=== PATIENT | male | born 1985 | race Caucasian/White ===

== ENCOUNTER 2017-06-04 10:35 | Emergency (ER) | payer BC, OTHER ==
[~2017-06-04] VITALS: Ht 177.8 cm; Wt 115.2 kg
[2017-06-04 10:50] VITALS: TEMP 36.8; Ht 177.8 cm; Wt 115.2 kg
[2017-06-04 11:34] VITALS: BP 159/106; PULSE 108; O2SAT 97
[2017-06-04] MEDS ORDERED: PRLSR20 PO (11:34)
--- NOTE | 2017-06-04 13:45 | EMERGENCY ROOM VISIT NOTE ---
History First contact with patient: 11:10 Chief Complaint: NOSE BLEED (MINOR) Stated Complaint: NOSE BLEED History of Present Illness The patient is a 31 year old male who presents to the Emergency Room with complaints of a nosebleed from the right nostril. The patient reports that he has noticed blood in mucus after blowing his nose since yesterday. He denies any recent upper respiratory infection, sinus congestion, sore throat or postnasal drip. The patient has hot water heat in his house. He denies prior history of nosebleeds. Denies any recent trauma to the nose. He currently denies any active bleeding. Review of Systems 10 system review was performed and was negative except for pertinent positives and negatives as indicated in history of present illness Past Medical/Surgical History Medical Problems: (1) Asthma (2) Diaphragmatic Hernia (3) GERD (gastroesophageal reflux disease) (4) Hypertension (5) Pneumonia, Organism Nos Surgical Problems: (1) No history of previous surgery Family History FH: heart disease FH: hypertension Social History Smoking Status: Current Every Day Smoker Alcohol Use: occasionally Marital Status: single Housing Status: lives with family Occupation Status: employed Current/Historical Medications Scheduled Omeprazole (Prilosec), 20 MG PO DAILY Physical Exam Vital Signs Date Time Temp Pulse Resp B/P (MAP) Pulse Ox O2 Delivery O2 Flow Rate FiO2 06/04/17 11:34 108 20 159/106 97 06/04/17 10:50 36.8 112 17 175/113 98 Room Air Physical Exam CONSTITUTIONAL: Healthy and well nourished. Alert and oriented X 3 with positive affect. HEENT: Normocephalic, atraumatic. Pupils equal, round and reactive. Examination of the ears does not show any TM bulging or air-fluid levels. Left nares are clear except for a very prominent Kiesselbach plexus. Examination of the right nostril shows evidence for bleeding from the Kiesselbach plexus with no additional proximal bleeding or unusual masses. No mucopurulent drainage. No tenderness to palpation or percussion of the frontal or maxillary sinuses. OROPHARYNX: No postnasal bleed or erythema noted. NECK: Full active range of motion without discomfort. RESPIRATORY: Clear to auscultation bilaterally with no wheezing, crackles, rhonchi or stridor. CARDIOVASCULAR: Regular rate and rhythm with no murmurs, rubs or gallops. INTEGUMENTARY: No rash or other significant dermatologic conditions noted. NEUROLOGIC: No focal neurologic deficits noted. Medical Decision & Procedures ED Course Patient history and physical exam were performed. Nurse's notes were reviewed. Vital signs were reviewed, showing a blood pressure 175/113. Examination shows an anterior epistaxis that is currently not bleeding. I explained to the patient that this is likely secondary to the dry air in his home. He was encouraged to use [place] nasal sprays to keep mucous membranes moist. He may also want to investigate in a humidifier. The patient was encouraged to administer and Afrin spray in the right nostril every 8 hours for the next 48 hours. If the patient has any persistent bleeding, he was instructed to administer 2 Afrin sprays followed by continuous direct pressure for 30 minutes. A nasal clamp was provided. He may return to the emergency department for any uncontrollable bleeding. The patient was happy with plan of care, and voiced understanding of all discharge instructions. Prior to discharge, the patient's blood pressure was rechecked and was found to be 159/106. Patient was instructed to follow-up with his PCP for a blood pressure recheck. He reports that he currently does not take medicines for his blood pressure, but his PCP has discussed this with him in the past. Medical Decision Medication Reconcilliation Current Medication List: was personally reviewed by me Blood Pressure Screening Patient's blood pressure: Elevated blood pressure Blood pressure disposition: Referred to PCP Impression Primary Impression: Epistaxis Additional Impression: Elevated blood pressure reading Departure Information Dispostion Home / Self-Care Condition GOOD Referrals Robbie Carson M.D. No Doctor, Assigned (PCP) Forms HOME CARE DOCUMENTATION FORM, IMPORTANT VISIT INFORMATION Patient Instructions My [facility], ED Nosebleed Additional Instructions Administer a spray of Afrin in the right nostril every 8 hours for the next 48 hours. Also use [place] nasal sprays to keep mucous membranes moist. If bleeding reoccurs, administer 2 Afrin sprays and apply CONTINUOUS direct pressure for 30 minutes. Return to the Emergency Department for uncontrollable bleeding. Follow-up with your family doctor as needed with any persistent nosebleeds. Your blood pressure was also elevated in the emergency department (175/113). Follow-up with your family doctor for blood pressure recheck. Problem Qualifiers
== END 2017-06-04 11:37 | disposition home or self-care (01) ==
LOC: C.EDB 10:36 → C.EDD 11:37
DX: R04.0 Epistaxis (principal); R03.0 Elevated blood-pressure reading, without diagnosis of hypertension; I10 Essential (primary) hypertension; K21.9 Gastro-esophageal reflux disease without esophagitis; J45.909 Unspecified asthma, uncomplicated; F17.200 Nicotine dependence, unspecified, uncomplicated; Z87.01 Personal history of pneumonia (recurrent); Z79.899 Other long term (current) drug therapy; Z82.49 Family history of ischemic heart disease and other diseases of the circulatory system

== ENCOUNTER 2018-01-18 12:10 | Emergency (ER) | payer BC ==
[~2018-01-18] VITALS: Ht 177.8 cm; Wt 101.0 kg
[~2018-01-18 12:10] MED LIST: PRLSR20 PO
[2018-01-18 12:31] VITALS: TEMP 36.7; Ht 177.8 cm; Wt 101.0 kg
[2018-01-18] MEDS ORDERED: HYDROCORTISONE HC 2.5% CRM 30GM TUBE EXT STA (13:42)
--- NOTE | 2018-01-18 13:53 | EMERGENCY ROOM VISIT NOTE ---
ED Visit Note First contact with patient: 13:11 CHIEF COMPLAINT: Rectal bleeding HISTORY OF PRESENT ILLNESS: This 32-year-old patient presents to the emergency department, ambulatory, complaining of rectal bleeding for the past 2 days. Patient states he was constipated earlier this week, and Monday morning had to strain to move his bowels. 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 The patient states he was feeling better Monday, however this morning upon awakening noticed blood in his underwear. He denies any bloody stools. He states he cleaned himself up this morning and laid back down, then when he got up again noticed he was continuing to bleed. The patient has had normal bowel movements the past 2 days. He denies any hematochezia or abdominal pain. He denies any lightheadedness or dizziness. Denies any palpitations or dyspnea. Patient denies any headache. He states he had some mild pain last night with a bowel movement, but denies any ongoing straining. The patient has taken no medications for his pain or bleeding. REVIEW OF SYSTEMS: A 10 system review of systems was performed with positives and pertinent negatives listed in the history of present illness. All other systems were reviewed and are negative. ALLERGIES: Ibuprofen MEDICATIONS: Prilosec PMH: None SOCIAL HISTORY: The patient lives locally with family. He denies drug, alcohol use. The patient admits to smoking cigarettes. PHYSICAL EXAM: VITALS: Vitals are noted on the nurse's note and reviewed by myself. Vital signs stable. GENERAL: This is a 32-year-old white male, in no acute distress, nondiaphoretic , well-developed well-nourished. SKIN: The skin was without rashes, erythema, edema, or bruising. There is no tenting of the skin. Capillary reflex less than 2 seconds. HEAD: Normocephalic atraumatic. EARS: External auditory canals clear, tympanic membranes pearly che without erythema or effusion bilaterally. EYES: Pupils equal round and reactive to light and accommodation. Conjunctivae without injection, sclerae without icterus. Extraocular movements intact. NOSE: Patent, turbinates without inflammation or discharge. No sinus tenderness. MOUTH: Mucous membranes moist. Tonsils are not enlarged. Pharynx without erythema or exudate. Uvula midline. Airway patent. Tongue does not deviate. NECK: Supple without nuchal rigidity. No lymphadenopathy. No thyromegaly. Cervical spine is nontender. No JVD. HEART: Regular rate and rhythm without murmurs gallops or rubs. LUNGS: Clear to auscultation bilaterally without wheezes, rales or rhonchi. No dullness to percussion. No retractions or accessory muscle use. ABDOMEN: Positive bowel sounds x 4. Normal tympanic percussion. Soft, nontender, without masses or organomegaly. Ramirez sign negative. No guarding or rebound tenderness. RECTAL - No rectal fissures. No skin tags appreciated. No active bleeding. There is a thrombosed external hemorrhoid noted at the 9 o'clock position. A sterile, water-soluble lubricant was applied to the examiner's finger prior to internal exam. Mild rectal vault tenderness. No obvious rectal masses. no fecal impaction. Stool Guaiac Test: Hemoccult positive. MUSCULOSKELETAL: No muscle atrophy, erythema, or edema noted. Full range of motion without joint tenderness in all extremities. No tenderness to palpation. Normal gait. Strength 5/5 throughout. NEURO: Patient was alert and oriented to person place and time. Normal sensation to light and sharp touch. Deep tendon reflexes 2+ throughout. No focal neurological deficits. EMERGENCY DEPARTMENT COURSE: The patient was seen and evaluated as above. I discussed with him options for treatment of the hemorrhoid including excision versus treatment with medications. The patient states he prefers to avoid any sort of procedure at this time, as his symptoms are improving. He states he is concerned due to the social factor of rectal bleeding and noticing blood on his pants. I offered him a work note, and he was appreciative of this. The patient was encouraged to use the Proctosol as directed on the hemorrhoid and follow-up on Monday with his PCP. The patient was provided with a work note, and encouraged to return to the emergency department or follow-up with a general surgeon for any worsening symptoms. All questions answered to patient' s satisfaction prior to discharge. The patient was in agreement with the assessment and plan. Discharge instructions reviewed, patient was discharged home in good condition. I attest that I have personally reviewed the patient's current medication list. Patient was found to have normal blood pressure on screening and does not require follow-up. Differential diagnosis includes thrombosed hemorrhoid, external hemorrhoid, internal hemorrhoid, anal fissures, GI bleed, malignancy, and others DIAGNOSIS: Hemorrhoid The chart was completed utilizing [employer] Speech voice recognition software. Grammatical errors, random word insertions, pronoun errors, and incomplete sentences are an occasional consequence of this system due to software limitations, ambient noise, and hardware issues. Any formal questions or concerns about the content, text, or information contained within the body of this dictation should be directly addressed to the provider for clarification. Current/Historical Medications Scheduled Omeprazole (Prilosec), 20 MG PO DAILY Allergies Coded Allergies: Ibuprofen (Unverified Allergy, Unknown, ., 06/04/17) Vital Signs Date Time Temp Pulse Resp B/P (MAP) Pulse Ox O2 Delivery O2 Flow Rate FiO2 01/18/18 14:04 87 20 143/97 98 01/18/18 12:31 36.7 117 20 149/101 97 Room Air Departure Information Impression Primary Impression: Hemorrhoid Dispostion Home / Self-Care Condition GOOD Referrals No Doctor, Assigned (PCP) Jaimie Willard MD Patient Instructions ED Hemorrhoids, [facility] Additional Instructions You were seen in the emergency department today for rectal hemorrhoids. Use Proctosol as prescribed 2-4 times per day, preferably after bowel movements. You should drink plenty of fluids and stay well hydrated as this can help soften your stool. Increasing your fiber intake can help with frequency and consistency of your stools. Fruits, vegetables, and whole grains are all good sources of dietary fibers. In addition, you might consider adding supplemental fiber to your diet as well (i.e. Benefiber, Fiber Choice, Metamucil). You may consider taking a stool softener until the hemorrhoid improves. Return to the Emergency Department if your current symptoms worsen despite treatment course outlined above, or if you develop any of the following symptoms : worsening abdominal pain, large amount of blood in the stool, black or tarry stools, fevers, chills, or uncontrollable vomiting. Problem Qualifiers Primary Impression: Hemorrhoid Hemorrhoid type: unspecified Qualified Codes: K64.9 - Unspecified hemorrhoids
[2018-01-18 14:04] VITALS: BP 143/97; PULSE 87; O2SAT 98
== END 2018-01-18 14:05 | disposition home or self-care (01) ==
LOC: C.EDB 12:11 → C.EDD 14:05
DX: K64.9 Unspecified hemorrhoids (principal); Z79.899 Other long term (current) drug therapy; Z88.6 Allergy status to analgesic agent; F17.200 Nicotine dependence, unspecified, uncomplicated

== ENCOUNTER 2020-04-12 10:26 | Inpatient (IN) ==
[2020-04-12] MEDS ORDERED: LORazepam 1 MG/2 ML VIAL IV STA ×2 (10:58→12:22)
[2020-04-12] MEDS ORDERED: FAMOTIDINE 20MG IV PUSH 20 MG/5 ML SYR IV STA (10:58)
[2020-04-12] MEDS ORDERED: SODIUM CHLORIDE 0.9% 1000ML 1,000 ML IV SCH (11:00)
[2020-04-12 11:40] LABS: Alanine Aminotransferase 101 U/L (12-78); Albumin Level 3.5 gm/dl (3.4-5.0); Aspartate Aminotransferase 107 U/L (15-37); BUN Creatinine Ratio 6.3 (10-20); Blood Urea Nitrogen 4 mg/dl (7-18); Calcium 8.7 mg/dl (8.5-10.1); Carbon Dioxide 23 mmol/L (21-32); Chloride 102 mmol/L (98-107); Creatinine Clr Calc Pharmacy 187.1 ml/min; Est GFR (Non-African American) 128.5; Glucose 99 mg/dl (70-99); Lipase 1342 U/L (73-393); Magnesium 1.3 mg/dl (1.8-2.4); Potassium 3.2 mmol/L (3.5-5.1); Sodium 139 mmol/L (136-145)
--- NOTE | 2020-04-12 11:44 | CT Scan Report ---
CERVICAL SPINE CT CT DOSE: 997.55 mGy.cm HISTORY: Tingling and numbness in hands and feet. fall, prior surgery TECHNIQUE: Multiaxial CT images of the cervical spine were performed and reformatted in the sagittal and coronal plane without the use of contrast. A dose lowering technique was utilized adhering to th e principles of ALARA. COMPARISON: None. FINDINGS: No acute fracture or subluxation within the cervical spine. Large anterior osteophytes at C 4-C5 are noted. There are flowing anterior osteophytes seen throughout the majority of the cervical s pine. Posterior fusion from the occiput through C3 with posterior screws and rods. The hardware appea rs intact. Widening at the C1-C2 interval is likely chronic as the C1-C2 articulations appear fused. There is also fusion of the bilateral C2 C3-C4 and C5-C7 facets. Prevertebral soft tissues are intact . Posterior decompression at the C1-C2 level. No significant central canal narrowing by CT technique. No pneumothorax. IMPRESSION: 1. No acute fractures within the cervical spine. 2. Postoperative changes within the upper cervical spine as described above. The hardware appears int act. ACT 112: Negative or not required by law. Electronically signed by: Pankaj Reed M.D. 04/12/2020 11:43 AM
--- NOTE | 2020-04-12 11:46 | CT Scan Report ---
HEAD CT NONCONTRAST CT DOSE: HISTORY: Weakness. Fall. TECHNIQUE: Multiaxial CT images of the head were performed without the use of intravenous contrast. A utomated exposure control was utilized for this study. A dose lowering technique was utilized adheri ng to the principles of ALARA. Comparison: None. Findings: A few partially opacified ethmoid air cells. The mastoid air cells are clear. Posterior fus ion at the occiput and extending into the upper cervical spine. This is only partially imaged on this study. The calvarium and skull base are intact. The ventricles and sulci are within normal limits. T here is no mass, hematoma, midline shift, or acute infarct. Impression: No acute intracranial abnormality. ACT 112: Negative or not required by law. Electronically signed by: Pankaj Reed M.D. 04/12/2020 11:45 AM
--- NOTE | 2020-04-12 11:47 | XRay Report ---
XR chest 1V portable HISTORY: Atypical chest pain. COMPARISON: Chest 02/10/2019. FINDINGS: There are low lung volumes with mild elevation of the right hemidiaphragm, unchanged. The c ardiac silhouette remains top normal in size. No pleural effusions. No pneumothorax. The lungs are cl ear. IMPRESSION: No change in ACT 112: Negative or not required by law. Electronically signed by: Pankaj Reed M.D. 04/12/2020 11:46 AM
[2020-04-12 11:51] LABS: Albumin Globulin Ratio 0.9 (0.9-2); Alkaline Phosphatase 206 U/L (45-117); Bilirubin,Total 1.7 mg/dl (0.2-1); Globulin 4.1 gm/dl (2.5-4.0); Total Protein 7.6 gm/dl (6.4-8.2); Troponin I < 0.015 ng/ml (0-0.045)
[2020-04-12 11:59] LABS: Hematocrit (blood only) 42.5 % (42-52); Hemoglobin 14.6 g/dL (14.0-18.0); Mean Corpuscular Hemoglobin 35.5 pg (25-34); Mean Corpuscular Hgb Conc 34.4 g/dL (32-36); Mean Corpuscular Volume 103.4 fL (80-100); Platelet Count 79 K/uL (130-400); RDW Coefficient of Variation 14.2 % (11.5-14.5); RDW Standard Deviation 53.6 fL (36.4-46.3); Red Blood Count 4.11 M/uL (4.7-6.1)
[2020-04-12] MEDS ORDERED: MoRPHine SULFATE 4 MG/ML 1 ML CARP\\VIAL IV STA (11:59)
[2020-04-12 12:16] LABS: INR 1.1 (0.9-1.1); Prothrombin Time 11.9 Seconds (9.0-12.0)
[2020-04-12] MEDS ORDERED: POTASSIUM CHLORIDE / WTR 10 MEQ/100 ML PLCT IV ONE (12:22)
--- NOTE | 2020-04-12 12:23 | Emergency Department Note ---
Impression & Plan Acute alcoholic pancreatitis, Alcohol withdrawal, Hypomagnesemia, Hypokalemia, Multiple rib fractures, Fall ED Provider Note Provider: Feng Yao MD DATE OF SERVICE:04/12/2020 CHIEF COMPLAINT: Nausea, abdominal pain, tremulous, numbness HISTORY OF PRESENT ILLNESS: Patient is a 34-year-old gentleman history of hypertension, GERD, asthma presenting today stating that over the past 2 to 3 days has had some tingling in his bilateral hands and feet as well as tremors. Patient denies any shortness of breath does report some lower chest pain in the epigastrium of the abdomen. States he said some generalized nausea abdominal upset her last several days. Some abdominal discomfort may be for 5 days ago improved with laxatives on Monday. Denies any diarrhea. Denies urinary symptoms. Denies weakness in the lower extremity but states he has been stumbling a bit more. States he did fall onto his buttocks 1 time but did not strike his head. States he is occasionally seeing a few spots in his eyes in both eyes but no difficulty speaking and no focal weakness is reported. Patient states he has been drinking more since he lost his job last drink around midnight last night. 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 REVIEW OF SYSTEMS: A total of 10 review of systems was obtained and negative except as stated above in the HPI. PAST MEDICAL HISTORY: As noted above MEDICATIONS: Reviewed her medications with the patient SOCIAL HISTORY: Currently unemployed lost his job at [employer], regular alcohol use PHYSICAL EXAM: GENERAL: alert and oriented on the stretcher appears somewhat tremulous and mildly diaphoretic Head: normocephalic and atraumatic EYES: No injection, discharge or icterus. PERRL NECK: Trachea midline. Supple. ENT: Mucous membranes pink and moist. Pharynx without erythema or exudate. LUNGS: Airway patent. No retractions. Breath sounds clear HEART: Regular rate and rhythm. No chest wall tenderness ABDOMEN: Soft with some very mild diffuse tenderness. No masses appreciated. SKIN: Acyanotic, warm, mildly diaphoretic EXTREMITIES: Without swelling, tenderness or deformity NEUROLOGICAL: No aphasia. No facial droop or slurred speech. Normal strength and tone in the extremities. Sensation to gross touch normal but states he is a bit of paresthesia in the bilateral soles of his feet. EK beats minute sinus tachycardia. No PVC. No acute ST segment elevation noted. QTc 452. Some T wave inversions in lead III and V1 and V2. CONTINUOUS CARDIAC MONITORING: was ordered and showed a heart rate of 115 bpm in sinus tachycardia GCS 15. Patient's laboratory studies and imaging reviewed. Differential includes Infection, dehydration, metabolic abnormality, hypo/hyperglycemia, electrolyte disturbance, anemia, hypoxia, cardiac sources, intracerebral event, toxicologic, neurologic, as well as other pathologies. IMPRESSION/MEDICAL DECISION MAKING: Patient presents complaining of some upper abdominal comfort tremors and some slight spots in his eyes. Minor fall reported but did not strike his head. Given his history of alcohol usage though did complete a CT of the head and cervical spine. Is a history of cervical spine fusion previously. No significant tenderness on exam. States little bit of numbness in the bilateral soles of the feet but otherwise appears neuro intact. Doubt large territory CVA. CT the head and cervical spine without acute abnormality. Laboratory studies show hypokalemia, significant hypomagnesemia, and mild transaminase elevation of bili elevation. Lipase is elevated concern for pancreatitis with his history of alcohol use. Seems more tremulous and tachycardic and hypertensive and plastic was at midnight believe he may be experiencing some alcohol withdrawal. Given some Ativan initially as well some Zofran with mild symptom improvement. Later given additional Ativan, potassium, magnesium, morphine for pain control and CT of the chest and abdomen pelvis was obtained to exclude other acute intrathoracic or intra-abdominal pathology. EKG shows sinus tachycardia troponin is undetectable. PE was excluded with a CT scan. CT scan did note of the sixth left rib fracture as well as groundglass opacities in the base of the lungs. Covid testing will be completed to exclude this and I think is mainly alcoholic pancreatitis. No other acute findings were noted on the CT the abdomen pelvis without notable collection or significant infiltrative enhancement of the pancreas. Clinical symptoms however do fit. The patient requires admission given the tachycardia hypertension tremor for possible alcohol withdrawal as well as his electrolyte abnormalities and concern for pancreatitis. He was in agreement. Hospitalist was contacted. Patient later was some hospitalization more tremor and given additional IV Valium here with some improvement although he continues to have hallucinations. Hospitalist is aware. Covid test was negative. DIAGNOSIS: Alcoholic pancreatitis, alcohol withdrawal with delirium tremens, h ypomagnesemia, hypokalemia DISPOSITION: Hospitalist will evaluate Patient was agreeable with this plan. Critical Care I have personally spent 40 minutes of critical care time in the direct management of this patient. This includes bedside care, interpretation of diagnostic studies, and testing, discussion with consultants, patient, and family members, and other required patient management activities. These 40 minutes is in excess of all separately billable procedures. Past Med/Surg History Medical History (Updated 04/12/20 @ 12:54 by Feng Yao M.D.) Asthma Elevated blood pressure reading Epistaxis GERD (gastroesophageal reflux disease) Hypertension Surgical History (Updated 02/10/19 @ 00:55 by Jaxson Lyon) Hx of fusion of cervical spine Family History (Updated 02/10/19 @ 00:56 by Jaxson Lyon) Other No significant family history Social History (Updated 02/10/19 @ 00:56 by Jaxson Lyon) Smoking Status: Current every day smoker Cigarettes Per Day: 1/4 cartridge per day; Hx Alcohol Use: Yes Hx Substance Use: No Preferred Language: German Communication Ability: Effective 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 Unverified 04/12/20 11:25 Home Meds Home Medications Medication Instructions Recorded Confirmed acetaminophen [Tylenol] 325 mg PO Q6H PRN 04/03/18 04/12/20 omeprazole 10 mg PO QAM 04/03/18 04/12/20 casanthranol-docusate sodium 1 cap PO DIRECTED PRN 04/12/20 04/12/20 [Laxative] Previous Rx's Medication Instructions Recorded cyclobenzaprine 10 mg PO TID PRN #15 tab 04/03/18 naproxen 500 mg PO BID PRN #20 tab 04/03/18 Results & Data (ED) Vital Signs Vital Signs - 24 hr 04/12/20 10:30 04/12/20 10:31 04/12/20 11:08 Temperature 36.9 C Temperature Source Oral Pulse Rate 111 H 111 H Pulse Rate [Right Finger] Pulse Rate from SpO2 Sensor Respiratory Rate 20 20 Respiratory Effort / Characteristics Respiratory Depth Respiratory Pattern Blood Pressure 176/110 H 176/110 H Blood Pressure [Left Arm] Blood Pressure Mean 118 132 Blood Pressure Mean [Left Arm] Blood Pressure Position [Left Arm] Pulse Oximetry 98 96 Oxygen Delivery Method Room Air Room Air Sepsis Recent Fever Within 48 Hours No Sepsis New/Unexplained Change in Mental Status No Sepsis Action Taken by Nursing No Action Required 04/12/20 11:11 04/12/20 11:23 04/12/20 11:27 Temperature Temperature Source Pulse Rate 115 H 110 H 117 H Pulse Rate [Right Finger] Pulse Rate from SpO2 Sensor 113 H 109 H 118 H Respiratory Rate 18 22 19 Respiratory Effort / Characteristics Respiratory Depth Respiratory Pattern Blood Pressure 150/104 H Blood Pressure [Left Arm] Blood Pressure Mean 117 Blood Pressure Mean [Left Arm] Blood Pressure Position [Left Arm] Pulse Oximetry 98 98 97 Oxygen Delivery Method Room Air Room Air Room Air Sepsis Recent Fever Within 48 Hours Sepsis New/Unexplained Change in Mental Status Sepsis Action Taken by Nursing 04/12/20 11:28 04/12/20 11:30 04/12/20 11:40 Temperature Temperature Source Pulse Rate 108 H 123 H Pulse Rate [Right Finger] 109 H Pulse Rate from SpO2 Sensor 110 H 121 H Respiratory Rate 18 17 19 Respiratory Effort / Characteristics Non-Labored Spontaneous Respiratory Depth Normal Respiratory Pattern Regular Blood Pressure Blood Pressure [Left Arm] 150/104 H Blood Pressure Mean Blood Pressure Mean [Left Arm] 119 Blood Pressure Position [Left Arm] Lying Pulse Oximetry 98 97 98 Oxygen Delivery Method Room Air Room Air Room Air Sepsis Recent Fever Within 48 Hours Sepsis New/Unexplained Change in Mental Status Sepsis Action Taken by Nursing 04/12/20 11:50 04/12/20 12:00 04/12/20 12:08 Temperature Temperature Source Pulse Rate 112 H 126 H 118 H Pulse Rate [Right Finger] Pulse Rate from SpO2 Sensor 116 H 124 H 117 H Respiratory Rate 26 H 25 H 23 Respiratory Effort / Characteristics Respiratory Depth Respiratory Pattern Blood Pressure 155/125 H Blood Pressure [Left Arm] Blood Pressure Mean 135 Blood Pressure Mean [Left Arm] Blood Pressure Position [Left Arm] Pulse Oximetry 98 98 98 Oxygen Delivery Method Room Air Room Air Room Air Sepsis Recent Fever Within 48 Hours Sepsis New/Unexplained Change in Mental Status Sepsis Action Taken by Nursing 04/12/20 12:09 04/12/20 12:10 04/12/20 12:35 Temperature Temperature Source Pulse Rate 127 H 129 H 100 H Pulse Rate [Right Finger] 126 H Pulse Rate from SpO2 Sensor 128 H 131 H 103 H Respiratory Rate 22 19 22 Respiratory Effort / Characteristics Respiratory Depth Respiratory Pattern Blood Pressure 141/107 H Blood Pressure [Left Arm] 141/107 H Blood Pressure Mean 113 Blood Pressure Mean [Left Arm] 118 Blood Pressure Position [Left Arm] Pulse Oximetry 97 97 98 Oxygen Delivery Method Room Air Room Air Room Air Sepsis Recent Fever Within 48 Hours Sepsis New/Unexplained Change in Mental Status Sepsis Action Taken by Nursing 04/12/20 12:40 04/12/20 12:42 04/12/20 12:50 Temperature Temperature Source Pulse Rate 123 H 119 H Pulse Rate [Right Finger] 128 H Pulse Rate from SpO2 Sensor 123 H 118 H Respiratory Rate 16 20 18 Respiratory Effort / Characteristics Non-Labored Spontaneous Respiratory Depth Normal Respiratory Pattern Regular Blood Pressure Blood Pressure [Left Arm] 141/107 H Blood Pressure Mean Blood Pressure Mean [Left Arm] 118 Blood Pressure Position [Left Arm] Lying Pulse Oximetry 98 97 96 Oxygen Delivery Method Room Air Room Air Room Air Sepsis Recent Fever Within 48 Hours Sepsis New/Unexplained Change in Mental Status Sepsis Action Taken by Nursing 04/12/20 13:00 04/12/20 13:10 04/12/20 13:20 Temperature Temperature Source Pulse Rate 117 H 110 H 130 H Pulse Rate [Right Finger] Pulse Rate from SpO2 Sensor 118 H 113 H 135 H Respiratory Rate 20 24 21 Respiratory Effort / Characteristics Respiratory Depth Respiratory Pattern Blood Pressure Blood Pressure [Left Arm] Blood Pressure Mean Blood Pressure Mean [Left Arm] Blood Pressure Position [Left Arm] Pulse Oximetry 97 98 97 Oxygen Delivery Method Room Air Room Air Room Air Sepsis Recent Fever Within 48 Hours Sepsis New/Unexplained Change in Mental Status Sepsis Action Taken by Nursing 04/12/20 13:30 Temperature Temperature Source Pulse Rate 119 H Pulse Rate [Right Finger] Pulse Rate from SpO2 Sensor Respiratory Rate 19 Respiratory Effort / Characteristics Respiratory Depth Respiratory Pattern Blood Pressure Blood Pressure [Left Arm] Blood Pressure Mean Blood Pressure Mean [Left Arm] Blood Pressure Position [Left Arm] Pulse Oximetry Oxygen Delivery Method Sepsis Recent Fever Within 48 Hours Sepsis New/Unexplained Change in Mental Status Sepsis Action Taken by Nursing Laboratory Data Result diagrams: 04/12/20 11:10 04/12/20 11:10 Lab Results 04/12/20 04/12/20 04/12/20 Range/Units 11:10 11:10 11:10 WBC 6.20 (4.8-10.8) K/uL RBC 4.11 L (4.7-6.1) M/uL Hgb 14.6 (14.0-18.0) g/dL Hct 42.5 (42-52) % MCV 103.4 H (80-100) fL MCH 35.5 H (25-34) pg MCHC 34.4 (32-36) g/dL RDW Std Deviation 53.6 H (36.4-46.3) fL RDW Coeff of Dianne 14.2 (11.5-14.5) % Plt Count 79 L (130-400) K/uL MPV 10.0 (7.4-10.4) fL Immature Gran % (Auto) 0.3 % Neut % (Auto) 66.2 % Lymph % (Auto) 16.9 % Mercer % (Auto) 16.1 % Eos % (Auto) 0.3 % Baso % (Auto) 0.2 % Neut # (Auto) 4.10 (1.4-6.5) K/uL Lymph # (Auto) 1.05 L (1.2-3.4) K/uL Mercer # (Auto) 1.00 H (0.11-0.59) K/uL Eos # (Auto) 0.02 (0-0.5) K/uL Baso # (Auto) 0.01 (0-0.2) K/uL Immature Gran # (Auto) 0.02 (0.00-0.02) K/uL Platelet Estimate Decreased L (Normal) PT Cancelled INR Cancelled Sodium 139 (136-145) mmol/L Potassium 3.2 L (3.5-5.1) mmol/L Chloride 102 (98-107) mmol/L Carbon Dioxide 23 (21-32) mmol/L Anion Gap 14.0 H (3-11) BUN 4 L (7-18) mg/dl Creatinine 0.62 (0.6-1.4) mg/dl Est Cr Clr Drug Dosing 187.1 ml/min Est GFR ( Amer) 149.0 Est GFR (Non-Af Amer) 128.5 BUN/Creatinine Ratio 6.3 L (10-20) Glucose 99 (70-99) mg/dl Calcium 8.7 (8.5-10.1) mg/dl Magnesium 1.3 L (1.8-2.4) mg/dl Total Bilirubin 1.7 H (0.2-1) mg/dl AST 107 H (15-37) U/L ALT 101 H (12-78) U/L Alkaline Phosphatase 206 H (45-117) U/L Troponin I < 0.015 (0-0.045) ng/ml Total Protein 7.6 (6.4-8.2) gm/dl Albumin 3.5 (3.4-5.0) gm/dl Globulin 4.1 H (2.5-4.0) gm/dl Albumin/Globulin Ratio 0.9 (0.9-2) Lipase 1342 H (73-393) U/L TSH 3.750 (0.300-4.500) uIu/ml COVID-19 Eval Order COVID-19 PCR (Negative) 04/12/20 04/12/20 04/12/20 Range/Units 11:49 13:28 13:28 WBC (4.8-10.8) K/uL RBC (4.7-6.1) M/uL Hgb (14.0-18.0) g/dL Hct (42-52) % MCV (80-100) fL MCH (25-34) pg MCHC (32-36) g/dL RDW Std Deviation (36.4-46.3) fL RDW Coeff of Dianne (11.5-14.5) % Plt Count (130-400) K/uL MPV (7.4-10.4) fL Immature Gran % (Auto) % Neut % (Auto) % Lymph % (Auto) % Mercer % (Auto) % Eos % (Auto) % Baso % (Auto) % Neut # (Auto) (1.4-6.5) K/uL Lymph # (Auto) (1.2-3.4) K/uL Mercer # (Auto) (0.11-0.59) K/uL Eos # (Auto) (0-0.5) K/uL Baso # (Auto) (0-0.2) K/uL Immature Gran # (Auto) (0.00-0.02) K/uL Platelet Estimate (Normal) PT 11.9 INR 1.1 Sodium (136-145) mmol/L Potassium (3.5-5.1) mmol/L Chloride (98-107) mmol/L Carbon Dioxide (21-32) mmol/L Anion Gap (3-11) BUN (7-18) mg/dl Creatinine (0.6-1.4) mg/dl Est Cr Clr Drug Dosing ml/min Est GFR ( Amer) Est GFR (Non-Af Amer) BUN/Creatinine Ratio (10-20) Glucose (70-99) mg/dl Calcium (8.5-10.1) mg/dl Magnesium (1.8-2.4) mg/dl Total Bilirubin (0.2-1) mg/dl AST (15-37) U/L ALT (12-78) U/L Alkaline Phosphatase (45-117) U/L Troponin I (0-0.045) ng/ml Total Protein (6.4-8.2) gm/dl Albumin (3.4-5.0) gm/dl Globulin (2.5-4.0) gm/dl Albumin/Globulin Ratio (0.9-2) Lipase (73-393) U/L TSH (0.300-4.500) uIu/ml COVID-19 Eval Order Covid19 Done at [facility] COVID-19 PCR NEGATIVE (Negative) Administered Medications Discontinued Medications Diazepam (Diazepam 5 Mg/Ml Inj 10ml Vial) 10 mg IV NOW STA Stop: 04/12/20 14:31 Last Admin: 04/12/20 14:37 Dose: 10 mg Documented by: [id number] Sodium Chloride (Nss 1000ml) 1,000 mls @ 999 mls/hr IV .Q1H1M SAM Stop: 04/12/20 12:00 Last Infusion: 04/12/20 12:40 Dose: 0 mls/hr Documented by: [id number] Admin: 04/12/20 11:27 Dose: 999 mls/hr Documented by: [id number] Famotidine (Pepcid 20mg Iv Push) 20 mg in 5 mls @ 2.5 mls/min IV NOW STA Stop: 04/12/20 10:59 Last Admin: 04/12/20 11:26 Dose: 2.5 mls/min Documented by: [id number] Lorazepam (Ativan) 1 mg in 2 mls @ 2 mls/min IV NOW STA Stop: 04/12/20 10:59 Last Admin: 04/12/20 11:26 Dose: 2 mls/min Documented by: [id number] Magnesium Sulfate/Dextrose (Magnesium Sulfate / D5w) 1 gm in 100 mls @ 200 mls/hr IV Q30M SAM Stop: 04/12/20 13:16 Last Infusion: 04/12/20 13:57 Dose: 0 mls/hr Documented by: [id number] Admin: 04/12/20 13:27 Dose: 200 mls/hr Documented by: [id number] Infusion: 04/12/20 13:21 Dose: 0 mls/hr Documented by: [id number] Admin: 04/12/20 12:41 Dose: 200 mls/hr Documented by: [id number] Potassium Chloride (K Mac / Wtr) 10 meq in 100 mls @ 100 mls/hr IV ONE ONE Stop: 04/12/20 13:21 Last Infusion: 04/12/20 13:56 Dose: 0 mls/hr Documented by: [id number] Admin: 04/12/20 12:41 Dose: 100 mls/hr Documented by: [id number] Lorazepam (Ativan) 1 mg in 2 mls @ 2 mls/min IV NOW STA Stop: 04/12/20 12:23 Last Admin: 04/12/20 13:27 Dose: 2 mls/min Documented by: [id number] Multivitamins 10 ml/ Thiamine HCl 100 mg/ Folic Acid 1 mg/Sodium Chloride 1,011.2 mls @ 1,011.2 mls/hr IV .Q1H ONE Stop: 04/12/20 14:02 Last Infusion: 04/12/20 14:41 Dose: 0 mls/hr Documented by: [id number] Admin: 04/12/20 13:27 Dose: 1,011.2 mls/hr Documented by: [id number] Ioversol (Optiray 320 125ml) 120 ml IV ONCE ONE Stop: 04/12/20 12:30 Last Admin: 04/12/20 12:29 Dose: 120 ml Documented by: [id number] Morphine Sulfate (Morphine Sulfate 4 Mg/Ml 1 Ml Carp\Vial) 4 mg IV NOW STA Stop: 04/12/20 12:00 Last Admin: 04/12/20 12:11 Dose: 4 mg Documented by: [id number] Discharge Plan Visit Data Chief Complaint: Anxiety Stated Complaint: abd pain ED Provider: Feng Yao Discharge Problem: Acute alcoholic pancreatitis, Alcohol withdrawal, Hypomagnesemia, Hypokalemia, Multiple rib fractures, Fall Patient Disposition: Admitted As Inpatient Discharge Instructions Interventions: ED Discharge Assessment Last Done: 04/12/20 16:10 Discharge Problem: Acute alcoholic pancreatitis Qualifiers: Acute pancreatitis complication: no infection or necrosis Qualified Code(s): K85.20 - Alcohol induced acute pancreatitis without necrosis or infection Alcohol withdrawal Qualifiers: Complication of substance-induced condition: uncomplicated Qualified Code(s): F10.230 - Alcohol dependence with withdrawal, uncomplicated Multiple rib fractures Qualifiers: Encounter type: initial encounter Fracture type: closed Laterality: left Qualified Code(s): S22.42XA - Multiple fractures of ribs, left side, initial encounter for closed fracture Fall Qualifiers: Encounter type: initial encounter Qualified Code(s): W19.XXXA - Unspecified fall, initial encounter
[2020-04-12] MEDS ORDERED: OPTIRAY 320 125ml IV ONE (12:29)
[2020-04-12 12:39] LABS: Basophils # (auto) 0.01 K/uL (0-0.2); Basophils % (auto) 0.2 %; Eosinophils # (auto) 0.02 K/uL (0-0.5); Eosinophils % (auto) 0.3 %; Immature Granulocytes # (auto) 0.02 K/uL (0.00-0.02); Immature Granulocytes % (auto) 0.3 %; Lymphocytes # (auto) 1.05 K/uL (1.2-3.4); Lymphocytes % (auto) 16.9 %; Monocytes % (auto) 16.1 %; Neutrophils % (auto) 66.2 %; Platelet Estimate Decreased (Normal)
[2020-04-12] MEDS: MAGNESIUM SULFATE / D5W 1 GM/100 ML BAG IV SCH ×2 (12:41→13:27)
--- NOTE | 2020-04-12 12:41 | CT Scan Report ---
CHEST CTA for PULMONARY ARTERIES CT DOSE: 1165.82 mGy.cm HISTORY: Atypical chest pain. Shortness of breath. TECHNIQUE: Multiaxial CT images of the chest were performed following the intravenous administration of contrast to evaluate the pulmonary arteries. Maximal intensity projection images were also obtaine d. A dose lowering technique was utilized adhering to the principles of ALARA. COMPARISON STUDY: Chest CTA 02/10/2019. FINDINGS: Normal caliber thoracic aorta with no evidence for dissection. The heart is normal in size. No pleural or pericardial effusions. No filling defects within the pulmonary arteries to suggest pul monary embolus. No mediastinal or hilar lymphadenopathy. Normal caliber esophagus. Acute to subacute left anterior fifth and sixth rib fractures. These are nondisplaced. No pneumothorax. The central air ways are patent. There are faint groundglass density seen within the bases of the bilateral lower lob es. This suggests a low-grade pneumonitis and could be due to a viral process. IMPRESSION: 1. No evidence for pulmonary embolus. 2. Acute to subacute left anterior fifth and sixth rib fractures. No pneumothorax. 3. Faint groundglass density seen within the base of the bilateral lower lobes. This suggests a low-g rade pneumonitis and could be due to a viral process. 4. Please refer to the same day abdomen and pelvis CT for further evaluation of the abdominal structu res. ACT 112: Negative or not required by law. Electronically signed by: Pankaj Reed M.D. 04/12/2020 12:39 PM
--- NOTE | 2020-04-12 12:46 | CT Scan Report ---
ABDOMEN AND PELVIS CT WITH IV CONTRAST CT DOSE: HISTORY: elevated lipase, upper abd pain, nausea TECHNIQUE: Multiaxial CT images of the abdomen and pelvis were performed following the use of intrave nous contrast. A dose lowering technique was utilized adhering to the principles of ALARA. COMPARISON STUDY: None. FINDINGS: Faint groundglass densities are noted at the lung bases. No pneumoperitoneum. No pneumatosi s. The bilateral sacroiliac joints are fused. Severe hepatic steatosis. Normal gallbladder. The main portal vein is patent. The spleen, adrenal glands, and kidneys are within normal limits. The pancreas enhances normally. No peripancreatic inflammatory change. No retroperitoneal lymphadenopathy. Normal caliber abdominal aorta. The bladder is unremarkable. No pelvic free fluid. No bowel wall thickening or obstruction. Normal appendix. Submucosal fat deposition seen within the ileum and proximal colon. This suggests chronic change. A few fluid-filled loops of small bowel within the midabdomen. No chao sition point to suggest an obstruction. IMPRESSION: 1. No bowel wall thickening or obstruction. 2. Normal appendix. 3. Severe hepatic steatosis. 4. The bilateral sacroiliac joints are fused. 5. Please refer to the same day chest CT for further evaluation of the lung bases. ACT 112: Negative or not required by law. Electronically signed by: Pankaj Reed M.D. 04/12/2020 12:45 PM
[2020-04-12] MEDS ORDERED: MULTI-VITAMIN INFUSION 10 ML, THIAMINE HCL 100 MG, FOLIC ACID 1 MG in SODIUM CHLORIDE 0... IV ONE (13:03)
[2020-04-12 14:08] LABS: Appearance Urine Clear (Clear); Bilirubin Urine Negative (Negative); Blood Urine Trace (Negative); Color Urine Yellow; Glucose Urine UA Negative (Negative); Ketones Urine Trace (Negative); Leukocyte Esterase Urine Negative (Negative); Nitrite Urine Negative (Negative); Protein Urine Negative (Negative); Urobilinogen Urine Negative (Negative)
[2020-04-12 14:23] LABS: Bacteria Urine Negative (Negative)
[2020-04-12] MEDS ORDERED: ACETAMINOPHEN 325 MG TAB PO PRN (16:28)
[2020-04-12] MEDS ORDERED: LORazepam 3 MG/6 ML VIAL IV PRN (16:28)
[2020-04-12] MEDS ORDERED: LORazepam 0.5 MG/1 ML VIAL IV PRN (16:28)
[2020-04-12] MEDS ORDERED: ATIVAN IV ALCOHOL WITHDRAWL IV PRN (16:28)
[2020-04-12] MEDS ORDERED: chlordiazePOXIDE ALCOHOL WITHDRAWL 25MG PO STA (16:28)
[2020-04-12] MEDS ORDERED: traMADol HCL 50 MG TABLET PO PRN (16:28)
[2020-04-12] MEDS ORDERED: LORazepam 2 MG/4 ML VIAL ONE (16:32)
[2020-04-12] MEDS ORDERED: POTASSIUM CHLORIDE CRTAB 20 MEQ TABCR PO SCH (16:45)
[2020-04-12] MEDS: LACTATED RINGER'S 1,000 ML IV SCH ×3 (16:47→23:42)
[2020-04-12] MEDS ORDERED: chlordiazePOXIDE HCl 25 MG CAP PO SCH (17:00)
[2020-04-12] MEDS ORDERED: STAT IV Infusion **Titration per Protocol STA (17:20)
[2020-04-12] MEDS ORDERED: LORazepam 2 MG/4 ML VIAL IV STA (17:25)
[2020-04-12] MEDS: DEXMEDETOMIDINE HCL 200 MCG in SODIUM CHLORIDE 0.9% 48 ML IV SCH ×3 (17:29→22:49)
--- NOTE | 2020-04-12 18:22 | History & Physical Report ---
Date of Service April 12, 2020 Assessment & Plan (1) Acute alcoholic pancreatitis: 34-year-old male with history of alcoholism, hypertension, GERD, ankylosing spondylitis Presenting with bilateral lower extremity tingling sensation and tremors, abdominal pain since this morning. Acute pancreatitis likely secondary to alcoholism Lipase 1342 CT abdomen pelvis: No peripancreatic inflammatory change. 1. No bowel wall thickening or obstruction. 2. Normal appendix. 3. Severe hepatic steatosis. 4. The bilateral sacroiliac joints are fused. 5. Please refer to the same day chest CT for further evaluation of the lung bases. N.p.o., LR at 250 cc/hr, replace and monitor electrolytes, GI consulted Delirium tremens, alcoholism Patient reports last drink was last night Drinks shots of vodka a day Alcohol level 30 Urine drug screen pending Patient's withdrawal symptoms escalating rapidly, transferred to ICU for Precedex initiation Alcohol withdrawal protocol ordered Will need to discuss regarding inpatient alcohol rehab once patient is clinically improved Left anterior rib fractures, fifth and sixth ribs S post mechanical fall Patient fell after losing his balance while trying to climb up steps CT head: No acute process CT abdomen pelvis: No injuries noted Incentive spirometry As needed analgesics held for now as patient is on a Precedex drip Hypokalemia and hypomagnesemia IV potassium and magnesium ordered Elevated LFTs Likely from alcoholism CT abdomen and pelvis:Severe hepatic steatosis. Normal gallbladder. The main portal vein is patent. Trend LFTs We will need close follow-up regarding severe hepatic steatosis Thrombocytopenia No signs of bleeding Likely from alcoholism History of hypertension Amlodipine listed on medication list but patient has not filled this since August 2019 Monitor GERD Usually on omeprazole Protonix IV daily DVT prophylaxis SCDs for now CODE STATUS Full code Disposition Lives at home with parents Discussion regarding inpatient alcohol rehab should be made Admission and Anticipated Discharge Date Admission Date: April 12, 2020 History of Present Illness Patient is a 34-year-old male with a history of alcoholism, hypertension, GERD, ankylosing spondylitis, degenerative disc disease Anxiety presenting with bilateral lower extremity tingling sensation abdominal pain which started this morning. Patient reports that he drinks 6 shots of vodka every day, last drink was last night. This morning patient started to have tingling sensation of bilateral lower extremities with some of tremors as well as epigastric abdominal pain. He also reports having an episode of fall yesterday and was feeling that his balance was off.. Patient was climbing up the steps when he lost his balance and landed on his chest. He has been having left-sided chest discomfort since that time. Denies shortness of breath, fevers or chills, cough, headache, dizziness. The ER, blood pressures 170/110, heart rate 111, saturating well on room air. Lipase found to be elevated at 1342. CT abdomen pelvis did not show any peripancreatic infiltration. Chest x-ray showing left inferior rib fractures of the fifth and sixth ribs. At the ER, patient was noted to be having tremors, shaking required doses of Ativan at 1 point, Valium 10 mg IV. Patient was seen and examined at room 241. Per RN, patient was having visual hallucinations earlier and was also being restless. On exam, the patient is awake, alert oriented x3, answers questions appropriately. The end of the exam, the patient was noted to be confused, trying to climb out of bed, and becoming combative with the staff. Shannan che was called. He was given 2 mg of IV Ativan, some improvement but again became combative and restless. Shannan che was again called, and he was given additional 2 mg of IV Ativan. I discussed the case with senior housekeeper on-call Dr. Canales for possible early delirium tremens, patient off Precedex drip. He was accepted to the ICU and was transferred promptly. Primary Care Provider: Geoffrey Burton DO Allergies Allergy/AdvReac Type Severity Reaction Status Date / Time ibuprofen Allergy Unknown . Unverified 04/12/20 11:25 Home Medications Home Medications Medication Instructions Recorded Confirmed Type acetaminophen [Tylenol] 325 mg PO Q6H PRN 04/03/18 04/12/20 History cyclobenzaprine 10 mg PO TID PRN #15 tab 04/03/18 04/12/20 Rx naproxen 500 mg PO BID PRN #20 tab 04/03/18 04/12/20 Rx omeprazole 10 mg PO QAM 04/03/18 04/12/20 History casanthranol-docusate sodium 1 cap PO DIRECTED PRN 04/12/20 04/12/20 History [Laxative] Past Med/Surg History Medical History (Updated 04/12/20 @ 12:54 by Feng Yao M.D.) Asthma Elevated blood pressure reading Epistaxis GERD (gastroesophageal reflux disease) Hypertension Surgical History (Updated 02/10/19 @ 00:55 by Jaxson Lyon) Hx of fusion of cervical spine Family History (Updated 02/10/19 @ 00:56 by Jaxson Lyon) Other No significant family history Social History (Updated 02/10/19 @ 00:56 by Jaxson Lyon) Smoking Status: Current every day smoker Cigarettes Per Day: 1/4 cartridge per day; Hx Alcohol Use: Yes Hx Substance Use: No Preferred Language: Korean Communication Ability: Effective Fountain Worker Required: No Beliefs That Will Affect Care: None Current Living Situation: Parent and Family Other Information That Helps Us Care for You: No Feels Safe at Home: Yes Safety Concerns: Feels Safe At This Time Assistive Devices: Glasses Review of Systems Review of Systems: All systems reviewed & are unremarkable except as noted in Subjective Physical Exam Physical Exam: General- oriented x 3--> then became agitated, confused, combative; not in distress, speaks in sentences with no effort or accessory muscle use Head- atraumatic Eyes- PERRL, EOMI, anicteric ENT- oropharynx clear Neck- supple, no JVD, no adenopathy, no thyromegaly; carotids +2/2, no bruits appreciated Lungs- clear to auscultation bilaterally, no rales/wheezes Heart- normal rate, regular rhythm; no murmur, no gallop, no rub appreciated Abdomen- normal bowel sounds, nondistended, soft, nontender, no masses or hepatosplenomegaly Extremities- no pretibial edema, no calf tenderness; peripheral pulses intact Positive tremors Neuro- alert, oriented x 3--> then became agitated, confused, combative; CN 2-12 grossly intact; motor 5/5 bilaterally;sensation 100% on all extremities; no other gross focal neurologic deficits Skin- warm & dry Results & Data Results & Data ([facility]) Vital Signs (Past 12 Hours) Vital Signs Temp Pulse Pulse Resp BP BP Pulse Ox 04/12/20 16:12 36.6 C 112 H 109/77 97 04/12/20 15:40 105 H 15 04/12/20 15:30 105 H 25 H 04/12/20 15:20 123 H 15 04/12/20 15:16 139 H 04/12/20 15:00 112 H 25 H 96 04/12/20 14:50 103 H 16 96 04/12/20 14:40 112 H 18 94 04/12/20 14:30 142 H 22 96 04/12/20 14:28 124 H 130 H 20 152/108 H 152/108 H 95 04/12/20 14:20 120 H 21 04/12/20 14:10 110 H 22 04/12/20 14:00 111 H 19 04/12/20 13:50 116 H 18 04/12/20 13:40 124 H 20 04/12/20 13:30 119 H 19 04/12/20 13:20 130 H 21 97 04/12/20 13:10 110 H 24 98 04/12/20 13:00 117 H 20 97 04/12/20 12:50 119 H 18 96 04/12/20 12:42 128 H 20 141/107 H 97 04/12/20 12:40 123 H 16 98 04/12/20 12:35 100 H 22 98 04/12/20 12:10 129 H 126 H 19 141/107 H 97 04/12/20 12:09 127 H 22 141/107 H 97 04/12/20 12:08 118 H 23 155/125 H 98 04/12/20 12:00 126 H 25 H 98 04/12/20 11:50 112 H 26 H 98 04/12/20 11:40 123 H 19 98 04/12/20 11:30 108 H 17 97 04/12/20 11:28 109 H 18 150/104 H 98 04/12/20 11:27 117 H 19 150/104 H 97 04/12/20 11:23 110 H 22 98 04/12/20 11:11 115 H 18 98 04/12/20 11:08 96 04/12/20 10:31 36.9 C 111 H 20 176/110 H 98 04/12/20 10:30 111 H 20 176/110 H Laboratory Results Laboratory Results - last 24 hr 04/12/20 04/12/20 04/12/20 11:10 11:10 11:10 WBC 6.20 RBC 4.11 L Hgb 14.6 Hct 42.5 MCV 103.4 H MCH 35.5 H MCHC 34.4 RDW Std Deviation 53.6 H RDW Coeff of Dianne 14.2 Plt Count 79 L MPV 10.0 Immature Gran % (Auto) 0.3 Neut % (Auto) 66.2 Lymph % (Auto) 16.9 [place] % (Auto) 16.1 Eos % (Auto) 0.3 Baso % (Auto) 0.2 Neut # (Auto) 4.10 Lymph # (Auto) 1.05 L [place] # (Auto) 1.00 H Eos # (Auto) 0.02 Baso # (Auto) 0.01 Immature Gran # (Auto) 0.02 Platelet Estimate Decreased L PT Cancelled INR Cancelled Sodium 139 Potassium 3.2 L Chloride 102 Carbon Dioxide 23 Anion Gap 14.0 H BUN 4 L Creatinine 0.62 Est Cr Clr Drug Dosing 187.1 Est GFR ( Amer) 149.0 Est GFR (Non-Af Amer) 128.5 BUN/Creatinine Ratio 6.3 L Glucose 99 Calcium 8.7 Magnesium 1.3 L Total Bilirubin 1.7 H AST 107 H ALT 101 H Alkaline Phosphatase 206 H Troponin I < 0.015 Total Protein 7.6 Albumin 3.5 Globulin 4.1 H Albumin/Globulin Ratio 0.9 Lipase 1342 H Procalcitonin TSH 3.750 Urine Color Urine Appearance Urine pH Ur Specific [place] Urine Protein Urine Glucose (UA) Urine Ketones Urine Blood Urine Nitrite Urine Bilirubin Urine Urobilinogen Ur Leukocyte Esterase Urine RBC Urine WBC Ur Epithelial Cells Urine Bacteria Ethyl Alcohol mg/dL COVID-19 Eval Order COVID-19 PCR 04/12/20 04/12/20 04/12/20 11:10 11:49 13:28 WBC RBC Hgb Hct MCV MCH MCHC RDW Std Deviation RDW Coeff of Dianne Plt Count MPV Immature Gran % (Auto) Neut % (Auto) Lymph % (Auto) [place] % (Auto) Eos % (Auto) Baso % (Auto) Neut # (Auto) Lymph # (Auto) [place] # (Auto) Eos # (Auto) Baso # (Auto) Immature Gran # (Auto) Platelet Estimate PT 11.9 INR 1.1 Sodium Potassium Chloride Carbon Dioxide Anion Gap BUN Creatinine Est Cr Clr Drug Dosing Est GFR ( Amer) Est GFR (Non-Af Amer) BUN/Creatinine Ratio Glucose Calcium Magnesium Total Bilirubin AST ALT Alkaline Phosphatase Troponin I Total Protein Albumin Globulin Albumin/Globulin Ratio Lipase Procalcitonin 0.10 TSH Urine Color Urine Appearance Urine pH Ur Specific [place] Urine Protein Urine Glucose (UA) Urine Ketones Urine Blood Urine Nitrite Urine Bilirubin Urine Urobilinogen Ur Leukocyte Esterase Urine RBC Urine WBC Ur Epithelial Cells Urine Bacteria Ethyl Alcohol mg/dL COVID-19 Eval Order Covid19 Done at [facility] COVID-19 PCR 04/12/20 04/12/20 04/12/20 13:28 13:33 13:49 WBC RBC Hgb Hct MCV MCH MCHC RDW Std Deviation RDW Coeff of Dianne Plt Count MPV Immature Gran % (Auto) Neut % (Auto) Lymph % (Auto) [place] % (Auto) Eos % (Auto) Baso % (Auto) Neut # (Auto) Lymph # (Auto) [place] # (Auto) Eos # (Auto) Baso # (Auto) Immature Gran # (Auto) Platelet Estimate PT INR Sodium Potassium Chloride Carbon Dioxide Anion Gap BUN Creatinine Est Cr Clr Drug Dosing Est GFR ( Amer) Est GFR (Non-Af Amer) BUN/Creatinine Ratio Glucose Calcium Magnesium Total Bilirubin AST ALT Alkaline Phosphatase Troponin I Total Protein Albumin Globulin Albumin/Globulin Ratio Lipase Procalcitonin TSH Urine Color Yellow Urine Appearance Clear Urine pH 7.0 Ur Specific [place] 1.010 Urine Protein Negative Urine Glucose (UA) Negative Urine Ketones Trace H Urine Blood Trace H Urine Nitrite Negative Urine Bilirubin Negative Urine Urobilinogen Negative Ur Leukocyte Esterase Negative Urine RBC 10-30 H Urine WBC 5-10 H Ur Epithelial Cells 5-10 H Urine Bacteria Negative Ethyl Alcohol mg/dL 30.0 H COVID-19 Eval Order COVID-19 PCR NEGATIVE Code Status & VTE Plan Code Status Full COde VTE Prophylaxis Plan VTE Prophylaxis will be ordered: Yes (1) Acute alcoholic pancreatitis Acute pancreatitis complication: no infection or necrosis Qualified Code(s): K85.20 - Alcohol induced acute pancreatitis without necrosis or infection
[2020-04-12] MEDS ORDERED: Nursing to Pharmacy Communication SCH (18:45)
[2020-04-12] MEDS: THIAMINE HCL 100 MG in SYRINGE 9 ML IV SCH (19:26)
[2020-04-12] MEDS: FOLIC ACID 1 MG in SYRINGE 9.8 ML IV SCH (19:26)
[2020-04-12] MEDS: MAGNESIUM OXIDE 400 MG TAB PO SCH ×2 (19:27→20:19)
--- NOTE | 2020-04-12 19:30 | Critical Care Consultation ---
Date of Consultation April 12, 2020 Assessment & Plan (1) Delirium tremens: Reason Critically Ill: 34-year-old male admitted with alcoholic pancreatitis and alcohol withdrawals, now has progressed to delirium tremens requiring management with Precedex drip Neuro - Alcohol withdrawal/EtOH abuse/delirium tremenspatient with reported 6 shots of vodka daily alcohol use, now without alcohol for nearly 24 hours -EtOH level and the ED was 35 -CT head unremarkable -Patient has progressed from early signs of alcohol withdrawal with tremors and mild confusion to DTs and acute psychosis -Agitation and symptoms now improved with addition of Precedex drip, will continue KATHLEEN S scale with as needed Ativan in addition with scheduled IV Ativan as monotherapy with Precedex would not be recommended -Continue thiamine, folic acid regimen -We will continue to manage in ICU for the time being until patient is no longer requiring Precedex drip Cardiac - History of hypertension, no home meds on pharmacy rec -Currently normotensive, monitor Normal sinus rhythm on monitor, EKG unremarkable, troponin negative We will continue to monitor on telemetry Respiratory - No history of pulmonary disease, did present with complaints of chest pain following a fall a few days ago and was found to have left anterior rib fractures the fifth and sixth ribs -Currently there is no signs of respiratory distress and he is maintaining sats on room air -We will encourage incentive spirometry and ambulation once patient's DTs/neurological status has improved -Continue to monitor on pulse ox GI - Alcohol pancreatitispatient presented with elevated lipase of 1342 and complaints of abdominal pain -CT abdomen pelvis without peripancreatic inflammatory change, severe hepatic steatosis but otherwise unremarkable -LFTs are mildly elevated, will continue to trend hepatic function test and lipase GERDPPI RENAL/LYTES - Creatinine within normal limits Patient does present with hypokalemia and hypomagnesemia likely due to alcohol abuse/malnutrition -We will continue to monitor BMPs and replete as indicated - Foleystrict I's and O's ENDO - No history of diabetes or thyroid disease Currently euglycemic, ICU electrolyte protocol HEME - Thrombocytopeniaunsure of etiology at this time, but most likely secondary to bone marrow suppression from alcohol abuse -No signs of sepsis or infectious process, H&H is within normal limits, no leukocytosis or leukopenia -No signs of bleeding to indicate transfusion -We will continue to trend with routine CBCs for now ID - Currently no indication for infectious process at this time, monitor LINES/IV ACCESS - Peripheral IVs DVT PROPHYLAXIS - SCDs, Lovenox I have personally spent 35 minutes of critical care time in the direct management of this patient. This is a life/limb threatening event. This includes time spent evaluating patient, direct bedside care, chart review, placing orders, interpretation of diagnostic studies, discussion with consultants, patient, and family members, as well as other required patient management activities. This time is exclusive of all separately billable procedures, and teaching time and separate from and in addition to any other critical care service time. Thank you for allowing us to participate in the care of this patient. Please refer to my attending physician's documentation for any further recommendations. (2) Alcohol withdrawal: (3) Acute alcoholic pancreatitis: (4) Multiple rib fractures: (5) Thrombocytopenia: (6) GERD (gastroesophageal reflux disease): (7) Hypertension: History of Present Illness Attending Physician: Jordan Seals MD History of Present Illness alcohol abuse,Mr. Bhat is a 34-year-old male with history of HTN GERD, ankylosing spondylitis, and degenerative disc disease. Patient had presented to the emergency department earlier today with complaints of lower extremity tingling and abdominal pain that started early this morning. Patient was anxious and normally drinks they reported 6 shots of vodka every day with last drink previous night. He had elevated lipase however CT abdomen pelvis did not show any peripancreatic infiltration. Chest x-ray did reveal left anterior rib fractures of the fifth and sixth ribs. Patient showing symptoms of alcohol withdrawal and having tremors in the emergency department. This progressed to hallucinations and he became increasingly restless. He was given Ativan and admitted to PCU. At 1 point patient became combative and confused, and code che was in called. It appears patient has progressed to delirium tremens and was given additional Ativan and started on Precedex drip, and transferred to ICU for further management. Allergies Allergy/AdvReac Type Severity Reaction Status Date / Time ibuprofen Allergy Unknown . Unverified 04/12/20 11:25 Home Medications Home Medications Medication Instructions Recorded Confirmed Type acetaminophen [Tylenol] 325 mg PO Q6H PRN 04/03/18 04/12/20 History cyclobenzaprine 10 mg PO TID PRN #15 tab 04/03/18 04/12/20 Rx naproxen 500 mg PO BID PRN #20 tab 04/03/18 04/12/20 Rx omeprazole 10 mg PO QAM 04/03/18 04/12/20 History casanthranol-docusate sodium 1 cap PO DIRECTED PRN 04/12/20 04/12/20 History [Laxative] Patient History Medical History Asthma Elevated blood pressure reading Epistaxis GERD (gastroesophageal reflux disease) Hypertension Surgical History Hx of fusion of cervical spine Family History Other No significant family history Social History Smoking Status: Current every day smoker Cigarettes Per Day: 1/4 cartridge per day; Hx Alcohol Use: Yes Hx Substance Use: No Preferred Language: Croatian Communication Ability: Effective Home Assessment Nurse Required: No Beliefs That Will Affect Care: None Current Living Situation: Parent and Family Other Information That Helps Us Care for You: No Feels Safe at Home: Yes Safety Concerns: Feels Safe At This Time Assistive Devices: Glasses Review of Systems Review of Systems: Unobtainable due to cognitive status Physical Exam Constitutional: Patient is mildly sedated with Precedex drip but arousable with minor stimulation. He is still significantly confused but is resting com fortably. He does display mild tremors when awakened. Eyes: PERRL, conjunctivae normal, anicteric sclerae ENMT: external ear and nose normal, oropharynx normal Neck: trachea midline, no thyromegaly Respiratory: normal respiratory effort, lungs clear to auscultation Cardiovascular: RRR, no murmur, no edema Heart Sounds: normal S1 and normal S2; no murmur Vessels: no JVD Extremities: normal capillary refill; no edema Gastrointestinal (Abdomen): normal bowel sounds, soft, nontender, no hepatosplenomegaly Musculoskeletal: no cyanosis or clubbing, extremities motor strength 5/5 Skin: no rashes, warm and dry Neurologic: Neurological exam limited due to delirium tremens requiring sedation. He is able to follow simple commands, PERRLA, symmetrical movement and strength. Psychiatric: Patient does remain confused, but is currently calm and resting. Genitourinary: Indwelling Velásquez catheter present Results & Data Results & Data ([facility]) Vital Signs (Past 12 Hours) Vital Signs Temp Pulse Pulse Resp BP BP Pulse Ox 04/12/20 19:10 137 H 20 93 04/12/20 19:07 135 H 29 H 121/92 93 04/12/20 19:00 138 H 21 95 04/12/20 18:53 136 H 28 H 113/87 93 04/12/20 18:50 129 H 30 H 93 04/12/20 18:40 153 H 23 04/12/20 18:38 138 H 28 H 168/125 H 04/12/20 18:30 139 H 32 H 97 04/12/20 18:20 142 H 31 H 96 04/12/20 18:10 150 H 26 H 04/12/20 18:08 145 H 31 H 142/125 H 04/12/20 18:00 149 H 27 H 04/12/20 17:53 145 H 25 H 125/98 96 04/12/20 17:50 139 H 27 H 96 04/12/20 17:40 126 H 23 96 04/12/20 17:30 137 H 28 H 04/12/20 17:23 127 H 21 142/94 H 04/12/20 17:20 123 H 25 H 04/12/20 17:18 116 H 25 H 164/109 H 04/12/20 17:17 112 H 27 H 04/12/20 16:12 36.6 C 112 H 109/77 97 04/12/20 15:40 105 H 15 04/12/20 15:30 105 H 25 H 04/12/20 15:20 123 H 15 04/12/20 15:16 139 H 04/12/20 15:00 112 H 25 H 96 04/12/20 14:50 103 H 16 96 04/12/20 14:40 112 H 18 94 04/12/20 14:30 142 H 22 96 04/12/20 14:28 124 H 130 H 20 152/108 H 152/108 H 95 04/12/20 14:20 120 H 21 04/12/20 14:10 110 H 22 04/12/20 14:00 111 H 19 10/25/20 13:50 116 H 18 04/12/20 13:40 124 H 20 04/12/20 13:30 119 H 19 04/12/20 13:20 130 H 21 97 04/12/20 13:10 110 H 24 98 04/12/20 13:00 117 H 20 97 04/12/20 12:50 119 H 18 96 04/12/20 12:42 128 H 20 141/107 H 97 04/12/20 12:40 123 H 16 98 04/12/20 12:35 100 H 22 98 04/12/20 12:10 129 H 126 H 19 141/107 H 97 04/12/20 12:09 127 H 22 141/107 H 97 04/12/20 12:08 118 H 23 155/125 H 98 04/12/20 12:00 126 H 25 H 98 04/12/20 11:50 112 H 26 H 98 04/12/20 11:40 123 H 19 98 04/12/20 11:30 108 H 17 97 04/12/20 11:28 109 H 18 150/104 H 98 04/12/20 11:27 117 H 19 150/104 H 97 04/12/20 11:23 110 H 22 98 04/12/20 11:11 115 H 18 98 04/12/20 11:08 96 04/12/20 10:31 36.9 C 111 H 20 176/110 H 98 04/12/20 10:30 111 H 20 176/110 H Coding Level of Care Code Critical Care ea addt'l 30 min Diagnoses Delirium tremens F10.231 Alcohol withdrawal F10.230 Complication of substance-induced condition: uncomplicated Acute alcoholic pancreatitis K85.20 Acute pancreatitis complication: no infection or necrosis Multiple rib fractures S22.42XA Encounter type: initial encounter Fracture type: closed Laterality: left Thrombocytopenia D69.6 GERD (gastroesophageal reflux disease) K21.9 Hypertension I10 (1) Multiple rib fractures Encounter type: initial encounter Fracture type: closed Laterality: left Qualified Code(s): S22.42XA - Multiple fractures of ribs, left side, initial encounter for closed fracture (2) Alcohol withdrawal Complication of substance-induced condition: uncomplicated Qualified Code(s): F10.230 - Alcohol dependence with withdrawal, uncomplicated (3) Acute alcoholic pancreatitis Acute pancreatitis complication: no infection or necrosis Qualified Code(s): K85.20 - Alcohol induced acute pancreatitis without necrosis or infection
[2020-04-12] MEDS: MAGNESIUM SULFATE 50% 1 GM in 0.9 % SODIUM CHLORIDE 100 ML IV SCH ×2 (19:41→21:28)
[2020-04-12] MEDS: POTASSIUM CHLORIDE / WTR 10 MEQ/100 ML PLCT IV SCH ×4 (19:49→22:50)
[2020-04-12] MEDS ORDERED: ACETAMINOPHEN 650 MG SUPP PR PRN (20:50)
[2020-04-12] MEDS ORDERED: PANTOprazole 40 MG in SYRINGE 0 ML IV SCH (21:00)
[2020-04-12] MEDS: LORazepam 2 MG/4 ML VIAL IV SCH (21:47)
[2020-04-12] MEDS: DEXMEDETOMIDINE HCL 400 MCG in SODIUM CHLORIDE 0.9% 96 ML IV SCH (22:27)
[2020-04-12 22:33] LABS: Amphetamines+Metham, Urine Neg (Neg); Barbiturates, Urine Neg (Neg); Benzodiazepine, Urine Neg (Neg); Cocaine, Urine Neg (Neg); MDMA (Ecstacy), Urine Neg (Neg); Methadone, Urine Neg (Neg); Opiate, Urine Pos (Neg); Phencyclidine, Urine Neg (Neg)
[2020-04-13] MEDS: LORazepam 2 MG/4 ML VIAL IV SCH ×5 (02:55→20:47)
[2020-04-13] MEDS: LACTATED RINGER'S 1,000 ML IV SCH ×3 (03:56→15:38)
[2020-04-13 04:45] LABS: Hematocrit (blood only) 41.9 % (42-52); Hemoglobin 13.8 g/dL (14.0-18.0); Mean Corpuscular Hemoglobin 35.4 pg (25-34); Mean Corpuscular Hgb Conc 32.9 g/dL (32-36); Mean Corpuscular Volume 107.4 fL (80-100); RDW Coefficient of Variation 14.3 % (11.5-14.5); RDW Standard Deviation 55.8 fL (36.4-46.3); White Blood Count 4.32 K/uL (4.8-10.8)
[2020-04-13 05:08] LABS: Mean Platelet Volume 10.4 fL (7.4-10.4); Platelet Count 75 K/uL (130-400)
[2020-04-13 05:22] LABS: Basophils # (auto) 0.01 K/uL (0-0.2); Basophils % (auto) 0.2 %; Eosinophils # (auto) 0.03 K/uL (0-0.5); Eosinophils % (auto) 0.7 %; Giant Platelets 1+; Immature Granulocytes # (auto) 0.01 K/uL (0.00-0.02); Immature Granulocytes % (auto) 0.2 %; Lymphocytes # (auto) 0.89 K/uL (1.2-3.4); Lymphocytes % (auto) 20.6 %; Monocytes # (auto) 0.62 K/uL (0.11-0.59); Monocytes % (auto) 14.4 %; Neutrophils # (auto) 2.76 K/uL (1.4-6.5); Neutrophils % (auto) 63.9 %
[2020-04-13] MEDS: DEXMEDETOMIDINE HCL 400 MCG in 0.9 % SODIUM CHLORIDE 96 ML IV SCH ×6 (05:25→22:42)
[2020-04-13 05:29] LABS: Alanine Aminotransferase 79 U/L (12-78); Albumin Level 3.1 gm/dl (3.4-5.0); Alkaline Phosphatase 182 U/L (45-117); Aspartate Aminotransferase 74 U/L (15-37); BUN Creatinine Ratio 9.1 (10-20); Bilirubin,Total 1.8 mg/dl (0.2-1); Blood Urea Nitrogen 5 mg/dl (7-18); Calcium 8.3 mg/dl (8.5-10.1); Carbon Dioxide 27 mmol/L (21-32); Chloride 104 mmol/L (98-107); Creatinine Clr Calc Pharmacy 201.1 ml/min; Est GFR (African American) > 150.0; Est GFR (Non-African American) 132.1; Glucose 81 mg/dl (70-99); Lipase 1487 U/L (73-393); Magnesium 2.4 mg/dl (1.8-2.4); Phosphorus 2.6 mg/dl (2.5-4.9); Potassium 3.7 mmol/L (3.5-5.1); Sodium 138 mmol/L (136-145); Total Protein 6.8 gm/dl (6.4-8.2)
[2020-04-13] MEDS: DEXMEDETOMIDINE HCL 400 MCG in SODIUM CHLORIDE 0.9% 96 ML IV SCH (05:30)
[2020-04-13] MEDS: LORazepam 1 MG/2 ML VIAL IV PRN (05:33)
[2020-04-13] MEDS: POTASSIUM CHLORIDE / WTR 10 MEQ/100 ML PLCT IV SCH ×2 (06:15→07:43)
--- NOTE | 2020-04-13 06:18 | Critical Care Progress Note ---
Date of Service April 13, 2020 Assessment & Plan (1) Delirium tremens: Reason Critically Ill: 34-year-old male admitted for alcohol withdrawal which has progressed to delirium tremens, requiring management with vasopressors. Over the last 24 hours, patient has received schedule Ativan with minimal prn doses. No seizure activity since admission. Neuro - * Alcohol withdrawal/EtOH abuse/delirium tremens - Patient has progressed from early signs of alcohol withdrawal with tremors and mild confusion to DTs and acute psychosis - Agitation now improved with addition of Precedex drip - patient with reported 6 shots of vodka daily alcohol use, now without alcohol for nearly 40 hours - etoh level 35 on admission - continue AWSS scale with scheduled IV Ativan - continue high dose thiamine for 48 hours, reduce to 100mg, daily thereafter - continue folic acid supplementation - CT head unremarkable Cardiac - * Tachycardia - HR up to 118 today - likely secondary to ETOH withdrawal - sinus tach on EKG - continue telemetry * History of hypertension - not on pharmacotherapy per pharmacy - continue to monitor BP * Chest pain - reported on admission - troponin negative - EKG showing normal sinus rhythm without signs of ischemia - CXR found left anterior 5th and 6th rib fractures (possibly secondary to fall related to alcohol intoxication) - chest CTA from 03/20 showed no evidence of pneumothorax - incentive spirometry when neurological status improves - pain control prn; would avoid Tylenol given elevated in LFTs. Consider lidocaine patches Respiratory - - No history of pulmonary disease, no current respiratory distress - O2 sat 95% on 3L via NC - Chest CTA 04/12/20 showing faint groundglass density seen within the base of the bilateral lower lobes. Possibly related to aspiration. Minimal oxygen requirements. - patient is at risk for aspiration PNA given etoh intoxication - antibiotics not indicated at this time - incentive spirometry when able GI - * Elevated Lipase Level - lipase of 1342 on admission, up to 1487 today - concern for alcoholic pancreatitis - CT abdomen pelvis without peripancreatic inflammatory change - Abdomen US 04/12/20 showing no evidence of pancreatic inflammation - abdominal exam benign today, patient without pain to palpation - continue lactated ringers at 125mls/hr - will trial clear liquid diet; advance as tolerated * Fatty Liver - severe hepatic steatosis visualized on A/P CT scan - coags wnl - likely secondary to alcohol use disorder - GI following, appreciate recs * Transaminitis - AST 74, down from 107 - ALT 79, down from 101 - likely secondary to etoh use - continue to trend * Conjugated hyperbilirubinemia - Total bili elevated to 1.8, direct elevated to 1.0 - alk phos 182, down from 206 - LFTs elevated - No evidence of ductal dilation on CT of abdomen and pelvis - US of abdomen showing on ductal dilation or gallstones; obstructive etiology not suspected - likely hepatocellular etiology (toxin induced -etoh) - monitor liver function panel * GERD - continue home PPI RENAL/LYTES - * Hypokalemia - resolved - K 3.7 today * Hypomagnesemia - resolved - mag 2.4 today - Creatinine within normal limits - - Foleystrict I's and O's ENDO - - No history of diabetes or thyroid disease - ICU electrolyte protocol HEME - * Thrombocytopenia - 75K down, down from 79K on 04/12 - No signs of bleeding to indicate transfusion - etiology thought to be secondary to bone marrow suppression from alcohol abuse - not on heparin, patient not septic * Macrocytic anemia - Hgb 13.8, MCV 107.4 - likely secondary to ETOH use - continue thiamine and folate supplementation ID - * Pancytopenia - Platelets at 75K - WBC at 4.32 - RBC at 3.90 - possibly secondary to bone marrow suppression in the setting of heavy ETOH use - no infectious source suspected at this time - HIV testing ordered, patient with risk factors - MRSA nasal negative - COVID 19 neg LINES/IV ACCESS - Peripheral IVs DVT PROPHYLAXIS -SCDs, Lovenox CODE: Full Thank you for allowing us to participate in the care of this patient. Please refer to my attending physician's documentation for any further recommendations. (2) Alcohol withdrawal: (3) Acute alcoholic pancreatitis: (4) Multiple rib fractures: (5) Thrombocytopenia: (6) GERD (gastroesophageal reflux disease): (7) Hypertension: Admission and Anticipated Discharge Date Admission Date: April 12, 2020 Supervising Physician Co-Signing Physician Notes Dr. Martin was the resident-physician during care of patient. I separately evaluated patient for boo portions of the history and the exam. I was present during the critical portion of medical decision making, and I discussed the case with the resident. I generally agree with the findings and plan except for any additions/exceptions noted. Patient with active delirium tremens. He is a heavy alcohol drinker and drinks 6-8 3 ounce glasses of vodka a day per his admission. He denies any history of seizures or withdrawal in the past. Urine drug screen was negative. HIV screen is pending given the fact that he has multiple same-sex partners. He has evidence of pancytopenia possibly related to bone marrow suppression from alcohol drinking. He has very minimal groundglass in the lower lobes possibly related to atelectasis and/or aspiration pneumonitis. Continue Precedex drips and Ativan. Continue IV fluids. High-dose thiamine per protocol. Remain in ICU today. I have personally spent 38 minutes of critical care time in the direct management of this patient. This is a life/limb threatening event. This includes time spent evaluating patient, direct bedside care, chart review, placing orders, interpretation of diagnostic studies, discussion with consultants, patient, and/or family members regarding treatment decisions, as well as other required patient management activities. This time is exclusive of all separately billable procedures, and teaching time and separate from and in addition to any other critical care service time. Subjective Patient denies being in any pain, he states is tongue is dry. He asks for his cell phone. reports history of multiple same sex partners Review of Systems Review of Systems: All systems reviewed & are unremarkable except as noted in HPI & below Physical Exam Constitutional: WD/WN, vitals as above Eyes: + anicteric sclerae and EOM intact bilaterally wearing glasses ENMT: external ear and nose normal, oropharynx normal Neck: normal visual inspection and trachea midline Respiratory: normal respiratory effort; no respiratory distress and no cough Auscultation: no vesicular breath sounds (coarse) Cardiovascular: Rate/Rhythm: regular rhythm and + tachycardic Heart Sounds: normal S1 and normal S2; no murmur Extremities: no pedal edema Gastrointestinal (Abdomen): Inspection/Auscultation: + abdomen distended and normal bowel sounds Percussion/Palpation: abdomen soft; abdomen nontender and no guarding Skin: no rashes, warm and dry Psychiatric: Orientation: oriented to person and oriented to place Genitourinary: Indwelling pop catheter in place, draining place yellow urine without visible blood clots Results & Data Results & Data ([facility]) Vital Signs (Past 12 Hours) Vital Signs Temp Pulse Resp BP Pulse Ox 04/13/20 05:32 92 H 149/104 H 96 04/13/20 05:03 112 H 132/118 H 96 04/13/20 04:32 92 H 137/105 H 94 04/13/20 04:02 87 137/102 H 96 04/13/20 04:00 37.3 C 04/13/20 03:32 86 138/96 95 04/13/20 03:02 87 138/99 97 04/13/20 02:32 89 129/86 95 04/13/20 02:02 90 128/88 95 04/13/20 01:32 87 133/89 99 04/13/20 01:02 87 112/90 99 04/13/20 00:32 88 123/84 99 04/13/20 00:02 89 119/80 96 04/13/20 00:00 96 H 04/12/20 23:44 36.8 C 04/12/20 23:32 93 H 87/74 L 92 04/12/20 23:02 94 H 97/77 L 94 04/12/20 22:33 97 H 117/77 97 04/12/20 22:02 91 H 129/90 97 04/12/20 21:32 98 H 110/82 97 04/12/20 21:02 105 H 21 123/80 92 04/12/20 20:53 108 H 21 100/81 94 04/12/20 20:38 106 H 21 98/84 L 92 04/12/20 20:23 113 H 23 111/87 92 04/12/20 20:08 94 H 142/84 H 91 04/12/20 20:01 132 H 25 H 161/108 H 95 04/12/20 20:00 36.9 C 132 H 28 H 95 04/12/20 19:23 134 H 24 124/78 92 04/12/20 19:10 137 H 20 93 04/12/20 19:07 135 H 29 H 121/92 93 04/12/20 19:00 138 H 21 95 04/12/20 18:53 136 H 28 H 113/87 93 04/12/20 18:50 129 H 30 H 93 04/12/20 18:40 153 H 23 04/12/20 18:38 138 H 28 H 168/125 H 04/12/20 18:30 139 H 32 H 97 04/12/20 18:20 142 H 31 H 96 Resident Activity Tracking Resident Involvement: Resident Care Provided Care Provided: Adult Hospital Medicine (1) Multiple rib fractures Encounter type: initial encounter Fracture type: closed Laterality: left Qualified Code(s): S22.42XA - Multiple fractures of ribs, left side, initial encounter for closed fracture (2) Alcohol withdrawal Complication of substance-induced condition: uncomplicated Qualified Code(s): F10.230 - Alcohol dependence with withdrawal, uncomplicated (3) Acute alcoholic pancreatitis Acute pancreatitis complication: no infection or necrosis Qualified Code(s): K85.20 - Alcohol induced acute pancreatitis without necrosis or infection
--- NOTE | 2020-04-13 06:20 | Electrocardiogram Report ---
Test Reason : Blood Pressure : / mmHG Vent. Rate : 108 BPM Atrial Rate : 108 BPM P-R Int : 164 ms QRS Dur : 088 ms QT Int : 338 ms P-R-T Axes : 015 076 023 degrees QTc Int : 452 ms Poor data quality, interpretation may be adversely affected Sinus tachycardia Nonspecific ST and T wave abnormality Abnormal ECG When compared with ECG of 09-FEB-2019 23:50, No significant change was found Confirmed by Garland Ferraro ([id number]) on 04/13/2020 6:19:44 AM Referred By: REFERRED SELF Confirmed By:Garland Ferraro
[2020-04-13] MEDS: LORazepam 2 MG/4 ML VIAL IV PRN ×5 (07:42→22:42)
[2020-04-13] MEDS: ENOXAPARIN INJ 40 MG/0.4 ML SYR SQ SCH (08:34)
[2020-04-13] MEDS: FOLIC ACID 1 MG in SYRINGE 9.8 ML IV SCH (08:36)
[2020-04-13] MEDS: THIAMINE HCL 100 MG in SYRINGE 9 ML IV SCH (08:36)
--- NOTE | 2020-04-13 09:47 | Gastrointestinal Consultation ---
Date of Consultation April 13, 2020 Assessment & Plan (1) Alcohol withdrawal: (2) Elevated LFTs: (3) Pancreatitis: Pt is a 34 y/o male who presented after a fall, found to have ETOH intoxication and in active withdrawals. GI consulted for suspected ETOH pancreatitis, noted LFTs are up as well. CT abd/pelvis w signs of hepatic steatosis, patent portal vein and normal gallbladder. Maddrey Discriminant Function score <32. - Obtain RUQ u/s to r/o gallstones/biliary ductal dilation - NPO; IVF resuscitation w LR - Trend LFTs - ETOH cessation advised - GI to sign off; pls recall prn Supervising Physician Co-Signing Physician Notes I performed a history and physical examination of the patient today, including specifically on physical exam - soft abdomen. I have discussed the patient's management with the advanced practitioner. Please refer to the nurse practitioner's note for the documented findings and plan of care. Alcohol induced hepatitis/ pancreatitis. Continue supportive care. Low DF hence not a candidate for steroids. Sono with no gallstones. Recall GI if needed. History of Present Illness Reason for Consultation: ETOH pancreatitis Requesting Physician: Dr. Jordan Seals Attending Physician: Dr. Yolanda Carlos History of Present Illness Pt is a 34 y/o male w PMHx of asthma, HTN, GERD, who presented w c/o leg tingling, falls and abd pain symptoms. Upon evaluation he was found to be highly intoxicated and having ETOH withdrawal symptoms. Currently in ICU unit receiving Percedex. His labs showed elevated LFTs and lipase. CT abd/pelvis w signs of hepatic steatosis, patent portal vein, normal gallbladder. Pt's mental status is sluggish but oriented to place, self. He currently denies CP, SOB, abd pain, n/v. Denies any signs of GI bleeding. Allergies Allergy/AdvReac Type Severity Reaction Status Date / Time ibuprofen Allergy Unknown . Unverified 04/12/20 11:25 Home Medications Home Medications Medication Instructions Recorded Confirmed Type acetaminophen [Tylenol] 325 mg PO Q6H PRN 04/03/18 04/12/20 History cyclobenzaprine 10 mg PO TID PRN #15 tab 04/03/18 04/12/20 Rx naproxen 500 mg PO BID PRN #20 tab 10/16/18 10/25/20 Rx omeprazole 10 mg PO QAM 04/03/18 04/12/20 History casanthranol-docusate sodium 1 cap PO DIRECTED PRN 04/12/20 04/12/20 History [Laxative] Patient History Medical History Asthma Elevated blood pressure reading Epistaxis GERD (gastroesophageal reflux disease) Hypertension Surgical History Hx of fusion of cervical spine Family History Other No significant family history Social History Smoking Status: Current every day smoker Cigarettes Per Day: 1/4 cartridge per day; Hx Alcohol Use: Yes Hx Substance Use: No Preferred Language: [place] Citizen Communication Ability: Effective Super[employer] Required: No Beliefs That Will Affect Care: None Current Living Situation: Parent and Family Other Information That Helps Us Care for You: No Feels Safe at Home: Yes Safety Concerns: Feels Safe At This Time Assistive Devices: Glasses Review of Systems Review of Systems: All systems reviewed & are unremarkable except as noted in HPI & below Physical Exam Constitutional: + disheveled, cooperative and comfortable Eyes: PERRL, conjunctivae normal, anicteric sclerae ENMT: external ear and nose normal, oropharynx normal Respiratory: no respiratory distress and does not use accessory muscles Auscultation: + diminished lung sounds Cardiovascular: RRR, no murmur, no edema Gastrointestinal (Abdomen): normal bowel sounds, soft, nontender, no hepatosplenomegaly Skin: no rashes, warm and dry no jaundice Neurologic: Motor/Sensory: + tremor Psychiatric: Orientation: oriented to person, oriented to place and cooperative Lymphatic: no lymphedema Results & Data ([facility]) Vital Signs (Past 12 Hours) Vital Signs Temp Pulse Pulse Resp BP BP Pulse Ox 04/13/20 08:00 36.7 C 92 H 106 H 18 142/101 H 96 04/13/20 06:02 139/104 H 95 04/13/20 05:32 92 H 149/104 H 96 04/13/20 05:03 112 H 132/118 H 96 04/13/20 04:32 92 H 137/105 H 94 04/13/20 04:02 87 137/102 H 96 04/13/20 04:00 37.3 C 04/13/20 03:32 86 138/96 95 04/13/20 03:02 87 138/99 97 04/13/20 02:32 89 129/86 95 04/13/20 02:02 90 128/88 95 04/13/20 01:32 87 133/89 99 04/13/20 01:02 87 112/90 99 04/13/20 00:32 88 123/84 99 04/13/20 00:02 89 119/80 96 04/13/20 00:00 96 H 04/12/20 23:44 36.8 C 04/12/20 23:32 93 H 87/74 L 92 04/12/20 23:02 94 H 97/77 L 94 04/12/20 22:33 97 H 117/77 97 04/12/20 22:02 91 H 129/90 97 (1) Alcohol withdrawal Complication of substance-induced condition: uncomplicated Qualified Code(s): F10.230 - Alcohol dependence with withdrawal, uncomplicated
--- NOTE | 2020-04-13 10:01 | Ultrasound Report ---
US abdomen limited CLINICAL HISTORY: Abdominal pain elevated lipase, COMPARISON STUDY: CT scan dated 04/12/2020 FINDINGS: Pancreas appears sonographically normal. There is increased hepatic echogenicity, consistent with the patient's known hepatic steatosis. No gallstones are visualized. There is no ductal dilatation. The common bile duct measures 4 mm. There is no right-sided hydronephrosis. IMPRESSION: 1. No gallstones identified. No evidence of ductal dilatation 2. Increased hepatic echogenicity consistent with the patient's known hepatic steatosis ACT 112: Negative or not required by law. Electronically signed by: Jewel Mccoy M.D. 04/13/2020 9:59 AM
[2020-04-13] MEDS: PANTOprazole 40 MG in SYRINGE 0 ML IV SCH (10:51)
[2020-04-13 10:53] LABS: Hepatitis B Surface Antigen Neg (Neg)
[2020-04-13 11:22] LABS: Hepatitis C IgG 13Yrs+Old_Rflx Neg (Neg)
--- NOTE | 2020-04-13 11:46 | Billing Data ---
Date of Service April 13, 2020 Coding Level of Care Code Critical Care 1st 30-74 mins Time Spent (min) 38
[2020-04-13] MEDS: THIAMINE HCL 500 MG in 0.9 % SODIUM CHLORIDE 100 ML IV SCH ×2 (14:10→20:50)
--- NOTE | 2020-04-13 17:36 | Hospitalist Progress Note ---
Date of Service April 13, 2020 Assessment & Plan (1) Alcohol withdrawal: severe, cont Precedex and supportive care at this time. (2) Pancreatitis: acute alcoholic pancreatitis, cont IVF resuscitation and bowel rest at this time. ADAT Pain control as needed. Uncontrolled pain may contribute to delirium. (3) Elevated LFTs: Likely secondary to heavy alcohol use in setting of fatty liver disease seen on imaging. (4) Hypokalemia: replaced and repeat in am. (5) Multiple rib fractures: s/p fall. Again, supportive care with pain control measures as toleraed. (6) DVT prophylaxis: scds full dispo- cont ICU monitoring for now [facility] Admission and Anticipated Discharge Date Admission Date: April 12, 2020 Subjective sedated on precedex he awakens to voice but cannot tell me where he is or why he is here he is diaphoretic and delirious but appears calm at the moment it was reported by nursing that he climbed out of bed today at one point he was on vasopressor therapy within the last 24 hours and vitals appear more stable now. Review of Systems Review of Systems: Unobtainable due to cognitive status Physical Exam Physical Exam: CONSTITUTIONAL: WNWD, vitals as above, generally ill- appearing, confused EYES: PERRL, normal conjunctivae, no scleral icterus ENT: external ear and nose normal, MMM RESPIRATORY: clear to auscultation bilaterally, no crackles, rales or wheezes, normal respiratory effort CARDIOVASCULAR: regular rate and rhythm, S1 and 2 heard without murmurs, gallops or rubs, no JVD, no peripheral edema GASTROINTESTINAL: soft, nontender, nondistended, no guarding MUSCULOSKELETAL: strength -could not be assessed 2/2 sedation and delirium, head is normocephalic and atraumatic SKIN: warm and diaphoretic NEUROLOGIC: altered, delirious, cannot accurately be assessed 2/2 sedation PSYCHIATRIC: awakens to voice but is delirious and disoriented. Results & Data Results & Data ([facility]) Vital Signs (Past 12 Hours) Vital Signs Temp Pulse Pulse Resp BP BP Pulse Ox 04/13/20 16:00 36.5 C 92 H 73 16 129/94 94 04/13/20 14:00 92 H 23 128/96 97 04/13/20 12:00 96 H 20 133/97 97 04/13/20 10:00 101 H 18 126/96 96 04/13/20 08:00 36.7 C 92 H 106 H 18 142/101 H 96 04/13/20 06:02 139/104 H 95 Laboratory Results Short CBC 04/13/20 Range/Units 04:22 WBC 4.32 L (4.8-10.8) K/uL Hgb 13.8 L (14.0-18.0) g/dL Hct 41.9 L (42-52) % Plt Count 75 L (130-400) K/uL BMP 04/13/20 04:22 Sodium 138 Potassium 3.7 D Chloride 104 Carbon Dioxide 27 BUN 5 L Creatinine 0.58 L Glucose 81 Calcium 8.3 L Liver Function 04/13/20 Range/Units 04:22 Total Bilirubin 1.8 H (0.2-1) mg/dl Direct Bilirubin 1.0 H (0-0.2) mg/dl AST 74 H (15-37) U/L ALT 79 H (12-78) U/L Alkaline Phosphatase 182 H (45-117) U/L Albumin 3.1 L (3.4-5.0) gm/dl Medications Administered Current Inpatient Medications Enoxaparin Sodium (Enoxaparin Inj 40 Mg/0.4 Ml Syr) 40 mg SQ QAM SAM Stop: 05/13/20 08:59 Last Admin: 04/13/20 08:34 Dose: 40 mg Documented by: Lactated Ringer's (Lr) 1,000 mls @ 125 mls/hr IV .Q8H SAM Stop: 05/12/20 16:27 Last Admin: 04/13/20 15:38 Dose: 125 mls/hr Documented by: Folic Acid 1 mg/ Syringe 10 mls @ 5 mls/min IV QAM SAM Stop: 05/12/20 16:44 Last Admin: 04/13/20 08:36 Dose: 5 mls/min Documented by: Lorazepam (Ativan) 1 mg in 2 mls @ 2 mls/min IV UD PRN; Protocol PRN Reason: EtOH Withdrawl AWSS Score 6,7 Stop: 05/12/20 16:27 Last Admin: 04/13/20 05:33 Dose: 2 mls/min Documented by: Lorazepam (Ativan) 2 mg in 4 mls @ 4 mls/min IV UD PRN; Protocol PRN Reason: EtOH Withdrawl AWSS Score 8,9 Stop: 05/12/20 16:27 Last Admin: 04/13/20 07:42 Dose: 4 mls/min Documented by: Thiamine HCl 100 mg/ Syringe 10 mls @ 2 mls/min IV QAM COUNT INCLUDES THE [facility] Stop: 05/12/20 16:44 Last Admin: 04/13/20 08:36 Dose: 2 mls/min Documented by: Pantoprazole Sodium 40 mg/ (Syringe) 10 mls @ 5 mls/min IV DAILY@1100 COUNT INCLUDES THE [facility] Stop: 05/13/20 10:59 Last Admin: 04/13/20 10:51 Dose: 5 mls/min Documented by: Lorazepam (Ativan) 2 mg in 4 mls @ 4 mls/min IV Q6H COUNT INCLUDES THE [facility] Stop: 05/12/20 20:59 Last Admin: 04/13/20 13:06 Dose: 4 mls/min Documented by: Dexmedetomidine HCl 400 mcg/ (Sodium Chloride) 100 mls @ 32.48 mls/hr IV .Q3H5M COUNT INCLUDES THE [facility]; Protocol Stop: 04/17/20 04:59 Last Admin: 04/13/20 16:16 Dose: 1.4 mcg/kg/hr, 32.5 mls/hr Documented by: Thiamine HCl 500 mg/ Sodium (Chloride) 105 mls @ 210 mls/hr IV TID COUNT INCLUDES THE [facility] Stop: 04/14/20 21:29 Last Infusion: 04/13/20 14:40 Dose: Infused Documented by: (1) Multiple rib fractures Encounter type: initial encounter Fracture type: closed Laterality: left Qualified Code(s): S22.42XA - Multiple fractures of ribs, left side, initial encounter for closed fracture (2) Alcohol withdrawal Complication of substance-induced condition: uncomplicated Qualified Code(s): F10.230 - Alcohol dependence with withdrawal, uncomplicated
[2020-04-13] MEDS ORDERED: ZIPRASIDONE 20 MG/ML SDV IM ONE (22:43)
[2020-04-14] MEDS: DEXMEDETOMIDINE HCL 400 MCG in 0.9 % SODIUM CHLORIDE 96 ML IV SCH ×8 (01:48→22:42)
[2020-04-14] MEDS: LACTATED RINGER'S 1,000 ML IV SCH ×3 (01:49→19:32)
[2020-04-14] MEDS: LORazepam 2 MG/4 ML VIAL IV SCH ×8 (02:56→22:13)
[2020-04-14] MEDS: LORazepam 2 MG/4 ML VIAL IV PRN ×4 (04:05→21:26)
[2020-04-14 04:57] LABS: Hematocrit (blood only) 39.8 % (42-52); Hemoglobin 13.8 g/dL (14.0-18.0); Mean Corpuscular Hemoglobin 36.8 pg (25-34); Mean Corpuscular Hgb Conc 34.7 g/dL (32-36); Mean Corpuscular Volume 106.1 fL (80-100); RDW Coefficient of Variation 13.9 % (11.5-14.5); RDW Standard Deviation 53.7 fL (36.4-46.3); Red Blood Count 3.75 M/uL (4.7-6.1); White Blood Count 7.21 K/uL (4.8-10.8)
[2020-04-14 05:09] LABS: Mean Platelet Volume 11.5 fL (7.4-10.4); Platelet Count 79 K/uL (130-400)
[2020-04-14 05:23] LABS: Alanine Aminotransferase 62 U/L (12-78); Albumin Level 2.8 gm/dl (3.4-5.0); Aspartate Aminotransferase 58 U/L (15-37); Basophils # (auto) 0.01 K/uL (0-0.2); Basophils % (auto) 0.1 %; Blood Urea Nitrogen 6 mg/dl (7-18); Calcium 8.3 mg/dl (8.5-10.1); Carbon Dioxide 18 mmol/L (21-32); Chloride 109 mmol/L (98-107); Creatinine Clr Calc Pharmacy 194.4 ml/min; Eosinophils # (auto) 0.06 K/uL (0-0.5); Eosinophils % (auto) 0.8 %; Est GFR (African American) > 150.0; Est GFR (Non-African American) 130.3; Giant Platelets 1+; Glucose 83 mg/dl (70-99); Immature Granulocytes # (auto) 0.03 K/uL (0.00-0.02); Immature Granulocytes % (auto) 0.4 %; Lymphocytes # (auto) 1.44 K/uL (1.2-3.4); Magnesium 2.1 mg/dl (1.8-2.4); Monocytes % (auto) 13.9 %; Neutrophils # (auto) 4.67 K/uL (1.4-6.5); Neutrophils % (auto) 64.8 %; Potassium 3.8 mmol/L (3.5-5.1); Sodium 140 mmol/L (136-145)
[2020-04-14 05:26] LABS: Alkaline Phosphatase 180 U/L (45-117); Bilirubin,Total 1.8 mg/dl (0.2-1); Lipase 3961 U/L (73-393); Total Protein 6.7 gm/dl (6.4-8.2)
--- NOTE | 2020-04-14 07:09 | Critical Care Progress Note ---
Date of Service April 14, 2020 Assessment & Plan (1) Delirium tremens: Reason Critically Ill: 34-year-old male admitted for alcohol withdrawal which has progressed to delirium tremens, requiring management with vasopressors. Precedx currently at 1.5mls/hr. Over the last 24 hours, patient h as received scheduled Ativan with multiple prn doses and Ziprasidone x 1. Given his continued need for frequent prn Ativan, we will move his scheduled dosing to q4 hours. Continue to closely monitor his respiratory status with increased Ativan frequency. Patient potentially a phenobarbital candidate - will consider if patient's benzo requirement continues to increase. No seizure activity since admission. Neuro - * Alcohol withdrawal/EtOH abuse/delirium tremens - Patient has progressed from early signs of alcohol withdrawal with tremors and mild confusion to DTs and acute psychosis - Agitation now improved with addition of Precedex drip - patient with reported 6 shots of vodka daily alcohol use, now without alcohol for > 48 hours - etoh level 35 on admission - continue AWSS scale with scheduled IV Ativan 2mg, q4hrs + prn doses - continue high dose thiamine for 48 hours, reduce to 100mg, daily thereafter - continue folic acid supplementation - CT head unremarkable - recommend inpatient rehab for alcohol use disorder following discharge Cardiac - * Tachycardia - improving; HR ranged from 80-low 100s overnight - likely secondary to ETOH withdrawal - sinus tach on EKG; QTc elevated to 503 ms today; would hold off on further ziprasidone use until AT interval normalizes - continue telemetry * History of hypertension - not on pharmacotherapy per pharmacy - continue to monitor BP * Chest pain - reported on admission - troponin negative - EKG showing normal sinus tach without signs of ischemia - CXR found left anterior 5th and 6th rib fractures (possibly secondary to fall related to alcohol intoxication) - chest CTA from 03/20 showed no evidence of pneumothorax - incentive spirometry when neurological status improves - pain control prn; would avoid Tylenol given elevated in LFTs. Consider lidocaine patches * Prolonged QTc interval - 503ms on EKG 04/14, formal read pending - recommend no further administration of QT prolonging agents, such as Ziprasidone - repeat EKG daily to trend monitor QTc Respiratory - - No history of pulmonary disease, no current respiratory distress - O2 sat 95% on 3L via NC - Chest CTA 04/12/20 showing faint groundglass density seen within the base of the bilateral lower lobes. This suggests a low-grade pneumonitis and could be due to a viral process. - patient is at risk for aspiration PNA given etoh intoxication, however would have expected upper lung field involvement - antibiotics not indicated at this time - incentive spirometry when able GI - * Elevated Lipase Level - lipase of 1342 on admission, up to 3961 today - concern for alcoholic pancreatitis - CT abdomen pelvis without peripancreatic inflammatory change - Abdomen US 04/12/20 showing no evidence of pancreatic inflammation - abdominal exam benign today, patient without pain to palpation - continue lactated ringers, rate reduced to 80mls/hr - tolerating clear liquid diet; advance as tolerated * Fatty Liver - severe hepatic steatosis visualized on A/P CT scan - coags wnl - likely secondary to alcohol use disorder - GI following, appreciate recs * Transaminitis - AST 58, down from 74 - ALT 62, down from 79 - likely secondary to etoh use - Hepatitis panel pending - continue to trend * Conjugated hyperbilirubinemia - Total bili elevated to 1.8, direct elevated to 1.0 - alk phos 182, down from 206 - LFTs elevated - No evidence of ductal dilation on CT of abdomen and pelvis - US of abdomen showing on ductal dilation or gallstones; obstructive etiology not suspected - likely hepatocellular etiology (toxin induced -etoh) - monitor liver function panel * GERD - continue home PPI - ammonia level ordered RENAL/LYTES - * Hypokalemia - resolved - K 3.8 today * Hypomagnesemia - resolved - mag 2.1 today * Hypophosphatemia - Phos at 2.4 today; replacement ordered - Calcium corrects to normal with low albumin - Creatinine within normal limits - - Foleystrict I's and O's ENDO - - No history of diabetes or thyroid disease - ICU electrolyte protocol HEME - * Thrombocytopenia - 79K, up from 75K - No signs of bleeding to indicate transfusion - etiology thought to be secondary to bone marrow suppression from alcohol abuse - not on heparin, patient not septic - Coags WNL, no concern for DIC at this time * Macrocytic anemia - Hgb 13.8, MCV 107.4 - likely secondary to ETOH use - continue thiamine and folate supplementation ID - * Pancytopenia - Platelets at 75K - WBC normalized to 7.21, up from 4 on 04/13 - RBC at 3.75 - possibly secondary to bone marrow suppression in the setting of heavy ETOH use - no infectious source suspected at this time - HIV neg - MRSA nasal negative - COVID 19 neg LINES/IV ACCESS - Peripheral IVs DVT PROPHYLAXIS -SCDs, Lovenox CODE: Full Thank you for allowing us to participate in the care of this patient. Please refer to my attending physician's documentation for any further recommendations. (2) Alcohol withdrawal: (3) Acute alcoholic pancreatitis: (4) Multiple rib fractures: (5) Thrombocytopenia: (6) GERD (gastroesophageal reflux disease): (7) Hypertension: Admission and Anticipated Discharge Date Admission Date: April 12, 2020 Supervising Physician Co-Signing Physician Notes Dr. Martin Was the resident-physician during care of patient. I separately evaluated patient for boo portions of the history and the exam. I was present during the critical portion of medical decision making, and I discussed the case with the resident. I generally agree with the findings and plan except for any additions/exceptions noted. Patient with continued agitation and alcohol withdrawal. We are continuing Precedex drip and increasing scheduled Ativan to 2 mg every 4 hours from every 6 hours. Continue with as needed Ativan as well. If he continues to clinically deteriorate, we may have to consider the addition of phenobarbital. Continue high-dose thiamine at this time along with folic acid. Respiratory status is somewhat tenuous but he is oxygenating well on 2 L nasal cannula. We will continue to monitor this closely. Fall precautions are in place. He is currently in wrist restraints due to severe agitation and combative behavior. I have decreased his lactated Ringer's to 80 mL/h. Lipase is increased. Unclear clinical consequence as the patient does not have any significant abdominal pain. Appreciate gastroenterology follow-up. LFTs are trending downward. Continue Protonix 40 mg daily. Continue to maintain p.o. status given altered mental status. Hold on any further antipsychotic therapy given his prolonged QTC. Continue Lovenox 40 mg subcu. I have personally spent 38 minutes of critical care time in the direct management of this patient. This is a life/limb threatening event. This includes time spent evaluating patient, direct bedside care, chart review, placing orders, interpretation of diagnostic studies, discussion with consultants, patient, and/or family members regarding treatment decisions, as well as other required patient management activities. This time is exclusive of all separately billable procedures, and teaching time and separate from and in addition to any other critical care service time. Subjective Patient with continued confusion and oftentimes agitation. Currently on 1.5 of Precedex. Patient's family members have been in and out over the course of his ICU stay. Review of Systems Review of Systems: Unobtainable due to cognitive status Physical Exam Constitutional: WD/WN, vitals as above Eyes: + anicteric sclerae and EOM intact bilaterally ENMT: external ear and nose normal, oropharynx normal Neck: normal visual inspection and trachea midline Respiratory: normal respiratory effort; no respiratory distress and no cough Auscultation: no vesicular breath sounds (coarse) Cardiovascular: Rate/Rhythm: regular rhythm and + tachycardic Heart Sounds: normal S1 and normal S2; no murmur Extremities: no pedal edema Gastrointestinal (Abdomen): Inspection/Auscultation: + abdomen distended and normal bowel sounds Percussion/Palpation: abdomen soft; abdomen nontender and no guarding Skin: no rashes, warm and dry Psychiatric: Orientation: oriented to person Genitourinary: Velásquez cath in place draining yellow urine without visible blood clots Results & Data Results & [facility] ([facility]) Vital Signs (Past 12 Hours) Vital Signs Temp Pulse BP Pulse Ox 04/14/20 04:33 91 H 133/92 99 04/14/20 04:03 104 H 148/108 H 100 04/14/20 04:00 36.8 C 04/14/20 03:33 100 H 134/94 100 04/14/20 02:03 88 130/86 100 04/14/20 01:03 87 131/92 100 04/14/20 00:34 96 H 107/91 100 04/14/20 00:03 89 120/94 99 04/14/20 00:00 37.0 C 04/13/20 23:33 90 126/89 99 04/13/20 23:03 93 H 127/95 100 04/13/20 22:52 96 H 149/94 H 100 04/13/20 22:45 97 H 149/94 H 83 L 04/13/20 22:33 87 144/96 H 95 04/13/20 22:03 89 129/96 98 04/13/20 21:33 90 138/94 99 04/13/20 21:03 93 H 131/95 98 04/13/20 20:33 87 131/96 04/13/20 20:03 89 126/87 99 04/13/20 20:00 37.0 C 04/13/20 19:33 88 93/64 L 97 Resident Activity Tracking Resident Involvement: Resident Care Provided Care Provided: Adult Hospital Medicine (1) Multiple rib fractures Encounter type: initial encounter Fracture type: closed Laterality: left Q ualified Code(s): S22.42XA - Multiple fractures of ribs, left side, initial encounter for closed fracture (2) Alcohol withdrawal Complication of substance-induced condition: uncomplicated Qualified Code(s): F10.230 - Alcohol dependence with withdrawal, uncomplicated (3) Acute alcoholic pancreatitis Acute pancreatitis complication: no infection or necrosis Qualified Code(s): K85.20 - Alcohol induced acute pancreatitis without necrosis or infection
[2020-04-14] MEDS ORDERED: ZIPRASIDONE 20 MG/ML SDV IM ONE (07:34)
[2020-04-14 08:21] LABS: Hepatitis A Antibody IgM NON-REACTIVE (NON-REACTIVE); Hepatitis B Core Antibody IgM NON-REACTIVE (NON-REACTIVE)
[2020-04-14] MEDS ORDERED: SODIUM PHOSPHATE 3 MMOL/1 ML INFUSION IV STA (08:45)
[2020-04-14] MEDS ORDERED: SODIUM PHOSPHATE 15 MMOL in SODIUM CHLORIDE 0.9% 250 ML IV ONE (09:00)
[2020-04-14] MEDS: FOLIC ACID 1 MG in SYRINGE 9.8 ML IV SCH (09:57)
[2020-04-14] MEDS: ENOXAPARIN INJ 40 MG/0.4 ML SYR SQ SCH (09:58)
[2020-04-14] MEDS: THIAMINE HCL 500 MG in 0.9 % SODIUM CHLORIDE 100 ML IV SCH ×3 (10:32→20:21)
--- NOTE | 2020-04-14 11:16 | Billing Data ---
Date of Service April 14, 2020 Coding Level of Care Code Critical Care 1st 30-74 mins Time Spent (min) 38
--- NOTE | 2020-04-14 11:28 | Hospitalist Progress Note ---
Date of Service April 14, 2020 Assessment & Plan (1) Pancreatitis: -as per admission notes on 04/12/2020 " 34-year-old male with history of alcoholism, hypertension, GERD, ankylosing spondylitis Presenting with bilateral lower extremity tingling sensation and tremors, abdominal pain since this morning" -initial concerns were for acute alcoholic pancreatitis -however the CT abdomen pelvis without peripancreatic inflammatory change, and Abdomen US 04/12/20 showing no evidence of pancreatic inflammation (2) Elevated LFTs: Transaminitis, Elevated Lipase Level, Conjugated hyperbilirubinemia Fatty Liver -severe hepatic steatosis visualized on A/P CT scan -No evidence of ductal dilation on CT of abdomen and pelvis -US of abdomen showing on ductal dilation or gallstones; obstructive etiology not suspected -patient's abnormal liver function enzymes, bilirubin, and lipase are attributed to alcohol use and liver dysfunction Thrombocytopenia - etiology thought to be secondary to bone marrow suppression from alcohol abuse Macrocytic anemia - likely secondary to ETOH use - continue thiamine and folate supplementation (3) Alcohol withdrawal: Alcohol withdrawal/Alcohol abuse/delirium tremens -patient with reported 6 shots of vodka daily alcohol use when outpatient -etoh level 35 on admission -admitted for alcohol withdrawal which has progressed to delirium tremens, requiring management with vasopressors and ICU admission -as per 04/14/2020 critical care note that "Precedx currently at 1.5mls/hr. Over the last 24 hours, patient has received scheduled Ativan with multiple prn doses and Ziprasidone x 1. Given his continued need for frequent prn Ativan, we will move his scheduled dosing to q4 hours. Continue to closely monitor his respiratory status with increased Ativan frequency. Patient potentially a phenobarbital candidate - will consider if patient's benzo requirement continues to increase. No seizure activity since admission." - continue AWSS scale with scheduled IV Ativan 2mg, q4hrs + prn doses - continue high dose thiamine for 48 hours, reduce to 100mg, daily thereafter - continue folic acid supplementation Prolonged QTc interval -503ms on EKG 04/14/2020, ICU recommend no further administration of QT prolonging agents, such as Ziprasidone GERD -continue home PPI (4) Hypokalemia: -serum potassium 3.2 on 04/12/2020 -normalized after potassium supplementation on this admission (5) Multiple rib fractures: Left anterior rib fractures, fifth and sixth ribs -rib fractures were from mechanical fall when climbing up steps prior to hospital admission -CT head: No acute process -CT abdomen pelvis: No injuries noted -pain control while minimizing use of acetaminophen -will need incentive spirometer encouragement when more cognitive baseline -will need PT/OT assessments when more cognitive baseline (6) DVT prophylaxis: -SCDs Full code Admission and Anticipated Discharge Date Admission Date: April 12, 2020 Subjective Patient seen and examined in the ICU. Patient's nurse reports he was active 10 minutes ago but intermittently gets lethargic. patient on precedex drip and ativan prn to treat delirium tremens and alcohol withdrawal so the changes in the mental status are not unusual at this time. Patient able to hear hospitalist doctor and was able to repeat 1 or 2 words that hospitalist was saying. Patient made some effort to open his eyes on request and to track the penlight. Patient is not in acute distress but full review of systems could not be assessed due to cognitive status. Review of Systems Review of Systems: Unobtainable due to cognitive status Physical Exam Constitutional: + lethargic Eyes: EOM intact bilaterally ENMT: external ear and nose normal, oropharynx normal Neck: normal visual inspection Respiratory: normal respiratory effort, lungs clear to auscultation Cardiovascular: Rate/Rhythm: regular rate Gastrointestinal (Abdomen): normal bowel sounds, soft, nontender, no hepatosplenomegaly Musculoskeletal: Head/Neck/Chest: normocephalic and head atraumatic Neurologic: awake Psychiatric: Orientation: cooperative Patient seen and examined in the ICU. Patient's nurse reports he was active 10 minutes ago but intermittently gets lethargic. patient on precedex drip and ativan prn to treat delirium tremens and alcohol withdrawal so the changes in the mental status are not unusual at this time. Patient able to hear hospitalist doctor and was able to repeat 1 or 2 words that hospitalist was saying. Patient made some effort to open his eyes on request and to track the penlight. Patient is not in acute distress but full review of systems could not be assessed due to cognitive status Results & Data Results & Data ([facility]) Vital Signs (Past 12 Hours) Vital Signs Temp Pulse BP Pulse Ox 04/14/20 04:33 91 H 133/92 99 04/14/20 04:03 104 H 148/108 H 100 04/14/20 04:00 36.8 C 04/14/20 03:33 100 H 134/94 100 04/14/20 02:03 88 130/86 100 04/14/20 01:03 87 131/92 100 04/14/20 00:34 96 H 107/91 100 04/14/20 00:03 89 120/94 99 04/14/20 00:00 37.0 C 04/13/20 23:33 90 126/89 99 (1) Alcohol withdrawal Complication of substance-induced condition: uncomplicated Qualified Code(s): F10.230 - Alcohol dependence with withdrawal, uncomplicated (2) Multiple rib fractures Encounter type: initial encounter Fracture type: closed Laterality: left Qualified Code(s): S22.42XA - Multiple fractures of ribs, left side, initial encounter for closed fracture
[2020-04-14] MEDS: LORazepam 1 MG/2 ML VIAL IV PRN (11:59)
[2020-04-14] MEDS ORDERED: LORazepam 1 MG/2 ML VIAL IV STA (12:00)
[2020-04-14] MEDS ORDERED: LORazepam 2 MG/4 ML VIAL IV STA (12:00)
[2020-04-14] MEDS ORDERED: LORazepam 2 MG/4 ML VIAL IV SCH (13:00)
[2020-04-14] MEDS: PANTOprazole 40 MG in SYRINGE 0 ML IV SCH (14:26)
[2020-04-15] MEDS: DEXMEDETOMIDINE HCL 400 MCG in 0.9 % SODIUM CHLORIDE 96 ML IV SCH ×10 (01:28→23:24)
[2020-04-15] MEDS: LORazepam 2 MG/4 ML VIAL IV SCH ×6 (03:00→22:28)
[2020-04-15 05:39] LABS: Hematocrit (blood only) 42.8 % (42-52); Hemoglobin 14.2 g/dL (14.0-18.0); Mean Corpuscular Hemoglobin 36.1 pg (25-34); Mean Corpuscular Hgb Conc 33.2 g/dL (32-36); Mean Corpuscular Volume 108.9 fL (80-100); Platelet Count 124 K/uL (130-400); RDW Coefficient of Variation 13.9 % (11.5-14.5); RDW Standard Deviation 55.3 fL (36.4-46.3); Red Blood Count 3.93 M/uL (4.7-6.1); White Blood Count 7.78 K/uL (4.8-10.8)
[2020-04-15 05:43] LABS: Basophils # (auto) 0.02 K/uL (0-0.2); Basophils % (auto) 0.3 %; Eosinophils # (auto) 0.09 K/uL (0-0.5); Eosinophils % (auto) 1.2 %; Immature Granulocytes # (auto) 0.08 K/uL (0.00-0.02); Lymphocytes # (auto) 1.72 K/uL (1.2-3.4); Lymphocytes % (auto) 22.1 %; Monocytes # (auto) 1.32 K/uL (0.11-0.59); Neutrophils # (auto) 4.55 K/uL (1.4-6.5); Neutrophils % (auto) 58.4 %; RBC Morphology Unremarkable
[2020-04-15 05:47] LABS: Albumin Level 2.6 gm/dl (3.4-5.0); BUN Creatinine Ratio 9.1 (10-20); Bilirubin,Total 1.4 mg/dl (0.2-1); Calcium 8.3 mg/dl (8.5-10.1); Est GFR (African American) 140.1; Est GFR (Non-African American) 120.9; Total Protein 6.8 gm/dl (6.4-8.2)
--- NOTE | 2020-04-15 05:56 | Electrocardiogram Report ---
Test Reason : Blood Pressure : / mmHG Vent. Rate : 094 BPM Atrial Rate : 094 BPM P-R Int : 152 ms QRS Dur : 088 ms QT Int : 404 ms P-R-T Axes : 007 072 137 degrees QTc Int : 505 ms Poor data quality, interpretation may be adversely affected Normal sinus rhythm T wave abnormality, consider lateral ischemia Prolonged QT Abnormal ECG When compared with ECG of 12-APR-2020 11:05, T wave inversion now evident in Lateral leads QT has lengthened Confirmed by Garland Ferraro ([id number]) on 04/15/2020 5:56:20 AM Referred By: REFERRED SELF Confirmed By:Garland Ferraro
--- NOTE | 2020-04-15 06:06 | Critical Care Progress Note ---
Date of Service April 15, 2020 Assessment & Plan (1) Delirium tremens: Reason Critically Ill: 34-year-old male admitted for alcohol withdrawal which has progressed to delirium tremens, requiring management with vasopressors. Precedx currently at 1.5mls/hr. Over the last 24 hours, patient h as received scheduled Ativan with multiple prn doses. Overnight patient was given a total of 16mg of Ativan; continue to closely monitor his respiratory status with increased Ativan frequency. Patient potentially a phenobarbital candidate - will consider if patient's benzo requirement continues to increase. No seizure activity since admission. He has been without nutrition since admission (4 days), consider NG tube placement (although this will likely increase his agitation). Patient with new gapped metabolic acidosis today. Neuro - * Alcohol withdrawal/EtOH abuse/delirium tremens - Patient has progressed from early signs of alcohol withdrawal with tremors and mild confusion to DTs and acute psychosis - Agitation now improved with addition of Precedex drip (currently running at 1.5) - patient with reported 6 shots of vodka daily alcohol use, now without alcohol for > 72 hours - etoh level 35 on admission - continue AWSS scale with scheduled IV Ativan 2mg, q3hrs + prn doses - continue high dose thiamine for 48 hours, reduce to 100mg, daily thereafter - continue folic acid supplementation - CT head unremarkable - recommend inpatient rehab for alcohol use disorder following discharge Cardiac - * Tachycardia - improving; HR ranged from 80-low 100s overnight - likely secondary to ETOH withdrawal - sinus tach on EKG; QTc elevated to 503 ms; would hold off on further z iprasidone use until AT interval normalizes - continue telemetry * History of hypertension - not on pharmacotherapy per pharmacy - continue to monitor BP * Chest pain - reported on admission - troponin negative - EKG showing normal sinus tach without signs of ischemia - CXR found left anterior 5th and 6th rib fractures (possibly secondary to fall related to alcohol intoxication) - chest CTA from 03/20 showed no evidence of pneumothorax - incentive spirometry when neurological status improves - pain control prn; would avoid Tylenol given elevated in LFTs. Consider lidocaine patches * Prolonged QTc interval - 503ms on EKG 04/14, formal read pending - recommend no further administration of QT prolonging agents, such as Ziprasidone - repeat EKG daily to trend monitor QTc Respiratory - - No history of pulmonary disease, no current respiratory distress - O2 sat 95% on 3L via NC - Chest CTA 04/12/20 showing faint groundglass density seen within the base of the bilateral lower lobes. This suggests a low-grade pneumonitis and could be due to a viral process. - patient is at risk for aspiration PNA given etoh intoxication, however would have expected upper lung field involvement - antibiotics not indicated at this time - incentive spirometry when able GI - * Elevated Lipase Level - lipase of 1342 on admission, up to 3961 - concern for alcoholic pancreatitis - CT abdomen pelvis without peripancreatic inflammatory change - Abdomen US 04/12/20 showing no evidence of pancreatic inflammation - abdominal exam benign today, patient without pain to palpation - continue lactated ringers, rate reduced to 80mls/hr - tolerating clear liquid diet; advance as tolerated * Fatty Liver - severe hepatic steatosis visualized on A/P CT scan - coags wnl - likely secondary to alcohol use disorder - GI following, appreciate recs * Transaminitis - AST as high as 107, now normal - ALT as high as 101, now normalized - likely secondary to etoh use - Hepatitis panel negative * Conjugated hyperbilirubinemia - Total bili elevated to 1.8, direct elevated to 1.0 - alk phos 182, down from 206 - LFTs elevated on admission, now normal - No evidence of ductal dilation on CT of abdomen and pelvis - US of abdomen showing on ductal dilation or gallstones; obstructive etiology not suspected - likely hepatocellular etiology (toxin induced -etoh) * GERD - continue home PPI - ammonia level not elevated RENAL/LYTES - * Mild gapped metabolic acidosis - anion gap mildly increased to 17.5 (when corrected for low albumin) - bicarb trending down, despite bicarb drip running at 70mls/hr. - comparing drop in bicarb to rise in anion gap, suspect concomitant metabolic acidosis - Repeat BMP now - etiology unknown - alcoholic ketosis, starvation, lactate, solvent from Ativan are all possible causes - discussion with pharmacy revealed extremely high doses of Ativan need for solvent to cause acid/base disturbances (threshold unknown, but typically in patient's on Ativan drips) - UA 4+ for ketones * Hypochloremia - level at 111. - No diarrhea reported by nursing - suspect possible distal RTA * Hypokalemia - resolved - K 4.7 today * Hypomagnesemia - resolved - mag 2.2 today * Hypophosphatemia - Phos at 2.0 today; replacement ordered - Calcium corrects to normal with low albumin - Creatinine within normal limits - - Foleystrict I's and O's ENDO - - No history of diabetes or thyroid disease - ICU electrolyte protocol HEME - * Thrombocytopenia - 124 K, up from 79K - etiology thought to be secondary to bone marrow suppression from alcohol abuse - not on heparin, patient not septic - Coags WNL, no concern for DIC at this time * Macrocytic anemia - Hgb 13.8, MCV 107.4 - likely secondary to ETOH use - continue thiamine and folate supplementation ID - * Pancytopenia - Platelets improved to 124 - WBC normalized to 7.21, up from 4 on 04/13 - RBC at 3.75 - possibly secondary to bone marrow suppression in the setting of heavy ETOH use - no infectious source suspected at this time - HIV neg - MRSA nasal negative - COVID 19 neg LINES/IV ACCESS - Peripheral IVs DVT PROPHYLAXIS -SCDs, Lovenox CODE: Full Thank you for allowing us to participate in the care of this patient. Please refer to my attending physician's documentation for any further recommendations. (2) Alcohol withdrawal: (3) Acute alcoholic pancreatitis: (4) Multiple rib fractures: (5) Thrombocytopenia: (6) GERD (gastroesophageal reflux disease): (7) Hypertension: Admission and Anticipated Discharge Date Admission Date: April 12, 2020 Supervising Physician Co-Signing Physician Notes Dr. Martin Was the resident-physician during care of patient. I separately evaluated patient for boo portions of the history and the exam. I was present during the critical portion of medical decision making, and I discussed the case with the resident. I generally agree with the findings and plan except for any additions/exceptions noted. Patient continues with profound alcohol withdrawal. Ammonia levels within normal limits. He also has evidence of ongoing acidemia likely related to alcoholic/starvation ketoacidosis. Continue bicarb drip. Lacing an NG tube and starting on tube feeds. Continue Precedex and Ativan. 2 mg of Ativan every 4 hours are ordered. There is also an alcohol withdrawal protocol ordered. Karina nue thiamine and folic acid. Continue pantoprazole daily. His lipase is very elevated yesterday. Continue to follow for clinical symptoms of alcoholic pancreatitis. Appreciate GI input. Likely has hepatic steatosis. MDF score less than 32. Abdomen is soft. Replacing electrolytes per protocol. No evidence of infection at this time. Holding antibiotics. Rib fractures were noted from CT chest on 04/12. This appears stable. No evidence of hypoxemia or pneumothorax on the CT chest. We will repeat a chest x-ray after NG tube placement. Subjective Mother reports a family history of alcohol use disorder (her father and grandfather). Patient's family had no idea he was a heavy drinker - they would occasionally see him drink a beer while watching a football game. last BM was 04/13, although he has not had meaningful caloric intake since admission Review of Systems Psychiatric: + hallucinations Physical Exam Constitutional: WD/WN, vitals as above Eyes: + anicteric sclerae and EOM intact bilaterally ENMT: external ear and nose normal, oropharynx normal Neck: normal visual inspection and trachea midline Respiratory: normal respiratory effort; no respiratory distress and no cough Auscultation: no vesicular breath sounds (coarse) Cardiovascular: Rate/Rhythm: regular rhythm and + tachycardic Heart Sounds: normal S1 and normal S2; no murmur Extremities: no pedal edema Gastrointestinal (Abdomen): Inspection/Auscultation: + abdomen distended and normal bowel sounds Percussion/Palpation: abdomen soft; abdomen nontender and no guarding Skin: no rashes, warm and dry Psychiatric: Orientation: oriented to person Genitourinary: Velásquez catheter in place, draining yellow urine without visible blood clots Results & Data Results & Data ([facility]) Vital Signs (Past 12 Hours) Vital Signs Temp Pulse Resp BP Pulse Ox 04/15/20 03:55 37.0 C 81 133/95 100 04/15/20 02:57 81 119/90 100 04/15/20 01:58 81 126/97 100 04/15/20 00:57 81 109/79 100 04/15/20 00:44 80 115/83 100 04/15/20 00:00 36.6 C 04/14/20 22:58 90 147/111 H 100 04/14/20 21:57 81 108/81 100 04/14/20 20:57 85 152/105 H 100 04/14/20 20:44 84 33 H 129/99 100 04/14/20 20:19 36.8 C 04/14/20 19:38 88 129/93 100 04/14/20 19:04 81 19 125/82 100 Resident Activity Tracking Resident Involvement: Resident Care Provided Care Provided: Adult Hospital Medicine (1) Multiple rib fractures Encounter type: initial encounter Fracture type: closed Laterality: left Qualified Code(s): S22.42XA - Multiple fractures of ribs, left side, initial encounter for closed fracture (2) Alcohol withdrawal Complication of substance-induced condition: uncomplicated Qualified Code(s): F10.230 - Alcohol dependence with withdrawal, uncomplicated (3) Acute alcoholic pancreatitis Acute pancreatitis complication: no infection or necrosis Qualified Code(s): K85.20 - Alcohol induced acute pancreatitis without necrosis or infection
[2020-04-15 06:41] LABS: Bilirubin Direct 0.9 mg/dl (0-0.2); Magnesium 2.2 mg/dl (1.8-2.4); Potassium 4.4 mmol/L (3.5-5.1)
[2020-04-15] MEDS ORDERED: STAT IV STA (06:42)
[2020-04-15] MEDS: SODIUM BICARBONATE 8.4% 150 MEQ in DEXTROSE 5% 1,000 ML IV SCH ×2 (07:05→17:56)
[2020-04-15] MEDS ORDERED: SODIUM PHOSPHATE 3 MMOL/1 ML INFUSION IV STA (07:15)
[2020-04-15] MEDS: THIAMINE HCL 100 MG in SYRINGE 9 ML IV SCH ×2 (07:29→10:20)
[2020-04-15] MEDS ORDERED: SODIUM PHOSPHATE 24 MMOL in SODIUM CHLORIDE 0.9% 500 ML IV ONE (07:30)
[2020-04-15] MEDS ORDERED: POTASSIUM PHOSPHATE 24 MMOL in SODIUM CHLORIDE 0.9% 500 ML IV ONE (07:30)
[2020-04-15] MEDS: LORazepam 2 MG/4 ML VIAL IV PRN ×11 (07:59→21:08)
[2020-04-15] MEDS: ENOXAPARIN INJ 40 MG/0.4 ML SYR SQ SCH (08:15)
[2020-04-15] MEDS: FOLIC ACID 1 MG in SYRINGE 9.8 ML IV SCH (08:18)
--- NOTE | 2020-04-15 08:59 | Hospitalist Progress Note ---
Date of Service April 15, 2020 Assessment & Plan (1) Pancreatitis: -as per admission notes on 04/12/2020 " 34-year-old male with history of alcoholism, hypertension, GERD, ankylosing spondylitis Presenting with bilateral lower extremity tingling sensation and tremors, abdominal pain since this morning" -initial concerns were for acute alcoholic pancreatitis -however the CT abdomen pelvis without peripancreatic inflammatory change, and Abdomen US 04/12/20 showing no evidence of pancreatic inflammation (2) Elevated LFTs: Transaminitis, Elevated Lipase Level, Conjugated hyperbilirubinemia Fatty Liver -severe hepatic steatosis visualized on A/P CT scan -No evidence of ductal dilation on CT of abdomen and pelvis -US of abdomen showing on ductal dilation or gallstones; obstructive etiology not suspected -patient's abnormal liver function enzymes, bilirubin, and lipase are attributed to alcohol use and liver dysfunction Thrombocytopenia - etiology thought to be secondary to bone marrow suppression from alcohol abuse Macrocytic anemia - likely secondary to ETOH use - continue thiamine and folate supplementation (3) Alcohol withdrawal: Alcohol withdrawal/Alcohol abuse/delirium tremens -patient with reported 6 shots of vodka daily alcohol use when outpatient -etoh level 35 on admission -admitted for alcohol withdrawal which has progressed to delirium tremens, requiring management with vasopressors and ICU admission -as per 04/14/2020 critical care note that "Precedx currently at 1.5mls/hr. Over the last 24 hours, patient has received scheduled Ativan with multiple prn doses and Ziprasidone x 1. Given his continued need for frequent prn Ativan, we will move his scheduled dosing to q4 hours. Continue to closely monitor his respiratory status with increased Ativan frequency. Patient potentially a phenobarbital candidate - will consider if patient's benzo requirement continues to increase. No seizure activity since admission." -thiamine and folic acid supplementation -further management of alcohol withdrawal medications as per ICU physician Prolonged QTc interval -503ms on EKG 04/14/2020, ICU recommend no further administration of QT prolonging agents, such as Ziprasidone GERD -continue home PPI (4) Hypokalemia: -serum potassium 3.2 on 04/12/2020 -normalized after potassium supplementation on this admission Hypophosphatemia -serum phosphorous of 2 on 04/15/2020, patient receiving phosphorous supplements (5) Multiple rib fractures: Left anterior rib fractures, fifth and sixth ribs -rib fractures were from mechanical fall when climbing up steps prior to hospital admission -CT head: No acute process -CT abdomen pelvis: No injuries noted -pain control while minimizing use of acetaminophen -will need incentive spirometer encouragement when more cognitive baseline -will need PT/OT assessments when more cognitive baseline (6) DVT prophylaxis: -SCDs Full code Admission and Anticipated Discharge Date Admission Date: April 12, 2020 Subjective Patient remains on Precedex (Dexmedetomidine), also sodium bicarbonate, IV phosphorous. Patient awake but not at mental baseline. Patient appears oriented to person. He mumbles the speech. Patient allowed for physical exam but really could not answer full review of systems questions Review of Systems Review of Systems: Unobtainable due to cognitive status Physical Exam Constitutional: + lethargic Eyes: EOM intact bilaterally ENMT: external ear and nose normal, oropharynx normal Neck: normal visual inspection Respiratory: normal respiratory effort, lungs clear to auscultation Cardiovascular: Rate/Rhythm: regular rate Gastrointestinal (Abdomen): normal bowel sounds, soft, nontender, no hepatosplenomegaly Musculoskeletal: Head/Neck/Chest: normocephalic and head atraumatic Neurologic: awake Psychiatric: Orientation: oriented to person Results & Data Results & Data ([facility]) Vital Signs (Past 12 Hours) Vital Signs Temp Pulse BP Pulse Ox 04/15/20 07:00 81 94/75 L 96 04/15/20 05:58 82 125/94 97 04/15/20 05:01 83 132/98 100 04/15/20 03:57 81 133/95 100 04/15/20 03:55 37.0 C 81 133/95 100 04/15/20 02:57 81 119/90 100 04/15/20 01:58 81 126/97 100 04/15/20 00:57 81 109/79 100 04/15/20 00:44 80 115/83 100 04/15/20 00:00 36.6 C 04/14/20 22:58 90 147/111 H 100 04/14/20 21:57 81 108/81 100 04/14/20 20:57 85 152/105 H 100 (1) Alcohol withdrawal Complication of substance-induced condition: uncomplicated Qualified Code(s): F10.230 - Alcohol dependence with withdrawal, uncomplicated (2) Multiple rib fractures Encounter type: initial encounter Fracture type: closed Laterality: left Qualified Code(s): S22.42XA - Multiple fractures of ribs, left side, initial encounter for closed fracture
[2020-04-15] MEDS ORDERED: POT PHOSPHATE MONOBASIC W/ SOD TAB PO SCH (09:00)
[2020-04-15 10:09] LABS: Appearance Urine Clear (Clear); Bacteria Urine Automated Negative (Negative); Bilirubin Urine Negative (Negative); Blood Urine 2+ (Negative); Color Urine Yellow; Glucose Urine UA Negative (Negative); Ketones Urine 4+ (Negative); Leukocyte Esterase Urine Negative (Negative); Nitrite Urine Negative (Negative); Protein Urine 1+ (Negative); Specific Gravity Urine 1.019 (1.000-1.030); Urobilinogen Urine Negative (Negative)
[2020-04-15 11:19] LABS: BUN Creatinine Ratio 9.5 (10-20); Calcium 8.5 mg/dl (8.5-10.1); Creatinine Clr Calc Pharmacy 176.4 ml/min; Est GFR (African American) 145.2; Est GFR (Non-African American) 125.3; Potassium 4.7 mmol/L (3.5-5.1)
[2020-04-15] MEDS: PANTOprazole 40 MG in SYRINGE 0 ML IV SCH (11:20)
[2020-04-15] MEDS ORDERED: PEPTAMEN 1.5 CAL 1,000 ML BAG PO SCH (12:00)
--- NOTE | 2020-04-15 12:53 | Billing Data ---
Date of Service April 15, 2020 Coding Level of Care Code 56341 Subseq Obs Care Lvl 3
[2020-04-15 13:20] LABS: Codeine Urine NEGATIVE ng/mL (<50); Hydrocodone Urine NEGATIVE ng/mL (<50); Hydromor Urine NEGATIVE ng/mL (<50); Morphine Urine 1320 ng/mL (<50); Norhydrocodone Conf Ur NEGATIVE ng/mL (<50); Noroxycodone Urine 118 ng/mL (<50); Oxycodone Urine NEGATIVE ng/mL (<50); Oxymorph Urine NEGATIVE ng/mL (<50)
--- NOTE | 2020-04-15 14:10 | XRay Report ---
XR chest 1V portable CLINICAL HISTORY: NGT placement, follow up rib fx COMPARISON STUDY: Chest CT and chest radiograph April 12, 2020. FINDINGS: The tip of the nasogastric tube is within the body of the stomach. Cardiomediastinal silhou ette is stable. Left-sided rib fractures shown on CT of April 12, 2020 are not evident due to techn ique. Mild bibasilar opacities are noted, greater on the right. There is no pneumothorax or pleural e ffusion. There is no evidence for pulmonary edema. IMPRESSION: 1. Tip of nasogastric tube within the body of the stomach. 2. Increase in bibasilar opacities which may reflect an infectious process or less likely atelectasis . ACT 112: Negative or not required by law. Electronically signed by: Ray Haque M.D. 04/15/2020 2:09 PM
[2020-04-15] MEDS: PEPTAMEN 1.5 CAL 1,000 ML BAG NG SCH (15:07)
[2020-04-15] MEDS ORDERED: chlordiazePOXIDE HCl 5 MG CAP PO SCH (17:00)
[2020-04-15] MEDS: LACTATED RINGER'S 1,000 ML IV SCH ×3 (19:07→19:09)
[2020-04-16] MEDS: LORazepam 2 MG/4 ML VIAL IV PRN ×5 (00:04→09:24)
[2020-04-16] MEDS: DEXMEDETOMIDINE HCL 400 MCG in 0.9 % SODIUM CHLORIDE 96 ML IV SCH ×4 (01:09→18:45)
[2020-04-16] MEDS: LORazepam 1 MG/2 ML VIAL IV PRN ×2 (02:04→04:04)
[2020-04-16] MEDS: LORazepam 2 MG/4 ML VIAL IV SCH ×2 (03:04→07:12)
[2020-04-16] MEDS: SODIUM BICARBONATE 8.4% 150 MEQ in DEXTROSE 5% 1,000 ML IV SCH (03:17)
[2020-04-16 05:05] LABS: Basophils # (auto) 0.01 K/uL (0-0.2); Basophils % (auto) 0.2 %; Eosinophils # (auto) 0.07 K/uL (0-0.5); Eosinophils % (auto) 1.3 %; Hematocrit (blood only) 40.1 % (42-52); Hemoglobin 13.6 g/dL (14.0-18.0); Immature Granulocytes # (auto) 0.03 K/uL (0.00-0.02); Immature Granulocytes % (auto) 0.6 %; Lymphocytes # (auto) 0.87 K/uL (1.2-3.4); Lymphocytes % (auto) 16.2 %; Mean Corpuscular Hgb Conc 33.9 g/dL (32-36); Mean Corpuscular Volume 106.1 fL (80-100); Mean Platelet Volume 10.1 fL (7.4-10.4); Monocytes # (auto) 1.27 K/uL (0.11-0.59); Monocytes % (auto) 23.6 %; Neutrophils # (auto) 3.13 K/uL (1.4-6.5); Neutrophils % (auto) 58.1 %; Platelet Count 159 K/uL (130-400); RDW Coefficient of Variation 14.1 % (11.5-14.5); RDW Standard Deviation 54.6 fL (36.4-46.3); Red Blood Count 3.78 M/uL (4.7-6.1); White Blood Count 5.38 K/uL (4.8-10.8)
[2020-04-16 05:21] LABS: Albumin Globulin Ratio 0.7 (0.9-2); Albumin Level 2.6 gm/dl (3.4-5.0); BUN Creatinine Ratio 5.2 (10-20); Bilirubin,Total 1.4 mg/dl (0.2-1); Calcium 8.1 mg/dl (8.5-10.1); Creatinine Clr Calc Pharmacy 166.3 ml/min; Est GFR (African American) 141.7; Est GFR (Non-African American) 122.3; Phosphorus 1.9 mg/dl (2.5-4.9); Potassium 3.2 mmol/L (3.5-5.1); Total Protein 6.6 gm/dl (6.4-8.2)
--- NOTE | 2020-04-16 06:08 | Critical Care Progress Note ---
Date of Service April 16, 2020 Assessment & Plan (1) Delirium tremens: Reason Critically Ill: 34-year-old male admitted for alcohol withdrawal which has progressed to delirium tremens, requiring management with vasopressors. Over the last 24 hours, patient has received scheduled Ativan with multiple prn doses. Overnight patient was given a total of 18mg of Ativan. Due to this increased benzo requirement, we will transition patient from Ativan to Phenobarbital for continued management of withdrawal. His precedx drip will be discontinued and he will be started on clonidine. NG tube was placed yesterday, titrating feeds to goal today. Patient's gapped metabolic acidosis now resolved; bicarb drip will be discontinued at this time. Neuro - * Alcohol withdrawal/EtOH abuse/delirium tremens - ongoing - Patient has progressed from early signs of alcohol withdrawal with tremors and mild confusion to DTs and acute psychosis - patient with reported 6 shots of vodka daily alcohol use - family history of alcohol use disorder - etoh level 35 on admission - initially he required max dosing of Precedex. Plan to discontinue Precedex today, starting clonidine - initially was started on scheduled ativan + prn doses; patient was requiring excessive benzo requirements; plan to transition to phenobarbital today - continue thiamine (200mg, BID for 1 week) and folate supplementation to prevent Wernicke's/Korsokoffs - CT head unremarkable. consider MRI to assess for mamillary body necrosis - recommend inpatient rehab for alcohol use disorder following discharge Cardiac - * Tachycardia - resolved - improving; HR ranged from 80-low 100s overnight - likely secondary to ETOH withdrawal - sinus tach on EKG; QTc elevated to 503 ms; would hold off on further ziprasidone use until AT interval normalizes - continue telemetry * History of hypertension - not on pharmacotherapy per pharmacy - continue to monitor BP * Chest pain - reported on admission - troponin negative - EKG showing normal sinus tach without signs of ischemia - CXR found left anterior 5th and 6th rib fractures (possibly secondary to fall related to alcohol intoxication) - chest CTA from 03/20 showed no evidence of pneumothorax - incentive spirometry when neurological status improves - pain control prn; would avoid Tylenol given elevated in LFTs. Consider lidocaine patches * Prolonged QTc interval - 503ms on EKG 04/14 - recommend no further administration of QT prolonging agents, such as Ziprasidone Respiratory - - No history of pulmonary disease, no current respiratory distress - O2 sat 96% on 2L via NC - Chest CTA 04/12/20 showing faint groundglass density seen within the base of the bilateral lower lobes. This suggests a low-grade pneumonitis and could be due to a viral process. - patient is at risk for aspiration PNA given etoh intoxication, however would have expected upper lung field involvement - antibiotics not indicated at this time - incentive spirometry when able GI - * Elevated Lipase Level - lipase of 1342 on admission --> 3961--> 982. Repeat level ordered for 04/18, as patient is at high risk for pseudocyst formation. - concern for alcoholic pancreatitis - CT abdomen pelvis without peripancreatic inflammatory change - Abdomen US 04/12/20 showing no evidence of pancreatic inflammation - abdominal exam benign today, patient without pain to palpation - continue lactated ringers, rate reduced to 80mls/hr - continue NG tube feeds, titrating to goal * Fatty Liver - severe hepatic steatosis visualized on A/P CT scan - coags wnl - likely secondary to alcohol use disorder - GI following, appreciate recs * Transaminitis - resolved - AST as high as 107, now normal - ALT as high as 101, now normalized - likely secondary to etoh use - Hepatitis panel negative * Conjugated hyperbilirubinemia - Total bili elevated to 1.8, direct elevated to 1.0 - alk phos 182, down from 206 - LFTs elevated on admission, now normal - No evidence of ductal dilation on CT of abdomen and pelvis - US of abdomen showing on ductal dilation or gallstones; obstructive etiology not suspected - likely hepatocellular etiology (toxin induced -etoh) * GERD - continue home PPI - ammonia level not elevated RENAL/LYTES - * Mild gapped metabolic acidosis - resolved - anion gap mildly increased to 17.5 (when corrected for low albumin) with concomitant metabolic acidosis; gap now closed - bicarb normal, despite bicarb drip running at 125mls/hr. - UA 4+ for ketones - etiology unknown - alcoholic ketosis, starvation, lactate, solvent from Ativan are all possible causes - discussion with pharmacy revealed extremely high doses of Ativan need for solvent to cause acid/base disturbances (threshold unknown, but typically in patient's on Ativan drips) - ICU electrolyte protocol - Creatinine within normal limits - - Foleystrict I's and O's ENDO - - No history of diabetes or thyroid disease HEME - * Thrombocytopenia - resolved - now normal at 159k - etiology thought to be secondary to bone marrow suppression from alcohol abuse - not on heparin, patient not septic - Coags WNL, no concern for DIC at this time * Macrocytic anemia - Hgb 13.6, MCV 107.4 - likely secondary to ETOH use - continue thiamine and folate supplementation ID - * Pancytopenia - resolving - Platelets normalized - WBC normalized - RBC at 3.75 - possibly secondary to bone marrow suppression in the setting of heavy ETOH use - no infectious source suspected at this time - HIV neg - MRSA nasal negative - COVID 19 neg LINES/IV ACCESS - Peripheral IVs DVT PROPHYLAXIS -SCDs, Lovenox CODE: Full Thank you for allowing us to participate in the care of this patient. Please refer to my attending physician's documentation for any further recommendations. (2) Alcohol withdrawal: (3) Acute alcoholic pancreatitis: (4) Multiple rib fractures: (5) Thrombocytopenia: (6) GERD (gastroesophageal reflux disease): (7) Hypertension: Admission and Anticipated Discharge Date Admission Date: April 12, 2020 Supervising Physician Co-Signing Physician Notes Dr. Martin was resident physician during care of patient. I separately evaluated patient for boo portions of the history and the exam. I was present during the critical portion of medical decision making, and I discussed the case with the resident. I generally agree with the findings and plan. Patient was discussed on multidisciplinary rounds. Still having significant withdrawal symptoms including tachycardia and disorientation. This appears to be dejah Warnicke's encephalopathy. He is still requiring massive amounts of Ativan will transition to phenobarbital. Patient has NG tube in at this time. Initially starting phenobarbital at 10 mg/kg first dose will be 350 mg IM 3 hours later followed by 275 mg followed 3 hours later by 275 mg. This evening we will start on 64.8 mg of phenobarb by mouth for 2 doses decreasing to 32.4 mg by mouth for a total of 3 doses. We will continue the thiamine supplementation. We will discontinue the Precedex and transition to clonidine orally 0.1 mg 3 times daily and consider propranolol for withdrawal as well. He is combative and unable to be reoriented and therefore requiring chemical and physical restraint for safety of staff. Subjective Overnight James required 18 mg of ativan. He is tolerating the NG tube well thus far Review of Systems Psychiatric: + hallucinations Physical Exam Constitutional: WD/WN, vitals as above Eyes: + anicteric sclerae and EOM intact bilaterally ENMT: external ear and nose normal, oropharynx normal Neck: normal visual inspection and trachea midline Respiratory: normal respiratory effort; no respiratory distress and no cough Auscultation: no vesicular breath sounds (coarse) Cardiovascular: Rate/Rhythm: regular rhythm and + tachycardic Heart Sounds: normal S1 and normal S2; no murmur Extremities: no pedal edema Gastrointestinal (Abdomen): Inspection/Auscultation: + abdomen distended and normal bowel sounds Percussion/Palpation: abdomen soft; abdomen nontender and no guarding NG tube in place Skin: no rashes, warm and dry Neurologic: + confused Psychiatric: Orientation: oriented to person Genitourinary: Velásquez catheter in place, draining yellow urine without visible blood clots Results & Data Results & [facility] ([facility]) Vital Signs (Past 12 Hours) Vital Signs Temp Pulse Pulse Resp BP BP Pulse Ox 04/16/20 04:58 92 H 29 H 128/78 99 04/16/20 03:58 88 27 H 131/81 95 04/16/20 02:58 87 28 H 114/79 99 04/16/20 01:58 85 30 H 117/81 98 04/16/20 00:58 85 27 H 135/89 96 04/16/20 00:01 36.8 C 04/15/20 23:58 86 30 H 136/87 95 04/15/20 23:38 85 04/15/20 23:02 93 H 27 H 139/89 98 04/15/20 22:00 85 24 97 04/15/20 21:58 85 23 107/78 97 04/15/20 21:00 87 26 H 95 04/15/20 20:58 88 27 H 140/90 95 04/15/20 20:00 37.3 C 87 29 H 97 04/15/20 19:57 86 31 H 139/91 97 04/15/20 19:00 88 97 Critical Care Time Critical Care Time: Yes Total Critical Care Time: 95 I have personally spent 95 minutes of critical care time in the direct management of this patient. This is a life/limb threatening event. This includes time spent evaluating patient, direct bedside care, chart review, placing orders, interpretation of diagnostic studies, discussion with consultants, patient, and/or family members regarding treatment decisions, as well as other required patient management activities. This time is exclusive of all separately billable procedures, and teaching time and separate from and in addition to any other critical care service time. Resident Activity Tracking Resident Involvement: Resident Care Provided Care Provided: Adult [facility] Medicine (1) Multiple rib fractures Encounter type: initial encounter Fracture type: closed Laterality: left Qualified Code(s): S22.42XA - Multiple fractures of ribs, left side, initial encounter for closed fracture (2) Alcohol withdrawal Complication of substance-induced condition: uncomplicated Qualified Code(s): F10.230 - Alcohol dependence with withdrawal, uncomplicated (3) Acute alcoholic pancreatitis Acute pancreatitis complication: no infection or necrosis Qualified Code(s): K85.20 - Alcohol induced acute pancreatitis without necrosis or infection
[2020-04-16] MEDS ORDERED: POTASSIUM PHOS 3 MMOL/1 ML INFUSION IV STA (06:25)
[2020-04-16] MEDS ORDERED: POTASSIUM PHOSPHATE 15 MMOL in SODIUM CHLORIDE 0.9% 250 ML IV ONE (06:30)
[2020-04-16] MEDS: POTASSIUM CHLORIDE / WTR 10 MEQ/100 ML PLCT IV SCH ×2 (06:37→07:40)
[2020-04-16 07:00] LABS: Base Excess VBG -0.1 mEq/L; pH VBG 7.39 (7.36-7.41)
[2020-04-16 07:30] LABS: Albumin Level 2.4 gm/dl (3.4-5.0); Bilirubin Direct 0.7 mg/dl (0-0.2); Bilirubin,Total 1.4 mg/dl (0.2-1); Total Protein 6.4 gm/dl (6.4-8.2)
[2020-04-16] MEDS: FOLIC ACID 1 MG in SYRINGE 9.8 ML IV SCH (08:11)
[2020-04-16] MEDS: THIAMINE HCL 100 MG in SYRINGE 9 ML IV SCH (08:11)
[2020-04-16] MEDS: ENOXAPARIN INJ 40 MG/0.4 ML SYR SQ SCH (08:11)
--- NOTE | 2020-04-16 09:17 | Hospitalist Progress Note ---
Date of Service April 16, 2020 Assessment & Plan (1) Pancreatitis: -as per admission notes on 04/12/2020 " 34-year-old male with history of alcoholism, hypertension, GERD, ankylosing spondylitis Presenting with bilateral lower extremity tingling sensation and tremors, abdominal pain since this morning" -initial concerns were for acute alcoholic pancreatitis -however the CT abdomen pelvis without peripancreatic inflammatory change, and Abdomen US 04/12/20 showing no evidence of pancreatic inflammation (2) Elevated LFTs: Transaminitis, Elevated Lipase Level, Conjugated hyperbilirubinemia Fatty Liver -severe hepatic steatosis visualized on A/P CT scan -No evidence of ductal dilation on CT of abdomen and pelvis -US of abdomen showing on ductal dilation or gallstones; obstructive etiology not suspected -patient's abnormal liver function enzymes, bilirubin, and lipase are attributed to alcohol use and liver dysfunction Thrombocytopenia - etiology thought to be secondary to bone marrow suppression from alcohol abuse Macrocytic anemia - likely secondary to ETOH use - continue thiamine and folate supplementation (3) Alcohol withdrawal: Alcohol withdrawal/Alcohol abuse/delirium tremens -patient with reported 6 shots of vodka daily alcohol use when outpatient -etoh level 35 on admission -admitted for alcohol withdrawal which has progressed to delirium tremens, requiring management with vasopressors and ICU admission -as per 04/14/2020 critical care note that "Precedx currently at 1.5mls/hr. Over the last 24 hours, patient has received scheduled Ativan with multiple prn doses and Ziprasidone x 1. Given his continued need for frequent prn Ativan, we will move his scheduled dosing to q4 hours. Continue to closely monitor his respiratory status with increased Ativan frequency. Patient potentially a phenobarbital candidate - will consider if patient's benzo requirement continues to increase. No seizure activity since admission." -thiamine and folic acid supplementation -further management of alcohol withdrawal medications as per ICU physician Metabolic Acidosis -improved with the IV bicarbonate that ICU medical team has given to the patient Prolonged QTc interval -503ms on EKG 04/14/2020, ICU recommend no further administration of QT prolonging agents, such as Ziprasidone GERD -continue home PPI (4) Hypokalemia: -serum potassium 3.2 on 04/12/2020 -normalized after potassium supplementation on this admission Hypophosphatemia -serum phosphorous of 2 on 04/15/2020, patient receiving phosphorous supplements -patient continues to require phosphorous supplementation on 04/16/2020 -on NG tube feeds starting on 04/15/2020, continue, high lift driver consult (5) Multiple rib fractures: Left anterior rib fractures, fifth and sixth ribs -rib fractures were from mechanical fall when climbing up steps prior to hospital admission -CT head: No acute process -CT abdomen pelvis: No injuries noted -pain control while minimizing use of acetaminophen -will need incentive spirometer encouragement when more cognitive baseline -will need PT/OT assessments when more cognitive baseline (6) DVT prophylaxis: -SCDs Full code Admission and Anticipated Discharge Date Admission Date: April 12, 2020 Subjective Patient is awake on exam. is lethargic. mumbles speech but difficult to hear him clearly because of nasal cannula an NG tube. Patient has intermittent snoring sounds. continues to be on alcohol withdrawal medications which can be sedating. Review of Systems Review of Systems: Unobtainable due to cognitive status Physical Exam Constitutional: + lethargic Eyes: EOM intact bilaterally ENMT: external ear and nose normal, oropharynx normal (has NG tube and feeds, has nasal cannula oxygen) Neck: normal visual inspection Respiratory: normal respiratory effort, lungs clear to auscultation Cardiovascular: Rate/Rhythm: regular rate Gastrointestinal (Abdomen): normal bowel sounds, soft, nontender, no hepatosplenomegaly Musculoskeletal: Head/Neck/Chest: normocephalic and head atraumatic Neurologic: awake Psychiatric: Eye Contact: + poor eye contact Results & Data Results & Data ([facility]) Vital Signs (Past 12 Hours) Vital Signs Temp Pulse Pulse Resp BP BP Pulse Ox 04/16/20 08:00 90 26 H 97 04/16/20 07:58 90 25 H 127/83 97 04/16/20 07:00 89 27 H 97 04/16/20 06:58 88 25 H 122/77 97 04/16/20 05:58 88 23 112/77 96 04/16/20 04:58 92 H 29 H 128/78 99 04/16/20 03:58 88 27 H 131/81 95 04/16/20 02:58 87 28 H 114/79 99 04/16/20 01:58 85 30 H 117/81 98 04/16/20 00:58 85 27 H 135/89 96 04/16/20 00:01 36.8 C 04/15/20 23:58 86 30 H 136/87 95 04/15/20 23:38 85 04/15/20 23:02 93 H 27 H 139/89 98 04/15/20 22:00 85 24 97 04/15/20 21:58 85 23 107/78 97 (1) Alcohol withdrawal Complication of substance-induced condition: uncomplicated Qualified Code(s): F10.230 - Alcohol dependence with withdrawal, uncomplicated (2) Multiple rib fractures Encounter type: initial encounter Fracture type: closed Laterality: left Qualified Code(s): S22.42XA - Multiple fractures of ribs, left side, initial encounter for closed fracture
[2020-04-16] MEDS: PANTOprazole 40 MG in SYRINGE 0 ML IV SCH (10:33)
[2020-04-16] MEDS ORDERED: PHENobarbital sodium 130 MG/ML VIAL IM STA (12:16)
[2020-04-16] MEDS ORDERED: LORazepam 2 MG/4 ML VIAL IV STA (12:19)
--- NOTE | 2020-04-16 12:28 | Billing Data ---
Date of Service April 16, 2020 Coding Level of Care Code Critical Care ea addt'l 30 min Time Spent (min) 95
[2020-04-16] MEDS: cloNIDine HCL 0.1 MG TAB PO SCH ×2 (13:27→20:07)
[2020-04-16] MEDS ORDERED: PROPRANOLOL HCL 10 MG TAB PO SCH (14:00)
[2020-04-16] MEDS: PHENobarbital sodium 130 MG/ML VIAL IM SCH ×2 (15:49→18:09)
[2020-04-16] MEDS: PEPTAMEN 1.5 CAL 1,000 ML BAG NG SCH (16:40)
[2020-04-16] MEDS: PHENobarbital sodium 130 MG/ML VIAL IV PRN ×2 (18:27→23:53)
[2020-04-16] MEDS: PROPRANOLOL HCL 20 MG TAB PO SCH (20:07)
[2020-04-16] MEDS ORDERED: METOPROLOL TARTRATE 1 MG/ML VIAL IV STA (20:11)
[2020-04-16] MEDS ORDERED: METOPROLOL TARTRATE 1 MG/ML VIAL IV ONE (20:27)
[2020-04-17] MEDS ORDERED: METOPROLOL TARTRATE 1 MG/ML VIAL IV STA (03:32)
[2020-04-17 04:57] LABS: Basophils # (auto) 0.01 K/uL (0-0.2); Basophils % (auto) 0.2 %; Hematocrit (blood only) 42.7 % (42-52); Hemoglobin 14.4 g/dL (14.0-18.0); Immature Granulocytes # (auto) 0.02 K/uL (0.00-0.02); Immature Granulocytes % (auto) 0.4 %; Lymphocytes # (auto) 0.69 K/uL (1.2-3.4); Lymphocytes % (auto) 13.9 %; Mean Corpuscular Hemoglobin 35.5 pg (25-34); Mean Corpuscular Hgb Conc 33.7 g/dL (32-36); Mean Corpuscular Volume 105.2 fL (80-100); Mean Platelet Volume 9.9 fL (7.4-10.4); Monocytes # (auto) 2.36 K/uL (0.11-0.59); Monocytes % (auto) 47.4 %; Neutrophils % (auto) 38.1 %; Platelet Count 228 K/uL (130-400); RDW Coefficient of Variation 14.1 % (11.5-14.5); RDW Standard Deviation 53.8 fL (36.4-46.3); Red Blood Count 4.06 M/uL (4.7-6.1); White Blood Count 4.98 K/uL (4.8-10.8)
[2020-04-17 05:24] LABS: BUN Creatinine Ratio 5.5 (10-20); Creatinine Clr Calc Pharmacy 172.4 ml/min; Est GFR (African American) 144.3; Est GFR (Non-African American) 124.5; Magnesium 1.8 mg/dl (1.8-2.4)
[2020-04-17 05:25] LABS: Phosphorus 1.9 mg/dl (2.5-4.9)
[2020-04-17] MEDS ORDERED: POTASSIUM CHLORIDE CRTAB 20 MEQ TABCR PO STA (05:53)
[2020-04-17] MEDS ORDERED: POTASSIUM PHOS 3 MMOL/1 ML INFUSION IV STA (05:53)
--- NOTE | 2020-04-17 06:09 | Critical Care Progress Note ---
Date of Service April 17, 2020 Assessment & Plan (1) Delirium tremens: Reason Critically Ill: 34-year-old male admitted for alcohol withdrawal which has progressed to delirium tremens, requiring management with vasopressors. Patient was initially placed on AWSS protocol with both scheduled and prn ativan, as well as max dose Precedex. Due to increasing benzo requirements, ativan was discontinued in favor of phenobarbital taper on 04/16; taper will be extended to 64.8 mg oral dosing for a total of 4 doses then to decrease to 32.4. His precedex was discontinued and he was started on scheduled clonidine 0.1mg TID and propranolol. Overnight he developed liquid stools, he became tachypneic and had an increased O2 requirement. His tube feeds were held. This morning he spiked a fever to 38.1 and his CXR showed a slight progression of hazy right basilar airspace opacity. He was initiated on Unasyn with concern for aspiration pneumonia. His propranolol dose was increased fro m20 to 30mg given his ongoing tachycardia. Family will be consent today for PICC line placement. Neuro - * Alcohol withdrawal/EtOH abuse/delirium tremens - ongoing - Patient has progressed from early signs of alcohol withdrawal with tremors and mild confusion to DTs and acute psychosis - patient with reported 6 shots of vodka daily alcohol use - family history of alcohol use disorder - etoh level 35 on admission - initially he required max dosing of Precedex. Precedex discontinued, scheduled clonidine and propranolol started. - initially was started on AWSS protocol with scheduled ativan + prn doses; this was discontinued in favor of phenobarbital taper. - continue thiamine (200mg, daily for 1 week) and folate supplementation to prevent Wernicke's/Korsokoffs - CT head unremarkable. consider MRI to assess for mamillary body necrosis - recommend inpatient rehab for alcohol use disorder following discharge Cardiac - * Tachycardia - HR 120-140 bpm overnight - likely secondary to ETOH withdrawal - scheduled propranolol dose increased from 20 to 30mg - continue telemetry * History of hypertension - not on pharmacotherapy per pharmacy - continue to monitor BP * Chest pain - reported on admission - troponin negative - EKG showing normal sinus tach without signs of ischemia - CXR found left anterior 5th and 6th rib fractures (possibly secondary to fall related to alcohol intoxication) - chest CTA from 03/20 showed no evidence of pneumothorax - incentive spirometry when neurological status improves - pain control prn; would avoid Tylenol given elevated in LFTs. Consider lidocaine patches * Prolonged QTc interval -resolved - 503ms on EKG 04/14; interval has since normalized Respiratory - * Concern for aspiration PNA - overnight patient became tachypneic with an increased O2 requirement; febrile today to 38.1 - CXR this morning showing a slight progression of hazy right basilar airspace opacity - he was started on Unasyn today - tube feeds on hold - lactic acid level, VBG, blood cultures ordered - supplemental O2 as needed - patient is at risk for aspiration PNA given underlying alcoholism - No history of pulmonary disease GI - * Elevated Lipase Level - lipase of 1342 on admission --> 3961--> 982. Repeat level ordered for , as patient is at high risk for pseudocyst formation. - concern for alcoholic pancreatitis - CT abdomen pelvis without peripancreatic inflammatory change - Abdomen US 04/12/20 showing no evidence of pancreatic inflammation - abdominal exam benign today, patient without pain to palpation - continue lactated ringers, rate reduced to 80mls/hr * Fatty Liver - severe hepatic steatosis visualized on A/P CT scan - coags wnl - likely secondary to alcohol use disorder - GI following, appreciate recs * Transaminitis - resolved - AST as high as 107, now normal - ALT as high as 101, now normalized - likely secondary to etoh use - Hepatitis panel negative * Conjugated hyperbilirubinemia - Total bili elevated to 1.8, direct elevated to 1.0 - alk phos 182, down from 206 - LFTs elevated on admission, now normal - No evidence of ductal dilation on CT of abdomen and pelvis - US of abdomen showing on ductal dilation or gallstones; obstructive etiology not suspected - likely hepatocellular etiology (toxin induced -etoh) * GERD - continue home PPI - ammonia level not elevated RENAL/LYTES - * Mild gapped metabolic acidosis - resolved - anion gap mildly increased to 17.5 (when corrected for low albumin) with concomitant metabolic acidosis; gap now closed - bicarb normal, drip discontinued - UA 4+ for ketones - etiology unknown - alcoholic ketosis, starvation, lactate, solvent from Ativan are all possible causes - discussion with pharmacy revealed extremely high doses of Ativan need for solvent to cause acid/base disturbances (threshold unknown, but typically in patient's on Ativan drips) - ICU electrolyte protocol - Creatinine within normal limits - - Foleystrict I's and O's ENDO - - No history of diabetes or thyroid disease HEME - * Thrombocytopenia - resolved - now normal at 228k - etiology thought to be secondary to bone marrow suppression from alcohol abuse - not on heparin - Coags WNL, no concern for DIC at this time * Macrocytic anemia - Hgb 13.6, MCV 107.4 - likely secondary to ETOH use - continue thiamine and folate supplementation ID - * Pancytopenia - resolving - Platelets normalized - WBC normalized - RBC at 4.06 - possibly secondary to bone marrow suppression in the setting of heavy ETOH use - no infectious source suspected at this time - HIV neg - MRSA nasal negative - COVID 19 neg LINES/IV ACCESS - Peripheral IVs, pop, fecal management system DVT PROPHYLAXIS -SCDs, Lovenox CODE: Full Thank you for allowing us to participate in the care of this patient. Please refer to my attending physician's documentation for any further recommendations. (2) Alcohol withdrawal: (3) Acute alcoholic pancreatitis: (4) Multiple rib fractures: (5) Thrombocytopenia: (6) GERD (gastroesophageal reflux disease): (7) Hypertension: Admission and Anticipated Discharge Date Admission Date: April 12, 2020 Supervising Physician Co-Signing Physician Notes Dr. Martin was resident physician during care of patient. I separately evaluated patient for boo portions of the history and the exam. I was present during the critical portion of medical decision making, and I discussed the case with the resident. I generally agree with the findings and plan. Patient was discussed on multidisciplinary rounds. Continued hyperadrenergic agitation mildly improved with phenobarbital will extend 64.8 mg oral dosing for a total of 4 doses then to decrease to 32.4. Increase propranolol to 30 mg 3 times daily continue with clonidine 0.1 mg 3 times daily. Right lower lobe infiltrate on Unasyn for presumptive aspiration pneumonia given alcoholism, obtained a lactic acid, blood cultures. Patient loaded with thiamine, continue 200 mg daily for at least 1 week. This will consent patient's/mother for possible PICC line: Preferred due to patient compliance if IV team unable to place PICC line would consider central venous access, previously had to ultrasound-guided IVs which are not able to draw. Holding tube feeds today, because there is concern for aspiration, this could certainly be pre-existing from his underlying alcoholism. Patient 6 L positive will hold additional IV fluids at this time in hopes that we will be able to start enteral feeds in the next 24 to 48 hours given that he is total volume up. Subjective Overnight James had liquid stools, nursing placed a fecal management system. He became tachypneic and had an increased oxygen requirement. His tube feeds were held. Review of Systems Review of Systems: Unobtainable due to cognitive status Physical Exam Constitutional: WD/WN, vitals as above Eyes: + anicteric sclerae and EOM intact bilaterally ENMT: external ear and nose normal, oropharynx normal Neck: normal visual inspection and trachea midline Respiratory: normal respiratory effort; no respiratory distress and no cough Auscultation: no crackles and no vesicular breath sounds (coarse) Fecal management system in place Cardiovascular: Rate/Rhythm: regular rhythm and + tachycardic Heart Sounds: normal S1 and normal S2; no murmur Extremities: no pedal edema Gastrointestinal (Abdomen): Inspection/Auscultation: + abdomen distended and normal bowel sounds Percussion/Palpation: abdomen soft; abdomen nontender and no guarding Skin: no rashes, warm and dry Neurologic: + confused Psychiatric: Orientation: oriented to person Genitourinary: Pop catheter in place, draining yellow urine without visible blood clots Results & Data Results & Data ([facility]) Vital Signs (Past 12 Hours) Vital Signs Temp Pulse Resp BP Pulse Ox 04/17/20 05:58 141 H 123/81 93 04/17/20 04:58 138 H 112/77 96 04/17/20 04:02 150 H 153/100 H 04/17/20 03:58 143 H 153/100 H 96 04/17/20 03:24 37.4 C 04/17/20 02:58 142 H 142/83 H 93 04/17/20 01:58 141 H 180/105 H 91 04/17/20 00:58 130 H 151/89 H 92 04/17/20 00:09 134 H 04/16/20 23:59 135 H 154/102 H 93 04/16/20 22:58 127 H 169/102 H 94 04/16/20 22:55 130 H 141/89 H 93 04/16/20 21:58 119 H 141/89 H 87 L 04/16/20 20:58 114 H 107/88 90 04/16/20 20:37 145 H 151/106 H 04/16/20 20:00 36.9 C 04/16/20 19:59 151 H 151/106 H 92 04/16/20 19:00 143 H 35 H 95 Critical Care Time Critical Care Time: Yes Total Critical Care Time: 45 I have personally spent 45 minutes of critical care time in the direct management of this patient. This is a life/limb threatening event. This includes time spent evaluating patient, direct bedside care, chart review, placing orders, interpretation of diagnostic studies, discussion with consultants, patient, and/or family members regarding treatment decisions, as well as other required patient management activities. This time is exclusive of all separately billable procedures, and teaching time and separate from and in addition to any other critical care service time. Resident Activity Tracking Resident Involvement: Resident Care Provided Care Provided: Adult Hospital Medicine (1) Multiple rib fractures Encounter type: initial encounter Fracture type: closed Laterality: left Qualified Code(s): S22.42XA - Multiple fractures of ribs, left side, initial encounter for closed fracture (2) Alcohol withdrawal Complication of substance-induced condition: uncomplicated Qualified Code(s): F10.230 - Alcohol dependence with withdrawal, uncomplicated (3) Acute alcoholic pancreatitis Acute pancreatitis complication: no infection or necrosis Qualified Code(s): K85.20 - Alcohol induced acute pancreatitis without necrosis or infection
[2020-04-17] MEDS: POTASSIUM CHLORIDE / WTR 10 MEQ/100 ML PLCT IV SCH ×3 (06:13→08:38)
[2020-04-17] MEDS ORDERED: POTASSIUM PHOSPHATE 21 MMOL in SODIUM CHLORIDE 0.9% 500 ML IV ONE (06:15)
--- NOTE | 2020-04-17 07:50 | XRay Report ---
XR chest 1V portable HISTORY: Rib fractures. Chest pain. COMPARISON: None. FINDINGS: Nasogastric tube terminates in the proximal stomach. No pneumothorax. No pleural effusions. Hazy right basilar airspace opacity is noted. The heart is mildly enlarged. No evidence for pulmonar y edema. Left-sided rib fractures are better appreciated on the recent chest CT. IMPRESSION: 1. Nasogastric tube terminates in the proximal stomach. 2. Hazy right basilar airspace opacity. This has slightly progressed and could represent atelectasis or pneumonia. ACT 112: Negative or not required by law. Electronically signed by: Pankaj Reed M.D. 04/17/2020 7:49 AM
[2020-04-17] MEDS: ENOXAPARIN INJ 40 MG/0.4 ML SYR SQ SCH (08:18)
[2020-04-17] MEDS: THIAMINE HCL 200 MG in SODIUM CHLORIDE 0.9% 50 ML IV SCH (08:18)
[2020-04-17] MEDS: cloNIDine HCL 0.1 MG TAB PO SCH ×4 (08:18→21:44)
[2020-04-17] MEDS: PROPRANOLOL HCL 20 MG TAB PO SCH ×4 (08:19→21:46)
[2020-04-17] MEDS: FOLIC ACID 1 MG in SYRINGE 9.8 ML IV SCH (08:19)
[2020-04-17] MEDS ORDERED: PROPRANOLOL HCL 10 MG TAB PO ONE (08:45)
[2020-04-17 09:15] LABS: Base Excess VBG -0.5 mEq/L; Oxygen Saturation VBG 73.6 %; pH VBG 7.47 (7.36-7.41)
[2020-04-17 09:35] LABS: Albumin Level 2.5 gm/dl (3.4-5.0); BUN Creatinine Ratio 6.1 (10-20); Calcium 8.4 mg/dl (8.5-10.1); Creatinine Clr Calc Pharmacy 187.7 ml/min; Est GFR (Non-African American) 129.4; Magnesium 1.6 mg/dl (1.8-2.4); Potassium 2.9 mmol/L (3.5-5.1)
[2020-04-17 09:39] LABS: Albumin Globulin Ratio 0.6 (0.9-2); Bilirubin,Total 1.7 mg/dl (0.2-1); Globulin 4.2 gm/dl (2.5-4.0); Phosphorus 2.9 mg/dl (2.5-4.9); Total Protein 6.7 gm/dl (6.4-8.2)
--- NOTE | 2020-04-17 09:47 | Billing Data ---
Date of Service April 17, 2020 Coding Level of Care Code Critical Care mins
[2020-04-17] MEDS: AMPICILLIN/SULBACTAM SOD 1,500 MG in 0.9 % SODIUM CHLORIDE 100 ML IV SCH ×3 (09:50→20:39)
[2020-04-17] MEDS: MAGNESIUM SULFATE / D5W 1 GM/100 ML BAG IV SCH ×2 (09:51→11:55)
[2020-04-17] MEDS ORDERED: MAGNESIUM SULFATE / D5W 1 GM/100 ML BAG IV STA (10:27)
--- NOTE | 2020-04-17 11:35 | Hospitalist Progress Note ---
Date of Service April 17, 2020 Assessment & Plan (1) Pancreatitis: -as per admission notes on 04/12/2020 " 34-year-old male with history of alcoholism, hypertension, GERD, ankylosing spondylitis Presenting with bilateral lower extremity tingling sensation and tremors, abdominal pain since this morning" -initial concerns were for acute alcoholic pancreatitis -however the CT abdomen pelvis without peripancreatic inflammatory change, and Abdomen US 04/12/20 showing no evidence of pancreatic inflammation (2) Elevated LFTs: Transaminitis, Elevated Lipase Level, Conjugated hyperbilirubinemia Fatty Liver -severe hepatic steatosis visualized on A/P CT scan -No evidence of ductal dilation on CT of abdomen and pelvis -US of abdomen showing on ductal dilation or gallstones; obstructive etiology not suspected -patient's abnormal liver function enzymes, bilirubin, and lipase are attributed to alcohol use and liver dysfunction Thrombocytopenia - etiology thought to be secondary to bone marrow suppression from alcohol abuse Macrocytic anemia - likely secondary to ETOH use - continue thiamine and folate supplementation (3) Alcohol withdrawal: Alcohol withdrawal/Alcohol abuse/delirium tremens -patient with reported 6 shots of vodka daily alcohol use when outpatient -etoh level 35 on admission -admitted for alcohol withdrawal which has progressed to delirium tremens, requiring management with vasopressors and ICU admission -Patient was initially placed on AWSS protocol with both scheduled and prn ativan, as well as max dose Precedex. Due to increasing benzo requirements, ativan was discontinued in favor of phenobarbital taper on 04/16; taper will be extended to 64.8 mg oral dosing for a total of 4 doses then to decrease to 32.4. His precedex was discontinued and he was started on scheduled clonidine 0.1mg TID and propranolol. -thiamine and folic acid supplementation -further management of alcohol withdrawal medications as per ICU physician Aspiration Pneumonia -Overnight from 04/16/2020 to 04/17/20 time frame, ICU reports that patient "developed liquid stools, he became tachypneic and had an increased O2 requirement. His tube feeds were held. This morning he spiked a fever to 38.1 and his CXR showed a slight progression of hazy right basilar airspace opacity. He was initiated on Unasyn with concern for aspiration pneumonia. His propranolol dose was increased from 20 to 30mg given his ongoing tachycardia." -treatment as per ICU team Metabolic Acidosis -improved with the IV bicarbonate that ICU medical team has given to the patient Prolonged QTc interval -503ms on EKG 04/14/2020, ICU recommend no further administration of QT prolonging agents, such as Ziprasidone GERD -continue home PPI (4) Hypokalemia: -serum potassium 3.2 on 04/12/2020 -normalized after potassium supplementation on this admission Hypophosphatemia -patient has been receiving phosphorous supplements and nutritional evaluations (5) Multiple rib fractures: Left anterior rib fractures, fifth and sixth ribs -rib fractures were from mechanical fall when climbing up steps prior to hospital admission -CT head: No acute process -CT abdomen pelvis: No injuries noted -will need incentive spirometer encouragement when more cognitive baseline -will need PT/OT assessments when more cognitive baseline (6) DVT prophylaxis: -SCDs Full code Admission and Anticipated Discharge Date Admission Date: April 12, 2020 Subjective -Overnight from 04/16/2020 to 04/17/20 time frame, ICU reports that patient "developed liquid stools, he became tachypneic and had an increased O2 requirement. His tube feeds were held. This morning he spiked a fever to 38.1 and his CXR showed a slight progression of hazy right basilar airspace opacity. He was initiated on Unasyn with concern for aspiration pneumonia. His propranolol dose was increased from 20 to 30mg given his ongoing tachycardia." Patient seen and examine don the bed. He is awake and laying on the bed getting chest PT. Patient mumbles the speech. hospitalist cannot understand patient's speech. full review of systems cannot be performed Review of Systems Review of Systems: Unobtainable due to cognitive status Physical Exam Constitutional: + lethargic Eyes: EOM intact bilaterally ENMT: external ear and nose normal, oropharynx normal (has NG tube and feeds, has nasal cannula oxygen) Neck: normal visual inspection Respiratory: vesicular breath sounds (coarse) Cardiovascular: Rate/Rhythm: + tachycardic Gastrointestinal (Abdomen): normal bowel sounds, soft, nontender, no hepatosplenomegaly Musculoskeletal: Head/Neck/Chest: normocephalic and head atraumatic Neurologic: awake Psychiatric: Orientation: oriented to person Eye Contact: + poor eye contact Genitourinary: pop/rectal tube Results & Data Results & Data ([facility]) Vital Signs (Past 12 Hours) Vital Signs Temp Pulse BP Pulse Ox 04/17/20 09:58 113 H 113/66 95 10/30/20 08:58 120 H 114/70 94 04/17/20 08:00 38.1 C H 04/17/20 07:58 147 H 147/100 H 91 04/17/20 06:58 139 H 143/96 H 95 04/17/20 05:58 141 H 123/81 93 04/17/20 04:58 138 H 112/77 96 04/17/20 04:02 150 H 153/100 H 04/17/20 03:58 143 H 153/100 H 96 04/17/20 03:24 37.4 C 04/17/20 02:58 142 H 142/83 H 93 04/17/20 01:58 141 H 180/105 H 91 04/17/20 00:58 130 H 151/89 H 92 04/17/20 00:09 134 H 04/16/20 23:59 135 H 154/102 H 93 (1) Alcohol withdrawal Complication of substance-induced condition: uncomplicated Qualified Code(s): F10.230 - Alcohol dependence with withdrawal, uncomplicated (2) Multiple rib fractures Encounter type: initial encounter Fracture type: closed Laterality: left Qualified Code(s): S22.42XA - Multiple fractures of ribs, left side, initial encounter for closed fracture
[2020-04-17] MEDS: PANTOprazole 40 MG in SYRINGE 0 ML IV SCH (14:10)
[2020-04-18] MEDS: PHENobarbital sodium 130 MG/ML VIAL IV PRN (01:47)
[2020-04-18] MEDS: AMPICILLIN/SULBACTAM SOD 1,500 MG in 0.9 % SODIUM CHLORIDE 100 ML IV SCH ×4 (03:28→21:19)
[2020-04-18 04:35] LABS: Basophils # (auto) 0.01 K/uL (0-0.2); Basophils % (auto) 0.2 %; Eosinophils # (auto) 0.01 K/uL (0-0.5); Eosinophils % (auto) 0.2 %; Hematocrit (blood only) 39.2 % (42-52); Hemoglobin 13.2 g/dL (14.0-18.0); Immature Granulocytes # (auto) 0.02 K/uL (0.00-0.02); Immature Granulocytes % (auto) 0.3 %; Lymphocytes # (auto) 1.21 K/uL (1.2-3.4); Lymphocytes % (auto) 20.3 %; Mean Corpuscular Hemoglobin 36.1 pg (25-34); Mean Corpuscular Hgb Conc 33.7 g/dL (32-36); Mean Corpuscular Volume 107.1 fL (80-100); Mean Platelet Volume 10.5 fL (7.4-10.4); Monocytes # (auto) 2.05 K/uL (0.11-0.59); Monocytes % (auto) 34.4 %; Neutrophils # (auto) 2.66 K/uL (1.4-6.5); Neutrophils % (auto) 44.6 %; Platelet Count 318 K/uL (130-400); RDW Coefficient of Variation 14.1 % (11.5-14.5); RDW Standard Deviation 55.6 fL (36.4-46.3); Red Blood Count 3.66 M/uL (4.7-6.1); White Blood Count 5.96 K/uL (4.8-10.8)
[2020-04-18 05:07] LABS: BUN Creatinine Ratio 16.2 (10-20); Calcium 8.9 mg/dl (8.5-10.1); Creatinine Clr Calc Pharmacy 165.9 ml/min; Est GFR (African American) 142.6; Magnesium 2.5 mg/dl (1.8-2.4); Phosphorus 2.8 mg/dl (2.5-4.9); Potassium 3.4 mmol/L (3.5-5.1)
--- NOTE | 2020-04-18 06:07 | Critical Care Progress Note ---
Date of Service April 18, 2020 Assessment & Plan (1) Delirium tremens: Reason Critically Ill: 34-year-old male admitted for alcohol withdrawal which has progressed to delirium tremens, requiring management with vasopressors. Patient was initially placed on AWSS protocol with both scheduled and prn ativan, as well as max dose Precedex. Due to increasing benzo requirements, ativan was discontinued in favor of phenobarbital taper on 04/16; taper was extended to 64.8 mg oral dosing for a total of 4 doses then to decrease to 32.4. His precedex was discontinued on 04/16 and he was started on scheduled clonidine 0.1mg TID and propranolol. He was initiated on Unasyn on 04/17/20 with concern for aspiration pneumonia. CXR today shows progressive consolidation of RLL. Tube feeds remain on hold. Yesterday, PICC line placement was discussed with family, but consent was ultimately not yet provided. Patient continues to struggle managing his own secretions, thus there is concern regarding his ability to protect his airway. Will continue to closely monitor respiratory status, but anticipate eventual need for intubation and mechanical ventilation. Today, we will restart Precedex. Neuro - * Alcohol withdrawal/EtOH abuse/delirium tremens - ongoing - Patient has progressed from early signs of alcohol withdrawal with tremors and mild confusion to DTs and acute psychosis - patient with reported 6-8 shots (3 ounces) of vodka daily - family history of alcohol use disorder reported - etoh level 35 on admission - initially he required max dosing of Precedex. Precedex discontinued, scheduled clonidine and propranolol started on 04/16. We will restart precedex drip today - initially was started on AWSS protocol with scheduled ativan + prn doses; this was discontinued in favor of phenobarbital taper. - continue thiamine (200mg, daily for 1 week) and folate supplementation to prevent Wernicke's/Korsokoffs - CT head unremarkable. consider MRI to assess for mamillary body necrosis - recommend inpatient rehab for alcohol use disorder following discharge Cardiac - * Tachycardia - HR ~100-115 bpm overnight - likely secondary to ETOH withdrawal - continue scheduled propranolol 30mg - continue telemetry * History of hypertension - not on pharmacotherapy per pharmacy - continue to monitor BP * Chest pain - reported on admission - troponin negative - EKG showing normal sinus tach without signs of ischemia - CXR found left anterior 5th and 6th rib fractures (possibly secondary to fall related to alcohol intoxication) - chest CTA from 03/20 showed no evidence of pneumothorax - incentive spirometry when neurological status improves - pain control prn; would avoid Tylenol given elevated in LFTs. Consider lidocaine patches * Prolonged QTc interval - 503ms on EKG 04/14; -Avoid QT prolonging medications Respiratory - * Aspiration PNA - On 04/17 patient became tachypneic with an increased O2 requirement and was febrile at 38.1 - CXR 04/17 showing a slight progression of hazy right basilar airspace opacity; started on Unasym. - repeat CXR today showing progressive RLL consolidation - WBC normal, lactic not elevated, blood cultures drawn 04/17 showing no growth to date - tube feeds remain on hold - supplemental O2 as needed - patient is at risk for aspiration PNA given underlying alcoholism - No history of pulmonary disease GI - * Elevated Lipase Level - lipase of 1342 on admission --> 3961--> 982. - Repeat level 04/18 increased 2999. patient is at high risk for pseudocyst formation. - concern for chronic pancreatitis secondary to alcoholism - CT abdomen pelvis 04/12/20 without peripancreatic inflammatory change - Abdomen US 04/12/20 showing no evidence of pancreatic inflammation - abdominal exam benign today, patient without pain to palpation - continue lactated ringers, rate reduced to 80mls/hr * Fatty Liver - severe hepatic steatosis visualized on A/P CT scan - coags wnl - likely secondary to alcohol use disorder - GI following, appreciate recs * Transaminitis - resolved - AST as high as 107, now normal - ALT as high as 101, now normalized - likely secondary to etoh use - Hepatitis panel negative * Conjugated hyperbilirubinemia - Total bili elevated to 1.8, direct elevated to 1.0 - alk phos 182, down from 206 - LFTs elevated on admission, now normal - No evidence of ductal dilation on CT of abdomen and pelvis - US of abdomen showing on ductal dilation or gallstones; obstructive etiology not suspected - likely hepatocellular etiology (toxin induced -etoh) * GERD - continue home PPI - ammonia level not elevated RENAL/LYTES - * Mild gapped metabolic acidosis - resolved - anion gap mildly increased to 17.5 (when corrected for low albumin) with concomitant metabolic acidosis; gap now closed - bicarb normal, drip discontinued - UA 4+ for ketones - etiology unknown - alcoholic ketosis, starvation, lactate, solvent from Ativan are all possible causes - discussion with pharmacy revealed extremely high doses of Ativan need for solvent to cause acid/base disturbances (threshold unknown, but typically in patient's on Ativan drips) - ICU electrolyte protocol - Creatinine within normal limits - - Foleystrict I's and O's ENDO - - No history of diabetes or thyroid disease HEME - * Thrombocytopenia - resolved - platelets now normal at 318k - etiology thought to be secondary to bone marrow suppression from alcohol abuse - not on heparin - Coags WNL, no concern for DIC at this time * Macrocytic anemia - Hgb 13.2, MCV 107.4 - likely secondary to ETOH use - continue thiamine and folate supplementation ID - * Pancytopenia - resolving - Platelets normalized - WBC normalized - RBC at 3.66 - possibly secondary to bone marrow suppression in the setting of heavy ETOH use - HIV neg - MRSA nasal negative - COVID 19 neg LINES/IV ACCESS - Peripheral IVs, pop, fecal management system DVT PROPHYLAXIS -SCDs, Lovenox CODE: Full Thank you for allowing us to participate in the care of this patient. Please refer to my attending physician's documentation for any further recommendations. (2) Alcohol withdrawal: (3) Acute alcoholic pancreatitis: (4) Multiple rib fractures: (5) Thrombocytopenia: (6) GERD (gastroesophageal reflux disease): (7) Hypertension: Admission and Anticipated Discharge Date Admission Date: April 12, 2020 Supervising Physician Co-Signing Physician Notes Dr. Martin was the resident-physician during care of patient. I separately evalua karen patient for boo portions of the history and the exam. I was present during the critical portion of medical decision making, and I discussed the case with the resident. I generally agree with the findings and plan except for any additions/exceptions noted. Patient seen and examined at bedside. Restless today. Patient has been admitted to the ICU because of going into DTs. He was initially on Ativan and Precedex but he was still very agitated and this was subsequently changed to phenobarbital. He got 1 dose of as needed phenobarb overnight for agitation. Today he is incoherent. History of breathing and maintaining his airway. He has rhonchi appreciated. As per the nurse he has had it for a while. They are suctioning him but not much coming out. Lipase has increased to 2999. Not sure if it has any significance right now. Will monitor. Patient does have an NGT but we are unable to feed him as he is not able to lay upright. And there is a high likelihood that he aspirated on the right side. Chest x-ray from today still shows haziness in the right lower lobe. Increased vascular markings. Hypokalemia is being replaced. I will give the patient a dose of Lasix. For his mentation I want to start him on Precedex. Phenobarb is usually long-acting it to be very hard to titrated off when needed. I will probably change it back to Ativan standing dose IV. If there is any clinical deterioration or there is compromise of the airway I would intubate the patient. Prolonged QTC, avoid QT prolonging medication. I have personally spent 47 minutes of critical care time in the direct management of this patient. This is a life/limb threatening event. This includes time spent evaluating patient, direct bedside care, chart review, placing orders, interpretation of diagnostic studies, discussion with consultants, patient, and/or family members regarding treatment decisions, as well as other required patient management activities. This time is exclusive of all separately billable procedures, and teaching time and separate from and in addition to any other critical care service time. Subjective Overnight he required 1 prn dose of phenobarbital. Otherwise, no acute events. This morning, his speech is totally unintelligible. Review of Systems Respiratory: + chest congestion and + snoring Physical Exam Constitutional: WD/WN, vitals as above Eyes: + anicteric sclerae and EOM intact bilaterally ENMT: external ear and nose normal, oropharynx normal Neck: normal visual inspection and trachea midline Respiratory: normal respiratory effort, + cough and + tachypneic Auscultation: + crackles; + lungs not clear to auscultation (noisy upper airway breathing ) and no vesicular breath sounds Cardiovascular: Rate/Rhythm: regular rhythm and + tachycardic Heart Sounds: normal S1 and normal S2; no murmur Extremities: no pedal edema Gastrointestinal (Abdomen): Inspection/Auscultation: + abdomen distended and normal bowel sounds Percussion/Palpation: abdomen soft; abdomen nontender and no guarding fecal management system in place, stool appears liquid, without visible blood Skin: no rashes, warm and dry Neurologic: + confused Psychiatric: Orientation: alert (he is arousbable to voice ); + not oriented x 3 (unclear due to his unintelligble speech) Genitourinary: Pop catheter in place, draining yellow urine without visible blood clots Results & Data Results & [facility] ([facility]) Vital Signs (Past 12 Hours) Vital Signs Temp Pulse BP Pulse Ox 04/18/20 05:22 108 H 120/83 91 04/18/20 04:00 36.4 C L 104 H 127/81 96 04/18/20 03:00 106 H 104/60 92 04/18/20 02:00 113 H 112/86 95 04/18/20 00:00 37.2 C 107 H 119/67 95 04/17/20 23:00 104 H 113/61 95 04/17/20 22:00 114 H 103/90 95 04/17/20 21:00 114 H 122/94 95 04/17/20 20:01 37.2 C 111 H 96/66 L 97 04/17/20 18:59 109 H 92/65 L 93 04/17/20 18:17 109 H 126/73 93 04/17/20 18:10 37.4 C 04/18/20 04:01 04/18/20 04:01 Resident Activity Tracking Resident Involvement: Resident Care Provided Care Provided: Adult Hospital Medicine (1) Multiple rib fractures Encounter type: initial encounter Fracture type: closed Laterality: left Qualified Code(s): S22.42XA - Multiple fractures of ribs, left side, initial encounter for closed fracture (2) Alcohol withdrawal Complication of substance-induced condition: uncomplicated Qualified Code(s): F10.230 - Alcohol dependence with withdrawal, uncomplicated (3) Acute alcoholic pancreatitis Acute pancreatitis complication: no infection or necrosis Qualified Code(s): K85.20 - Alcohol induced acute pancreatitis without necrosis or infection
[2020-04-18] MEDS ORDERED: POTASSIUM CHLORIDE CRTAB 20 MEQ TABCR PO STA (06:48)
[2020-04-18] MEDS: THIAMINE HCL 200 MG in SODIUM CHLORIDE 0.9% 50 ML IV SCH (07:47)
[2020-04-18] MEDS: FOLIC ACID 1 MG in SYRINGE 9.8 ML IV SCH (07:48)
[2020-04-18] MEDS: PROPRANOLOL HCL 20 MG TAB PO SCH (07:49)
[2020-04-18] MEDS: ENOXAPARIN INJ 40 MG/0.4 ML SYR SQ SCH (07:49)
[2020-04-18] MEDS: cloNIDine HCL 0.1 MG TAB PO SCH (07:50)
[2020-04-18] MEDS: LANSOPRAZOLE 30 MG SOLTAB NG SCH (07:50)
[2020-04-18] MEDS: POTASSIUM CHLORIDE / WTR 10 MEQ/100 ML PLCT IV SCH ×5 (07:52→08:53)
[2020-04-18] MEDS ORDERED: STAT IV Infusion **Titration per Protocol STA (08:21)
[2020-04-18] MEDS: DEXMEDETOMIDINE HCL 200 MCG in SODIUM CHLORIDE 0.9% 48 ML IV SCH ×5 (08:45→22:45)
[2020-04-18] MEDS ORDERED: PANTOprazole 40 MG TAB PO SCH (09:00)
--- NOTE | 2020-04-18 10:04 | XRay Report ---
SINGLE VIEW CHEST CLINICAL HISTORY: Aspiration pneumonia. FINDINGS: An AP, portable, supine chest radiograph is compared to study dated 04/17/2020 and correlat ed with chest CT dated 04/12/2020. The examination is degraded by portable technique and patient rota tion. Enteric tube is unchanged in position. The heart is enlarged. There is prominence of the pulmon reba vasculature. Mild airspace opacities are present at both lung bases, right greater than left. No large pleural effusion or pneumothorax is seen. The skeletal structures are osteopenic. The bony thor ax is grossly intact. Fusion hardware is partially imaged in the cervical spine. IMPRESSION: 1. Cardiomegaly with prominence of the pulmonary vasculature. Correlate clinically for evidence of mi ld congestive failure. 2. Patchy opacities are present at both lung bases, right greater than left. ACT 112: Negative or not required by law. Electronically signed by: Odell Stratton M.D. 04/18/2020 10:02 AM
--- NOTE | 2020-04-18 10:27 | Billing Data ---
Date of Service April 18, 2020 Coding Level of Care Code Critical Care 1st 30-74 mins Time Spent (min) 47
--- NOTE | 2020-04-18 10:30 | Hospitalist Progress Note ---
Date of Service April 18, 2020 Assessment & Plan (1) Pancreatitis: -as per admission notes on 04/12/2020 " 34-year-old male with history of alcoholism, hypertension, GERD, ankylosing spondylitis Presenting with bilateral lower extremity tingling sensation and tremors, abdominal pain since this morning" -initial concerns were for acute alcoholic pancreatitis -however the CT abdomen pelvis without peripancreatic inflammatory change, and Abdomen US 04/12/20 showing no evidence of pancreatic inflammation (2) Elevated LFTs: Transaminitis, Elevated Lipase Level, Conjugated hyperbilirubinemia Fatty Liver -severe hepatic steatosis visualized on A/P CT scan -No evidence of ductal dilation on CT of abdomen and pelvis -US of abdomen showing on ductal dilation or gallstones; obstructive etiology not suspected -patient's abnormal liver function enzymes, bilirubin, and lipase are attributed to alcohol use and liver dysfunction -lipase [place] to 2999 on 04/18/2020 after initial improvements Thrombocytopenia - etiology thought to be secondary to bone marrow suppression from alcohol abuse Macrocytic anemia - likely secondary to ETOH use - continue thiamine and folate supplementation (3) Alcohol withdrawal: Alcohol withdrawal/Alcohol abuse/delirium tremens -patient with reported 6 shots of vodka daily alcohol use when outpatient -continue thiamine and folic acid supplementation -etoh level 35 on admission -admitted for alcohol withdrawal which has progressed to delirium tremens, requiring management with vasopressors and ICU admission -Patient was initially placed on AWSS protocol with both scheduled and prn ativan, as well as max dose Precedex. Due to increasing benzo requirements, ativan was discontinued in favor of phenobarbital taper on 04/16; taper will be extended to 64.8 mg oral dosing for a total of 4 doses then to decrease to 32.4. His precedex was discontinued and he was started on scheduled clonidine 0.1mg TID and propranolol. -as of 04/18/2020 patient is back in the Precedex drip, further management of alcohol withdrawal medications as per ICU physician Aspiration Pneumonia -Overnight from 04/16/2020 to 04/17/20 time frame, ICU reports that patient "developed liquid stools, he became tachypneic and had an increased O2 requirement. His tube feeds were held. This morning he spiked a fever to 38.1 and his CXR showed a slight progression of hazy right basilar airspace opacity. He was initiated on Unasyn with concern for aspiration pneumonia. His propranolol dose was increased from 20 to 30mg given his ongoing tachycardia." -supplementary oxygen as needed -treatment as per ICU team Metabolic Acidosis -improved with the IV bicarbonate that ICU medical team has given to the patient Prolonged QTc interval -503ms on EKG 04/14/2020, ICU recommend no further administration of QT prolonging agents, such as Ziprasidone GERD -continue home PPI (4) Hypokalemia: -serum potassium 3.2 on 04/12/2020 -normalized after potassium supplementation on this admission Hypophosphatemia -patient has been receiving phosphorous supplements and nutritional evaluations (5) Multiple rib fractures: Left anterior rib fractures, fifth and sixth ribs -rib fractures were from mechanical fall when climbing up steps prior to hospital admission -CT head: No acute process -CT abdomen pelvis: No injuries noted -will need incentive spirometer encouragement when more cognitive baseline -will need PT/OT assessments when more cognitive baseline (6) DVT prophylaxis: -SCDs Full code Admission and Anticipated Discharge Date Admission Date: April 12, 2020 Subjective Patient continues to be in critical care. He is back on precedex drip. on supplementary oxygen. NG tube remains in place but because of patient requiring sedation and recent aspiration pneumonia, there are no feeds at this time. Patient generally sedated but does open the eyes to mumble words. Patient cannot provide full review of systems. At this point, patient's overall health has not been improving overall and continues to remain in ICU for further treatment Review of Systems Review of Systems: Unobtainable due to cognitive status Physical Exam Constitutional: + lethargic Eyes: EOM intact bilaterally ENMT: external ear and nose normal, oropharynx normal (has NG tube, has nasal cannula oxygen) Neck: normal visual inspection Respiratory: normal respiratory effort, lungs clear to auscultation Cardiovascular: Rate/Rhythm: + tachycardic Gastrointestinal (Abdomen): normal bowel sounds, soft, nontender, no hepatosplenomegaly Musculoskeletal: Head/Neck/Chest: normocephalic and head atraumatic Neurologic: awake Psychiatric: Orientation: oriented to person Eye Contact: + poor eye contact Results & Data Results & Data ([facility]) Vital Signs (Past 12 Hours) Vital Signs Temp Pulse Resp BP Pulse Ox 04/18/20 09:59 102 H 33 H 91/55 L 93 04/18/20 08:59 103 H 103/59 L 96 04/18/20 08:00 37 C 04/18/20 07:59 111 H 138/95 97 04/18/20 06:59 104 H 106/67 97 04/18/20 06:00 103 H 134/87 93 04/18/20 05:22 108 H 120/83 91 04/18/20 04:00 36.4 C L 104 H 127/81 96 04/18/20 03:00 106 H 104/60 92 04/18/20 02:00 113 H 112/86 95 04/18/20 00:00 37.2 C 107 H 119/67 95 04/17/20 23:00 104 H 113/61 95 (1) Alcohol withdrawal Complication of substance-induced condition: uncomplicated Qualified Code(s): F10.230 - Alcohol dependence with withdrawal, uncomplicated (2) Multiple rib fractures Encounter type: initial encounter Fracture type: closed Laterality: left Qualified Code(s): S22.42XA - Multiple fractures of ribs, left side, initial encounter for closed fracture
[2020-04-18] MEDS ORDERED: FUROSEMIDE 40 MG in SYRINGE 0 ML IV ONE (10:45)
[2020-04-18 16:20] LABS: BUN Creatinine Ratio 20.8 (10-20); Calcium 8.2 mg/dl (8.5-10.1); Creatinine Clr Calc Pharmacy 190.6 ml/min; Est GFR (Non-African American) 129.4; Potassium 3.6 mmol/L (3.5-5.1)
[2020-04-18] MEDS: ICU ELECTROLYTE REPLACEMENT PROTOCOL SCH (16:33)
[2020-04-18] MEDS: POTASSIUM CHLORIDE CRTAB 20 MEQ TABCR PO SCH ×2 (16:44→21:20)
[2020-04-18] MEDS: D5W AND 1/2NSS 1,000 ML IV SCH (18:43)
[2020-04-18] MEDS: LORazepam 4 MG/8 ML VIAL IV SCH (19:36)
[2020-04-18] MEDS ORDERED: PROPRANOLOL HCL 20 MG TAB PO SCH (21:00)
[2020-04-19] MEDS: AMPICILLIN/SULBACTAM SOD 1,500 MG in 0.9 % SODIUM CHLORIDE 100 ML IV SCH ×4 (02:31→21:54)
[2020-04-19] MEDS: LORazepam 4 MG/8 ML VIAL IV SCH ×3 (02:32→14:19)
[2020-04-19] MEDS: DEXMEDETOMIDINE HCL 200 MCG in SODIUM CHLORIDE 0.9% 48 ML IV SCH ×10 (02:33→23:40)
[2020-04-19 04:43] LABS: Hematocrit (blood only) 35.5 % (42-52); Hemoglobin 11.6 g/dL (14.0-18.0); Mean Corpuscular Hemoglobin 35.8 pg (25-34); Mean Corpuscular Hgb Conc 32.7 g/dL (32-36); Mean Corpuscular Volume 109.6 fL (80-100); Mean Platelet Volume 10.4 fL (7.4-10.4); Platelet Count 346 K/uL (130-400); RDW Coefficient of Variation 14.4 % (11.5-14.5); RDW Standard Deviation 57.7 fL (36.4-46.3); Red Blood Count 3.24 M/uL (4.7-6.1); White Blood Count 7.45 K/uL (4.8-10.8)
[2020-04-19 05:19] LABS: BUN Creatinine Ratio 15.2 (10-20); Calcium 8.2 mg/dl (8.5-10.1); Creatinine Clr Calc Pharmacy 187.6 ml/min; Est GFR (Non-African American) 128.5; Magnesium 2.4 mg/dl (1.8-2.4); Phosphorus 3.4 mg/dl (2.5-4.9); Potassium 3.7 mmol/L (3.5-5.1)
[2020-04-19] MEDS: ICU ELECTROLYTE REPLACEMENT PROTOCOL SCH ×2 (05:25→17:31)
[2020-04-19] MEDS: POTASSIUM CHLORIDE CRTAB 20 MEQ TABCR PO SCH ×2 (05:48→08:38)
[2020-04-19] MEDS: D5W AND 1/2NSS 1,000 ML IV SCH ×2 (05:50→18:28)
[2020-04-19] MEDS: FOLIC ACID 1 MG in SYRINGE 9.8 ML IV SCH (07:33)
--- NOTE | 2020-04-19 08:07 | XRay Report ---
XR chest 1V portable HISTORY: 34 years-old Male f/u follow-up study in a patient with acute respiratory failure COMPARISON: Chest radiograph 04/18/2020 TECHNIQUE: Semierect portable AP view of the chest FINDINGS: Cardiac silhouette is mildly enlarged. Enteric tube is again noted, distal tip projection over the ab dominal right upper quadrant expected location of the mid to distal stomach. No pneumothorax, pleural effusion, airspace consolidation or overt pulmonary edema. Patient is mildly rotated. Bones appear g rossly intact. IMPRESSION: 1. Cardiomegaly without acute process. 2. Distal tip of enteric tube noted in the expected location of the mid to distal gastric lumen. ACT 112: Negative or not required by law. The above report was generated using voice recognition software. It may contain grammatical, syntax o r spelling errors. Electronically signed by: Antonio Campbell M.D. 04/19/2020 8:05 AM
[2020-04-19] MEDS ORDERED: FUROSEMIDE 40 MG in SYRINGE 0 ML IV ONE ×2 (08:30→21:37)
[2020-04-19] MEDS: THIAMINE HCL 200 MG in SODIUM CHLORIDE 0.9% 50 ML IV SCH (08:37)
[2020-04-19] MEDS: ENOXAPARIN INJ 40 MG/0.4 ML SYR SQ SCH (08:38)
[2020-04-19] MEDS: LANSOPRAZOLE 30 MG SOLTAB NG SCH (08:38)
--- NOTE | 2020-04-19 08:43 | Critical Care Progress Note ---
Date of Service April 19, 2020 Assessment & Plan (1) Delirium tremens: Reason Critically Ill: 34-year-old male admitted for alcohol withdrawal which has progressed to delirium tremens, requiring management with vasopressors. Patient was initially placed on AWSS protocol with both scheduled and prn ativan, as well as max dose Precedex. Due to increasing benzo requirements, ativan was discontinued in favor of phenobarbital taper on 04/16; taper was extended to 64.8 mg oral dosing for a total of 4 doses then to decrease to 32.4. His precedex was discontinued on 04/16 and he was started on scheduled clonidine 0.1mg TID and propranolol. He was initiated on Unasyn on 04/17/20 with concern for aspiration pneumonia. CXR today shows progressive consolidation of RLL. Tube feeds remain on hold. Yesterday, PICC line placement was discussed with family, but consent was ultimately not yet provided. Patient continues to struggle managing his own secretions, thus there is concern regarding his ability to protect his airway. Will continue to closely monitor respiratory status, but anticipate eventual need for intubation and mechanical ventilation. --Metabolic encephalopathy Secondary to DTs CT head 04/12/2020: Unremarkable Patient was initially on Ativan which was transitioned to phenobarbital p.o. But he was getting more delirious Patient was again transitioned to Ativan IV on 04/18/2020 Try to keep RASS -1-0 continue thiamine (200mg, daily for 1 week) and folate supplementation to prevent Wernicke's/Korsokoffs recommend inpatient rehab for alcohol use disorder following discharge --Aspiration pneumonia Right lower lobe Continue with Unasyn --Pancreatitis CT abdomen pelvis 04/12/20 without peripancreatic inflammatory change Abdomen US 04/13/20 No gallstones identified. No evidence of ductal dilatation Status post IV fluid resuscitation Patient lipase is trending up a little bit Is not complaining of any abdominal pain We will try to restart NGT feeds --Prolonged QTC QTC on EKG 04/14: 503 Avoid QT prolonging medication --Transaminitis Likely from alcohol abuse Patient also has evidence of hepatic steatosis on the CT abdomen Hepatitis panel negative DF: 1.2 day of presentation No indication for steroids --Prophylaxis VTE: Lovenox GI: Pantoprazole Lines: Peripheral, Velásquez Diet: N.p.o. except meds Plan: In/out: +1031, urine output 950, since admission +7 L Chest x-ray from today no significant change in the right lower lobe infiltrate. Patient is more responsive compared to yesterday. We will continue with Ativan for the time being 4 mg every 6 hours try to titrate down to 4 mg every 8 hours if possible. Continue with Precedex to keep RASS -1. Repeat H&H as there was a little bit drop in hemoglobin today. Continue with Lasix to keep patient negative balance. We will try to start NGT feedings. Patient is again risk for aspiration. We will make sure the patient is elevated from the head at 30 degrees at least. Goal will be to get the patient out of the bed to the chair by tomorrow. Had a discussion with father yesterday at bedside. I have personally spent 36 minutes of critical care time in the direct ma nagement of this patient. This is a life/limb threatening event. This includes time spent evaluating patient, direct bedside care, chart review, placing orders, interpretation of diagnostic studies, discussion with consultants, patient, and family members, as well as other required patient management activities. This time is exclusive of all separately billable procedures, and teaching time and separate from and in addition to any other critical care service time. Please note the above document was generated using voice recognition software. It may contain grammatical, syntax or spelling errors. (2) Alcohol withdrawal: (3) Acute alcoholic pancreatitis: (4) Multiple rib fractures: (5) Thrombocytopenia: (6) GERD (gastroesophageal reflux disease): (7) Hypertension: Admission and Anticipated Discharge Date Admission Date: April 12, 2020 Subjective Patient seen and examined at bedside. No acute distress, no adverse events overnight. Patient was on Precedex point with the time of examination. Today patient seems to be more calm and responds to question better than yesterday. Denies any chest pain. Does complain of mild shortness of breath. Denies any belly pain. Afebrile. Patient is coughing more aggressively now on command. Review of Systems Review of Systems: Unobtainable due to cognitive status Physical Exam Physical Exam: Constitutional: No acute distress HEENT: EOMI, PERRLA, positive NGT Respiratory system: Decreased air entry bilaterally, positive crackles bilateral lower lobes, no wheeze, no rhonchi CVS: S1-S2 positive, no murmurs or gallops, tachycardia Abdomen: Soft, nontender, nondistended, positive bowel sounds x4 Extremities: +2 pulses bilaterally radialis/ dorsalis pedis, no cyanosis, no edema Neuro: Oriented to self and place Psych: Calm on Precedex, bouts of agitation G/U: Positive Velásquez Results & Data Results & Data ([facility]) Vital Signs (Past 12 Hours) Vital Signs Temp Pulse Resp BP Pulse Ox 04/19/20 06:01 93 H 19 126/89 95 04/19/20 05:35 89 21 140/85 95 04/19/20 04:16 36.6 C 84 16 129/78 94 04/19/20 02:00 86 17 126/76 96 04/19/20 01:02 EST 88 18 92/60 L 96 04/19/20 00:59 85 18 126/73 95 04/19/20 00:00 36.6 C 82 17 115/69 91 04/18/20 23:00 83 12 93/58 L 94 04/18/20 22:00 82 16 108/60 93 04/19/20 04:25 04/19/20 04:25 Coding Level of Care Code Critical Care 1st 30-74 mins Diagnoses Delirium tremens F10.231 Alcohol withdrawal F10.230 Complication of substance-induced condition: uncomplicated Acute alcoholic pancreatitis K85.20 Acute pancreatitis complication: no infection or necrosis Multiple rib fractures S22.42XA Encounter type: initial encounter Fracture type: closed Laterality: left Thrombocytopenia D69.6 GERD (gastroesophageal reflux disease) K21.9 Hypertension I10 Time Spent (min) 36 (1) Multiple rib fractures Encounter type: initial encounter Fracture type: closed Laterality: left Qualified Code(s): S22.42XA - Multiple fractures of ribs, left side, initial encounter for closed fracture (2) Alcohol withdrawal Complication of substance-induced condition: uncomplicated Qualified Code(s): F10.230 - Alcohol dependence with withdrawal, uncomplicated (3) Acute alcoholic pancreatitis Acute pancreatitis complication: no infection or necrosis Qualified Code(s): K85.20 - Alcohol induced acute pancreatitis without necrosis or infection
--- NOTE | 2020-04-19 09:40 | Hospitalist Progress Note ---
Date of Service April 19, 2020 Assessment & Plan (1) Pancreatitis: -as per admission notes on 04/12/2020 " 34-year-old male with history of alcoholism, hypertension, GERD, ankylosing spondylitis Presenting with bilateral lower extremity tingling sensation and tremors, abdominal pain since this morning" -initial concerns were for acute alcoholic pancreatitis -however the CT abdomen pelvis without peripancreatic inflammatory change, and Abdomen US 04/12/20 showing no evidence of pancreatic inflammation (2) Elevated LFTs: Transaminitis, Elevated Lipase Level, Conjugated hyperbilirubinemia Fatty Liver -severe hepatic steatosis visualized on A/P CT scan -No evidence of ductal dilation on CT of abdomen and pelvis -US of abdomen showing on ductal dilation or gallstones; obstructive etiology not suspected -patient's abnormal liver function enzymes, bilirubin, and lipase are attributed to alcohol use and liver dysfunction -lipase [place] to 2999 on 04/18/2020 after initial improvements Thrombocytopenia - etiology thought to be secondary to bone marrow suppression from alcohol abuse Macrocytic anemia - likely secondary to ETOH use - continue thiamine and folate supplementation (3) Alcohol withdrawal: Alcohol withdrawal/Alcohol abuse/delirium tremens -patient with reported 6 shots of vodka daily alcohol use when outpatient -continue thiamine and folic acid supplementation -etoh level 35 on admission -admitted for alcohol withdrawal which has progressed to delirium tremens, requiring management with vasopressors and ICU admission -Patient was initially placed on AWSS protocol with both scheduled and prn ativan, as well as max dose Precedex. Due to increasing benzo requirements, ativan was discontinued in favor of phenobarbital taper on 04/16; taper will be extended to 64.8 mg oral dosing for a total of 4 doses then to decrease to 32.4. His precedex was discontinued and he was started on scheduled clonidine 0.1mg TID and propranolol. -as of 04/18/2020 patient is back in the Precedex drip -04/19/2020: Patient seen and examined at bedside on chest PT and continues to be under the care of ICU team. As per nurse, patient on reduced Precedex drip and also getting getting prn Aitivan in regards to management of alcohol withdrawal. Patient awake and is somewhat more alert today but his speech is still very mumbled with the oxymask and the NG tube. Because of continued high oxygen requirements and aspiraion pneumonia with increase lipase of 3425, patient is not on any feeds at this time. -further management of alcohol withdrawal medications as per ICU physician Aspiration Pneumonia -Overnight from 04/16/2020 to 04/17/20 time frame, ICU reports that patient "developed liquid stools, he became tachypneic and had an increased O2 requirement. His tube feeds were held. This morning he spiked a fever to 38.1 and his CXR showed a slight progression of hazy right basilar airspace opacity. He was initiated on Unasyn with concern for aspiration pneumonia. His propranolol dose was increased from 20 to 30mg given his ongoing tachycardia." -supplementary oxygen as needed, on IV Unasyn -ICU note on 04/19/2020 "CXR today shows progressive consolidation of RLL. Tube feeds remain on hold. Yesterday, PICC line placement was discussed with family, but consent was ultimately not yet provided. Patient continues to struggle managing his own secretions, thus there is concern regarding his ability to protect his airway. Will continue to closely monitor respiratory status, but anticipate eventual need for intubation and mechanical ventilation." -treatment as per ICU team Metabolic Acidosis -improved with the IV bicarbonate that ICU medical team has given to the patient Prolonged QTc interval -503ms on EKG 04/14/2020, ICU recommend no further administration of QT prolonging agents, such as Ziprasidone GERD -continue home PPI (4) Hypokalemia: -serum potassium 3.2 on 04/12/2020 -normalized after potassium supplementation on this admission Hypophosphatemia -patient had received phosphorous supplements with correction of serum phosp since 04/17/2020 -continue nutritional evaluations and following electrolytes (5) Multiple rib fractures: Left anterior rib fractures, fifth and sixth ribs -rib fractures were from mechanical fall when climbing up steps prior to hospital admission -CT head: No acute process -CT abdomen pelvis: No injuries noted -will need incentive spirometer encouragement when more cognitive baseline -will need PT/OT assessments when more cognitive baseline (6) DVT prophylaxis: -SCDs Full code Admission and Anticipated Discharge Date Admission Date: April 12, 2020 Subjective Patient seen and examined at bedside on chest PT and continues to be under the care of ICU team. As per nurse, patient on reduced Precedex drip and also getting getting prn Aitivan in regards to management of alcohol withdrawal. Patient awake and is somewhat more alert today but his speech is still very mumbled with the oxymask and the NG tube. Because of continued high oxygen requirements and aspiraion pneumonia with increase lipase of 3425, patient is not on any feeds at this time. Review of Systems Review of Systems: Unobtainable due to cognitive status Physical Exam Constitutional: + lethargic Eyes: EOM intact bilaterally ENMT: external ear and nose normal, oropharynx normal (has NG tube, has nasal cannula oxygen) Neck: normal visual inspection Respiratory: normal respiratory effort, lungs clear to auscultation Cardiovascular: Rate/Rhythm: + tachycardic Gastrointestinal (Abdomen): normal bowel sounds, soft, nontender, no hepatosplenomegaly Musculoskeletal: Head/Neck/Chest: normocephalic and head atraumatic Neurologic: awake Psychiatric: Orientation: oriented to person Eye Contact: + poor eye contact Results & Data Results & Data ([facility]) Vital Signs (Past 12 Hours) Vital Signs Temp Pulse Resp BP Pulse Ox 04/19/20 09:00 106 H 16 157/112 H 95 04/19/20 08:00 36.9 C 04/19/20 07:59 91 H 26 H 148/102 H 95 04/19/20 06:59 89 35 H 140/100 94 04/19/20 06:01 93 H 19 126/89 95 04/19/20 05:35 89 21 140/85 95 04/19/20 04:16 36.6 C 84 16 129/78 94 04/19/20 02:00 86 17 126/76 96 04/19/20 01:02 EST 88 18 92/60 L 96 04/19/20 00:59 85 18 126/73 95 04/19/20 00:00 36.6 C 82 17 115/69 91 04/18/20 23:00 83 12 93/58 L 94 (1) Multiple rib fractures Encounter type: initial encounter Fracture type: closed Laterality: left Qualified Code(s): S22.42XA - Multiple fractures of ribs, left side, initial enc ounter for closed fracture (2) Alcohol withdrawal Complication of substance-induced condition: uncomplicated Qualified Code(s): F10.230 - Alcohol dependence with withdrawal, uncomplicated
[2020-04-19] MEDS: LORazepam 5 MG/10 ML VIAL IV PRN ×2 (11:48→17:31)
[2020-04-19] MEDS ORDERED: Nursing to Pharmacy Communication SCH (12:15)
[2020-04-19] MEDS: PEPTAMEN 1.5 CAL 1,000 ML BAG NG SCH (14:19)
[2020-04-19 16:28] LABS: Hematocrit (blood only) 36.1 % (42-52)
[2020-04-19] MEDS: LORazepam 5 MG/10 ML VIAL IV SCH (21:53)
[2020-04-20] MEDS ORDERED: DEXMEDETOMIDINE HCL 400 MCG in 0.9 % SODIUM CHLORIDE 96 ML IV SCH
[2020-04-20] MEDS: LORazepam 5 MG/10 ML VIAL IV SCH ×2 (02:20→08:09)
[2020-04-20] MEDS: DEXMEDETOMIDINE HCL 400 MCG in 0.9 % SODIUM CHLORIDE 96 ML IV SCH ×7 (02:41→22:47)
[2020-04-20] MEDS: AMPICILLIN/SULBACTAM SOD 1,500 MG in 0.9 % SODIUM CHLORIDE 100 ML IV SCH ×4 (03:28→19:33)
[2020-04-20 04:47] LABS: Basophils # (auto) 0.03 K/uL (0-0.2); Basophils % (auto) 0.3 %; Eosinophils # (auto) 0.19 K/uL (0-0.5); Eosinophils % (auto) 2.1 %; Hematocrit (blood only) 38.4 % (42-52); Hemoglobin 12.5 g/dL (14.0-18.0); Immature Granulocytes # (auto) 0.13 K/uL (0.00-0.02); Immature Granulocytes % (auto) 1.4 %; Lymphocytes # (auto) 1.87 K/uL (1.2-3.4); Lymphocytes % (auto) 20.3 %; Mean Corpuscular Hemoglobin 35.6 pg (25-34); Mean Corpuscular Hgb Conc 32.6 g/dL (32-36); Mean Corpuscular Volume 109.4 fL (80-100); Mean Platelet Volume 10.7 fL (7.4-10.4); Monocytes # (auto) 1.77 K/uL (0.11-0.59); Monocytes % (auto) 19.2 %; Neutrophils # (auto) 5.23 K/uL (1.4-6.5); Neutrophils % (auto) 56.7 %; Platelet Count 369 K/uL (130-400); RDW Coefficient of Variation 13.8 % (11.5-14.5); RDW Standard Deviation 55.1 fL (36.4-46.3); Red Blood Count 3.51 M/uL (4.7-6.1); White Blood Count 9.22 K/uL (4.8-10.8)
[2020-04-20 05:06] LABS: Calcium 8.3 mg/dl (8.5-10.1); Est GFR (Non-African American) 129.4; Magnesium 2.3 mg/dl (1.8-2.4); Potassium 3.4 mmol/L (3.5-5.1)
[2020-04-20 05:07] LABS: Phosphorus 3.5 mg/dl (2.5-4.9)
--- NOTE | 2020-04-20 06:06 | Critical Care Progress Note ---
Date of Service April 20, 2020 Assessment & Plan (1) Delirium tremens: Reason Critically Ill: 34-year-old male admitted for alcohol withdrawal which has progressed to delirium tremens, requiring management with vasopressors. Patient was initially placed on AWSS protocol with both scheduled and prn ativan, as well as max dose Precedex. Due to increasing benzo requirements, ativan was discontinued in favor of phenobarbital taper on 04/16; taper was extended to 64.8 mg oral dosing for a total of 4 doses then to decrease to 32.4. His precedex was also discontinued on 04/16 and he was started on scheduled clonidine 0.1mg TID and propranolol. On 04/18, precedex and scheduled ativan were restarted; phenobarbital and clonidine were discontinued. Precedex currently running at 0.9mcg/kg/hr; continue to wean as tolerated. Patient did not require any prn doses of Ativan overnight. His mentation continues to wax and wane - at times responsive to questions and oriented. His HR has improved without use of labetalol. Currently on Day 4 of Unasyn for RLL aspiration PNA. NG tubes have been restarted. Patient had significant dieresis yesterday with IV lasix - no further evidence of pulmonary edema on CXR. Neuro - * Alcohol withdrawal/EtOH abuse/delirium tremens - ongoing - Patient has progressed from early signs of alcohol withdrawal with tremors and mild confusion to DTs and acute psychosis - patient with reported 6-8 shots (3 ounces) of vodka daily - family history of alcohol use disorder reported - etoh level 35 on admission - initially started on scheduled ativan + precdex for withdrawal management. On 04/16, both were discontinued in favor of Phenobarbital taper and scheduled clonidine. On 04/18, phenobarbital and clonidine were discontinued and patient was transitioned back to original regimen of scheduled ativan and precedex. Currently, Precedex is not running at max dose. Continue to wean as tolerated. - continue thiamine (200mg, daily for 1 week) and folate supplementation to prevent Wernicke's/Korsokoffs - CT head unremarkable. consider MRI to assess for mamillary body necrosis - recommend inpatient rehab for alcohol use disorder following discharge Cardiac - * Tachycardia - improved - HR ~90s-100s bpm overnight - likely secondary to ETOH withdrawal - propranolol discontinued - continue telemetry * Chest pain - reported on admission - troponin negative - EKG showing normal sinus tach without signs of ischemia - CXR found left anterior 5th and 6th rib fractures (possibly secondary to fall related to alcohol intoxication) - chest CTA from 03/20 showed no evidence of pneumothorax - incentive spirometry when neurological status improves - pain control prn; would avoid Tylenol given elevated in LFTs. Consider lidocaine patches * Prolonged QTc interval -resolved - 503ms on EKG 04/14; interval has since normalized Respiratory - * Aspiration PNA - On 04/17 patient became tachypneic with an increased O2 requirement and was febrile at 38.1 - CXR 04/17 showing a slight progression of hazy right basilar airspace opacity; started on Unasyn. - WBC remains normal, blood cultures drawn 04/17 showing no growth through 48 hours - tube feeds restarted, aspiration precuations in place - supplemental O2 as needed - patient is at risk for aspiration PNA given underlying alcoholism - No history of pulmonary disease GI - * Elevated Lipase Level - lipase of 1342 on admission --> 3961--> 982. - Repeat level 04/18 increased 2999. patient is at high risk for pseudocyst formation. - concern for chronic pancreatitis secondary to alcoholism - CT abdomen pelvis 04/12/20 without peripancreatic inflammatory change - Abdomen US 04/12/20 showing no evidence of pancreatic inflammation - abdominal exam benign today, patient without pain to palpation * Fatty Liver - severe hepatic steatosis visualized on A/P CT scan - coags wnl - likely secondary to alcohol use disorder - GI following, appreciate recs * Transaminitis - resolved - AST as high as 107, now normal - ALT as high as 101, now normalized - likely secondary to etoh use - Hepatitis panel negative * Conjugated hyperbilirubinemia - Total bili elevated to 1.8, direct elevated to 1.0 - alk phos 182, down from 206 - LFTs elevated on admission, now normal - No evidence of ductal dilation on CT of abdomen and pelvis - US of abdomen showing on ductal dilation or gallstones; obstructive etiology not suspected - likely hepatocellular etiology (toxin induced -etoh) * GERD - continue home PPI - ammonia level not elevated RENAL/LYTES - * Mild gapped metabolic acidosis - resolved - anion gap mildly increased to 17.5 (when corrected for low albumin) with concomitant metabolic acidosis; gap now closed - bicarb normal, drip discontinued - UA 4+ for ketones - etiology unknown - alcoholic ketosis, starvation, lactate, solvent from Ativan are all possible causes - discussion with pharmacy revealed extremely high doses of Ativan need for solvent to cause acid/base disturbances (threshold unknown, but typically in patient's on Ativan drips) - ICU electrolyte protocol - Creatinine within normal limits - - Foleystrict I's and O's ENDO - - No history of diabetes or thyroid disease HEME - * Thrombocytopenia - resolved - platelets have normalized - etiology thought to be secondary to bone marrow suppression from alcohol abuse - not on heparin - Coags WNL, no concern for DIC at this time * Macrocytic anemia - Hgb 12.5, MCV > 100 - likely secondary to ETOH use - continue thiamine and folate supplementation ID - * Pancytopenia - resolving - Platelets normalized - WBC normalized - RBC remains low - possibly secondary to bone marrow suppression in the setting of heavy ETOH use - HIV neg - MRSA nasal negative - COVID 19 neg LINES/IV ACCESS - Peripheral IVs, pop, fecal management system DVT PROPHYLAXIS -SCDs, Lovenox CODE: Full Thank you for allowing us to participate in the care of this patient. Please refer to my attending physician's documentation for any further recommendations. (2) Alcohol withdrawal: (3) Acute alcoholic pancreatitis: (4) Multiple rib fractures: (5) Thrombocytopenia: (6) GERD (gastroesophageal reflux disease): (7) Hypertension: Admission and Anticipated Discharge Date Admission Date: April 12, 2020 Supervising Physician Co-Signing Physician Notes Dr. Martin was the resident-physician during care of patient. I separately evaluated patient for boo portions of the history and the exam. I was present during the critical portion of medical decision making, and I discussed the case with the resident. I generally agree with the findings and plan except for any additions/exceptions noted. Patient seen and examined at bedside. Overnight he did not get any as needed Ativan. The as needed Ativan last dose was on 04/19/2020 around 5 PM. His standing dose of Ativan was increased to 6 mg every 6 hours along with Precedex. At the time of examination patient is on 0.9 of Precedex. He is RASS -2--1. Answers some of the questions. Still has bouts of restlessness for which Precedex needs to be adjusted. Hopefully in the next 2448 hrs. we will try to titrate down the Ativan that he has been getting. I will try to add an SSRI to see if there is any benefit although because of the prolonged QTC I doubt I will be able to add it. Hypokalemia is being replaced. Prolonged QTC, avoid QT prolonging medication. Repeat EKG today. Complete the course of antibiotics for aspiration pneumonia for total of 7 days. DC Pop before the end of the shift today. Give a dose of Lasix 40 mg today. I have personally spent 35 minutes of critical care time in the direct management of this patient. This is a life/limb threatening event. This includes time spent evaluating patient, direct bedside care, chart review, placing orders, interpretation of diagnostic studies, discussion with consultants, patient, and/or family members regarding treatment decisions, as well as other required patient management activities. This time is exclusive of all separately billable procedures, and teaching time and separate from and in addition to any other critical care service time. Subjective Overnight, James did not require any prn ativan doses. Nursing noted improved ability to answer questions and follow some basic commands. At times still yells out and shows signs of agitation. Review of Systems Review of Systems: All systems reviewed & are unremarkable except as noted in HPI & below Physical Exam Constitutional: WD/WN, vitals as above Eyes: PERRL, conjunctivae normal, anicteric sclerae EOM intact bilaterally ENMT: external ear and nose normal, oropharynx normal Neck: normal visual inspection and trachea midline Respiratory: normal respiratory effort Auscultation: + lungs not clear to auscultation (noisy upper airway breathing ), no crackles and no vesicular breath sounds (noisy upper airway breathing ) Cardiovascular: Rate/Rhythm: regular rate and regular rhythm Heart Sounds: normal S1 and normal S2; no murmur Extremities: no pedal edema Gastrointestinal (Abdomen): Inspection/Auscultation: + abdomen distended and normal bowel sounds Percussion/Palpation: abdomen soft; abdomen nontender and no guarding Skin: no rashes, warm and dry Neurologic: + confused + follows commands Psychiatric: Orientation: alert (mentation continues to wax and wane. At times knows his name, location), oriented to person and oriented to place Genitourinary: Pop catheter in place, draining blood tinged urine without visible blood clots Results & Data Results & Data ([facility]) Vital Signs (Past 12 Hours) Vital Signs Temp Pulse Resp BP Pulse Ox 04/20/20 04:00 36.8 C 87 20 117/66 94 04/20/20 02:59 82 13 116/62 95 04/20/20 02:37 79 04/20/20 01:59 36.7 C 82 15 116/70 96 04/20/20 01:12 80 12 114/62 96 04/20/20 00:59 80 14 80/58 L 96 04/19/20 23:59 36.5 C 80 15 112/56 L 95 04/19/20 23:30 79 12 117/65 94 04/19/20 22:59 79 9 L 117/65 95 04/19/20 21:59 36.5 C 80 14 120/68 92 04/19/20 21:00 81 11 L 114/54 L 99 04/19/20 19:59 36.5 C 83 15 131/69 97 04/19/20 18:59 89 22 125/76 97 04/19/20 18:10 93 H 38 H 122/91 98 04/20/20 04:23 04/20/20 04:23 Resident Activity Tracking Resident Involvement: Resident Care Provided Care Provided: Adult Hospital Medicine (1) Multiple rib fractures Encounter type: initial encounter Fracture type: closed Laterality: left Qualified Code(s): S22.42XA - Multiple fractures of ribs, left side, initial encounter for closed fracture (2) Alcohol withdrawal Complication of substance-induced condition: uncomplicated Qualified Code(s): F10.230 - Alcohol dependence with withdrawal, uncomplicated (3) Acute alcoholic pancreatitis Acute pancreatitis complication: no infection or necrosis Qualified Code(s): K85.20 - Alcohol induced acute pancreatitis without necrosis or infection
[2020-04-20] MEDS ORDERED: POTASSIUM CHLORIDE CRTAB 20 MEQ TABCR PO STA (06:35)
[2020-04-20] MEDS: POTASSIUM CHLORIDE / WTR 10 MEQ/100 ML PLCT IV SCH ×2 (06:41→08:09)
[2020-04-20] MEDS: ICU ELECTROLYTE REPLACEMENT PROTOCOL SCH ×2 (07:04→16:48)
[2020-04-20] MEDS: D5W AND 1/2NSS 1,000 ML IV SCH (07:09)
[2020-04-20] MEDS: ENOXAPARIN INJ 40 MG/0.4 ML SYR SQ SCH (08:09)
[2020-04-20] MEDS: LANSOPRAZOLE 30 MG SOLTAB NG SCH (08:09)
[2020-04-20] MEDS: FOLIC ACID 1 MG in SYRINGE 9.8 ML IV SCH (08:09)
[2020-04-20] MEDS ORDERED: FUROSEMIDE 40 MG/4 ML VIAL IV ONE (10:00)
[2020-04-20] MEDS: THIAMINE HCL 200 MG in SODIUM CHLORIDE 0.9% 50 ML IV SCH (10:33)
--- NOTE | 2020-04-20 10:49 | Billing Data ---
Date of Service April 20, 2020 Coding Level of Care Code Critical Care 1st 30-74 mins Time Spent (min) 35
[2020-04-20] MEDS ORDERED: LORAZEPAM IV SCH (12:00)
--- NOTE | 2020-04-20 13:35 | Hospitalist Progress Note ---
Date of Service April 20, 2020 Assessment & Plan (1) Pancreatitis: -as per admission notes on 04/12/2020 " 34-year-old male with history of alcoholism, hypertension, GERD, ankylosing spondylitis Presenting with bilateral lower extremity tingling sensation and tremors, abdominal pain since this morning" -initial concerns were for acute alcoholic pancreatitis -however the CT abdomen pelvis without peripancreatic inflammatory change, and Abdomen US 04/12/20 showing no evidence of pancreatic inflammation -but lipase has remained elevated in the thousands since that time, lipase [place] to 2999 on 04/18/2020; lipase of 3425 by 04/19/2020 (2) Elevated LFTs: Transaminitis, Elevated Lipase Level, Conjugated hyperbilirubinemia Fatty Liver -severe hepatic steatosis visualized on A/P CT scan -No evidence of ductal dilation on CT of abdomen and pelvis -US of abdomen showing on ductal dilation or gallstones; obstructive etiology not suspected Thrombocytopenia - etiology thought to be secondary to bone marrow suppression from alcohol abuse Macrocytic anemia - likely secondary to ETOH use - continue thiamine and folate supplementation (3) Alcohol withdrawal: Alcohol withdrawal/Alcohol abuse/delirium tremens -patient with reported 6 shots of vodka daily alcohol use when outpatient -continue thiamine and folic acid supplementation -etoh level 35 on admission -admitted for alcohol withdrawal which has progressed to delirium tremens, requiring management with vasopressors and ICU admission -Patient was initially placed on AWSS protocol with both scheduled and prn ativan, as well as max dose Precedex. Due to increasing benzo requirements, ativan was discontinued in favor of phenobarbital taper on 04/16; taper will be extended to 64.8 mg oral dosing for a total of 4 doses then to decrease to 32.4. His precedex was discontinued and he was started on scheduled clonidine 0.1mg TID and propranolol. -as of 04/18/2020 patient is back in the Precedex drip -04/19/2020: Patient seen and examined at bedside on chest PT and continues to be under the care of ICU team. As per nurse, patient on reduced Precedex drip and also getting getting prn Aitivan in regards to management of alcohol withdrawal. Patient awake and is somewhat more alert today but his speech is still very mumbled with the oxymask and the NG tube. Because of continued high oxygen requirements and aspiration pneumonia with increase lipase of 3425, patient is not on any feeds at this time. -04/20/2020: ICU physician titrating Precedex and Ativan and also giving Lasix for diuresis -further management of alcohol withdrawal medications as per ICU physician Aspiration Pneumonia -Overnight from 04/16/2020 to 04/17/20 time frame, ICU reports that patient "developed liquid stools, he became tachypneic and had an increased O2 requirement. His tube feeds were held. This morning he spiked a fever to 38.1 and his CXR showed a slight progression of hazy right basilar airspace opacity. He was initiated on Unasyn with concern for aspiration pneumonia. His propranolol dose was increased from 20 to 30mg given his ongoing tachycardia." -supplementary oxygen as needed, on IV Unasyn -ICU note on 04/19/2020 "CXR today shows progressive consolidation of RLL. Tube feeds remain on hold. Yesterday, PICC line placement was discussed with family, but consent was ultimately not yet provided. Patient continues to struggle managing his own secretions, thus there is concern regarding his ability to protect his airway." -continue IV Unasyn Metabolic Acidosis -improved with the IV bicarbonate that ICU medical team has given to the patient Prolonged QTc interval -503ms on EKG 04/14/2020, ICU recommend no further administration of QT prolonging agents, such as Ziprasidone GERD -allow for feeding when cleared by ICU team (4) Hypokalemia: -serum potassium 3.2 on 04/12/2020 -normalized after potassium supplementation on this admission Hypophosphatemia -patient had received phosphorous supplements with correction of serum phosp since 04/17/2020 -continue nutritional evaluations and following electrolytes (5) Multiple rib fractures: Left anterior rib fractures, fifth and sixth ribs -rib fractures were from mechanical fall when climbing up steps prior to hospital admission -CT head: No acute process -CT abdomen pelvis: No injuries noted -will need incentive spirometer encouragement when more cognitive baseline -will need PT/OT assessments when more cognitive baseline (6) DVT prophylaxis: -SCDs Full code Admission and Anticipated Discharge Date Admission Date: April 12, 2020 Subjective 04/20/2020: ICU physician titrating Precedex and Ativan and also giving Lasix for diuresis Patient appears less restless on exam but he recently received IV Ativan as per nurse. No feeds at this time. Patient verbal and intermittently alert to try to talk. His vocal sounds are obstructed by some congestion, oxymask, and NG tube. Patient cannot report full rewiew of systems Review of Systems Review of Systems: Unobtainable due to cognitive status Physical Exam Constitutional: + lethargic Eyes: EOM intact bilaterally ENMT: external ear and nose normal, oropharynx normal (has NG tube, has nasal cannula oxygen) Neck: normal visual inspection Respiratory: normal respiratory effort, lungs clear to auscultation Cardiovascular: Rate/Rhythm: regular rate Gastrointestinal (Abdomen): normal bowel sounds, soft, nontender, no hepatosplenomegaly Musculoskeletal: Head/Neck/Chest: normocephalic and head atraumatic Neurologic: awake Psychiatric: Orientation: oriented to person Eye Contact: + poor eye contact Genitourinary: pop, rectal tube Results & Data Results & Data ([facility]) Vital Signs (Past 12 Hours) Vital Signs Temp Pulse Resp BP Pulse Ox 04/20/20 12:00 91 H 20 95/75 L 94 04/20/20 11:00 102 H 20 119/57 L 96 04/20/20 10:00 86 13 121/76 99 04/20/20 08:59 89 17 121/88 99 04/20/20 08:30 37.5 C 04/20/20 08:00 93 H 19 125/87 97 04/20/20 07:00 92 H 20 107/84 96 04/20/20 06:20 36.8 C 98 H 25 H 116/77 95 04/20/20 05:00 90 18 135/89 94 04/20/20 04:00 36.8 C 87 20 117/66 94 04/20/20 02:59 82 13 116/62 95 04/20/20 02:37 79 04/20/20 01:59 36.7 C 82 15 116/70 96 (1) Alcohol withdrawal Complication of substance-induced condition: uncomplicated Qualified Code(s): F10.230 - Alcohol dependence with withdrawal, uncomplicated (2) Multiple rib fractures Encounter type: initial encounter Fracture type: closed Laterality: left Qualified Code(s): S22.42XA - Multiple fractures of ribs, left side, initial encounter for closed fracture
[2020-04-20] MEDS: LORazepam 5 MG/10 ML VIAL IV PRN (13:39)
[2020-04-20] MEDS: PEPTAMEN 1.5 CAL 1,000 ML BAG NG SCH (14:19)
--- NOTE | 2020-04-20 15:24 | Electrocardiogram Report ---
Test Reason : Blood Pressure : / mmHG Vent. Rate : 097 BPM Atrial Rate : 097 BPM P-R Int : 146 ms QRS Dur : 094 ms QT Int : 362 ms P-R-T Axes : 025 070 020 degrees QTc Int : 459 ms Normal sinus rhythm Incomplete right bundle branch block Abnormal ECG When compared with ECG of 14-APR-2020 07:36, Incomplete right bundle branch block is now Present Nonspecific T wave abnormality has replaced inverted T waves in Lateral leads Confirmed by Higinio Carrillo ([id number] on 04/20/2020 3:23:44 PM Referred By: REFERRED SELF Confirmed By:Prieto Carrillo
[2020-04-20] MEDS: LORAZEPAM IV SCH ×2 (15:50→19:33)
[2020-04-21] MEDS: LORAZEPAM IV SCH ×2 (00:32→03:22)
[2020-04-21] MEDS: DEXMEDETOMIDINE HCL 400 MCG in 0.9 % SODIUM CHLORIDE 96 ML IV SCH ×6 (03:02→11:27)
[2020-04-21] MEDS: AMPICILLIN/SULBACTAM SOD 1,500 MG in 0.9 % SODIUM CHLORIDE 100 ML IV SCH ×4 (03:30→19:39)
[2020-04-21 05:38] LABS: Basophils # (auto) 0.08 K/uL (0-0.2); Basophils % (auto) 0.9 %; Eosinophils # (auto) 0.16 K/uL (0-0.5); Eosinophils % (auto) 1.8 %; Hematocrit (blood only) 36.2 % (42-52); Hemoglobin 11.4 g/dL (14.0-18.0); Immature Granulocytes # (auto) 0.18 K/uL (0.00-0.02); Lymphocytes # (auto) 2.09 K/uL (1.2-3.4); Lymphocytes % (auto) 23.2 %; Mean Corpuscular Hemoglobin 34.5 pg (25-34); Mean Corpuscular Hgb Conc 31.5 g/dL (32-36); Mean Corpuscular Volume 109.7 fL (80-100); Mean Platelet Volume 10.9 fL (7.4-10.4); Monocytes # (auto) 1.38 K/uL (0.11-0.59); Monocytes % (auto) 15.4 %; Neutrophils % (auto) 56.7 %; Platelet Count 480 K/uL (130-400); RDW Coefficient of Variation 13.8 % (11.5-14.5); RDW Standard Deviation 55.5 fL (36.4-46.3); White Blood Count 8.99 K/uL (4.8-10.8)
[2020-04-21 05:55] LABS: BUN Creatinine Ratio 17.8 (10-20); Blood Urea Nitrogen 10 mg/dl (7-18); Calcium 8.7 mg/dl (8.5-10.1); Carbon Dioxide 32 mmol/L (21-32); Chloride 106 mmol/L (98-107); Creatinine Clr Calc Pharmacy 199.8 ml/min; Est GFR (African American) > 150.0; Est GFR (Non-African American) 132.1; Glucose 110 mg/dl (70-99); Magnesium 2.3 mg/dl (1.8-2.4); Potassium 3.8 mmol/L (3.5-5.1); Sodium 142 mmol/L (136-145)
[2020-04-21 05:56] LABS: Phosphorus 3.3 mg/dl (2.5-4.9)
[2020-04-21] MEDS: ICU ELECTROLYTE REPLACEMENT PROTOCOL SCH ×2 (06:06→17:34)
[2020-04-21] MEDS: LANSOPRAZOLE 30 MG SOLTAB NG SCH (07:49)
[2020-04-21] MEDS: FOLIC ACID 1 MG in SYRINGE 9.8 ML IV SCH (08:00)
[2020-04-21] MEDS: ENOXAPARIN INJ 40 MG/0.4 ML SYR SQ SCH (08:00)
[2020-04-21] MEDS: THIAMINE HCL 200 MG in SODIUM CHLORIDE 0.9% 50 ML IV SCH (08:02)
--- NOTE | 2020-04-21 08:26 | Critical Care Progress Note ---
Date of Service April 21, 2020 Assessment & Plan (1) Delirium tremens: Reason Critically Ill: 34-year-old male admitted for alcohol withdrawal which has progressed to delirium tremens. Patient was initially placed on AWSS protocol with both scheduled and prn ativan, as well as max dose Precedex. Due to increasing benzo requirements, ativan was discontinued in favor of phenobarbital taper on 04/16; taper was extended to 64.8 mg oral dosing for a total of 4 doses then to decrease to 32.4. His precedex was also discontinued on 04/16 and he was started on scheduled clonidine 0.1mg TID and propranolol. On 04/18, precedex and scheduled ativan were restarted; phenobarbital and clonidine were discontinued. Precedex was weaned overnight and was turned off this morning. His Ativan dosing was lowered to 4mg q8h. Although he continues to have some visual hallucinations, he is alert and oriented x 3 and answers questions appropriately. We will consider a 1 to 1 sitter if he continues to attempt to pull out IVs and fecal tube. Currently on Day 5 of Unasyn for RLL aspiration PNA. NG tube has been removed; speech to do a bedside swallow today. Patient with 2.2 liters of urine output over past 24 hours, will continue dieresis until net negative fluid balance. His heart rate remains at 80-90 bpm off beta tristan. Neuro - * Alcohol withdrawal/EtOH abuse/delirium tremens - ongoing - Patient has progressed from early signs of alcohol withdrawal with tremors and mild confusion to DTs and acute psychosis - patient with reported 6-8 shots (3 ounces) of vodka daily - family history of alcohol use disorder reported - etoh level 35 on admission - initially started on scheduled ativan + precdex for withdrawal management. On 04/16, both were discontinued in favor of Phenobarbital taper and scheduled clonidine. On 04/18, phenobarbital and clonidine were discontinued and patient was transitioned back to original regimen of scheduled ativan and precedex. -On 04/21 Precedex discontinued. Ativan dosing reduced to 4mg q8 hr. - continue thiamine (200mg, daily for 1 week) and folate supplementation to prevent Wernicke's/Korsokoffs - CT head unremarkable. consider MRI to assess for mamillary body necrosis - recommend inpatient rehab for alcohol use disorder following discharge Cardiac - * Tachycardia - improved - HR ~80-90s bpm overnight - likely secondary to ETOH withdrawal - propranolol discontinued - continue telemetry * Chest pain - reported on admission - troponin negative - EKG showing normal sinus tach without signs of ischemia - CXR found left anterior 5th and 6th rib fractures (possibly secondary to fall related to alcohol intoxication) - chest CTA from 03/20 showed no evidence of pneumothorax - incentive spirometry when neurological status improves - pain control prn; would avoid Tylenol given elevated in LFTs. Consider lidocaine patches * Prolonged QTc interval -resolved - 503ms on EKG 04/14; interval has since normalized Respiratory - * Aspiration PNA - On 04/17 patient became tachypneic with an increased O2 requirement and was febrile at 38.1 - CXR 04/17 showing a slight progression of hazy right basilar airspace opacity - Currently on Day 5 of Unasyn - WBC remains normal, blood cultures drawn 04/17 showing no growth through 72 hours - tube feeds restarted, aspiration precautions in place - supplemental O2 as needed - patient is at risk for aspiration PNA given underlying alcoholism - No history of pulmonary disease GI - * Elevated Lipase Level - lipase of 1342 on admission --> 3961--> 982. - Repeat level 04/18 increased 2999. patient is at high risk for pseudocyst formation. - concern for chronic pancreatitis secondary to alcoholism - CT abdomen pelvis 04/12/20 without peripancreatic inflammatory change - Abdomen US 04/12/20 showing no evidence of pancreatic inflammation - abdominal exam benign today, patient without pain to palpation * Fatty Liver - severe hepatic steatosis visualized on A/P CT scan - coags wnl - likely secondary to alcohol use disorder - GI following, appreciate recs * Transaminitis - resolved - AST as high as 107, now normal - ALT as high as 101, now normalized - likely secondary to etoh use - Hepatitis panel negative * Conjugated hyperbilirubinemia - Total bili elevated to 1.8, direct elevated to 1.0 - alk phos 182, down from 206 - LFTs elevated on admission, now normal - No evidence of ductal dilation on CT of abdomen and pelvis - US of abdomen showing on ductal dilation or gallstones; obstructive etiology not suspected - likely hepatocellular etiology (toxin induced -etoh) * GERD - continue home PPI - ammonia level not elevated RENAL/LYTES - * Mild gapped metabolic acidosis - resolved - anion gap mildly increased to 17.5 (when corrected for low albumin) with concomitant metabolic acidosis; gap now closed - bicarb normal, drip discontinued - UA 4+ for ketones - etiology unknown - alcoholic ketosis, starvation, lactate, solvent from Ativan are all possible causes - discussion with pharmacy revealed extremely high doses of Ativan need for solvent to cause acid/base disturbances (threshold unknown, but typically in patient's on Ativan drips) - replace electrolytes as needed - Creatinine within normal limits - - pop removed 04/20; patient able to spontaneously void at this time ENDO - - No history of diabetes or thyroid disease HEME - * Thrombocytopenia - resolved - platelets have normalized - etiology thought to be secondary to bone marrow suppression from alcohol abuse - not on heparin - Coags WNL, no concern for DIC at this time * Macrocytic anemia - Hgb 12.5, MCV > 100 - likely secondary to ETOH use - continue thiamine and folate supplementation ID - * Pancytopenia - resolving - Platelets normalized - WBC normalized - RBC remains low - possibly secondary to bone marrow suppression in the setting of heavy ETOH use - HIV neg - MRSA nasal negative - COVID 19 neg LINES/IV ACCESS - Peripheral IVs, fecal management system DVT PROPHYLAXIS -SCDs, Lovenox CODE: Full Thank you for allowing us to participate in the care of this patient. Please refer to my attending physician's documentation for any further recommendations. (2) Alcohol withdrawal: (3) Acute alcoholic pancreatitis: (4) Multiple rib fractures: (5) Thrombocytopenia: (6) GERD (gastroesophageal reflux disease): (7) Hypertension: Admission and Anticipated Discharge Date Admission Date: April 12, 2020 Supervising Physician Co-Signing Physician Notes Dr. Martin was the resident-physician during care of patient. I separately evaluated patient for boo portions of the history and the exam. I was present during the critical portion of medical decision making, and I discussed the case with the resident. I generally agree with the findings and plan except for any additions/exceptions noted. Patient seen and examined at bedside. No acute distress. He was sitting on a recliner at the time of examination. He is more alert answering questions more appropriately. He still having hallucinations though. Precedex was weaned off overnight. Ativan dose at 4 AM was held. I did start to notice that the patient is getting more restless. We will continue with Ativan 4 mg every 6 hours along with as needed based on the CIWA scale. In/out: -161, urine output 2450 Repeat EKG 04/20/2020 showed a QTC of 459 which is significantly decreased from 503 Complete the course of antibiotics for aspiration pneumonia for total of 7 days. Pop DC'd 04/20/2020. Will DC rectal tube today. Continue with out of the bed to chair. Will get swallow eval today. I have personally spent 36 minutes of critical care time in the direct man agement of this patient. This is a life/limb threatening event. This includes time spent evaluating patient, direct bedside care, chart review, placing orders, interpretation of diagnostic studies, discussion with consultants, patient, and/or family members regarding treatment decisions, as well as other required patient management activities. This time is exclusive of all separately billable procedures, and teaching time and separate from and in addition to any other critical care service time. Subjective Overnight, James did very well - his precedex was weaned and his 4am ativan dose was held. He is passing less liquid stool. His pop was removed last evening and a condom-catheter was placed, however this morning he was able to void in the bedside urinal. He is sitting in the bedside chair today Review of Systems Respiratory: + chest congestion and + snoring Psychiatric: + hallucinations Physical Exam Constitutional: WD/WN, vitals as above Eyes: PERRL, conjunctivae normal, anicteric sclerae EOM intact bilaterally ENMT: external ear and nose normal, oropharynx normal Neck: normal visual inspection and trachea midline Respiratory: normal respiratory effort Auscultation: + lungs not clear to auscultation (noisy upper airway breathing ), no crackles and no vesicular breath sounds (noisy upper airway breathing ) Cardiovascular: Rate/Rhythm: regular rate and regular rhythm Heart Sounds: normal S1 and normal S2; no murmur Extremities: no pedal edema Gastrointestinal (Abdomen): Inspection/Auscultation: normal bowel sounds Percussion/Palpation: abdomen soft; abdomen nontender and no guarding + fecal management system in place Skin: no rashes, warm and dry Psychiatric: Orientation: alert and oriented x 3 Hallucinations: + visual hallucinations Results & Data Results & Data ([facility]) Vital Signs (Past 12 Hours) Vital Signs Pulse Resp BP Pulse Ox 04/21/20 06:00 99 H 16 141/114 H 92 04/21/20 05:15 86 21 126/101 H 92 04/21/20 05:01 97 H 29 H 98 04/21/20 05:00 91 H 19 95 04/21/20 04:01 99 H 17 97 04/21/20 04:00 100 H 23 102/67 97 04/21/20 03:01 93 H 16 95 04/21/20 03:00 91 H 17 112/73 96 04/21/20 02:01 92 H 16 94 04/21/20 02:00 91 H 18 88/62 L 95 04/21/20 01:01 90 18 97 04/21/20 01:00 93 H 18 84/58 L 97 04/21/20 00:01 91 H 16 98 04/21/20 00:00 87 14 98/66 L 98 04/20/20 23:01 87 17 98 04/20/20 23:00 87 18 103/69 98 04/20/20 22:01 95 H 22 97 04/20/20 22:00 95 H 18 87/51 L 97 04/20/20 21:04 84 15 87/63 L 94 04/20/20 21:01 84 18 94 04/20/20 21:00 84 16 77/60 L 94 Resident Activity Tracking Resident Involvement: Resident Care Provided Care Provided: Adult Hospital Medicine (1) Multiple rib fractures Encounter type: initial encounter Fracture type: closed Laterality: left Qualified Code(s): S22.42XA - Multiple fractures of ribs, left side, initial encounter for closed fracture (2) Alcohol withdrawal Complication of substance-induced condition: uncomplicated Qualified Code(s): F10.230 - Alcohol dependence with withdrawal, uncomplicated (3) Acute alcoholic pancreatitis Acute pancreatitis complication: no infection or necrosis Qualified Code(s): K85.20 - Alcohol induced acute pancreatitis without necrosis or infection
--- NOTE | 2020-04-21 08:51 | Hospitalist Progress Note ---
Date of Service April 21, 2020 Assessment & Plan (1) Pancreatitis: -as per admission notes on 04/12/2020 " 34-year-old male with history of alcoholism, hypertension, GERD, ankylosing spondylitis Presenting with bilateral lower extremity tingling sensation and tremors, abdominal pain since this morning" -initial concerns were for acute alcoholic pancreatitis -however the CT abdomen pelvis without peripancreatic inflammatory change, and Abdomen US 04/12/20 showing no evidence of pancreatic inflammation -but lipase has remained elevated in the thousands since that time, lipase [place] to 2999 on 04/18/2020; lipase of 3425 by 04/19/2020 (2) Elevated LFTs: Transaminitis, Elevated Lipase Level, Conjugated hyperbilirubinemia Fatty Liver -severe hepatic steatosis visualized on A/P CT scan -No evidence of ductal dilation on CT of abdomen and pelvis -US of abdomen showing on ductal dilation or gallstones; obstructive etiology not suspected Thrombocytopenia - etiology thought to be secondary to bone marrow suppression from alcohol abuse Macrocytic anemia - likely secondary to ETOH use - continue thiamine and folate supplementation (3) Alcohol withdrawal: Alcohol withdrawal/Alcohol abuse/delirium tremens -patient with reported 6 shots of vodka daily alcohol use when outpatient -continue thiamine and folic acid supplementation -etoh level 35 on admission -admitted for alcohol withdrawal which has progressed to delirium tremens, requiring management with vasopressors and ICU admission -Patient was initially placed on AWSS protocol with both scheduled and prn ativan, as well as max dose Precedex. Due to increasing benzo requirements, ativan was discontinued in favor of phenobarbital taper on 04/16; taper will be extended to 64.8 mg oral dosing for a total of 4 doses then to decrease to 32.4. His precedex was discontinued and he was started on scheduled clonidine 0.1mg TID and propranolol. -as of 04/18/2020 patient is back in the Precedex drip -04/19/2020: Patient seen and examined at bedside on chest PT and continues to be under the care of ICU team. As per nurse, patient on reduced Precedex drip and also getting getting prn Aitivan in regards to management of alcohol withdrawal. Patient awake and is somewhat more alert today but his speech is still very mumbled with the oxymask and the NG tube. Because of continued high oxygen requirements and aspiration pneumonia with increase lipase of 3425, patient is not on any feeds at this time. -04/20/2020: ICU physician titrating Precedex and Ativan and also giving Lasix for diuresis -04/21/2020 AM: Patient seen and examined in the ICU prior to the ICU rounds. Patient apparently self-pulled out the NG tube. Has been getting lowered doses of Ativan from 6 mg to 4 mg prn in order to avoid excessive sedation and not currently on IV Precedex. Nurses were trying to place peripheral IV line to right arm. Patient laying on the couch by hospital bed. His legs are shaking. He is breathing on oxymask and with tracking eye movements, a lot of coughing and continues to have sonorous breath sounds. Patient cannot answer questions to review of systems because he is still not very comfortable or alert. At this time hospitalist will await further decision by ICU physician whether patient to remain in ICU for futehr monitoring versus any plans to transition to telemetry [place]. Aspiration Pneumonia -Overnight from 04/16/2020 to 04/17/20 time frame, ICU reports that patient "developed liquid stools, he became tachypneic and had an increased O2 requirement. His tube feeds were held. This morning he spiked a fever to 38.1 and his CXR showed a slight progression of hazy right basilar airspace opacity. He was initiated on Unasyn with concern for aspiration pneumonia. His propranolol dose was increased from 20 to 30mg given his ongoing tachycardia." -supplementary oxygen as needed, on IV Unasyn -ICU note on 04/19/2020 "CXR today shows progressive consolidation of RLL. Tube feeds remain on hold. Yesterday, PICC line placement was discussed with family, but consent was ultimately not yet provided. Patient continues to struggle managing his own secretions, thus there is concern regarding his ability to protect his airway." -continue IV Unasyn, patient will need further evaluation of swallowing whether he can tolerate oral feeding GERD -allow for feeding when cleared by ICU team Metabolic Acidosis -resolved after IV bicarbonate treatment that ICU medical team has given to the patient several days ago in the ICU stay Prolonged QTc interval -503ms on EKG 04/14/2020, minimize or avoid administration of QT prolonging agents, such as Ziprasidone (4) Hypokalemia: -serum potassium 3.2 on 04/12/2020 -normalized after potassium supplementation on this admission Hypophosphatemia -patient had received phosphorous supplements with correction of serum phosp since 04/17/2020 -continue nutritional evaluations and following electrolytes (5) Multiple rib fractures: Left anterior rib fractures, fifth and sixth ribs -rib fractures were from mechanical fall when climbing up steps prior to hospital admission -CT head: No acute process -CT abdomen pelvis: No injuries noted -will need incentive spirometer encouragement when more cognitive baseline -will need PT/OT assessments when more cognitive baseline (6) DVT prophylaxis: -SCDs Full code Admission and Anticipated Discharge Date Admission Date: April 12, 2020 Subjective 04/21/2020 AM: Patient seen and examined in the ICU prior to the ICU rounds. Patient apparently self-pulled out the NG tube. Has been getting lowered doses of Ativan from 6 mg to 4 mg prn in order to avoid excessive sedation and not currently on IV Precedex. Nurses were trying to place peripheral IV line to right arm. Patient laying on the couch by hospital bed. His legs are shaking. He is breathing on oxymask and with tracking eye movements, a lot of coughing and continues to have sonorous breath sounds. Patient cannot answer questions to review of systems because he is still not very comfortable or alert. At this time hospitalist will await further decision by ICU physician whether patient to remain in ICU for futehr monitoring versus any plans to transition to telemetry [place]. Review of Systems Review of Systems: Unobtainable due to cognitive status Physical Exam Constitutional: + lethargic Eyes: EOM intact bilaterally ENMT: external ear and nose normal, oropharynx normal (has NG tube, has nasal cannula oxygen) Neck: normal visual inspection Respiratory: normal respiratory effort, lungs clear to auscultation + cough Cardiovascular: Rate/Rhythm: regular rate Gastrointestinal (Abdomen): normal bowel sounds, soft, nontender, no hepatosplenomegaly Musculoskeletal: Head/Neck/Chest: normocephalic and head atraumatic Neurologic: awake Psychiatric: Orientation: oriented to person Eye Contact: + poor eye contact Results & Data Results & Data ([facility]) Vital Signs (Past 12 Hours) Vital Signs Pulse Resp BP Pulse Ox 04/21/20 06:00 99 H 16 141/114 H 92 04/21/20 05:15 86 21 126/101 H 92 04/21/20 05:01 97 H 29 H 98 04/21/20 05:00 91 H 19 95 04/21/20 04:01 99 H 17 97 04/21/20 04:00 100 H 23 102/67 97 04/21/20 03:01 93 H 16 95 04/21/20 03:00 91 H 17 112/73 96 04/21/20 02:01 92 H 16 94 04/21/20 02:00 91 H 18 88/62 L 95 04/21/20 01:01 90 18 97 04/21/20 01:00 93 H 18 84/58 L 97 04/21/20 00:01 91 H 16 98 04/21/20 00:00 87 14 98/66 L 98 04/20/20 23:01 87 17 98 04/20/20 23:00 87 18 103/69 98 04/20/20 22:01 95 H 22 97 04/20/20 22:00 95 H 18 87/51 L 97 04/20/20 21:04 84 15 87/63 L 94 04/20/20 21:01 84 18 94 04/20/20 21:00 84 16 77/60 L 94 (1) Alcohol withdrawal Complication of substance-induced condition: uncomplicated Qualified Code(s): F10.230 - Alcohol dependence with withdrawal, uncomplicated (2) Multiple rib fractures Encounter type: initial encounter Fracture type: closed Laterality: left Qualified Code(s): S22.42XA - Multiple fractures of ribs, left side, initial encounter for closed fracture
[2020-04-21] MEDS ORDERED: LORazepam 4 MG/8 ML VIAL IV SCH (09:00)
[2020-04-21] MEDS ORDERED: METOPROLOL TARTRATE 1 MG/ML VIAL IV ONE (09:08)
[2020-04-21] MEDS ORDERED: METOPROLOL TARTRATE 1 MG/ML VIAL IV STA (09:08)
[2020-04-21] MEDS: LORazepam 5 MG/10 ML VIAL IV PRN ×3 (10:01→19:40)
[2020-04-21] MEDS ORDERED: Nursing to Pharmacy Communication SCH (11:15)
--- NOTE | 2020-04-21 11:21 | Billing Data ---
Date of Service April 21, 2020 Coding Level of Care Code Critical Care 1st 30-74 mins Time Spent (min) 36
[2020-04-21] MEDS: PANTOprazole 40 MG in SYRINGE 0 ML IV SCH (12:29)
[2020-04-21] MEDS: LORazepam 4 MG/8 ML VIAL IV SCH ×2 (12:30→17:15)
[2020-04-21] MEDS: LORazepam 5 MG/10 ML VIAL IV SCH (21:04)
[2020-04-22] MEDS: LORazepam 5 MG/10 ML VIAL IV PRN ×4 (00:15→21:07)
[2020-04-22] MEDS: AMPICILLIN/SULBACTAM SOD 1,500 MG in 0.9 % SODIUM CHLORIDE 100 ML IV SCH ×4 (02:20→20:21)
[2020-04-22] MEDS: LORazepam 5 MG/10 ML VIAL IV SCH ×3 (02:34→06:32)
[2020-04-22 03:45] LABS: Basophils # (auto) 0.06 K/uL (0-0.2); Basophils % (auto) 0.7 %; Eosinophils % (auto) 1.2 %; Hematocrit (blood only) 38.7 % (42-52); Hemoglobin 12.7 g/dL (14.0-18.0); Immature Granulocytes # (auto) 0.25 K/uL (0.00-0.02); Immature Granulocytes % (auto) 3.1 %; Lymphocytes # (auto) 2.04 K/uL (1.2-3.4); Lymphocytes % (auto) 25.3 %; Mean Corpuscular Hemoglobin 35.9 pg (25-34); Mean Corpuscular Hgb Conc 32.8 g/dL (32-36); Mean Corpuscular Volume 109.3 fL (80-100); Mean Platelet Volume 10.7 fL (7.4-10.4); Monocytes # (auto) 0.94 K/uL (0.11-0.59); Monocytes % (auto) 11.7 %; Neutrophils # (auto) 4.66 K/uL (1.4-6.5); Platelet Count 576 K/uL (130-400); RDW Coefficient of Variation 13.8 % (11.5-14.5); RDW Standard Deviation 55.5 fL (36.4-46.3); Red Blood Count 3.54 M/uL (4.7-6.1); White Blood Count 8.05 K/uL (4.8-10.8)
[2020-04-22 04:15] LABS: BUN Creatinine Ratio 12.8 (10-20); Creatinine Clr Calc Pharmacy 161.2 ml/min; Est GFR (African American) 140.9; Est GFR (Non-African American) 121.6; Magnesium 2.6 mg/dl (1.8-2.4); Potassium 3.7 mmol/L (3.5-5.1)
[2020-04-22 04:16] LABS: Phosphorus 2.3 mg/dl (2.5-4.9)
[2020-04-22] MEDS ORDERED: POTASSIUM PHOS 3 MMOL/1 ML INFUSION IV STA (04:38)
[2020-04-22] MEDS ORDERED: POTASSIUM PHOSPHATE 15 MMOL in SODIUM CHLORIDE 0.9% 250 ML IV ONE (05:00)
[2020-04-22] MEDS: ICU ELECTROLYTE REPLACEMENT PROTOCOL SCH ×2 (05:20→17:40)
--- NOTE | 2020-04-22 07:06 | XRay Report ---
XR chest 1V portable HISTORY: 34 years-old Male aspiration PNA acute shortness breath with aspiration pneumonia COMPARISON: Chest radiograph 04/19/2020 TECHNIQUE: Portable AP view of the chest FINDINGS: Cardiomediastinal and hilar silhouettes are unchanged. Interval removal of the enteric tube. No pneum othorax, pleural effusion or overt pulmonary edema. Interval development of subsegmental right lung b ase airspace opacities. Bones appear grossly intact. IMPRESSION: New right basilar airspace opacities suggest pneumonia versus aspiration pneumonitis. ACT 112: Negative or not required by law. The above report was generated using voice recognition software. It may contain grammatical, syntax o r spelling errors. Electronically signed by: Antonio Campbell M.D. 04/22/2020 7:05 AM
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
[2020-04-22] MEDS: FOLIC ACID 1 MG in SYRINGE 9.8 ML IV SCH (08:31)
[2020-04-22] MEDS: ENOXAPARIN INJ 40 MG/0.4 ML SYR SQ SCH (08:32)
[2020-04-22] MEDS: THIAMINE HCL 200 MG in SODIUM CHLORIDE 0.9% 50 ML IV SCH (09:17)
--- NOTE | 2020-04-22 09:44 | Hospitalist Progress Note ---
Date of Service April 22, 2020 Assessment & Plan (1) Delirium tremens: Pt with persistent delirium, now on one-to one observation with nursing. Cannot obtain accurate ROS or history from him. Cont care plan below. (2) Alcohol withdrawal: 34 yo alcoholic man admitted for 10 days now with severe alcohol withdrawal. He is still disoriented and requiring Ativan. Historically, he was placed on Ativan, then Precedex, then phenobarb then was placed on scheduled clonidine, but requiring precedex reinitiation on 04/18. Now continues on scheduled Ativan and is disoriented and not safe to eat from an aspiration standpoint. He is still hypertensive and tachycardic. Strong recommendation for inpatient alcohol rehab after discharge. Cont ICU care for now. (3) Multiple rib fractures: fall at home with left 5 and 6th rib fractures. No evidence of hemo or pneumothorax on imaging and no reports of chest pain today by my assessment. Cont supportive care efforts. (4) Aspiration pneumonia: Day 6 of Unasyn. Currently not working to breathe, cannot report to me anything regarding pulmonary toilet efforts because of his disorientation. Upper airway sounds and junky airway clearance efforts were present today. Currently oxygenating 90% on room air. Pulmonary toilet efforts as tolerated when mental status improves. (5) Acute alcoholic pancreatitis: Lipase initially elevated, then trended down, now elevated again as of 04/19 to >3400. 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 For now, patient is determined to be unsafe to tolerate PO 2/2 high aspiration risk. (6) Transaminitis: Likely related to alcohol use and fatty liver. Additional workup is negative this admission, and this has trended down. No evidence of obstruction on imaging studies performed this admission. (7) DVT prophylaxis: Lovenox Full Code Dispo-cont ICU level care today. Case Management to assist with transition to inpatient alcohol rehab program at discharge which is strongly recommended. Loli Lopez DO [facility] Hospitalist Admission and Anticipated Discharge Date Admission Date: April 12, 2020 Subjective 34 yo M who has been hospitalized for 10 days now in the ICU mostly for alcohol withdrawal. He is still requiring sedation efforts with Ativan and appears hemodynamically stable. He is currently whispering and is nonsensical. He is on one to one observation. He appears calm. Cannot get a reliable ROS as a result. Review of Systems Review of Systems: Unobtainable due to mental health condition (appears disoriented) Physical Exam Physical Exam: CONSTITUTIONAL: WNWD, vitals as above, generally well- appearing EYES: pupils are round and equal bilaterally, normal conjunctivae, no scleral icterus ENT: external ear and nose normal, mucous membranes appear dry. RESPIRATORY: clear to auscultation bilaterally, no crackles, rales or wheezes, normal respiratory effort. Exam was limited as there was extensive effort to get the patient to sit forward and be prompted to take deep breaths. CARDIOVASCULAR: regular rate and rhythm, S1 and 2 heard without murmurs, gallops or rubs, no JVD, no peripheral edema GASTROINTESTINAL: soft, nontender, nondistended, no guarding. MUSCULOSKELETAL: generalized weakness, cannot sit up on his own in the chair which is reclined. SKIN: warm and dry NEUROLOGIC: No facial palsy. CN 2-12 grossly intact, normal cognition, no tremor, disoriented. Abnormal speech in that he is whispering and not able to speak very strongly. PSYCHIATRIC: alert and cooperative but disoriented. Results & Data Results & Data ([facility]) Vital Signs (Past 12 Hours) Vital Signs Pulse Resp BP Pulse Ox 04/22/20 06:00 134 H 20 164/112 H 04/22/20 05:17 125 H 16 148/105 H 96 04/22/20 05:11 126 H 11 L 04/22/20 04:01 112 H 22 124/105 H 04/22/20 04:00 110 H 24 04/22/20 03:45 108 H 22 04/22/20 03:30 115 H 20 04/22/20 03:15 108 H 20 04/22/20 03:00 107 H 17 149/105 H 04/22/20 02:45 113 H 24 04/22/20 02:30 106 H 17 04/22/20 02:15 106 H 15 04/22/20 02:00 106 H 22 122/83 04/22/20 01:30 104 H 23 04/22/20 01:00 109 H 15 157/105 H 04/22/20 00:48 117 H 18 161/107 H 04/22/20 00:30 117 H 22 04/22/20 00:07 121 H 19 154/119 H 04/22/20 00:03 126 H 18 04/22/20 00:00 152/100 H 04/21/20 23:30 115 H 25 H 04/21/20 23:00 119 H 24 152/100 H 04/21/20 22:30 130 H 18 04/21/20 22:15 119 H 22 04/21/20 22:00 119 H 20 142/96 H Laboratory Results Short CBC 04/22/20 Range/Units 03:21 WBC 8.05 (4.8-10.8) K/uL Hgb 12.7 L (14.0-18.0) g/dL Hct 38.7 L (42-52) % Plt Count 576 H (130-400) K/uL BMP 04/22/20 03:21 Sodium 141 Potassium 3.7 Chloride 109 H Carbon Dioxide 27 BUN 9 Creatinine 0.71 Glucose 94 Calcium 9.0 Medications Administered Current Inpatient Medications Enoxaparin Sodium (Enoxaparin Inj 40 Mg/0.4 Ml Syr) 40 mg SQ [facility] Stop: 05/13/20 08:59 Last Admin: 04/22/20 08:32 Dose: 40 mg Documented by: Folic Acid 1 mg/ Syringe 10 mls @ 5 mls/min IV [facility] Stop: 05/12/20 16:44 Last Admin: 04/22/20 08:31 Dose: 5 mls/min Documented by: Thiamine HCl 100 mg/ Syringe 10 mls @ 2 mls/min IV [facility] Stop: 05/24/20 08:59 Thiamine HCl 200 mg/ Sodium (Chloride) 52 mls @ 210 mls/hr IV [facility] Stop: 04/23/20 09:15 Last Infusion: 04/22/20 09:34 Dose: Infused Documented by: Ampicillin Sodium/Sulbactam Sodium 1,500 mg/ Sodium Chloride 104 mls @ 200 mls/hr IV Q6H [facility]; Protocol Stop: 04/24/20 08:59 Last Infusion: 04/22/20 09:17 Dose: Infused Documented by: Lorazepam (Ativan) 5 mg in 10 mls @ 4 mls/min IV Q4H PRN PRN Reason: AGITATION OR WITHDRAWAL Stop: 05/18/20 18:35 Last Admin: 04/22/20 07:33 Dose: 4 mls/min Documented by: Pantoprazole Sodium 40 mg/ (Syringe) 10 mls @ 5 mls/min IV DAILY@1100 [facility] Stop: 05/21/20 12:59 Last Admin: 04/21/20 12:29 Dose: 5 mls/min Documented by: Lorazepam (Ativan) 8 mg in 16 mls @ 4 mls/min IV Q6 [facility] Stop: 05/22/20 11:59 Lansoprazole (Lansoprazole 30 Mg Soltab) 30 mg NG QAM [facility]; Protocol Stop: 05/18/20 08:59 Last Admin: 04/21/20 07:49 Dose: Not Given Documented by: Miscellaneous (Icu Electrolyte Replacement Protocol) 1 ea N/A BID@06,18 [facility]; Protocol Stop: 04/25/20 17:59 Last Admin: 04/22/20 05:20 Dose: 1 ea Documented by: (1) Alcohol withdrawal Complication of substance-induced condition: uncomplicated Qualified Code(s): F10.230 - Alcohol dependence with withdrawal, uncomplicated (2) Multiple rib fractures Encounter type: initial encounter Fracture type: closed Laterality: left Qualified Code(s): S22.42XA - Multiple fractures of ribs, left side, initial encounter for closed fracture (3) Acute alcoholic pancreatitis Acute pancreatitis complication: no infection or necrosis Qualified Code(s): K85.20 - Alcohol induced acute pancreatitis without necrosis or infection
[2020-04-22] MEDS ORDERED: D5W AND 1/2NSS 1,000 ML IV SCH (10:15)
[2020-04-22] MEDS ORDERED: LORazepam 5 MG/10 ML VIAL IV SCH (12:00)
[2020-04-22] MEDS: LORAZEPAM IV SCH ×3 (12:09→23:25)
[2020-04-22] MEDS: D5W AND 1/2NSS 1,000 ML IV SCH ×2 (16:43→23:25)
--- NOTE | 2020-04-22 19:18 | Billing Data ---
Date of Service April 22, 2020 Coding Level of Care Code Critical Care 1st 30-74 mins Time Spent (min) 35
[2020-04-23] MEDS: AMPICILLIN/SULBACTAM SOD 1,500 MG in 0.9 % SODIUM CHLORIDE 100 ML IV SCH ×4 (03:07→21:02)
[2020-04-23 04:31] LABS: Hematocrit (blood only) 38.3 % (42-52); Hemoglobin 12.3 g/dL (14.0-18.0); Mean Corpuscular Hemoglobin 34.6 pg (25-34); Mean Corpuscular Hgb Conc 32.1 g/dL (32-36); Mean Corpuscular Volume 107.9 fL (80-100); Mean Platelet Volume 10.6 fL (7.4-10.4); Platelet Count 571 K/uL (130-400); RDW Coefficient of Variation 13.7 % (11.5-14.5); RDW Standard Deviation 54.3 fL (36.4-46.3); Red Blood Count 3.55 M/uL (4.7-6.1); White Blood Count 6.67 K/uL (4.8-10.8)
[2020-04-23 04:56] LABS: BUN Creatinine Ratio 13.6 (10-20); Blood Urea Nitrogen 7 mg/dl (7-18); Calcium 8.6 mg/dl (8.5-10.1); Carbon Dioxide 24 mmol/L (21-32); Chloride 111 mmol/L (98-107); Est GFR (African American) > 150.0; Glucose 108 mg/dl (70-99); Magnesium 2.2 mg/dl (1.8-2.4); Potassium 3.6 mmol/L (3.5-5.1); Sodium 141 mmol/L (136-145)
[2020-04-23 05:10] LABS: Phosphorus 3.5 mg/dl (2.5-4.9)
[2020-04-23] MEDS: LORAZEPAM IV SCH ×4 (05:30→23:08)
[2020-04-23] MEDS: ICU ELECTROLYTE REPLACEMENT PROTOCOL SCH ×2 (06:32→20:00)
[2020-04-23] MEDS: POTASSIUM CHLORIDE / WTR 10 MEQ/100 ML PLCT IV SCH ×4 (07:15→10:45)
--- NOTE | 2020-04-23 07:49 | Critical Care Progress Note ---
Date of Service April 23, 2020 Assessment & Plan (1) Delirium tremens: Reason Critically Ill: 34-year-old male admitted for alcohol withdrawal which has progressed to delirium tremens. Patient was initially placed on AWSS protocol with both scheduled and prn ativan, as well as max dose Precedex. Due to increasing benzo requirements, ativan was discontinued in favor of phenobarbital taper on 04/16; taper was extended to 64.8 mg oral dosing for a total of 4 doses, then to decrease to 32.4. His precedex was also discontinued on 04/16 and he was started on scheduled clonidine 0.1mg TID and propranolol. On 04/18, precedex and scheduled ativan were restarted; phenobarbital and clonidine were discontinued. Precedex has now been off for the last 24 hours. His scheduled Ativan dosing has been adjusted to 8mg q6 hours with 5mg q4h prn doses. Overnight he only required one prn dose. He continues to have periodic visual hallucinations. His mentation waxes and wanes, although has largely improved over past 24 hours. His fecal tube and pop catheters have been removed - he currently has a [place] catheter in place for urine collection. Currently on Day 7 of Unasyn for RLL aspiration PNA. He continues to be afebrile. Speech therapy evaluated him yesterday and did not feel as though he was a candidate for oral intake due to aspiration risk. He will be re-evaluated by speech therapy today. If he does not pass, we will re-insert NG tube for feeds. Neuro - * Alcohol withdrawal/EtOH abuse/delirium tremens - ongoing - Patient has progressed from early signs of alcohol withdrawal with tremors and mild confusion to DTs and acute psychosis - patient with reported 6-8 shots (3 ounces) of vodka daily - family history of alcohol use disorder reported - etoh level 35 on admission - initially started on scheduled ativan + precdex for withdrawal management. On 04/16, both were discontinued in favor of Phenobarbital taper and scheduled clonidine. On 04/18, phenobarbital and clonidine were discontinued and patient was transitioned back to original regimen of scheduled ativan and precedex. - On 04/21 Precedex discontinued. Scheduled ativan dosing adjusted to 8mg q6 hr with 5mg q4h prn - patient's mentation continues to wax and wane with periodic agitation; HR elevated as well - continue thiamine (200mg, daily for 1 week) and folate supplementation to prevent Wernicke's/Korsokoffs - CT head unremarkable. consider MRI to assess for mamillary body necrosis - recommend inpatient rehab for alcohol use disorder following discharge Cardiac - * Tachycardia - ongoing - HR ~ 90-100 bpm overnight - likely secondary to ETOH withdrawal - continue telemetry * Chest pain - reported on admission - troponin negative - EKG showing normal sinus tach without signs of ischemia - CXR found left anterior 5th and 6th rib fractures (possibly secondary to fall related to alcohol intoxication) - chest CTA from 03/20 showed no evidence of pneumothorax - incentive spirometry when neurological status improves - pain control prn; would avoid Tylenol given elevated in LFTs. Consider lidocaine patches * Prolonged QTc interval -resolved - 503ms on EKG 04/14; interval has since normalized Respiratory - * Aspiration PNA - On 04/17 patient became tachypneic with an increased O2 requirement and was febrile at 38.1 - CXR 04/17 showing a slight progression of hazy right basilar airspace opacity - Currently on Day 7 of Unasyn - WBC remains normal, blood cultures drawn 04/17 showing no growth to date - speech eval today - supplemental O2 as needed - patient is at risk for aspiration PNA given underlying alcoholism - No history of pulmonary disease GI - * Elevated Lipase Level - lipase of 1342 on admission --> 3961--> 982. - Repeat level 04/18 increased 2999. patient is at high risk for pseudocyst formation. - concern for chronic pancreatitis secondary to alcoholism - CT abdomen pelvis 04/12/20 without peripancreatic inflammatory change - Abdomen US 04/12/20 showing no evidence of pancreatic inflammation - abdominal exam benign today, patient without pain to palpation * Fatty Liver - severe hepatic steatosis visualized on A/P CT scan - coags wnl - likely secondary to alcohol use disorder - GI following, appreciate recs * Transaminitis - resolved - AST as high as 107, now normal - ALT as high as 101, now normalized - likely secondary to etoh use - Hepatitis panel negative * Conjugated hyperbilirubinemia - Total bili elevated to 1.8, direct elevated to 1.0 - alk phos 182, down from 206 - LFTs elevated on admission, now normal - No evidence of ductal dilation on CT of abdomen and pelvis - US of abdomen showing on ductal dilation or gallstones; obstructive etiology not suspected - likely hepatocellular etiology (toxin induced -etoh) * GERD - continue home PPI - ammonia level not elevated RENAL/LYTES - * Mild gapped metabolic acidosis - resolved - anion gap mildly increased to 17.5 (when corrected for low albumin) with concomitant metabolic acidosis; gap now closed - bicarb normal, drip discontinued - UA 4+ for ketones - etiology unknown - alcoholic ketosis, starvation, lactate, solvent from Ativan are all possible causes - discussion with pharmacy revealed extremely high doses of Ativan need for solvent to cause acid/base disturbances (threshold unknown, but typically in patient's on Ativan drips) - replace electrolytes as needed - Creatinine within normal limits - - pop removed 04/20; [place] catheter in place; continue to measure Is/Os ENDO - - No history of diabetes or thyroid disease HEME - * Thrombocytopenia - resolved - platelets have normalized - etiology thought to be secondary to bone marrow suppression from alcohol abuse - not on heparin - Coags WNL, no concern for DIC at this time * Macrocytic anemia - Hgb 12.3, MCV > 100 - likely secondary to ETOH use - continue thiamine and folate supplementation ID - * Pancytopenia - resolving - Platelets normalized - WBC normalized - RBC remains low - possibly secondary to bone marrow suppression in the setting of heavy ETOH use - HIV neg - MRSA nasal negative - COVID 19 neg LINES/IV ACCESS - Peripheral IVs, [place] catheter DVT PROPHYLAXIS -SCDs, Lovenox CODE: Full Thank you for allowing us to participate in the care of this patient. Please refer to my attending physician's documentation for any further recommendations. (2) Alcohol withdrawal: (3) Acute alcoholic pancreatitis: (4) Multiple rib fractures: (5) Thrombocytopenia: (6) GERD (gastroesophageal reflux disease): (7) Hypertension: Admission and Anticipated Discharge Date Admission Date: April 12, 2020 Supervising Physician Co-Signing Physician Notes Dr. Martin was the resident-physician during care of patient. I separately evaluated patient for boo portions of the history and the exam. I was present during the critical portion of medical decision making, and I discussed the case with the resident. I generally agree with the findings and plan except for any additions/exceptions noted. In/out: +759, urine output 775 Patient seen and examined at bedside. No acute distress. No adverse events overnight. Last as needed dose of Ativan that he got was lately last evening on 04/22/2020. He is still on Ativan 8 mg every 6 hours. He was sitting on a recliner at the time of examination. His heart rate has improved compared to yesterday. Yesterday was in the 130s weight is in the 1 teens. He is answering simple questions. He still coughing. Looks a little bit improved compared to the last 2 days. I will try to get a swallow eval on him today to see if he is able to swallow or not. If he is not able to swallow then he will need an NG tube to help him feed as he has been only getting IV fluids since last 3-4 days. Patient's potassium was replaced. Patient does have thrombocytosis. Likely reactive. No WBC count no fever. We will just monitor. I have personally spent 33 minutes of critical care time in the direct management of this patient. This is a life/limb threatening event. This includes time spent evaluating patient, direct bedside care, chart review, placing orders, interpretation of diagnostic studies, discussion with consultants, patient, and/or family members regarding treatment decisions, as well as other required patient management activities. This time is exclusive of all separately billable procedures, and teaching time and separate from and in addition to any other critical care service time. Subjective James required one dose of prn ativan overnight. Per nursing, he was largely cooperative. Review of Systems Respiratory: + chest congestion and + snoring Psychiatric: + hallucinations Physical Exam Constitutional: WD/WN, vitals as above Eyes: PERRL, conjunctivae normal, anicteric sclerae EOM intact bilaterally ENMT: external ear and nose normal, oropharynx normal Neck: normal visual inspection and trachea midline Respiratory: normal respiratory effort Auscultation: + lungs not clear to auscultation, no crackles and no vesicular breath sounds (noisy upper airway breathing ) Cardiovascular: Rate/Rhythm: regular rate and regular rhythm Heart Sounds: normal S1 and normal S2; no murmur Extremities: no pedal edema Gastrointestinal (Abdomen): Inspection/Auscultation: normal bowel sounds Percussion/Palpation: abdomen soft; abdomen nontender and no guarding Skin: no rashes, warm and dry Neurologic: + confused Psychiatric: Orientation: alert and oriented x 3 Hallucinations: + visual hallucinations Results & Data Results & Data ([facility]) Vital Signs (Past 12 Hours) Vital Signs Temp Pulse Resp BP Pulse Ox 04/23/20 06:00 107 H 27 H 96 04/23/20 05:01 98 H 28 H 96 04/23/20 05:00 37.2 C 98 H 24 165/105 H 96 04/23/20 04:00 109 H 27 H 149/101 H 95 04/23/20 03:00 100 H 24 155/106 H 96 04/23/20 02:01 99 H 25 H 97 04/23/20 02:00 104 H 18 173/115 H 94 04/23/20 01:00 100 H 24 159/108 H 95 04/23/20 00:36 102 H 22 148/105 H 95 04/22/20 23:39 112 H 04/22/20 23:00 115 H 23 152/105 H 93 04/22/20 22:01 100 H 17 96 04/22/20 22:00 106 H 28 H 156/99 H 96 04/22/20 21:02 122 H 22 94 04/22/20 21:01 123 H 22 152/118 H 93 04/22/20 20:03 109 H 24 97 04/22/20 20:01 107 H 25 H 154/110 H 96 04/23/20 03:50 04/23/20 03:50 Resident Activity Tracking Resident Involvement: Resident Care Provided Care Provided: Adult Hospital Medicine (1) Multiple rib fractures Encounter type: initial encounter Fracture type: closed Laterality: left Qualified Code(s): S22.42XA - Multiple fractures of ribs, left side, initial encounter for closed fracture (2) Alcohol withdrawal Complication of substance-induced condition: uncomplicated Qualified Code(s): F10.230 - Alcohol dependence with withdrawal, uncomplicated (3) Acute alcoholic pancreatitis Acute pancreatitis complication: no infection or necrosis Qualified Code(s): K85.20 - Alcohol induced acute pancreatitis without necrosis or infection
[2020-04-23] MEDS: ENOXAPARIN INJ 40 MG/0.4 ML SYR SQ SCH (08:59)
[2020-04-23] MEDS: FOLIC ACID 1 MG in SYRINGE 9.8 ML IV SCH (09:00)
[2020-04-23] MEDS: THIAMINE HCL 200 MG in SODIUM CHLORIDE 0.9% 50 ML IV SCH (11:25)
[2020-04-23] MEDS: PANTOprazole 40 MG in SYRINGE 0 ML IV SCH (11:27)
--- NOTE | 2020-04-23 11:34 | Billing Data ---
Date of Service April 23, 2020 Coding Level of Care Code Critical Care 1st 30-74 mins Time Spent (min) 33
[2020-04-23] MEDS: D5W AND 1/2NSS 1,000 ML IV SCH (12:37)
--- NOTE | 2020-04-23 13:47 | Hospitalist Progress Note ---
Date of Service April 23, 2020 Assessment & Plan (1) Delirium tremens: Pt with persistent delirium, continies on one-to one observation with nursing. Cannot obtain accurate ROS or history from him. Cont care plan below. (2) Alcohol withdrawal: 34 yo alcoholic man admitted for 11 days now with severe alcohol withdrawal. He is still disoriented and requiring Ativan that is being scheduled. He remains hypertensive, tachycardic and delirious. A NG tube was replaced today to start tube feeds. Historically, he was placed on Ativan, then Precedex, then phenobarb then was placed on scheduled clonidine, but requiring precedex reinitiation on 04/18. Now continues on scheduled Ativan and is disoriented and not safe to eat from an aspiration standpoint. He is still hypertensive and tachycardic. Strong recommendation for inpatient alcohol rehab after discharge. Cont ICU care for now. (3) Multiple rib fractures: fall at home with left 5 and 6th rib fractures. No evidence of hemo or pneumothorax on imaging and no reports of chest pain today by my assessment. Cont supportive care efforts. (4) Aspiration pneumonia: Day 77 of Unasyn. Currently not working to breathe, cannot report to me anything regarding pulmonary toilet efforts because of his disorientation. Upper airway sounds and junky airway clearance efforts were present today. Currently oxygenating 94% on room air. Pulmonary toilet efforts as tolerated when mental status improves. (5) Acute alcoholic pancreatitis: Lipase initially elevated, then trended down, now elevated again as of 04/19 to >3400. 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 For now, patient is determined to be unsafe to tolerate PO 2/2 high aspiration risk. NG tube replaced today (04/23) and tube feeds to start today. (6) Transaminitis: Likely related to alcohol use and fatty liver. Additional workup is negative this admission, and this has trended down. No evidence of obstruction on imaging studies performed this admission. (7) DVT prophylaxis: Lovenox Full Code Dispo-cont ICU level care today. Case Management to assist with transition to inpatient alcohol rehab program at discharge which is strongly recommended. Loli Lopez DO [facility] Admission and Anticipated Discharge Date Admission Date: April 12, 2020 Subjective delirium present, unable to obtain ROS Review of Systems Review of Systems: Unobtainable due to mental health condition Physical Exam Physical Exam: CONSTITUTIONAL: WNWD, vitals as above, generally appears confused and confabulating EYES: pupils are equal, round and reactive to light, normal conjunctivae, no scleral icterus ENT: external ear and nose normal, mucous membranes appear dry. Corsafe in place. RESPIRATORY: clear to auscultation bilaterally, no crackles, rales or wheezes, normal respiratory effort. Exam was limited as there was extensive upper airway noise present. CARDIOVASCULAR: regular rate and rhythm, S1 and 2 heard without murmurs, gallops or rubs, no JVD, no peripheral edema GASTROINTESTINAL: soft, nontender, nondistended, no guarding. MUSCULOSKELETAL: generalized weakness, cannot sit up independently. SKIN: warm and dry NEUROLOGIC: No facial palsy. CN 2-12 grossly intact, normal cognition, no tremor, disoriented. Voice appears to be stronger today. PSYCHIATRIC: alert and cooperative but disoriented. Results & Data Results & Data ([facility]) Vital Signs (Past 12 Hours) Vital Signs Temp Pulse Resp BP Pulse Ox 04/23/20 07:38 107 H 04/23/20 06:00 107 H 27 H 96 04/23/20 05:01 98 H 28 H 96 04/23/20 05:00 37.2 C 98 H 24 165/105 H 96 04/23/20 04:00 109 H 27 H 149/101 H 95 04/23/20 03:00 100 H 24 155/106 H 96 04/23/20 02:01 99 H 25 H 97 04/23/20 02:00 104 H 18 173/115 H 94 Laboratory Results Short CBC 04/23/20 Range/Units 03:50 WBC 6.67 (4.8-10.8) K/uL Hgb 12.3 L (14.0-18.0) g/dL Hct 38.3 L (42-52) % Plt Count 571 H (130-400) K/uL BMP 04/23/20 03:50 Sodium 141 Potassium 3.6 Chloride 111 H Carbon Dioxide 24 BUN 7 Creatinine 0.54 L Glucose 108 H Calcium 8.6 Medications Administered Current Inpatient Medications Enoxaparin Sodium (Enoxaparin Inj 40 Mg/0.4 Ml Syr) 40 mg SQ QAM [facility] Stop: 05/13/20 08:59 Last Admin: 04/23/20 08:59 Dose: 40 mg Documented by: Folic Acid 1 mg/ Syringe 10 mls @ 5 mls/min IV QAM [facility] Stop: 05/12/20 16:44 Last Admin: 04/23/20 09:00 Dose: 5 mls/min Documented by: Thiamine HCl 100 mg/ Syringe 10 mls @ 2 mls/min IV QAM [facility] Stop: 05/24/20 08:59 Ampicillin Sodium/Sulbactam Sodium 1,500 mg/ Sodium Chloride 104 mls @ 200 mls/hr IV Q6H [facility]; Protocol Stop: 04/24/20 08:59 Last Infusion: 04/23/20 12:40 Dose: Infused Documented by: Lorazepam (Ativan) 5 mg in 10 mls @ 4 mls/min IV Q4H PRN PRN Reason: AGITATION OR WITHDRAWAL Stop: 05/18/20 18:35 Last Admin: 04/22/20 21:07 Dose: 4 mls/min Documented by: Pantoprazole Sodium 40 mg/ (Syringe) 10 mls @ 5 mls/min IV DAILY@1100 [facility] Stop: 05/21/20 12:59 Last Admin: 04/23/20 11:27 Dose: 5 mls/min Documented by: Lorazepam (Ativan) 8 mg in 16 mls @ 4 mls/min IV Q6 [facility] Stop: 05/22/20 11:59 Last Admin: 04/23/20 13:31 Dose: 4 mls/min Documented by: Dextrose/Sodium Chloride (D5w And 1/2nss) 1,000 mls @ 75 mls/hr IV .[id number] [facility] Stop: 05/22/20 16:14 Last Admin: 04/23/20 12:37 Dose: 75 mls/hr Documented by: Lansoprazole (Lansoprazole 30 Mg Soltab) 30 mg NG QAM [facility]; Protocol Stop: 05/18/20 08:59 Last Admin: 04/21/20 07:49 Dose: Not Given Documented by: Miscellaneous (Icu Electrolyte Replacement Protocol) 1 ea N/A BID@ [facility]; Protocol Stop: 04/25/20 17:59 Last Admin: 04/23/20 06:32 Dose: 1 ea Documented by: (1) Multiple rib fractures Encounter type: initial encounter Fracture type: closed Laterality: left Qualified Code(s): S22.42XA - Multiple fractures of ribs, left side, initial encounter for closed fracture (2) Alcohol withdrawal Complication of substance-induced condition: uncomplicated Qualified Code(s): F10.230 - Alcohol dependence with withdrawal, uncomplicated (3) Acute alcoholic pancreatitis Acute pancreatitis complication: no infection or necrosis Qualified Code(s): K85.20 - Alcohol induced acute pancreatitis without necrosis or infection
--- NOTE | 2020-04-23 14:21 | XRay Report ---
KUB CLINICAL HISTORY: verify NGT placement COMPARISON STUDY: CT of the abdomen and pelvis April 12, 2020. FINDINGS: The bowel gas pattern is normal. The feeding tube is coiled within the distal esophagus. Th e tip projects over the distal esophagus. IMPRESSION: Feeding tube coiled within the distal esophagus. The tube could be slightly withdrawn an d readvanced before obtaining repeat KUB. ACT 112: Negative or not required by law. Electronically signed by: Ray Haque M.D. 04/23/2020 2:20 PM
--- NOTE | 2020-04-23 15:27 | XRay Report ---
KUB HISTORY: re-verify ngt placement COMPARISON: KUB 04/23/2020. FINDINGS: Nasogastric tube has been advanced and now terminates in the fundus of the stomach. No jess al calculi. No ureteral calculi. No pneumoperitoneum or pneumatosis. There are few mildly dilated gas -filled loops of small bowel within the abdomen. This may represent a mild ileus. There is gas and st ool seen within the colon. IMPRESSION: Nasogastric tube terminates in the fundus of the stomach. ACT 112: Negative or not required by law. Electronically signed by: Pankaj Reed M.D. 04/23/2020 3:26 PM
[2020-04-23] MEDS: LORazepam 5 MG/10 ML VIAL IV PRN (15:28)
[2020-04-23 20:09] LABS: Phosphorus 3.2 mg/dl (2.5-4.9); Potassium 4.3 mmol/L (3.5-5.1)
[2020-04-23] MEDS ORDERED: MAGNESIUM SULFATE / D5W 1 GM/100 ML BAG IV ONE (20:35)
[2020-04-24] MEDS: D5W AND 1/2NSS 1,000 ML IV SCH (01:57)
[2020-04-24] MEDS: LORazepam 5 MG/10 ML VIAL IV PRN (02:45)
[2020-04-24] MEDS: AMPICILLIN/SULBACTAM SOD 1,500 MG in 0.9 % SODIUM CHLORIDE 100 ML IV SCH (03:42)
[2020-04-24] MEDS: LORAZEPAM IV SCH ×4 (05:23→23:17)
[2020-04-24 05:24] LABS: Basophils # (auto) 0.07 K/uL (0-0.2); Basophils % (auto) 0.8 %; Eosinophils # (auto) 0.19 K/uL (0-0.5); Eosinophils % (auto) 2.2 %; Hematocrit (blood only) 44.3 % (42-52); Hemoglobin 14.9 g/dL (14.0-18.0); Immature Granulocytes # (auto) 0.27 K/uL (0.00-0.02); Immature Granulocytes % (auto) 3.2 %; Lymphocytes # (auto) 2.32 K/uL (1.2-3.4); Lymphocytes % (auto) 27.2 %; Mean Corpuscular Hemoglobin 35.5 pg (25-34); Mean Corpuscular Hgb Conc 33.6 g/dL (32-36); Mean Corpuscular Volume 105.5 fL (80-100); Mean Platelet Volume 10.6 fL (7.4-10.4); Monocytes # (auto) 1.12 K/uL (0.11-0.59); Monocytes % (auto) 13.1 %; Neutrophils # (auto) 4.55 K/uL (1.4-6.5); Neutrophils % (auto) 53.5 %; Platelet Count 602 K/uL (130-400); RDW Coefficient of Variation 13.4 % (11.5-14.5); RDW Standard Deviation 51.7 fL (36.4-46.3); White Blood Count 8.52 K/uL (4.8-10.8)
[2020-04-24 05:57] LABS: BUN Creatinine Ratio 6.2 (10-20); Calcium 9.3 mg/dl (8.5-10.1); Creatinine Clr Calc Pharmacy 173.7 ml/min; Est GFR (African American) 145.2; Est GFR (Non-African American) 125.3; Magnesium 2.5 mg/dl (1.8-2.4); Phosphorus 3.5 mg/dl (2.5-4.9); Potassium 3.8 mmol/L (3.5-5.1)
[2020-04-24] MEDS: ICU ELECTROLYTE REPLACEMENT PROTOCOL SCH ×2 (06:06→17:13)
[2020-04-24] MEDS: POTASSIUM CHLORIDE / WTR 10 MEQ/100 ML PLCT IV SCH ×2 (06:15→08:14)
--- NOTE | 2020-04-24 07:27 | Critical Care Progress Note ---
Date of Service April 24, 2020 Assessment & Plan (1) Delirium tremens: Reason Critically Ill: 34-year-old male admitted for alcohol withdrawal which has progressed to delirium tremens. Patient was initially placed on AWSS protocol with both scheduled and prn ativan, as well as max dose Precedex. Due to increasing benzo requirements, ativan was discontinued in favor of phenobarbital taper on 04/16; taper was extended to 64.8 mg oral dosing for a total of 4 doses, then to decrease to 32.4. His precedex was also discontinued on 04/16 and he was started on scheduled clonidine 0.1mg TID and propranolol. On 04/18, precedex and scheduled ativan were restarted; phenobarbital and clonidine were discontinued. Precedex has now been off for the last 24 hours. His scheduled Ativan dosing has been adjusted to 8mg q6 hours with 5mg q4h prn doses. Overnight he only required one prn dose. He continues to have periodic visual hallucinations, and ongoing agitation, requiring a 1 to 1 attendant for safety. His mentation waxes and wanes - at times he is full oriented and cooperative. He required one dose of prn ativan overnight. His fecal tube and pop catheters have been removed - he currently has a [place] catheter in place for urine collection. He has completed a 7 day course of Unasy n for aspiration PNA. Speech therapy evaluated him yesterday and did not feel as though he was a candidate for oral intake due to aspiration risk. A core safe was placed and tube feeds were started at 7 pm last night. The plan today is to attempt to wean his ativan from 8mg q6h to 6mg q6h. Neuro - * Alcohol withdrawal/EtOH abuse/delirium tremens - ongoing - Patient has progressed from early signs of alcohol withdrawal with tremors and mild confusion to DTs and acute psychosis - patient with reported 6-8 shots (3 ounces) of vodka daily - family history of alcohol use disorder reported - etoh level 35 on admission - initially started on scheduled ativan + precdex for withdrawal management. On 04/16, both were discontinued in favor of Phenobarbital taper and scheduled clonidine. On 04/18, phenobarbital and clonidine were discontinued and patient was transitioned back to original regimen of scheduled ativan and precedex. - On 04/21 Precedex discontinued. Scheduled ativan dosing reduced today to 6mg q6hr with 5mg q4h prn - patient's mentation continues to wax and wane with periodic agitation; HR elevated as well - continue thiamine (200mg, daily for 1 week) and folate supplementation to prevent Wernicke's/Korsokoffs - CT head unremarkable. consider MRI to assess for mamillary body necrosis - recommend inpatient rehab for alcohol use disorder following discharge Cardiac - * Tachycardia - ongoing - HR ~ 90-100 bpm overnight - likely secondary to ETOH withdrawal - continue telemetry * Chest pain - reported on admission - troponin negative - EKG showing normal sinus tach without signs of ischemia - CXR found left anterior 5th and 6th rib fractures (possibly secondary to fall related to alcohol intoxication) - chest CTA from 03/20 showed no evidence of pneumothorax - incentive spirometry when neurological status improves - pain control prn; would avoid Tylenol given elevated in LFTs. Consider lidocaine patches * Prolonged QTc interval -resolved - 503ms on EKG 04/14; interval has since normalized Respiratory - * Aspiration PNA - On 04/17 patient became tachypneic with an increased O2 requirement and was febrile at 38.1 - CXR 04/17 showing a slight progression of hazy right basilar airspace opacity - completed 7 day course of Unasyn this morning - patient afebrile. WBC remains normal, blood cultures drawn 04/17 negative (finalized) - patient failed speech eval yesterday, prompting placement of NG core-safe. Continue to titrate feeds to goal - supplemental O2 as needed - patient is at risk for aspiration PNA given underlying alcoholism - No history of pulmonary disease GI - * Elevated Lipase Level - lipase of 1342 on admission --> 3961--> 982. - Repeat level 04/18 increased 2999. patient is at high risk for pseudocyst formation. - concern for chronic pancreatitis secondary to alcoholism - CT abdomen pelvis 04/12/20 without peripancreatic inflammatory change - Abdomen US 04/12/20 showing no evidence of pancreatic inflammation - abdominal exam benign today, patient without pain to palpation * Fatty Liver - severe hepatic steatosis visualized on A/P CT scan - coags wnl - likely secondary to alcohol use disorder - GI following, appreciate recs * Transaminitis - resolved - AST as high as 107, now normal - ALT as high as 101, now normalized - likely secondary to etoh use - Hepatitis panel negative * Conjugated hyperbilirubinemia - Total bili elevated to 1.8, direct elevated to 1.0 - alk phos 182, down from 206 - LFTs elevated on admission, now normal - No evidence of ductal dilation on CT of abdomen and pelvis - US of abdomen showing on ductal dilation or gallstones; obstructive etiology not suspected - likely hepatocellular etiology (toxin induced -etoh) * GERD - continue home PPI - ammonia level not elevated RENAL/LYTES - * Mild gapped metabolic acidosis - resolved - anion gap mildly increased to 17.5 (when corrected for low albumin) with concomitant metabolic acidosis; gap now closed - bicarb normal, drip discontinued - UA 4+ for ketones - etiology unknown - alcoholic ketosis, starvation, lactate, solvent from Ativan are all possible causes - discussion with pharmacy revealed extremely high doses of Ativan need for solvent to cause acid/base disturbances (threshold unknown, but typically in patient's on Ativan drips) - replace electrolytes as needed - Creatinine within normal limits - - pop removed 04/20; [place] catheter in place; continue to measure Is/Os ENDO - - No history of diabetes or thyroid disease HEME - * Thrombocytosis - platelet level low on admission - now elevated to 602k/uL - suspect reactive - continue to trend CBC * Macrocytic anemia - Hgb 12.3, MCV > 100 - likely secondary to ETOH use - continue thiamine and folate supplementation ID - * Pancytopenia - resolving - Platelets low on admission, now elevated - WBC normalized - RBC remains low - possibly secondary to bone marrow suppression in the setting of heavy ETOH use - HIV neg - MRSA nasal negative - COVID 19 neg LINES/IV ACCESS - Peripheral IVs, [place] catheter DVT PROPHYLAXIS -SCDs, Lovenox CODE: Full Thank you for allowing us to participate in the care of this patient. Please refer to my attending physician's documentation for any further recommendations. (2) Alcohol withdrawal: (3) Acute alcoholic pancreatitis: (4) Multiple rib fractures: (5) Thrombocytopenia: (6) GERD (gastroesophageal reflux disease): (7) Hypertension: Admission and Anticipated Discharge Date Admission Date: April 12, 2020 Supervising Physician Co-Signing Physician Notes Dr. Martin was the resident-physician during care of patient. I separately evaluated patient for boo portions of the history and the exam. I was present during the critical portion of medical decision making, and I discussed the case with the resident. I generally agree with the findings and plan except for any additions/exceptions noted. In/out: +1233, urine output 1625 Patient seen and examined at bedside. No acute distress. Overnight patient got 1 unit as needed dose of 5 mg of Ativan. Currently is on 8 mg every 6 hours of Ativan. We will go down to 6 mg every 6 and gradually titrated down. Potassium is being replaced. Patient had an NGT placed in yesterday as he again failed swallow eval. Is g etting tube feeds now. We will go down on IV fluids. Today with the last dose of ampicillin. Thrombocytosis is likely reactive we will keep an eye on it. Physical therapy to be continued. We will try to ambulate and reorient the patient as much as we can. Continue with one-to-one observation. Patient's father was briefed about the current condition on 04/23/2020. I have personally spent 33 minutes of critical care time in the direct management of this patient. This is a life/limb threatening event. This includes time spent evaluating patient, direct bedside care, chart review, placing orders, interpretation of diagnostic studies, discussion with consultants, patient, and/or family members regarding treatment decisions, as well as other required patient management activities. This time is exclusive of all separately billable procedures, and teaching time and separate from and in addition to any other critical care service time. Subjective Overnight James was given 1 prn dose of ativan in addition to his scheduled regimen. He continues to require a 1 to 1 sitter for safety due to ongoing agitation Review of Systems Respiratory: + chest congestion and + snoring Psychiatric: + hallucinations Physical Exam Constitutional: WD/WN, vitals as above Eyes: PERRL, conjunctivae normal, anicteric sclerae EOM intact bilaterally ENMT: external ear and nose normal, oropharynx normal Neck: normal visual inspection and trachea midline Respiratory: normal respiratory effort Auscultation: + lungs not clear to auscultation, no crackles and no vesicular breath sounds (noisy upper airway breathing ) Cardiovascular: Rate/Rhythm: regular rate and regular rhythm Heart Sounds: normal S1 and normal S2; no murmur Extremities: no pedal edema Gastrointestinal (Abdomen): Inspection/Auscultation: normal bowel sounds Percussion/Palpation: abdomen soft; abdomen nontender and no guarding Skin: no rashes, warm and dry Neurologic: + confused Psychiatric: Orientation: alert and oriented x 3 Hallucinations: + visual hallucinations Genitourinary: [place] catheter in place, draining yellow urine without visible blood clots Results & Data Results & Data ([facility]) Vital Signs (Past 12 Hours) Vital Signs Temp Pulse Resp BP Pulse Ox 04/24/20 05:00 120 H 17 162/102 H 93 04/24/20 04:01 119 H 21 158/107 H 94 04/24/20 04:00 36.6 C 04/24/20 03:00 115 H 20 138/101 H 98 04/24/20 02:01 113 H 17 155/105 H 94 04/24/20 01:00 108 H 22 158/107 H 96 04/24/20 00:48 101 H 23 171/81 H 92 04/23/20 23:17 36.8 C 04/23/20 23:00 113 H 23 163/107 H 94 04/23/20 22:00 120 H 28 H 156/112 H 95 04/23/20 20:01 112 H 22 169/120 H 96 04/23/20 20:00 36.6 C 04/23/20 19:38 110 H 15 138/113 H 95 04/24/20 04:38 04/24/20 04:38 Resident Activity Tracking Resident Involvement: Resident Care Provided Care Provided: Adult Hospital Medicine (1) Multiple rib fractures Encounter type: initial encounter Fracture type: closed Laterality: left Qualified Code(s): S22.42XA - Multiple fractures of ribs, left side, initial encounter for closed fracture (2) Alcohol withdrawal Complication of substance-induced condition: uncomplicated Qualified Code(s): F10.230 - Alcohol dependence with withdrawal, uncomplicated (3) Acute alcoholic pancreatitis Acute pancreatitis complication: no infection or necrosis Qualified Code(s): K85.20 - Alcohol induced acute pancreatitis without necrosis or infection
[2020-04-24] MEDS: THIAMINE HCL 100 MG in SYRINGE 9 ML IV SCH (08:14)
[2020-04-24] MEDS: FOLIC ACID 1 MG in SYRINGE 9.8 ML IV SCH (08:14)
[2020-04-24] MEDS: ENOXAPARIN INJ 40 MG/0.4 ML SYR SQ SCH (08:15)
--- NOTE | 2020-04-24 08:55 | Billing Data ---
Date of Service April 24, 2020 Coding Level of Care Code Critical Care 1st 30-74 mins Time Spent (min) 33
[2020-04-24] MEDS: PANTOprazole 40 MG in SYRINGE 0 ML IV SCH (11:24)
--- NOTE | 2020-04-24 12:25 | Hospitalist Progress Note ---
Date of Service April 24, 2020 Assessment & Plan (1) Delirium tremens: Pt with persistent delirium, continues on one-to one observation with nursing. Cannot obtain accurate ROS or history from him. Continuing time away from alcohol and other drugs to reset nervous system. Still some hemodynamic instability with tachycardia. Cont care plan below. (2) Alcohol withdrawal: Significant stint in the ICU for alcohol withdrawal. He remains tachy cardic and delirious. On tube feeds as he is an aspiration risk. Historically, he was placed on Ativan, then Precedex, then phenobarbital then was placed on scheduled clonidine, but requiring precedex reinitiation on 04/18. Now continues on scheduled Ativan. Strong recommendation for inpatient alcohol rehab after discharge. Cont ICU care for now. (3) Multiple rib fractures: fall at home with left 5 and 6th rib fractures. No evidence of hemo or pneumothorax on imaging. Cont supportive care efforts. (4) Aspiration pneumonia: Completed a course of Unasyn, oxygenating well on room air. Pulmonary toilet efforts as tolerated. (5) Acute alcoholic pancreatitis: Lipase initially elevated, then trended down, now elevated again as of 04/19 to >3400. Defer care to ride operator. For now, patient is determined to be unsafe to tolerate PO 2/2 high aspiration risk. Corsafe in place for tube feeds. (6) Transaminitis: Likely related to alcohol use and fatty liver. Additional workup is negative this admission, and this has trended down. No evidence of obstruction on imaging studies performed this admission. (7) DVT prophylaxis: Lovenox Full Code Dispo-cont ICU level care. Case Management to assist with transition to inpatient alcohol rehab program at discharge which is strongly recommended. Loli Lopez DO [facility] Hospitalist Admission and Anticipated Discharge Date Admission Date: April 12, 2020 Subjective ROS unobtainable as patient is sleeping heavily He is very difficult to arouse as per nurse he was very active today, in the chair for most of the morning. Review of Systems Review of Systems: Unobtainable due to cognitive status Physical Exam Physical Exam: CONSTITUTIONAL: WNWD, vitals as above, somnolent. EYES: pupils are equal, round and reactive to light, normal conjunctivae, no scleral icterus ENT: external ear and nose normal, Corsafe in place. RESPIRATORY: difficult to auscultate anything with somnolent patient not participating in exam who was also snoring and had excessive upper airway sounds. No increased respiratory effort. CARDIOVASCULAR: difficult to auscultate anything with somnolent patient not participating in exam who was also snoring and had excessive upper airway sounds. GASTROINTESTINAL: soft, nondistended, no guarding. MUSCULOSKELETAL: generalized weakness, lethargy, somnolence. SKIN: warm and dry NEUROLOGIC: sleeping Results & Data Results & Data ([facility] [place]) Vital Signs (Past 12 Hours) Vital Signs Temp Pulse Resp BP Pulse Ox 04/24/20 11:01 36.8 C 120 H 19 151/114 H 95 04/24/20 10:00 109 H 22 135/95 95 04/24/20 09:01 125 H 27 H 149/124 H 96 04/24/20 08:00 36.8 C 114 H 30 H 150/105 H 95 04/24/20 07:01 114 H 27 H 164/115 H 94 04/24/20 05:00 120 H 17 162/102 H 93 04/24/20 04:01 119 H 21 158/107 H 94 04/24/20 04:00 36.6 C 04/24/20 03:00 115 H 20 138/101 H 98 04/24/20 02:01 113 H 17 155/105 H 94 04/24/20 01:00 108 H 22 158/107 H 96 04/24/20 00:48 101 H 23 171/81 H 92 Laboratory Results Short CBC 04/24/20 Range/Units 04:38 WBC 8.52 (4.8-10.8) K/uL Hgb 14.9 (14.0-18.0) g/dL Hct 44.3 (42-52) % Plt Count 602 H (130-400) K/uL BMP 04/23/20 04/24/20 19:33 04:38 Sodium 138 Potassium 4.3 D 3.8 Chloride 107 Carbon Dioxide 24 BUN 4 L Creatinine 0.66 Glucose 100 H Calcium 9.3 Medications Administered Current Inpatient Medications Enoxaparin Sodium (Enoxaparin Inj 40 Mg/0.4 Ml Syr) 40 mg SQ QAM [facility] Stop: 05/13/20 08:59 Last Admin: 04/24/20 08:15 Dose: 40 mg Documented by: Enteral Nutritional Formula (Peptamen 1.5 Mejia 1,000 Ml Bag) 1,000 ml NG UD [facility]; Protocol Stop: 05/23/20 17:29 Folic Acid 1 mg/ Syringe 10 mls @ 5 mls/min IV QAM [facility] Stop: 05/12/20 16:44 Last Admin: 04/24/20 08:14 Dose: 5 mls/min Documented by: Thiamine HCl 100 mg/ Syringe 10 mls @ 2 mls/min IV QAM [facility] Stop: 05/24/20 08:59 Last Admin: 04/24/20 08:14 Dose: 2 mls/min Documented by: Lorazepam (Ativan) 5 mg in 10 mls @ 4 mls/min IV Q4H PRN PRN Reason: AGITATION OR WITHDRAWAL Stop: 05/18/20 18:35 Last Admin: 04/24/20 02:45 Dose: 4 mls/min Documented by: Pantoprazole Sodium 40 mg/ (Syringe) 10 mls @ 5 mls/min IV DAILY@1100 [facility] Stop: 05/21/20 12:59 Last Admin: 04/24/20 11:24 Dose: 5 mls/min Documented by: Dextrose/Sodium Chloride (D5w And 1/2nss) 1,000 mls @ 75 mls/hr IV .[id number] [facility] Stop: 05/22/20 16:14 Last Admin: 04/24/20 01:57 Dose: 75 mls/hr Documented by: Lorazepam (Ativan) 6 mg in 12 mls @ 4 mls/min IV Q6 [facility] Stop: 05/22/20 11:59 Last Admin: 04/24/20 11:24 Dose: 4 mls/min Documented by: Lansoprazole (Lansoprazole 30 Mg Soltab) [facility] [place] Protocol Stop: 05/18/20 08:59 Last Admin: 04/21/20 07:49 Dose: Not Given Documented by: Miscellaneous (Icu Electrolyte Replacement Protocol) 1 ea N/A BID@ [facility]; Protocol Stop: 04/25/20 17:59 Last Admin: 04/24/20 06:06 Dose: 1 ea Documented by: (1) Multiple rib fractures Encounter type: initial encounter Fracture type: closed Laterality: left Qualified Code(s): S22.42XA - Multiple fractures of ribs, left side, initial encounter for closed fracture (2) Alcohol withdrawal Complication of substance-induced condition: uncomplicated Qualified Code(s): F10.230 - Alcohol dependence with withdrawal, uncomplicated (3) Acute alcoholic pancreatitis Acute pancreatitis complication: no infection or necrosis Qualified Code(s): K85.20 - Alcohol induced acute pancreatitis without necrosis or infection
[2020-04-24] MEDS ORDERED: TRIAMCINOLONE ACET 0.1% CR 80 GM TUBE EXT PRN (16:36)
[2020-04-25 04:46] LABS: Hematocrit (blood only) 40.6 % (42-52); Hemoglobin 13.6 g/dL (14.0-18.0); Mean Corpuscular Hemoglobin 35.8 pg (25-34); Mean Corpuscular Hgb Conc 33.5 g/dL (32-36); Mean Corpuscular Volume 106.8 fL (80-100); Mean Platelet Volume 10.4 fL (7.4-10.4); Platelet Count 622 K/uL (130-400); RDW Coefficient of Variation 13.6 % (11.5-14.5); RDW Standard Deviation 53.4 fL (36.4-46.3); White Blood Count 8.93 K/uL (4.8-10.8)
[2020-04-25 05:15] LABS: Creatinine Clr Calc Pharmacy 148.9 ml/min; Est GFR (African American) 136.3; Est GFR (Non-African American) 117.6; Magnesium 2.4 mg/dl (1.8-2.4); Phosphorus 4.3 mg/dl (2.5-4.9)
[2020-04-25] MEDS: PEPTAMEN 1.5 CAL 1,000 ML BAG NG SCH (05:28)
[2020-04-25] MEDS: ICU ELECTROLYTE REPLACEMENT PROTOCOL SCH (05:29)
[2020-04-25] MEDS: LORAZEPAM IV SCH (05:29)
[2020-04-25] MEDS: THIAMINE HCL 100 MG in SYRINGE 9 ML IV SCH (08:21)
[2020-04-25] MEDS: ENOXAPARIN INJ 40 MG/0.4 ML SYR SQ SCH (08:21)
[2020-04-25] MEDS: LANSOPRAZOLE 30 MG SOLTAB NG SCH (08:21)
[2020-04-25] MEDS: FOLIC ACID 1 MG in SYRINGE 9.8 ML IV SCH (08:21)
--- NOTE | 2020-04-25 09:36 | Critical Care Progress Note ---
Date of Service April 25, 2020 Assessment & Plan (1) Delirium tremens: Reason Critically Ill: 34-year-old male admitted for alcohol withdrawal which has progressed to delirium tremens, requiring management with vasopressors. Patient was initially placed on AWSS protocol with both scheduled and prn ativan, as well as max dose Precedex. Due to increasing benzo requirements, ativan was discontinued in favor of phenobarbital taper on 04/16; taper was extended to 64.8 mg oral dosing for a total of 4 doses then to decrease to 32.4. His precedex was discontinued on 04/16 and he was started on scheduled clonidine 0.1mg TID and propranolol. He was initiated on Unasyn on 04/17/20 with concern for aspiration pneumonia. CXR today shows progressive consolidation of RLL. Tube feeds remain on hold. Yesterday, PICC line placement was discussed with family, but consent was ultimately not yet provided. Patient continues to struggle managing his own secretions, thus there is concern regarding his ability to protect his airway. Will continue to closely monitor respiratory status, but anticipate eventual need for intubation and mechanical ventilation. --Metabolic encephalopathy Secondary to DTs --> improved. Patient still having bouts of hallucination CT head 04/12/2020: Unremarkable Patient was initially on Ativan which was transitioned to phenobarbital p.o. But he was getting more delirious Patient was again transitioned to Ativan IV on 04/18/2020 continue thiamine and folate supplementation to prevent Wernicke's/Korsokoffs recommend inpatient rehab for alcohol use disorder following discharge --Sinus tachycardia Patient's TSH has been normal x2 Patient is not volume depleted Afebrile No other etiology for tachycardia other than severe deconditioning and possible anxiety Given the heart rate is always in the 120s and goes up to high 130s I will start the patient on metoprolol 25 twice daily keeping an eye on the blood pressure. -- Thrombocytosis likely reactive, no signs of infection monitor --S/p Aspiration pneumonia Right lower lobe s/p Unasyn Patient has failed swallow eval x3. --S/p Pancreatitis CT abdomen pelvis 04/12/20 without peripancreatic inflammatory change Abdomen US 04/13/20 No gallstones identified. No evidence of ductal dilatation --Prolonged QTC QTC on EKG 04/14: 503 --> 459 04/20/2020 Avoid QT prolonging medication --Prophylaxis VTE: Lovenox GI: Lansoprazole Lines: Peripheral Diet: NGT feeds Plan: In/out: + 1780, urine output 901 Patient is conversing well. He is following commands. He is answering simple questions. He still having hallucinations. There is no history of hypoxia prior to coming to the hospital or his admission into the ICU. Patient is able to answer questions regarding mother, sister, father as well as his work. I have titrated down Ativan to 4 mg every 6 my plan is to go down to 4 mg every 8 tomorrow and following that as needed. Aggressive physical therapy. Aggressive orientation. Allowing family to be at bedside. If we are able to gradually titrate down the IV Ativan, may be he will be able to be sent out of the ICU in the next couple of days. Patient has been having sinus tachycardia for the last couple of days baseline being in high 110s, a little bit of exertion it goes up to high 130s. I will start the patient on metoprolol 25 mg twice daily. This will help with anxiety playing a role as well as I do not want the patient to get tachycardia induced cardiomyopathy. TSH has been normal multiple times. No signs of sepsis. I think patient is passed the phase of DTs. But is still delirious a component of ICU delirium may be also playing a role as well as medication that he has been getting. Just the reason I want to get him off any sedating medication as soon as po ssible now. I have personally spent 33 minutes of critical care time in the direct michele gement of this patient. This is a life/limb threatening event. This includes time spent evaluating patient, direct bedside care, chart review, placing orders, interpretation of diagnostic studies, discussion with consultants, patient, and family members, as well as other required patient management activities. This time is exclusive of all separately billable procedures, and teaching time and separate from and in addition to any other critical care service time. Please note the above document was generated using voice recognition software. It may contain grammatical, syntax or spelling errors. (2) Alcohol withdrawal: (3) Acute alcoholic pancreatitis: (4) Multiple rib fractures: (5) Thrombocytopenia: (6) GERD (gastroesophageal reflux disease): (7) Hypertension: Admission and Anticipated Discharge Date Admission Date: April 12, 2020 Review of Systems Review of Systems: All systems reviewed & are unremarkable except as noted in Subjective Physical Exam Physical Exam: Constitutional: No acute distress HEENT: EOMI, PERRLA, positive NGT Respiratory system: Decreased air entry bilaterally, mild crackles bilateral lower lobes, no wheeze, no rhonchi CVS: S1-S2 positive, no murmurs or gallops, tachycardia Abdomen: Soft, nontender, nondistended, positive bowel sounds x4 Extremities: +2 pulses bilaterally radialis/ dorsalis pedis, no cyanosis, no edema Neuro: Oriented to self Psych: Normal mood and affect G/U: No Velásquez Skin: no rashes, warm and dry Lymphatic: no cervical or axillary lymphadenopathy Results & Data Results & Data ([facility]) Vital Signs (Past 12 Hours) Vital Signs Temp Pulse Resp BP Pulse Ox 04/25/20 08:00 116 H 04/25/20 06:00 116 H 17 95 04/25/20 05:00 124 H 22 90 04/25/20 04:00 36.8 C 128 H 24 155/101 H 94 04/25/20 03:00 119 H 18 93 04/25/20 02:00 124 H 18 100/69 94 04/25/20 01:00 131 H 20 04/25/20 00:00 36.7 C 118 H 22 133/101 H 94 04/24/20 23:00 120 H 16 148/90 H 94 04/24/20 22:00 119 H 19 127/83 96 04/25/20 04:30 04/25/20 04:30 Coding Level of Care Code Critical Care 1st 30-74 mins Diagnoses Delirium tremens F10.231 Alcohol withdrawal F10.230 Complication of substance-induced condition: uncomplicated Acute alcoholic pancreatitis K85.20 Acute pancreatitis complication: no infection or necrosis Multiple rib fractures S22.42XA Encounter type: initial encounter Fracture type: closed Laterality: left Thrombocytopenia D69.6 GERD (gastroesophageal reflux disease) K21.9 Hypertension I10 Time Spent (min) 33 (1) Multiple rib fractures Encounter type: initial encounter Fracture type: closed Laterality: left Qualified Code(s): S22.42XA - Multiple fractures of ribs, left side, initial encounter for closed fracture (2) Alcohol withdrawal Complication of substance-induced condition: uncomplicated Qualified Code(s): F10.230 - Alcohol dependence with withdrawal, uncomplicated (3) Acute alcoholic pancreatitis Acute pancreatitis complication: no infection or necrosis Qualified Code(s): K85.20 - Alcohol induced acute pancreatitis without necrosis or infection
[2020-04-25] MEDS: METOPROLOL TARTRATE 25 MG TAB PO SCH ×2 (11:18→20:40)
[2020-04-25] MEDS: LORazepam 4 MG/8 ML VIAL IV SCH ×3 (11:18→23:00)
[2020-04-25 11:30] LABS: Albumin Level 2.9 gm/dl (3.4-5.0); Bilirubin,Total 0.4 mg/dl (0.2-1); Total Protein 7.7 gm/dl (6.4-8.2)
[2020-04-25] MEDS: LORazepam 5 MG/10 ML VIAL IV PRN (12:58)
--- NOTE | 2020-04-25 18:12 | Hospitalist Progress Note ---
Date of Service April 25, 2020 Assessment & Plan (1) Delirium tremens: Pt with persistent delirium, continues on one-to one observation with nursing. Cannot obtain accurate ROS or history from him. Continuing time away from alcohol and other drugs to reset nervous system. Still some hemodynamic instability with tachycardia. Cont Ativan, weaning as tolerated. (2) Alcohol withdrawal: Significant stint in the ICU (approx 15 dys) for alcohol withdrawal. He remains tachycardic and delirious. On tube feeds as he is an aspiration risk. Historically, he was placed on Ativan, then Precedex, then phenobarbital then was placed on scheduled clonidine, but requiring precedex reinitiation on 04/18. Now continues on scheduled Ativan and is being weaned as tolerated. Strong recommendation for inpatient alcohol rehab after discharge. Cont ICU care for now. (3) Multiple rib fractures: fall at home with left 5 and 6th rib fractures. No evidence of hemo or pneumothorax on imaging. Cont supportive care efforts. (4) Aspiration pneumonia: Completed a course of Unasyn, oxygenating well on room air. Pulmonary toilet efforts as tolerated. (5) Acute alcoholic pancreatitis: Lipase initially elevated, then trended down, now elevated again as of 04/19 to >3400. Defer care to university teacher. For now, patient is determined to be unsafe to tolerate PO 2/2 high aspiration risk. Corsafe in place for tube feeds. No abdominal pain on exam. (6) Transaminitis: Likely related to alcohol use and fatty liver. Additional workup is negative this admission, and this has trended down. No evidence of obstruction on imaging studies performed this admission. (7) DVT prophylaxis: Lovenox Full Code Dispo-cont ICU level care. Case Management to assist with transition to inpatient alcohol rehab program at discharge which is strongly recommended. Loli Lopez DO [place] [facility] Admission and Anticipated Discharge Date Admission Date: April 12, 2020 Subjective delirious, cannot obtain ROS high aspiration risk tolerating tube feeds via Corsafe Review of Systems Review of Systems: All systems reviewed & are unremarkable except as noted in Subjective Physical Exam Physical Exam: CONSTITUTIONAL: WNWD, vitals as above, somnolent. EYES: pupils are equal, round and reactive to light, normal conjunctivae, no scleral icterus ENT: external ear and nose normal, Corsafe in place. RESPIRATORY: CTAB CARDIOVASCULAR: S1/2 heard without m/g/r, tachy, extremities area wwp, no edema. GASTROINTESTINAL: soft, nondistended, no guarding. MUSCULOSKELETAL: generalized weakness, lethargy, somnolence. SKIN: warm and diaphoretic on back. NEUROLOGIC: somnolent, delirious. Cannot assess. Results & Data Results & Data ([facility]) Vital Signs (Past 12 Hours) Vital Signs Temp Pulse Resp BP Pulse Ox 04/25/20 16:09 113 H 12 109/64 04/25/20 16:00 36.9 C 114 H 20 04/25/20 15:09 120 H 17 125/76 04/25/20 15:00 36.9 C 129 H 14 04/25/20 14:09 118 H 14 108/71 04/25/20 14:00 127 H 22 04/25/20 13:11 109 H 17 109/79 04/25/20 13:00 37.1 C 113 H 17 04/25/20 12:09 117 H 15 134/95 04/25/20 12:00 124 H 19 134/95 95 04/25/20 11:00 36.6 C 136 H 23 92 04/25/20 10:00 118 H 25 H 136/97 93 04/25/20 09:00 36.9 C 123 H 23 143/98 H 92 04/25/20 08:00 119 H 23 93 04/25/20 07:19 128 H 25 H 132/99 92 04/25/20 07:00 121 H 14 Laboratory Results Short CBC 04/25/20 Range/Units 04:30 WBC 8.93 (4.8-10.8) K/uL Hgb 13.6 L (14.0-18.0) g/dL Hct 40.6 L (42-52) % Plt Count 622 H (130-400) K/uL BMP 04/25/20 04:30 Sodium 140 Potassium 4.0 Chloride 108 H Carbon Dioxide 26 BUN 7 Creatinine 0.77 Glucose 95 Calcium 9.0 Liver Function 04/25/20 04/25/20 Range/Units 04:30 11:40 Total Bilirubin 0.4 (0.2-1) mg/dl Direct Bilirubin 0.2 (0-0.2) mg/dl AST 27 (15-37) U/L ALT 44 (12-78) U/L Alkaline Phosphatase 172 H (45-117) U/L Albumin 2.9 L (3.4-5.0) gm/dl Medications Administered Current Inpatient Medications Enoxaparin Sodium (Enoxaparin Inj 40 Mg/0.4 Ml Syr) 40 mg SQ QAM [facility] Stop: 05/13/20 08:59 Last Admin: 04/25/20 08:21 Dose: 40 mg Documented by: Enteral Nutritional Formula (Peptamen 1.5 Mejia 1,000 Ml Bag) 1,000 ml NG [facility]; Protocol Stop: 05/23/20 17:29 Last Admin: 04/25/20 05:28 Dose: 1,000 ml Documented by: Folic Acid 1 mg/ Syringe 10 mls @ 5 mls/[facility] Stop: 05/12/20 16:44 Last Admin: 04/25/20 08:21 Dose: 5 mls/min Documented by: Thiamine HCl 100 mg/ Syringe 10 mls @ 2 mls/[facility] Stop: 05/24/20 08:59 Last Admin: 04/25/20 08:21 Dose: 2 mls/min Documented by: Lorazepam (Ativan) 5 mg in 10 mls @ 4 mls/min IV Q4H PRN PRN Reason: AGITATION OR WITHDRAWAL Stop: 05/18/20 18:35 Last Admin: 04/25/20 12:58 Dose: 4 mls/min Documented by: Pantoprazole Sodium 40 mg/ (Syringe) 10 mls @ 5 mls/min IV DAILY@1100 [facility] Stop: 05/21/20 12:59 Last Admin: 04/24/20 11:24 Dose: 5 mls/min Documented by: Lorazepam (Ativan) 4 mg in 8 mls @ 4 mls/min IV Q6 [facility] Stop: 05/25/20 11:59 Last Admin: 04/25/20 17:28 Dose: 4 mls/min Documented by: Lansoprazole (Lansoprazole 30 Mg Soltab) 30 mg NG [facility]; Protocol Stop: 05/18/20 08:59 Last Admin: 04/25/20 08:21 Dose: 30 mg Documented by: Metoprolol Tartrate (Metoprolol Tartrate 25 Mg Tab) 25 mg PO BID [facility] Stop: 05/25/20 10:59 Last Admin: 04/25/20 11:18 Dose: 25 mg Documented by: Triamcinolone Acetonide (Triamcinolone Acet 0.1% Cr 80 Gm Tube) 1 appln EXT Q12H PRN PRN Reason: contact dermatitis Stop: 05/24/20 16:35 (1) Alcohol withdrawal Complication of substance-induced condition: uncomplicated Qualified Code(s): F10.230 - Alcohol dependence with withdrawal, uncomplicated (2) Multiple rib fractures Encounter type: initial encounter Fracture type: closed Laterality: left Qualified Code(s): S22.42XA - Multiple fractures of ribs, left side, initial encounter for closed fracture (3) Acute alcoholic pancreatitis Acute pancreatitis complication: no infection or necrosis Qualified Code(s): K85.20 - Alcohol induced acute pancreatitis without necrosis or infection
[2020-04-26] MEDS: LORazepam 5 MG/10 ML VIAL IV PRN (00:28)
[2020-04-26] MEDS: PEPTAMEN 1.5 CAL 1,000 ML BAG NG SCH (02:27)
[2020-04-26 05:44] LABS: BUN Creatinine Ratio 13.8 (10-20); Calcium 9.1 mg/dl (8.5-10.1); Creatinine Clr Calc Pharmacy 152.6 ml/min; Est GFR (African American) 137.7; Est GFR (Non-African American) 118.8; Magnesium 2.7 mg/dl (1.8-2.4); Potassium 4.2 mmol/L (3.5-5.1)
[2020-04-26 05:45] LABS: Phosphorus 4.1 mg/dl (2.5-4.9)
[2020-04-26] MEDS: LORazepam 4 MG/8 ML VIAL IV SCH (06:07)
[2020-04-26] MEDS: THIAMINE HCL 100 MG TAB PO SCH (09:14)
[2020-04-26] MEDS: METOPROLOL TARTRATE 25 MG TAB PO SCH ×2 (09:14→21:08)
[2020-04-26] MEDS: FOLIC ACID 1 MG TAB PO SCH (09:14)
[2020-04-26] MEDS: LANSOPRAZOLE 30 MG SOLTAB NG SCH (09:14)
[2020-04-26] MEDS: ENOXAPARIN INJ 40 MG/0.4 ML SYR SQ SCH (09:15)
--- NOTE | 2020-04-26 10:23 | Critical Care Progress Note ---
Date of Service April 26, 2020 Assessment & Plan (1) Delirium tremens: Reason Critically Ill: 34-year-old male admitted for alcohol withdrawal which has progressed to delirium tremens, requiring management with vasopressors. Patient was initially placed on AWSS protocol with both scheduled and prn ativan, as well as max dose Precedex. Due to increasing benzo requirements, ativan was discontinued in favor of phenobarbital taper on 04/16; taper was extended to 64.8 mg oral dosing for a total of 4 doses then to decrease to 32.4. His precedex was discontinued on 04/16 and he was started on scheduled clonidine 0.1mg TID and propranolol. He was initiated on Unasyn on 04/17/20 with concern for aspiration pneumonia. CXR today shows progressive consolidation of RLL. Tube feeds remain on hold. Yesterday, PICC line placement was discussed with family, but consent was ultimately not yet provided. Patient continues to struggle managing his own secretions, thus there is concern regarding his ability to protect his airway. Will continue to closely monitor respiratory status, but anticipate eventual need for intubation and mechanical ventilation. --Metabolic encephalopathy Secondary to DTs --> improved. Patient still having bouts of hallucination CT head 04/12/2020: Unremarkable Patient was initially on Ativan which was transitioned to phenobarbital p.o. But he was getting more delirious Patient was again transitioned to Ativan IV on 04/18/2020 continue thiamine and folate supplementation to prevent Wernicke's/Korsokoffs. I think Wernicke's encephalopathy may be playing a role in his hallucinations recommend inpatient rehab for alcohol use disorder following discharge --Sinus tachycardia Patient's TSH has been normal x2 Patient is not volume depleted Afebrile No other etiology for tachycardia other than severe deconditioning and possible anxiety Given the heart rate is always in the 120s and goes up to high 130s On metoprolol 25 twice daily keeping an eye on the blood pressure. -- Thrombocytosis likely reactive, no signs of infection monitor --S/p Aspiration pneumonia Right lower lobe s/p Unasyn Patient has failed swallow eval x3. --S/p Pancreatitis CT abdomen pelvis 04/12/20 without peripancreatic inflammatory change Abdomen US 04/13/20 No gallstones identified. No evidence of ductal dilatation --Prolonged QTC QTC on EKG 10/27: 503 --> 459 04/20/2020 Avoid QT prolonging medication --Prophylaxis VTE: Lovenox GI: Lansoprazole Lines: Peripheral Diet: NGT feeds Plan: In/out: + 6, urine output 500 Patient is almost 13 L positive since admission. We do not have good output as we remove the Velásquez catheter almost 4 days ago. Patient is saturating well I do not think patient is volume overloaded. I will decrease Ativan to every 8 hours 4 mg. My plan is to only give as needed Ativan by the end of the day. Continue with aggressive physical therapy, aggressive orientation and allowing family to be at bedside. Although the patient has been on thiamine and folic acid since coming to the hospital. The possibility of Warnicke's encephalopathy is still high given that the patient is still having hallucinations on and off. I did speak with father yesterday there is no family or personal history of any psychiatric disorders. If you are able to take the patient off of standing Ativan IV I think patient can be downgraded to a medical floor. No CBC from today. No indication to have it done urgently. Can do it tomorrow. Patient does have chronic elevation of alk phos. GGT has been ordered, follow it up. I have personally spent 31 minutes of critical care time in the direct management of this patient. This is a life/limb threatening event. This includes time spent evaluating patient, direct bedside care, chart review, placing orders, interpretation of diagnostic studies, discussion with consultants, patient, and family members, as well as other required patient management activities. This time is exclusive of all separately billable procedures, and teaching time and separate from and in addition to any other critical care service time. Please note the above document was generated using voice recognition software. It may contain grammatical, syntax or spelling errors. (2) Alcohol withdrawal: (3) Acute alcoholic pancreatitis: (4) Multiple rib fractures: (5) Thrombocytopenia: (6) GERD (gastroesophageal reflux disease): (7) Hypertension: Admission and Anticipated Discharge Date Admission Date: April 12, 2020 Subjective Patient seen and examined at bedside. No acute distress, no adverse events overnight. He got 1 extra dose of as needed overnight of Ativan. Patient was sleeping at the time of examination I did not wake him up because he has not been sleeping well since last couple of nights. Sitter was present at bedside. Afebrile. Review of Systems Review of Systems: All systems reviewed & are unremarkable except as noted in Subjective Physical Exam Physical Exam: Constitutional: No acute distress HEENT: EOMI, PERRLA, positive NGT Respiratory system: Decreased air entry bilaterally, mild crackles bilateral lower lobes, no wheeze, no rhonchi CVS: S1-S2 positive, no murmurs or gallops, tachycardia Abdomen: Soft, nontender, nondistended, positive bowel sounds x4 Extremities: +2 pulses bilaterally radialis/ dorsalis pedis, no cyanosis, no edema Neuro: Oriented to self Psych: Normal mood and affect G/U: No Velásquez Skin: no rashes, warm and dry Lymphatic: no cervical or axillary lymphadenopathy Results & Data Results & Data ([facility]) Vital Signs (Past 12 Hours) Vital Signs Temp Pulse Resp BP Pulse Ox 04/26/20 06:00 117 H 15 134/96 04/26/20 05:00 112 H 20 04/26/20 04:00 36.7 C 113 H 22 138/101 H 95 04/26/20 03:00 114 H 20 04/26/20 02:00 105 H 19 133/91 94 04/26/20 01:00 109 H 04/26/20 00:00 36.6 C 109 H 20 133/92 96 04/25/20 23:00 120 H 20 94 04/25/20 04:30 04/26/20 04:37 Coding Level of Care Code Critical Care 1st 30-74 mins Diagnoses Delirium tremens F10.231 Alcohol withdrawal F10.230 Complication of substance-induced condition: uncomplicated Acute alcoholic pancreatitis K85.20 Acute pancreatitis complication: no infection or necrosis Multiple rib fractures S22.42XA Encounter type: initial encounter Fracture type: closed Laterality: left Thrombocytopenia D69.6 GERD (gastroesophageal reflux disease) K21.9 Hypertension I10 Time Spent (min) 31 (1) Alcohol withdrawal Complication of substance-induced condition: uncomplicated Qualified Code(s): F10.230 - Alcohol dependence with withdrawal, uncomplicated (2) Acute alcoholic pancreatitis Acute pancreatitis complication: no infection or necrosis Qualified Code(s): K85.20 - Alcohol induced acute pancreatitis without necrosis or infection (3) Multiple rib fractures Encounter type: initial encounter Fracture type: closed Laterality: left Qualified Code(s): S22.42XA - Multiple fractures of ribs, left side, initial encounter for closed fracture
[2020-04-26] MEDS ORDERED: FUROSEMIDE 40 MG in SYRINGE 0 ML IV ONE (10:45)
--- NOTE | 2020-04-26 12:39 | Hospitalist Progress Note ---
Date of Service April 26, 2020 Assessment & Plan (1) Delirium tremens: Pt with persistent delirium, continues on one-to one observation with nursing. Cannot obtain accurate ROS or history from him. Continuing time away from alcohol and other drugs to reset nervous system. Still some hemodynamic instability with tachycardia. Cont Ativan, weaning as tolerated. (2) Alcohol withdrawal: Significant stint in the ICU (2 weeks) for alcohol withdrawal. He remains tachycardic and delirious. On tube feeds as he is an aspiration risk. Historically, he was placed on Ativan, then Precedex, then phenobarbital then was placed on scheduled clonidine, but requiring precedex reinitiation on 04/18. Now continues on scheduled Ativan and is being weaned as tolerated. Strong recommendation for inpatient alcohol rehab after discharge. Cont ICU care for now. (3) Multiple rib fractures: fall at home with left 5 and 6th rib fractures. No evidence of hemo or pneumothorax on imaging. Cont supportive care efforts. (4) Aspiration pneumonia: Completed a course of Unasyn, oxygenating well on room air. Pulmonary toilet efforts as tolerated. Clear lungs on auscultation and he is oxygenating well on room air. (5) Acute alcoholic pancreatitis: Lipase initially elevated, then trended down, now elevated again as of to >3400. Defer care to court crier. For now, patient is determined to be unsafe to tolerate PO 2/2 high aspiration risk. Corsafe in place for tube feeds. No abdominal pain on exam. Appears to have clinically resolved. (6) Transaminitis: Likely related to alcohol use and fatty liver. Additional workup is negative this admission, and this has trended down. No evidence of obstruction on imaging studies performed this admission. (7) DVT prophylaxis: Lovenox Full Code Dispo-cont ICU level care. Case Management to assist with transition to inpatient alcohol rehab program at discharge which is strongly recommended. Loli Lopez [facility] Ad[facility] and Anticipated Discharge Date Admission Date: April 12, 2020 Subjective still has delirium and somnolence per nurse scheduled ativan is being decreased and patient only required one PRN dosage of ativan for agitation overnight he does appear improved today clinically. Review of Systems Review of Systems: Unobtainable due to cognitive status Physical Exam Physical Exam: CONSTITUTIONAL: WNWD, vitals as above, somnolent. EYES: pupils are equal and round bilaterally, normal conjunctivae, no scleral icterus ENT: external ear and nose normal, Corsafe in place. RESPIRATORY: CTAB CARDIOVASCULAR: S1/2 heard without m/g/r, tachy, extremities area wwp, no edema. GASTROINTESTINAL: soft, nondistended, no guarding. MUSCULOSKELETAL: generalized weakness, lethargy, somnolence. SKIN: warm and dry NEUROLOGIC: somnolent, delirious. Cannot assess. Results & Data Results & Data ([facility]) Vital Signs (Past 12 Hours) Vital Signs Temp Pulse Resp BP Pulse Ox 04/26/20 06:00 117 H 15 134/96 04/26/20 05:00 112 H 20 04/26/20 04:00 36.7 C 113 H 22 138/101 H 95 04/26/20 03:00 114 H 20 04/26/20 02:00 105 H 19 133/91 94 04/26/20 01:00 109 H Laboratory Results BMP 04/26/20 04:37 Sodium 141 Potassium 4.2 Chloride 109 H Carbon Dioxide 29 BUN 10 Creatinine 0.75 Glucose 104 H Calcium 9.1 Liver Function 04/25/20 Range/Units 11:40 Direct Bilirubin 0.2 (0-0.2) mg/dl Medications Administered Current Inpatient Medications Enoxaparin Sodium (Enoxaparin Inj 40 Mg/0.4 Ml Syr) 40 mg SQ QAM [facility] Stop: 05/13/20 08:59 Last Admin: 04/26/20 09:15 Dose: 40 mg Documented by: Enteral Nutritional Formula (Peptamen 1.5 Mejia 1,000 Ml Bag) 1,000 ml NG [facility]; Protocol Stop: 05/23/20 17:29 Last Admin: 04/26/20 02:27 Dose: 1,000 ml Documented by: Folic Acid (Folic Acid 1 Mg Tab) 1 mg PO QAM [facility] Stop: 05/26/20 08:59 Last Admin: 04/26/20 09:14 Dose: 1 mg Documented by: Lorazepam (Ativan) 5 mg in 10 mls @ 4 mls/min IV Q4H PRN PRN Reason: AGITATION OR WITHDRAWAL Stop: 05/18/20 18:35 Last Admin: 04/26/20 00:28 Dose: 4 mls/min Documented by: Pantoprazole Sodium 40 mg/ (Syringe) 10 mls @ 5 mls/min IV DAILY@1100 [facility] Stop: 05/21/20 12:59 Last Admin: 04/24/20 11:24 Dose: 5 mls/min Documented by: Lorazepam (Ativan) 4 mg in 8 mls @ 4 mls/min IV Q8H [facility] Stop: 05/26/20 13:59 Lansoprazole (Lansoprazole 30 Mg Soltab) [facility] Protocol Stop: 05/18/20 08:59 Last Admin: 04/26/20 09:14 Dose: 30 mg Documented by: Metoprolol Tartrate (Metoprolol Tartrate 25 Mg Tab) 25 mg PO BID [facility] Stop: 05/25/20 10:59 Last Admin: 04/26/20 09:14 Dose: 25 mg Documented by: Thiamine HCl (Thiamine Hcl 100 Mg Tab) 100 mg PO QAM [facility] Stop: 05/26/20 08:59 Last Admin: 04/26/20 09:14 Dose: 100 mg Documented by: Triamcinolone Acetonide (Triamcinolone Acet 0.1% Cr 80 Gm Tube) 1 appln EXT Q12H PRN PRN Reason: contact dermatitis Stop: 05/24/20 16:35 (1) Alcohol withdrawal Complication of substance-induced condition: uncomplicated Qualified Code(s): F10.230 - Alcohol dependence with withdrawal, uncomplicated (2) Multiple rib fractures Encounter type: initial encounter Fracture type: closed Laterality: left Qualified Code(s): S22.42XA - Multiple fractures of ribs, left side, initial encounter for closed fracture (3) Acute alcoholic pancreatitis Acute pancreatitis complication: no infection or necrosis Qualified Code(s): K85.20 - Alcohol induced acute pancreatitis without necrosis or infection
--- NOTE | 2020-04-26 12:49 | Electrocardiogram Report ---
Test Reason : Blood Pressure : / mmHG Vent. Rate : 119 BPM Atrial Rate : 119 BPM P-R Int : 170 ms QRS Dur : 086 ms QT Int : 334 ms P-R-T Axes : 033 050 137 degrees QTc Int : 469 ms Sinus tachycardia RSR' or QR pattern in V1 suggests right ventricular conduction delay ST and T wave abnormality, consider anterolateral ischemia Abnormal ECG When compared with ECG of 20-APR-2020 13:36, T wave inversion now evident in Lateral leads Confirmed by Rodney Reyes ([id number]) on 04/26/2020 12:49:13 PM Referred By: REFERRED SELF Confirmed By:Rodney Reyes
[2020-04-26] MEDS ORDERED: LORazepam 4 MG/8 ML VIAL IV SCH (14:00)
[2020-04-27 07:31] LABS: Eosinophils # (auto) 0.08 K/uL (0-0.5); Eosinophils % (auto) 0.8 %; Hematocrit (blood only) 42.7 % (42-52); Hemoglobin 13.8 g/dL (14.0-18.0); Immature Granulocytes # (auto) 0.15 K/uL (0.00-0.02); Immature Granulocytes % (auto) 1.5 %; Lymphocytes # (auto) 2.13 K/uL (1.2-3.4); Lymphocytes % (auto) 21.3 %; Mean Corpuscular Hemoglobin 35.1 pg (25-34); Mean Corpuscular Hgb Conc 32.3 g/dL (32-36); Mean Corpuscular Volume 108.7 fL (80-100); Mean Platelet Volume 10.9 fL (7.4-10.4); Monocytes # (auto) 0.98 K/uL (0.11-0.59); Monocytes % (auto) 9.8 %; Neutrophils # (auto) 6.57 K/uL (1.4-6.5); Neutrophils % (auto) 65.6 %; Platelet Count 615 K/uL (130-400); RDW Coefficient of Variation 13.6 % (11.5-14.5); RDW Standard Deviation 54.4 fL (36.4-46.3); Red Blood Count 3.93 M/uL (4.7-6.1); White Blood Count 10.01 K/uL (4.8-10.8)
[2020-04-27] MEDS: THIAMINE HCL 100 MG TAB PO SCH (07:38)
[2020-04-27] MEDS: METOPROLOL TARTRATE 25 MG TAB PO SCH ×2 (07:38→22:46)
[2020-04-27] MEDS: FOLIC ACID 1 MG TAB PO SCH (07:38)
[2020-04-27] MEDS: LANSOPRAZOLE 30 MG SOLTAB NG SCH (07:39)
[2020-04-27] MEDS: ENOXAPARIN INJ 40 MG/0.4 ML SYR SQ SCH (07:39)
[2020-04-27 08:11] LABS: BUN Creatinine Ratio 16.5 (10-20); Calcium 9.2 mg/dl (8.5-10.1); Creatinine Clr Calc Pharmacy 122.7 ml/min; Est GFR (African American) 131.5; Est GFR (Non-African American) 113.4; Magnesium 2.6 mg/dl (1.8-2.4); Phosphorus 4.4 mg/dl (2.5-4.9); Potassium 4.1 mmol/L (3.5-5.1)
[2020-04-27] MEDS ORDERED: RAPID SEQUENCE INDUCTION BAG ONE (08:22)
[2020-04-27] MEDS ORDERED: LORazepam 1 MG/2 ML VIAL IV PRN (13:02)
--- NOTE | 2020-04-27 13:11 | Hospitalist Progress Note ---
Date of Service April 27, 2020 Assessment & Plan (1) Delirium tremens: resolved. (2) Alcohol withdrawal: Significant stint in the ICU (2 weeks) for alcohol withdrawal. He remains tachycardic and delirious. On tube feeds as he is an aspiration risk. Historically, he was placed on Ativan, then Precedex, then phenobarbital then was placed on scheduled clonidine, but requiring precedex reinitiation on 04/18. Now resolved and mentating at baseline. Still slightly tremulous and mild tachycardia. Transfer to floor. DC NG tube and he can eat as he has passed swallow study. PT/OT to start working with him now. PRN Ativan. (3) Multiple rib fractures: fall at home with left 5 and 6th rib fractures. No evidence of hemo or pneumothorax on imaging. Cont supportive care efforts. (4) Aspiration pneumonia: Completed a course of Unasyn this admission, oxygenating well on room air. Pulmonary toilet efforts as tolerated. Clear lungs on auscultation and he is oxygenating well on room air. (5) Acute alcoholic pancreatitis: Lipase initially elevated, then trended down, now elevated again as of 04/19 to >3400. This issues has resolved and he is tolerating PO at this point, doing fine on tube feeds for the last several days. (6) Transaminitis: Likely related to alcohol use and fatty liver. Additional workup is negative this admission, and this has trended down. No evidence of obstruction on imaging studies performed this admission. (7) Ankylosing spondylitis: Patient reports having been on Enbrel in the past, and currently using narcotics to control pain. We discussed that he wouldn't get any narcotics as he is a recovering addict, and this wouldn't be smart. So for now he is using Naproxen for pain and we will monitor his response to this. If he pains, it may be necessary to reach out to his Claim Analyst, Dr Coronado, foro a good non- narcotic treatment option but will go with NSAIDs for now. AVOID NARCOTICS-VERY IMPORTANT (8) DVT prophylaxis: Lovenox Full Code Dispo-transfer to floor as patient is now stable and mentating at baseline. Will need to work on transfer to an inpatient alcohol rehab facility in the area. Appreciate CM assistance with this. Loli Lopez DO [facility]ist Admission and Anticipated Discharge Date Admission Date: April 12, 2020 Subjective feeling well awake and oriented passed speech path swallow study removed NG tube much improved today dc telemetry Review of Systems Review of Systems: All systems reviewed & are unremarkable except as noted in Subjective Physical Exam Physical Exam: CONSTITUTIONAL: WNWD, vitals as above, NAD EYES: pupils are equal and round bilaterally, normal conjunctivae, no scleral icterus ENT: external ear and nose normal, Corsafe in place. RESPIRATORY: CTAB CARDIOVASCULAR: S1/2 heard without m/g/r, tachy, extremities area wwp, no edema. GASTROINTESTINAL: soft, nondistended, no guarding. MUSCULOSKELETAL: generalized weakness, Moves all extremities equally. SKIN: warm and dry NEUROLOGIC: CN 2-12 intact, no gross neurologic deficits. Results & Data Results & Data ([facility]) Vital Signs (Past 12 Hours) Vital Signs Temp Pulse Pulse Pulse Resp BP BP 04/27/20 12:00 36.8 C 103 H 18 126/87 04/27/20 08:00 118 H 04/27/20 07:07 37.0 C 113 H 20 136/91 04/27/20 03:14 37.3 C 109 H 20 140/89 Pulse Ox 04/27/20 12:00 96 04/27/20 08:00 04/27/20 07:07 98 04/27/20 03:14 95 Laboratory Results Short CBC 04/27/20 Range/Units 06:11 WBC 10.01 (4.8-10.8) K/uL Hgb 13.8 L (14.0-18.0) g/dL Hct 42.7 (42-52) % Plt Count 615 H (130-400) K/uL BMP 04/27/20 06:11 Sodium 140 Potassium 4.1 Chloride 106 Carbon Dioxide 27 BUN 14 Creatinine 0.84 Glucose 98 Calcium 9.2 Medications Administered Current Inpatient Medications Enoxaparin Sodium (Enoxaparin Inj 40 Mg/0.4 Ml Syr) 40 mg SQ QAM [facility] Stop: 05/13/20 08:59 Last Admin: 04/27/20 07:39 Dose: 40 mg Documented by: Folic Acid (Folic Acid 1 Mg Tab) 1 mg PO QAM [facility] Stop: 05/26/20 08:59 Last Admin: 04/27/20 07:38 Dose: 1 mg Documented by: Lorazepam (Ativan) 1 mg in 2 mls @ 0.5 mls/min IV UD PRN PRN Reason: agitation or withdrawal Stop: 05/27/20 13:01 Lansoprazole (Lansoprazole 30 Mg Soltab) 30 mg NG QAM [facility]; Protocol Stop: 05/18/20 08:59 Last Admin: 04/27/20 07:39 Dose: 30 mg Documented by: Metoprolol Tartrate (Metoprolol Tartrate 25 Mg Tab) 25 mg PO BID [facility] Stop: 05/25/20 10:59 Last Admin: 04/27/20 07:38 Dose: 25 mg Documented by: Thiamine HCl (Thiamine Hcl 100 Mg Tab) 100 mg PO QAM [facility] Stop: 05/26/20 08:59 Last Admin: 04/27/20 07:38 Dose: 100 mg Documented by: Triamcinolone Acetonide (Triamcinolone Acet 0.1% Cr 80 Gm Tube) 1 appln EXT Q12H PRN PRN Reason: contact dermatitis Stop: 05/24/20 16:35 (1) Multiple rib fractures Encounter type: initial encounter Fracture type: closed Laterality: left Qualified Code(s): S22.42XA - Multiple fractures of ribs, left side, initial encounter for closed fracture (2) Alcohol withdrawal Complication of substance-induced condition: uncomplicated Qualified Code(s): F10.230 - Alcohol dependence with withdrawal, uncomplicated (3) Acute alcoholic pancreatitis Acute pancreatitis complication: no infection or necrosis Qualified Code(s): K85.20 - Alcohol induced acute pancreatitis without necrosis or infection
[2020-04-28] MEDS: NAPROXEN 250 MG TAB PO PRN ×2 (04:48→20:10)
[2020-04-28 09:25] LABS: Hematocrit (blood only) 43.9 % (42-52); Hemoglobin 14.5 g/dL (14.0-18.0); Mean Corpuscular Hemoglobin 34.9 pg (25-34); Mean Corpuscular Volume 105.5 fL (80-100); Mean Platelet Volume 10.5 fL (7.4-10.4); Platelet Count 585 K/uL (130-400); RDW Coefficient of Variation 13.3 % (11.5-14.5); RDW Standard Deviation 51.5 fL (36.4-46.3); Red Blood Count 4.16 M/uL (4.7-6.1); White Blood Count 10.33 K/uL (4.8-10.8)
[2020-04-28] MEDS: METOPROLOL TARTRATE 25 MG TAB PO SCH ×2 (09:44→20:35)
[2020-04-28] MEDS: THIAMINE HCL 100 MG TAB PO SCH (09:44)
[2020-04-28] MEDS: ENOXAPARIN INJ 40 MG/0.4 ML SYR SQ SCH (09:44)
[2020-04-28] MEDS: LANSOPRAZOLE 30 MG SOLTAB NG SCH (09:44)
[2020-04-28] MEDS: FOLIC ACID 1 MG TAB PO SCH (09:44)
[2020-04-28 09:55] LABS: BUN Creatinine Ratio 17.7 (10-20); Calcium 9.5 mg/dl (8.5-10.1); Creatinine Clr Calc Pharmacy 125.7 ml/min; Est GFR (African American) 132.8; Est GFR (Non-African American) 114.6; Magnesium 2.4 mg/dl (1.8-2.4); Potassium 3.5 mmol/L (3.5-5.1)
[2020-04-28 10:08] LABS: ALC (manual) 2.91 K/uL (1.2-3.4); Basophils # (manual) 0.09 K/uL (0-0.2); Basophils % (manual) 0.9 %; Eosinophils # (manual) 0.44 K/uL (0-0.5); Eosinophils % (manual) 4.3 %; Lymphocytes # (manual) 2.91 K/uL (1.2-3.4); Lymphocytes % (manual) 28.2 %; Monocytes # (manual) 0.88 K/uL (0.11-0.59); Monocytes % (manual) 8.5 %; Neutrophils % (manual) 58.1 %
[2020-04-28] MEDS ORDERED: Nursing to Pharmacy Communication SCH (10:45)
[2020-04-28 11:09] LABS: Phosphorus 5.4 mg/dl (2.5-4.9)
[2020-04-28] MEDS: PANTOprazole 40 MG in SYRINGE 0 ML IV SCH (12:29)
--- NOTE | 2020-04-28 15:27 | Hospitalist Progress Note ---
Date of Service April 28, 2020 Assessment & Plan (1) Delirium tremens: resolved. (2) Alcohol withdrawal: Significant stint in the ICU (2 weeks) for alcohol withdrawal. He remains tachycardic and delirious. On tube feeds as he is an aspiration risk. Historically, he was placed on Ativan, then Precedex, then phenobarbital then was placed on scheduled clonidine, but requiring precedex reinitiation on 04/18. Now resolved and mentating at baseline. Plans for transfer to inpatient rehab locally at [facility]. This will happen when he is ambulating better with PT over the next couple of days. (3) Multiple rib fractures: fall at home with left 5 and 6th rib fractures. No evidence of hemo or pneumothorax on imaging. Cont supportive care efforts. (4) Aspiration pneumonia: Completed a course of Unasyn this admission, oxygenating well on room air. Pulmonary toilet efforts as tolerated. Clear lungs on auscultation and he is oxygenating well on room air. (5) Acute alcoholic pancreatitis: Lipase initially elevated, then trended down, now elevated again as of 04/19 to >3400. This issues has resolved and he is tolerating PO at this point (6) Transaminitis: Likely related to alcohol use and fatty liver. Additional workup is negative this admission, and this has trended down. No evidence of obstruction on imaging studies performed this admission. (7) Ankylosing spondylitis: Patient reports having been on Enbrel in the past, and currently using narcotics to control pain. We discussed that he wouldn't get any narcotics as he is a recovering addict, and this wouldn't be smart. So for now he is using Naproxen for pain and we will monitor his response to this. If he pains, it may be necessary to reach out to his [employer], Dr Coronado, for a good non- narcotic treatment option but will continue with NSAIDs. AVOID NARCOTICS-VERY IMPORTANT (8) DVT prophylaxis: Lovenox Full Code Dispo-continue monitoring in the hospital while he can get his bearings physically over the next couple of days. He has been delirious in the ICU for over two weeks and bedbound during this time with no physical activity. Needs a few days to start moving again. Not withdrawing anymore-avoid narcotics. Would plan to transfer him straight from the hospital to [facility] for inpatient alcohol rehab program. This will set him up for the most success with staying sober instead of going home first. DO [facility] Centerist Admission and Anticipated Discharge Date Admission Date: April 12, 2020 Subjective doing even better today some residual weakness and balance issues with walking reported plans to go into [facility] inpatient alcohol rehab program from the hospital. encouraged to stay sober Review of Systems Review of Systems: All systems reviewed & are unremarkable except as noted in Subjective Physical Exam Physical Exam: CONSTITUTIONAL: WNWD, vitals as above, generally well- appearing EYES: normal conjunctivae, no scleral icterus ENT: external ear and nose normal, oropharynx clear, MMM RESPIRATORY: clear to auscultation bilaterally, no crackles, rales or wheezes, normal respiratory effort CARDIOVASCULAR: regular rate and rhythm, S1 and 2 heard without murmurs, gallops or rubs, no JVD, no peripheral edema GASTROINTESTINAL: soft, nontender, nondistended, no guarding. MUSCULOSKELETAL: strength 5/5 throughout, head is normocephalic and atraumatic SKIN: warm and dry NEUROLOGIC: No facial palsy, no dysarthria. CN 2-12 grossly intact, no sensory deficit, normal cognition, normal speech, no tremor PSYCHIATRIC: alert cooperative and oriented to person, place and time. Euthymic mood, makes good eye contact, language grossly intact, recent and remote memory grossly intact. Results & Data Results & Data ([facility]) Vital Signs (Past 12 Hours) Vital Signs Temp Pulse Resp BP Pulse Ox 04/28/20 07:03 36.3 C L 98 H 18 137/92 96 Laboratory Results Short CBC 04/28/20 Range/Units 09:10 WBC 10.33 (4.8-10.8) K/uL Hgb 14.5 (14.0-18.0) g/dL Hct 43.9 (42-52) % Plt Count 585 H (130-400) K/uL BMP 04/28/20 09:10 Sodium 135 L Potassium 3.5 Chloride 102 Carbon Dioxide 24 BUN 15 Creatinine 0.82 Glucose 107 H Calcium 9.5 Liver Function 04/25/20 Range/Units 12:50 GGT 250 H (3-90) U/L Medications Administered Current Inpatient Medications Enoxaparin Sodium (Enoxaparin Inj 40 Mg/0.4 Ml Syr) 40 mg SQ QAM [facility] Stop: 05/13/20 08:59 Last Admin: 04/28/20 09:44 Dose: 40 mg Documented by: Folic Acid (Folic Acid 1 Mg Tab) 1 mg PO QAM [facility] Stop: 05/26/20 08:59 Last Admin: 04/28/20 09:44 Dose: 1 mg Documented by: Lorazepam (Ativan) 1 mg in 2 mls @ 0.5 mls/min IV UD PRN PRN Reason: agitation or withdrawal Stop: 05/27/20 13:01 Pantoprazole Sodium 40 mg/ (Syringe) 10 mls @ 5 mls/min IV DAILY@1100 [facility] Stop: 05/28/20 11:29 Last Admin: 04/28/20 12:29 Dose: 5 mls/min Documented by: Metoprolol Tartrate (Metoprolol Tartrate 25 Mg Tab) 25 mg PO BID [facility] Stop: 05/25/20 10:59 Last Admin: 04/28/20 09:44 Dose: 25 mg Documented by: Naproxen (Naproxen 250 Mg Tab) 500 mg PO BID PRN PRN Reason: pain Stop: 05/27/20 16:51 Last Admin: 04/28/20 04:48 Dose: 250 mg Documented by: Thiamine HCl ([facility] Hcl 100 Mg Tab) [facility] Stop: 05/26/20 08:59 Last Admin: 04/28/20 09:44 Dose: 100 mg Documented by: Triamcinolone Acetonide (Triamcinolone Acet 0.1% Cr 80 Gm Tube) 1 appln EXT Q12H PRN PRN Reason: contact dermatitis Stop: 05/24/20 16:35 (1) Alcohol withdrawal Complication of substance-induced condition: uncomplicated Qualified Code(s): F10.230 - Alcohol dependence with withdrawal, uncomplicated (2) Multiple rib fractures Encounter type: initial encounter Fracture type: closed Laterality: left Qualified Code(s): S22.42XA - Multiple fractures of ribs, left side, initial encounter for closed fracture (3) Acute alcoholic pancreatitis Acute pancreatitis complication: no infection or necrosis Qualified Code(s): K85.20 - Alcohol induced acute pancreatitis without necrosis or infection
[2020-04-29] MEDS: NAPROXEN 250 MG TAB PO PRN ×2 (04:11→21:10)
[2020-04-29] MEDS: METOPROLOL TARTRATE 25 MG TAB PO SCH ×2 (08:05→21:10)
[2020-04-29] MEDS: THIAMINE HCL 100 MG TAB PO SCH (08:05)
[2020-04-29] MEDS: FOLIC ACID 1 MG TAB PO SCH (08:06)
[2020-04-29] MEDS: ENOXAPARIN INJ 40 MG/0.4 ML SYR SQ SCH (08:06)
[2020-04-29 08:32] LABS: Basophils # (auto) 0.05 K/uL (0-0.2); Basophils % (auto) 0.7 %; Eosinophils # (auto) 0.11 K/uL (0-0.5); Eosinophils % (auto) 1.5 %; Hematocrit (blood only) 40.3 % (42-52); Hemoglobin 13.2 g/dL (14.0-18.0); Immature Granulocytes # (auto) 0.06 K/uL (0.00-0.02); Immature Granulocytes % (auto) 0.8 %; Lymphocytes # (auto) 1.47 K/uL (1.2-3.4); Mean Corpuscular Hemoglobin 34.4 pg (25-34); Mean Corpuscular Hgb Conc 32.8 g/dL (32-36); Mean Corpuscular Volume 104.9 fL (80-100); Mean Platelet Volume 10.6 fL (7.4-10.4); Monocytes % (auto) 9.5 %; Neutrophils # (auto) 4.95 K/uL (1.4-6.5); Neutrophils % (auto) 67.5 %; Platelet Count 485 K/uL (130-400); Red Blood Count 3.84 M/uL (4.7-6.1); White Blood Count 7.34 K/uL (4.8-10.8)
--- NOTE | 2020-04-29 09:12 | Hospitalist Progress Note ---
Date of Service April 29, 2020 Assessment & Plan (1) Alcohol withdrawal: Alcohol Abuse Metabolic Acidosis (resolved) prolonged QT interval (treated medically) -as per admission notes on 04/12/2020 " 34-year-old male with history of alcoholism, hypertension, GERD, ankylosing spondylitis Presenting with bilateral lower extremity tingling sensation and tremors, abdominal pain since this morning" -Significant stint in the ICU (2 weeks) for alcohol withdrawal. His treatment in the ICU included correction of Metabolic Acidosis, management of tachycardia and prolonged QT interval, correction of electrolyte deficiencies. He was on multiple sedative medications to treat the alcohol withdrawal/delirium tremens including Precedex drip, Phenobarbital, Ativan, Clonidine. ICU course also complicated by aspiration pneumonia (2) Delirium tremens: Metabolic encephalopathy (resolved) -protracted ICU hospitalization on this admission because of alcohol withdrawal, delirium tremens has resolved -04/29/2020: Patient seen and examined at the bedside on medical pisano. No acute distress. Patient awake and alert and oriented. He is cooperative. He denies acute pain anywhere to the body and denies other symptoms. He answers all questions appropriately. Patient reports he was evaluated by physical therapy on 04/28/2020. We discussed patient's plans on future alcohol counseling/cessation. manager commercial real estate had applied for referral [facility] on 04/28/2020. Patient appears to be having second thoughts of going to alcohol counseling facility and had questions about other alternatives. (3) Multiple rib fractures: -fall at home with left 5 and 6th rib fractures. No evidence of hemo or pneumothorax on imaging -oxygenating well on room air (4) Aspiration pneumonia: -Patient Completed a course of Unasyn this admission -oxygenating well on room air (5) Acute alcoholic pancreatitis: -Lipase initially elevated, then trended down, now elevated again as of 04/19/20202 to >3400. This issues has resolved and he is tolerating PO at this point (6) Transaminitis: -Severe hepatic steatosis on admission 04/12/2020 CT scan -Transaminitis on this admission. Additional workup is negative this admission, and this has trended down Macrocytic anemia - likely secondary to ETOH use - continue thiamine and folate supplementation Thrombocytosis -platelets remain elevated above 400 (7) Ankylosing spondylitis: -as per previous hospitalist, Dr. Lopez that: Patient reports having been on Enbrel in the past, and currently using narcotics to control pain. We discussed that he wouldn't get any narcotics as he is a recovering addict, and this wouldn't be smart. So for now he is using Naproxen for pain and we will monitor his response to this. If he pains, it may be necessary to reach out to his Clinical Laboratory Service Teacher, Dr Coronado, for a good non-narcotic treatment option but will continue with NSAIDs. AVOID NARCOTICS-VERY IMPORTANT (8) DVT prophylaxis: Lovenox while in the hospital Full Code Admission and Anticipated Discharge Date Admission Date: April 12, 2020 Subjective Patient seen and examined at the bedside. No acute distress. Patient awake and alert and oriented. He is cooperative. He denies acute pain anywhere to the body and denies other symptoms. He answers all questions appropriately. Patient reports he was evaluated by physical therapy on 04/28/2020. We discussed weston gillis's plans on future alcohol counseling/cessation. manager commercial real estate had applied for referral [facility] on 04/28/2020. Patient appears to be having second thoughts of going to alcohol counseling facility and had questions about other alternatives. Review of Systems Review of Systems: All systems reviewed & are unremarkable except as noted in Subjective Physical Exam Constitutional: comfortable Eyes: EOM intact bilaterally ENMT: external ear and nose normal, oropharynx normal (has NG tube, has nasal cannula oxygen) Neck: normal visual inspection Respiratory: normal respiratory effort, lungs clear to auscultation Cardiovascular: Rate/Rhythm: regular rhythm Gastrointestinal (Abdomen): normal bowel sounds, soft, nontender, no hepatosplenomegaly Musculoskeletal: Head/Neck/Chest: normocephalic and head atraumatic Neurologic: PERRL, EOMI, accommodation nl, no face palsy, no dysarthria CN's II-XI intact bilaterally and awake mild tremors of tongue and upper extremities Psychiatric: A+Ox3, euthymic affect Eye Contact: good eye contact Results & Data Results & Data ([facility]) Vital Signs (Past 12 Hours) Vital Signs Temp Pulse Resp BP Pulse Ox 04/29/20 07:02 36.5 C 110 H 18 121/88 99 04/28/20 23:07 36.6 C 87 18 127/86 95 (1) Multiple rib fractures Encounter type: initial encounter Fracture type: closed Laterality: left Qualified Code(s): S22.42XA - Multiple fractures of ribs, left side, initial encounter for closed fracture (2) Alcohol withdrawal Complication of substance-induced condition: uncomplicated Qualified Code(s): F10.230 - Alcohol dependence with withdrawal, uncomplicated (3) Acute alcoholic pancreatitis Acute pancreatitis complication: no infection or necrosis Qualified Code(s): K85.20 - Alcohol induced acute pancreatitis without necrosis or infection
[2020-04-29] MEDS: PANTOprazole 40 MG in SYRINGE 0 ML IV SCH (12:49)
[2020-04-30] MEDS: METOPROLOL TARTRATE 25 MG TAB PO SCH ×2 (07:50→20:43)
[2020-04-30] MEDS: FOLIC ACID 1 MG TAB PO SCH (07:51)
[2020-04-30] MEDS: THIAMINE HCL 100 MG TAB PO SCH (07:51)
[2020-04-30] MEDS: ENOXAPARIN INJ 40 MG/0.4 ML SYR SQ SCH (07:51)
[2020-04-30 09:01] LABS: Basophils # (auto) 0.03 K/uL (0-0.2); Basophils % (auto) 0.4 %; Eosinophils # (auto) 0.07 K/uL (0-0.5); Hemoglobin 12.2 g/dL (14.0-18.0); Immature Granulocytes # (auto) 0.04 K/uL (0.00-0.02); Immature Granulocytes % (auto) 0.6 %; Lymphocytes # (auto) 1.65 K/uL (1.2-3.4); Lymphocytes % (auto) 23.4 %; Mean Corpuscular Hemoglobin 35.1 pg (25-34); Mean Corpuscular Hgb Conc 33.9 g/dL (32-36); Mean Corpuscular Volume 103.4 fL (80-100); Mean Platelet Volume 10.6 fL (7.4-10.4); Monocytes % (auto) 9.9 %; Neutrophils # (auto) 4.55 K/uL (1.4-6.5); Neutrophils % (auto) 64.7 %; Platelet Count 401 K/uL (130-400); RDW Standard Deviation 48.9 fL (36.4-46.3); Red Blood Count 3.48 M/uL (4.7-6.1); White Blood Count 7.04 K/uL (4.8-10.8)
--- NOTE | 2020-04-30 09:20 | Hospitalist Progress Note ---
Date of Service April 30, 2020 Assessment & Plan (1) Alcohol withdrawal: Alcohol Abuse Metabolic Acidosis (resolved) prolonged QT interval (treated medically) -as per admission notes on 04/12/2020 " 34-year-old male with history of alcoholism, hypertension, GERD, ankylosing spondylitis Presenting with bilateral lower extremity tingling sensation and tremors, abdominal pain since this morning" -Significant stint in the ICU (2 weeks) for alcohol withdrawal. His treatment in the ICU included correction of Metabolic Acidosis, management of tachycardia and prolonged QT interval, correction of electrolyte deficiencies. He was on multiple sedative medications to treat the alcohol withdrawal/delirium tremens including Precedex drip, Phenobarbital, Ativan, Clonidine. ICU course also complicated by aspiration pneumonia (2) Delirium tremens: Metabolic encephalopathy (resolved) -protracted ICU hospitalization on this admission because of alcohol withdrawal, delirium tremens has resolved -04/29/2020: Patient seen and examined at the bedside on medical pisano. No acute distress. Patient awake and alert and oriented. He is cooperative. He denies acute pain anywhere to the body and denies other symptoms. He answers all questions appropriately. Patient reports he was evaluated by physical therapy on 04/28/2020. We discussed patient's plans on future alcohol counseling/cessation. assurance sourcing manager had applied for referral [facility] on 04/28/2020. Patient appears to be having second thoughts of going to alcohol counseling facility and had questions about other alternatives. -04/30/2020: patient seen and examined at beside. No acute distress. No noticeable tremors. Patient answering questions appropriately. He is considering physical rehab and alcohol counseling options. Patient denies other symptoms on review of systems (3) Multiple rib fractures: -fall at home with left 5 and 6th rib fractures. No evidence of hemo or pneumothorax on imaging -oxygenating well on room air (4) Aspiration pneumonia: -Patient Completed a course of Unasyn this admission -oxygenating well on room air -on PPI (5) Acute alcoholic pancreatitis: -Lipase initially elevated, then trended down, now elevated again as of 04/19/20202 to >3400. This issues has resolved and he is tolerating PO at this point (6) Transaminitis: -Severe hepatic steatosis on admission 04/12/2020 CT scan -Transaminitis on this admission. Additional workup is negative this admission, and this has trended down Macrocytic anemia - likely secondary to ETOH use - continue thiamine and folate supplementation Thrombocytosis -platelets remain elevated above 400 (7) Ankylosing spondylitis: -as per previous hospitalist, Dr. Lopez that: Patient reports having been on Enbrel in the past, and currently using narcotics to control pain. We discussed that he wouldn't get any narcotics as he is a recovering addict (8) DVT prophylaxis: Lovenox while in the hospital Full Code Admission and Anticipated Discharge Date Admission Date: April 12, 2020 Subjective -04/30/2020: patient seen and examined at [facility]. No acute distress. No noticeable tremors. Patient answering questions appropriately. He is considering physical rehab and alcohol counseling options. Patient denies other symptoms on review of systems Review of Systems Review of Systems: All systems reviewed & are unremarkable except as noted in Subjective Physical Exam Constitutional: comfortable Eyes: EOM intact bilaterally ENMT: external ear and nose normal, oropharynx normal Neck: normal visual inspection Respiratory: normal respiratory effort, lungs clear to auscultation Cardiovascular: Rate/Rhythm: regular rhythm Gastrointestinal (Abdomen): normal bowel sounds, soft, nontender, no hepatosplenomegaly Musculoskeletal: Head/Neck/Chest: normocephalic and head atraumatic Neurologic: PERRL, EOMI, accommodation nl, no face palsy, no dysarthria CN's II-XI intact bilaterally and awake Psychiatric: A+Ox3, euthymic affect Orientation: oriented to person Eye Contact: good eye contact Results & Data Results & Data ([facility]) Vital Signs (Past 12 Hours) Vital Signs Temp Pulse Pulse Resp BP BP Pulse Ox 04/30/20 08:10 36.9 C 87 20 143/93 H 97 04/29/20 23:30 36.8 C 95 H 18 124/82 98 (1) Multiple rib fractures Encounter type: initial encounter Fracture type: closed Laterality: left Qualified Code(s): S22.42XA - Multiple fractures of ribs, left side, initial encounter for closed fracture (2) Alcohol withdrawal Complication of substance-induced condition: uncomplicated Qualified Code(s): F10.230 - Alcohol dependence with withdrawal, uncomplicated (3) Acute alcoholic pancreatitis Acute pancreatitis complication: no infection or necrosis Qualified Code(s): K85.20 - Alcohol induced acute pancreatitis without necrosis or infection
[2020-04-30] MEDS: NAPROXEN 250 MG TAB PO PRN (22:01)
[2020-05-01] MEDS: PANTOprazole 40 MG TAB PO SCH (04:06)
--- NOTE | 2020-05-01 07:59 | Hospitalist Progress Note ---
Date of Service May 01, 2020 Assessment & Plan (1) Alcohol withdrawal: Alcohol Abuse Metabolic Acidosis (resolved) prolonged QT interval (treated medically) -as per admission notes on 04/12/2020 " 34-year-old male with history of alcoholism, hypertension, GERD, ankylosing spondylitis Presenting with bilateral lower extremity tingling sensation and tremors, abdominal pain since this morning" -Significant stint in the ICU (2 weeks) for alcohol withdrawal. His treatment in the ICU included correction of Metabolic Acidosis, management of tachycardia and prolonged QT interval, correction of electrolyte deficiencies. He was on multiple sedative medications to treat the alcohol withdrawal/delirium tremens including Precedex drip, Phenobarbital, Ativan, Clonidine. ICU course also complicated by aspiration pneumonia (2) Delirium tremens: Metabolic encephalopathy (resolved) -protracted ICU hospitalization on this admission because of alcohol withdrawal, delirium tremens has resolved -04/29/2020: Patient seen and examined at the bedside on medical pisano. No acute distress. Patient awake and alert and oriented. He is cooperative. He denies acute pain anywhere to the body and denies other symptoms. He answers all questions appropriately. Patient reports he was evaluated by physical therapy on 04/28/2020. We discussed patient's plans on future alcohol counseling/cessation. manager health had applied for referral [facility] on 04/28/2020. Patient appears to be having second thoughts of going to alcohol counseling facility and had questions about other alternatives. -04/30/2020: patient seen and examined at beside. No acute distress. No noticeable tremors. Patient answering questions appropriately. He is considering physical rehab and alcohol counseling options. Patient denies other symptoms on review of systems -05/01/2020: Patient seen and examined while sitting up on the bed. Patient reports optimism of progress with physical therapy. he reports of the places for physical rehabilitation that he has selected and working with returned case inspector. (3) Multiple rib fractures: -fall at home with left 5 and 6th rib fractures. No evidence of hemo or pneumothorax on imaging -oxygenating well on room air (4) Aspiration pneumonia: -Patient Completed a course of Unasyn this admission -oxygenating well on room air -on PPI (5) Acute alcoholic pancreatitis: -Lipase initially elevated, then trended down, now elevated again as of 04/19/20202 to >3400. This issues has resolved and he is tolerating PO at this point (6) Transaminitis: -Severe hepatic steatosis on admission 04/12/2020 CT scan -Transaminitis on this admission. Additional workup is negative this admission, and this has trended down Macrocytic anemia - likely secondary to ETOH use - continue thiamine and folate supplementation Thrombocytosis -platelets remain elevated around 400 (7) Ankylosing spondylitis: -as per previous hospitalist, Dr. Lopez that: Patient reports having been on Enbrel in the past, and currently using narcotics to control pain. We discussed that he wouldn't get any narcotics as he is a recovering addict (8) DVT prophylaxis: Lovenox while in the hospital Full Code Admission and Anticipated Discharge Date Admission Date: April 12, 2020 Subjective 05/01/2020: Patient seen and examined while sitting up on the bed. Patient reports optimism of progress with physical therapy. he reports of the places for physical rehabilitation that he has selected and working with returned case inspector. Patient does not report of any other acute symptoms. No shortness of breath. Breathing on room air. No chest pain. No abdomen pain Review of Systems Review of Systems: All systems reviewed & are unremarkable except as noted in Subjective Physical Exam Constitutional: comfortable Eyes: EOM intact bilaterally ENMT: external ear and nose normal, oropharynx normal Neck: normal visual inspection Respiratory: normal respiratory effort, lungs clear to auscultation Cardiovascular: Rate/Rhythm: regular rhythm Gastrointestinal (Abdomen): normal bowel sounds, soft, nontender, no hepatosplenomegaly Musculoskeletal: Head/Neck/Chest: normocephalic and head atraumatic Neurologic: PERRL, EOMI, accommodation nl, no face palsy, no dysarthria CN's II-XI intact bilaterally and awake Psychiatric: A+Ox3, euthymic affect Orientation: oriented to person Eye Contact: good eye contact Results & Data Results & Data ([facility]) Vital Signs (Past 12 Hours) Vital Signs Temp Pulse Pulse Resp BP BP Pulse Ox 05/01/20 07:48 36.8 C 90 16 156/105 H 95 04/30/20 23:19 36.2 C L 97 H 18 144/89 H 98 04/30/20 20:42 99 H 143/83 H (1) Multiple rib fractures Encounter type: initial encounter Fracture type: closed Laterality: left Qualified Code(s): S22.42XA - Multiple fractures of ribs, left side, initial encounter for closed fracture (2) Alcohol withdrawal Complication of substance-induced condition: uncomplicated Qualified Code(s): F10.230 - Alcohol dependence with withdrawal, uncomplicated (3) Acute alcoholic pancreatitis Acute pancreatitis complication: no infection or necrosis Qualified Code(s): K85.20 - Alcohol induced acute pancreatitis without necrosis or infection
[2020-05-01] MEDS: METOPROLOL TARTRATE 25 MG TAB PO SCH ×2 (08:51→19:25)
[2020-05-01] MEDS: FOLIC ACID 1 MG TAB PO SCH (08:51)
[2020-05-01] MEDS: THIAMINE HCL 100 MG TAB PO SCH (08:51)
[2020-05-01] MEDS: ENOXAPARIN INJ 40 MG/0.4 ML SYR SQ SCH (08:51)
[2020-05-02] MEDS ORDERED: LORazepam 1 MG/2 ML VIAL IV STA (01:02)
[2020-05-02] MEDS ORDERED: LORazepam 0.5 MG/1 ML VIAL IV STA (07:38)
--- NOTE | 2020-05-02 07:38 | Hospitalist Progress Note ---
Date of Service May 02, 2020 Assessment & Plan (1) Alcohol withdrawal: Alcohol Abuse Metabolic Acidosis (resolved) prolonged QT interval (treated medically) -as per admission notes on 04/12/2020 " 34-year-old male with history of alcoholism, hypertension, GERD, ankylosing spondylitis Presenting with bilateral lower extremity tingling sensation and tremors, abdominal pain since this morning" -Significant stint in the ICU (2 weeks) for alcohol withdrawal. His treatment in the ICU included correction of Metabolic Acidosis, management of tachycardia and prolonged QT interval, correction of electrolyte deficiencies. He was on multiple sedative medications to treat the alcohol withdrawal/delirium tremens including Precedex drip, Phenobarbital, Ativan, Clonidine. ICU course also complicated by aspiration pneumonia (2) Delirium tremens: Metabolic encephalopathy (resolved) -protracted ICU hospitalization on this admission because of alcohol withdrawal, delirium tremens has resolved. The final ICU assessment note also noted that ICU physician was concerned that "Wernicke's encephalopathy may be playing a role in his hallucinations" during the ICU stay. He was continued thiamine and folate supplementation with intent to prevent Wernicke's/Korsokoffs. -04/29/2020: Patient seen and examined at the bedside on medical pisano. No acute distress. Patient awake and alert and oriented. He is cooperative. He denies acute pain anywhere to the body and denies other symptoms. He answers all questions appropriately. Patient reports he was evaluated by physical therapy on 04/28/2020. We discussed patient's plans on future alcohol counseling/cessation. manager resort had applied for referral [facility] on 04/28/2020. Patient appears to be having second thoughts of going to alcohol counseling facility and had questions about other alternatives. -04/30/2020: patient seen and examined at beside. No acute distress. No noticeable tremors. Patient answering questions appropriately. He is considering physical rehab and alcohol counseling options. Patient denies other symptoms on review of systems -05/01/2020: Patient seen and examined while sitting up on the bed. Patient reports optimism of progress with physical therapy. he reports of the places for physical rehabilitation that he has selected and working with case assistant. -05/02/2020 AM: was reported that overnight, prior to midnight that patient had more tremors of the hands and required some ativan by night time hospitalist. When patient seen by daytime hospitalist around 7:30 AM, patient reported he was just waking up so he had some good sleep. Patient did have some hand tremors more pronounced compare to 05/01/2020 day time exam. Patient also told a somewhat tangential story about how his hand shaking was similar to an event when his pet . Labs are to be drawn by purchase request editor to check the electrolytes. Will increase the thiamine dosing and frequency. will give additional dose of Ativan (3) Multiple rib fractures: -fall at home with left 5 and 6th rib fractures. No evidence of hemo or pneumothorax on imaging -oxygenating well on room air (4) Aspiration pneumonia: -Patient Completed a course of Unasyn this admission -oxygenating well on room air -on PPI (5) Acute alcoholic pancreatitis: -Lipase initially elevated, then trended down, now elevated again as of to >3400. This issues has resolved and he is tolerating PO at this point (6) Transaminitis: -Severe hepatic steatosis on admission 04/12/2020 CT scan -Transaminitis on this admission. Additional workup is negative this admission, and this has trended down Macrocytic anemia - likely secondary to ETOH use - continue thiamine and folate supplementation Thrombocytosis -platelets remain elevated around 400 (7) Ankylosing spondylitis: -as per previous hospitalist, Dr. Lopez that: Patient reports having been on Enbrel in the past, and currently using narcotics to control pain. We discussed that he wouldn't get any narcotics as he is a recovering addict (8) DVT prophylaxis: Lovenox while in the hospital Full Code Admission and Anticipated Discharge Date Admission Date: April 12, 2020 Subjective -05/02/2020 AM: was reported that overnight, prior to midnight that patient had more tremors of the hands and required some ativan by night time hospitalist. When patient seen by daytime hospitalist around 7:30 AM, patient reported he was just waking up so he had some good sleep. Patient did have some hand tremors more pronounced compare to 05/01/2020 day time exam. Patient also told a somewhat tangential story about how his hand shaking was similar to an event when his pet . Labs are to be drawn by purchase request editor to check the electrolytes. Will increase the thiamine dosing and frequency. will give additional dose of Ativan patient denies other symptoms of acute pain, problems with breathing, or other symptoms on review of systems Review of Systems Review of Systems: All systems reviewed & are unremarkable except as noted in Subjective Physical Exam Constitutional: cooperative Eyes: PERRL, conjunctivae normal, anicteric sclerae EOM intact bilaterally ENMT: external ear and nose normal, oropharynx normal Respiratory: normal respiratory effort, lungs clear to auscultation Cardiovascular: Rate/Rhythm: regular rhythm Gastrointestinal (Abdomen): normal bowel sounds, soft, nontender, no hepatosplenomegaly Musculoskeletal: Head/Neck/Chest: normocephalic and head atraumatic Neurologic: PERRL, EOMI, accommodation nl, no face palsy, no dysarthria moves all extremities Motor/Sensory: + tremor (hand tremors) Psychiatric: Orientation: alert, oriented to person, oriented to place, oriented to time and cooperative Results & Data Results & Data ([facility]) Vital Signs (Past 12 Hours) Vital Signs Temp Pulse Resp BP BP Pulse Ox 05/02/20 06:56 36.4 C L 88 18 141/96 H 96 05/02/20 03:10 144/91 H 95 05/01/20 23:16 36.4 C L 88 20 139/82 95 (1) Alcohol withdrawal Complication of substance-induced condition: uncomplicated Qualified Code(s): F10.230 - Alcohol dependence with withdrawal, uncomplicated (2) Multiple rib fractures Encounter type: initial encounter Fracture type: closed Laterality: left Qualified Code(s): S22.42XA - Multiple fractures of ribs, left side, initial encounter for closed fracture (3) Acute alcoholic pancreatitis Acute pancreatitis complication: no infection or necrosis Qualified Code(s): K85.20 - Alcohol induced acute pancreatitis without necrosis or infection
[2020-05-02] MEDS ORDERED: LORazepam 0.5 MG/1 ML VIAL IV PRN ×2 (07:40→07:41)
[2020-05-02 07:48] LABS: Basophils # (auto) 0.08 K/uL (0-0.2); Eosinophils # (auto) 0.08 K/uL (0-0.5); Hematocrit (blood only) 38.8 % (42-52); Hemoglobin 12.9 g/dL (14.0-18.0); Immature Granulocytes # (auto) 0.02 K/uL (0.00-0.02); Immature Granulocytes % (auto) 0.3 %; Lymphocytes # (auto) 2.23 K/uL (1.2-3.4); Lymphocytes % (auto) 29.3 %; Mean Corpuscular Hgb Conc 33.2 g/dL (32-36); Mean Corpuscular Volume 105.1 fL (80-100); Mean Platelet Volume 10.3 fL (7.4-10.4); Monocytes # (auto) 0.78 K/uL (0.11-0.59); Monocytes % (auto) 10.2 %; Neutrophils # (auto) 4.43 K/uL (1.4-6.5); Neutrophils % (auto) 58.2 %; Platelet Count 416 K/uL (130-400); RDW Coefficient of Variation 13.1 % (11.5-14.5); RDW Standard Deviation 50.5 fL (36.4-46.3); Red Blood Count 3.69 M/uL (4.7-6.1); White Blood Count 7.62 K/uL (4.8-10.8)
[2020-05-02] MEDS: NAPROXEN 250 MG TAB PO PRN ×3 (08:54→20:50)
[2020-05-02] MEDS: THIAMINE HCL 100 MG TAB PO SCH ×2 (08:54→20:25)
[2020-05-02] MEDS: PANTOprazole 40 MG TAB PO SCH (08:55)
[2020-05-02] MEDS: FOLIC ACID 1 MG TAB PO SCH (08:55)
[2020-05-02] MEDS: ENOXAPARIN INJ 40 MG/0.4 ML SYR SQ SCH (08:55)
[2020-05-02] MEDS: METOPROLOL TARTRATE 25 MG TAB PO SCH ×2 (08:56→20:25)
[2020-05-02 09:02] LABS: Albumin Globulin Ratio 0.8 (0.9-2); Albumin Level 3.3 gm/dl (3.4-5.0); BUN Creatinine Ratio 10.2 (10-20); Bilirubin,Total 0.6 mg/dl (0.2-1); Calcium 9.2 mg/dl (8.5-10.1); Creatinine Clr Calc Pharmacy 156.2 ml/min; Est GFR (African American) 145.2; Est GFR (Non-African American) 125.3; Globulin 4.1 gm/dl (2.5-4.0); Magnesium 2.3 mg/dl (1.8-2.4); Phosphorus 4.9 mg/dl (2.5-4.9); Potassium 4.1 mmol/L (3.5-5.1); Total Protein 7.4 gm/dl (6.4-8.2)
--- NOTE | 2020-05-03 07:56 | Hospitalist Progress Note ---
Date of Service May 03, 2020 Assessment & Plan (1) Alcohol withdrawal: Alcohol Abuse Metabolic Acidosis (resolved) prolonged QT interval (treated medically) -as per admission notes on 04/12/2020 " 34-year-old male with history of alcoholism, hypertension, GERD, ankylosing spondylitis Presenting with bilateral lower extremity tingling sensation and tremors, abdominal pain since this morning" -Significant stint in the ICU (2 weeks) for alcohol withdrawal. His treatment in the ICU included correction of Metabolic Acidosis, management of tachycardia and prolonged QT interval, correction of electrolyte deficiencies. He was on multiple sedative medications to treat the alcohol withdrawal/delirium tremens including Precedex drip, Phenobarbital, Ativan, Clonidine. ICU course also complicated by aspiration pneumonia (2) Delirium tremens: Alcohol Withdrawal wit Complications including Metabolic encephalopathy -protracted ICU hospitalization on this admission because of alcohol withdrawal, delirium tremens has resolved. The final ICU assessment note also noted that ICU physician was concerned that "Wernicke's encephalopathy may be playing a role in his hallucinations" during the ICU stay. He was continued thiamine and folate supplementation with intent to prevent Wernicke's/Korsokoffs. -04/29/2020: Patient seen and examined at the bedside on medical pisano. No acute distress. Patient awake and alert and oriented. He is cooperative. He denies acute pain anywhere to the body and denies other symptoms. He answers all questions appropriately. Patient reports he was evaluated by physical therapy on 04/28/2020. We discussed patient's plans on future alcohol counseling/cessation. shared services and outsourcing manager had applied for referral [facility] on 04/28/2020. Patient appears to be having second thoughts of going to alcohol counseling facility and had questions about other alternatives. -04/30/2020: patient seen and examined at beside. No acute distress. No noticeable tremors. Patient answering questions appropriately. He is considering physical rehab and alcohol counseling options. Patient denies other symptoms on review of systems -05/01/2020: Patient seen and examined while sitting up on the bed. Patient reports optimism of progress with physical therapy. he reports of the places for physical rehabilitation that he has selected and working with transplant case manager. -05/02/2020 AM: was reported that overnight, prior to midnight that patient had more tremors of the hands and required some ativan by night time hospitalist. When patient seen by daytime hospitalist around 7:30 AM, patient reported he was just waking up so he had some good sleep. Patient did have some hand tremors more pronounced compare to 05/01/2020 day time exam. Patient also told a somewhat tangential story about how his hand shaking was similar to an event when his pet . Labs drawn by mechanical test technician to check the electrolytes are generally normal. increased the thiamine dosing and frequency. given add itional doses of Ativan. patient was then placed on 1 to 1 observation. His father was updated by phone -05/03/2020 AM: patient appears to be responding normally in terms of his thought process. His response to questions are so far not tangential. He does not appear to have acute tremors today. Continues to be on room air and not short of breath. Patient not in pain anywhere of the body and denies any other symptoms on review of systems. Discussed with patient that hospitalist will return later in afternoon to re-assess him and whether 1 to 1 observation can be discontinued. (3) Multiple rib fractures: -fall at home with left 5 and 6th rib fractures. No evidence of hemo or pneumothorax on imaging -oxygenating well on room air (4) Aspiration pneumonia: -Patient Completed a course of Unasyn this admission -oxygenating well on room air -on PPI (5) Acute alcoholic pancreatitis: -Lipase initially elevated, then trended down, now elevated again as of to >3400. This issues has resolved and he is tolerating PO at this point (6) Transaminitis: -Severe hepatic steatosis on admission 04/12/2020 CT scan -Transaminitis on this admission. Additional workup is negative this admission, and this has generally resolved Macrocytic anemia - likely secondary to ETOH use - continue thiamine and folate supplementation Thrombocytosis -platelets remain elevated around 400 (7) Ankylosing spondylitis: -as per previous hospitalist, Dr. Lopez that: Patient reports having been on Enbrel in the past, and currently using narcotics to control pain. We discussed that he wouldn't get any narcotics as he is a recovering addict (8) DVT prophylaxis: Lovenox while in the hospital Full Code Admission and Anticipated Discharge Date Admission Date: April 12, 2020 Subjective 05/03/2020 AM: patient appears to be responding normally in terms of his thought process. His response to questions are so far not tangential. He does not appear to have acute tremors today. Continues to be on room air and not short of breath. Patient not in pain anywhere of the body and denies any other symptoms on review of systems. Discussed with patient that hospitalist will return later in afternoon to re-assess him and whether 1 to 1 observation can be discontinued. Review of Systems Review of Systems: All systems reviewed & are unremarkable except as noted in Subjective Physical Exam Constitutional: cooperative and comfortable Eyes: PERRL, conjunctivae normal, anicteric sclerae EOM intact bilaterally ENMT: external ear and nose normal, oropharynx normal Neck: normal visual inspection Respiratory: normal respiratory effort, lungs clear to auscultation + cough Cardiovascular: Rate/Rhythm: regular rhythm Gastrointestinal (Abdomen): normal bowel sounds, soft, nontender, no hepatosplenomegaly Musculoskeletal: Head/Neck/Chest: normocephalic and head atraumatic Neurologic: PERRL, EOMI, accommodation nl, no face palsy, no dysarthria CN's II-XI intact bilaterally, moves all extremities and awake Psychiatric: A+Ox3, euthymic affect Orientation: alert, oriented to person, oriented to place, oriented to time and cooperative Eye Contact: good eye contact Results & Data Results & Data ([facility]) Vital Signs (Past 12 Hours) Vital Signs Temp Pulse Pulse Resp BP BP Pulse Ox 05/03/20 07:15 36.6 C 93 H 20 144/94 H 98 05/02/20 23:01 36.5 C 87 20 137/85 94 05/02/20 20:11 37.0 C 96 H 20 160/99 H 96 (1) Alcohol withdrawal Complication of substance-induced condition: uncomplicated Qualified Code(s): F10.230 - Alcohol dependence with withdrawal, uncomplicated (2) Multiple rib fractures Encounter type: initial encounter Fracture type: closed Laterality: left Qualified Code(s): S22.42XA - Multiple fractures of ribs, left side, initial encounter for closed fracture (3) Acute alcoholic pancreatitis Acute pancreatitis complication: no infection or necrosis Qualified Code(s): K85.20 - Alcohol induced acute pancreatitis without necrosis or infection
[2020-05-03] MEDS: PANTOprazole 40 MG TAB PO SCH (08:56)
[2020-05-03] MEDS: FOLIC ACID 1 MG TAB PO SCH (08:56)
[2020-05-03] MEDS: THIAMINE HCL 100 MG TAB PO SCH ×2 (08:56→20:40)
[2020-05-03] MEDS: METOPROLOL TARTRATE 25 MG TAB PO SCH ×2 (08:56→20:40)
[2020-05-03] MEDS: NAPROXEN 250 MG TAB PO PRN ×3 (08:57→21:25)
[2020-05-03] MEDS: ENOXAPARIN INJ 40 MG/0.4 ML SYR SQ SCH (08:58)
--- NOTE | 2020-05-03 12:49 | Communication Note ---
Date of Service: May 03, 2020 patient's mental status and behaviors are much improved today compared to yesterday. will stop the 1 to 1 observation
[2020-05-04] MEDS: FOLIC ACID 1 MG TAB PO SCH (08:40)
[2020-05-04] MEDS: THIAMINE HCL 100 MG TAB PO SCH ×2 (08:40→20:09)
[2020-05-04] MEDS: ENOXAPARIN INJ 40 MG/0.4 ML SYR SQ SCH (08:40)
[2020-05-04] MEDS: PANTOprazole 40 MG TAB PO SCH (08:40)
[2020-05-04] MEDS: METOPROLOL TARTRATE 25 MG TAB PO SCH ×2 (08:40→20:09)
[2020-05-04] MEDS: NAPROXEN 250 MG TAB PO PRN (20:48)
--- NOTE | 2020-05-05 07:33 | Hospitalist Progress Note ---
Date of Service May 05, 2020 Assessment & Plan (1) Alcohol withdrawal: Alcohol Abuse Metabolic Acidosis (resolved) prolonged QT interval (treated medically) -as per admission notes on 04/12/2020 " 34-year-old male with history of alcoholism, hypertension, GERD, ankylosing spondylitis Presenting with bilateral lower extremity tingling sensation and tremors, abdominal pain since this morning" -Significant stint in the ICU (2 weeks) for alcohol withdrawal. His treatment in the ICU included correction of Metabolic Acidosis, management of tachycardia and prolonged QT interval, correction of electrolyte deficiencies. He was on multiple sedative medications to treat the alcohol withdrawal/delirium tremens including Precedex drip, Phenobarbital, Ativan, Clonidine. ICU course also complicated by aspiration pneumonia (2) Delirium tremens: Alcohol Withdrawal wit Complications including Metabolic encephalopathy -protracted ICU hospitalization on this admission because of alcohol withdrawal, delirium tremens has resolved. The final ICU assessment note also noted that ICU physician was concerned that "Wernicke's encephalopathy may be playing a role in his hallucinations" during the ICU stay. He was continued thiamine and folate supplementation with intent to prevent Wernicke's/Korsokoffs. -04/29/2020: Patient seen and examined at the bedside on medical pisano. No acute distress. Patient awake and alert and oriented. He is cooperative. He denies acute pain anywhere to the body and denies other symptoms. He answers all questions appropriately. Patient reports he was evaluated by physical therapy on 04/28/2020. We discussed patient's plans on future alcohol counseling/cessation. environmental field office manager had applied for referral [facility] on 04/28/2020. Patient appears to be having second thoughts of going to alcohol counseling facility and had questions about other alternatives. -04/30/2020: patient seen and examined at beside. No acute distress. No noticeable tremors. Patient answering questions appropriately. He is considering physical rehab and alcohol counseling options. Patient denies other symptoms on review of systems -05/01/2020: Patient seen and examined while sitting up on the bed. Patient reports optimism of progress with physical therapy. he reports of the places for physical rehabilitation that he has selected and working with e business manager. -05/02/2020 AM: was reported that overnight, prior to midnight that patient had more tremors of the hands and required some ativan by night time hospitalist. When patient seen by daytime hospitalist around 7:30 AM, patient reported he was just waking up so he had some good sleep. Patient did have some hand tremors more pronounced compare to 05/01/2020 day time exam. Patient also told a somewhat tangential story about how his hand shaking was similar to an event when his pet . Labs drawn by manager payment to check the electrolytes are generally normal. increased the thiamine dosing and frequency. given add itional doses of Ativan. patient was then placed on 1 to 1 observation. His father was updated by phone -05/03/2020 AM: patient appears to be responding normally in terms of his thought process. His response to questions are so far not tangential. He does not appear to have acute tremors today. Continues to be on room air and not short of breath. Patient not in pain anywhere of the body and denies any other symptoms on review of systems. Patient off 1 to 1 observation on 05/03/2020 afternoon -05/04/20 to 05/05/2020: Patient continues to be baseline mental status. Not tremulous. No acute symptoms. Remains on room air and breathing comfortably and denies any pain in any part of body, no dizziness, no nausea, no vomiting He denies other symptoms on review of systems. At this time, awaiting for e business manager to find accepting alcohol rehabilitation facility such as the patient's preference for [facility] (3) Multiple rib fractures: -fall at home with left 5 and 6th rib fractures. No evidence of hemo or pneumothorax on imaging -oxygenating well on room air (4) Aspiration pneumonia: -Patient Completed a course of Unasyn this admission -oxygenating well on room air -on PPI (5) Acute alcoholic pancreatitis: -Lipase initially elevated, then trended down, now elevated again as of 04/19/20202 to >3400. This issues has resolved and he is tolerating PO at this point (6) Transaminitis: -Severe hepatic steatosis on admission 04/12/2020 CT scan -Transaminitis on this admission. Additional workup is negative this admission, and this has generally resolved Macrocytic anemia - likely secondary to ETOH use - continue thiamine and folate supplementation Thrombocytosis -platelets remain elevated around 400 (7) Ankylosing spondylitis: -as per previous hospitalist, Dr. Lopez that: Patient reports having been on Enbrel in the past, and currently using narcotics to control pain. We discussed that he wouldn't get any narcotics as he is a recovering addict (8) DVT prophylaxis: Lovenox while in the hospital Full Code Admission and Anticipated Discharge Date Admission Date: April 12, 2020 Subjective Patient continues to be baseline mental status. Not tremulous. No acute symptoms. Remains on room air and breathing comfortably and denies any pain in any part of body, no dizziness, no nausea, no vomiting He denies other symptoms on review of systems. At this time, awaiting for e business manager to find accepting alcohol rehabilitation facility such as the patient's preference for [facility] Review of Systems Review of Systems: All systems reviewed & are unremarkable except as noted in Subjective Physical Exam Constitutional: cooperative and comfortable Eyes: PERRL, conjunctivae normal, anicteric sclerae EOM intact bilaterally ENMT: external ear and nose normal, oropharynx normal Neck: normal visual inspection Respiratory: normal respiratory effort, lungs clear to auscultation + cough Cardiovascular: Rate/Rhythm: regular rhythm Gastrointestinal (Abdomen): normal bowel sounds, soft, nontender, no hepatosplenomegaly Musculoskeletal: Head/Neck/Chest: normocephalic and head atraumatic Neurologic: PERRL, EOMI, accommodation nl, no face palsy, no dysarthria CN's II-XI intact bilaterally, moves all extremities and awake Psychiatric: A+Ox3, euthymic affect Orientation: alert, oriented to person, oriented to place, oriented to time and cooperative Eye Contact: good eye contact Results & Data Results & Data ([facility]) Vital Signs (Past 12 Hours) Vital Signs Temp Pulse Resp BP BP Pulse Ox 05/05/20 07:08 36.6 C 99 H 20 125/86 95 05/04/20 23:25 36.6 C 93 H 18 126/80 96 (1) Alcohol withdrawal Complication of substance-induced condition: uncomplicated Qualified Code(s): F10.230 - Alcohol dependence with withdrawal, uncomplicated (2) Multiple rib fractures Encounter type: initial encounter Fracture type: closed Laterality: left Qualified Code(s): S22.42XA - Multiple fractures of ribs, left side, initial encounter for closed fracture (3) Acute alcoholic pancreatitis Acute pancreatitis complication: no infection or necrosis Qualified Code(s): K85.20 - Alcohol induced acute pancreatitis without necrosis or infection
[2020-05-05] MEDS: THIAMINE HCL 100 MG TAB PO SCH ×2 (09:14→20:15)
[2020-05-05] MEDS: FOLIC ACID 1 MG TAB PO SCH (09:14)
[2020-05-05] MEDS: METOPROLOL TARTRATE 25 MG TAB PO SCH ×2 (09:15→20:14)
[2020-05-05] MEDS: ENOXAPARIN INJ 40 MG/0.4 ML SYR SQ SCH (09:15)
[2020-05-05] MEDS: PANTOprazole 40 MG TAB PO SCH (09:15)
--- NOTE | 2020-05-05 16:00 | Communication Note ---
Date of Service: May 05, 2020 As per foster care case manager Iris Palmer Plan is for patient to go to [facility] on Monday05/06/2020 for alcohol rehabilitation Senior Program Manager requests that [facility] hospitalist (will be Dr. Beltran) to try to discharge patient by 9 AM so that patient's father can transport patient there. Senior Program Manager will fax discharge instructions which is to include medications to [facility]. No new prescriptions need to be sent by discharging hospital doctor. Senior Program Manager reports that [facility] will like patient to arrive by noon time
[2020-05-05] MEDS: NAPROXEN 250 MG TAB PO PRN (23:10)
[2020-05-06] MEDS: THIAMINE HCL 100 MG TAB PO SCH (08:35)
[2020-05-06] MEDS: FOLIC ACID 1 MG TAB PO SCH (08:35)
[2020-05-06] MEDS: PANTOprazole 40 MG TAB PO SCH (08:35)
[2020-05-06] MEDS: ENOXAPARIN INJ 40 MG/0.4 ML SYR SQ SCH (08:36)
[2020-05-06] MEDS: METOPROLOL TARTRATE 25 MG TAB PO SCH (08:36)
--- NOTE | 2020-05-06 08:58 | Discharge Summary ---
Date of Service May 06, 2020 Admission HPI Per Admitting Provider Patient is a 34-year-old male with a history of alcoholism, hypertension, GERD, ankylosing spondylitis, degenerative disc disease Anxiety presenting with bilateral lower extremity tingling sensation abdominal pain which started this morning. Patient reports that he drinks 6 shots of vodka every day, last drink was last night. This morning patient started to have tingling sensation of bilateral lower extremities with some of tremors as well as epigastric abdominal pain. He also reports having an episode of fall yesterday and was feeling that his balance was off.. Patient was climbing up the steps when he lost his balance and landed on his chest. He has been having left-sided chest discomfort since that time. Denies shortness of breath, fevers or chills, cough, headache, dizziness. The ER, blood pressures 170/110, heart rate 111, saturating well on room air. Lipase found to be elevated at 1342. CT abdomen pelvis did not show any peripancreatic infiltration. Chest x-ray showing left inferior rib fractures of the fifth and sixth ribs. At the ER, patient was noted to be having tremors, shaking required doses of Ativan at 1 point, Valium 10 mg IV. Patient was seen and examined at room 241. Per RN, patient was having visual hallucinations earlier and was also being restless. On exam, the patient is awake, alert oriented x3, answers questions appropriately. The end of the exam, the patient was noted to be confused, trying to climb out of bed, and becoming combative with the staff. Shannan che was called. He was given 2 mg of IV Ativan, some improvement but again became combative and restless. Shannan che was again called, and he was given additional 2 mg of IV Ativan. I discussed the case with section hand helper on-call Dr. Canales for possible early delirium tremens, patient off Precedex drip. He was accepted to the ICU and was transferred promptly. Admission Exam Per Admitting Provider General- oriented x 3--> then became agitated, confused, combative; not in distress, speaks in sentences with no effort or accessory muscle use Head- atraumatic Eyes- PERRL, EOMI, anicteric ENT- oropharynx clear Neck- supple, no JVD, no adenopathy, no thyromegaly; carotids +2/2, no bruits appreciated Lungs- clear to auscultation bilaterally, no rales/wheezes Heart- normal rate, regular rhythm; no murmur, no gallop, no rub appreciated Abdomen- normal bowel sounds, nondistended, soft, nontender, no masses or hepatosplenomegaly Extremities- no pretibial edema, no calf tenderness; peripheral pulses intact Positive tremors Neuro- alert, oriented x 3--> then became agitated, confused, combative; CN 2-12 grossly intact; motor 5/5 bilaterally;sensation 100% on all extremities; no other gross focal neurologic deficits Skin- warm & dry Principal Diagnosis Alcohol withdrawal with delirium tremens Alcohol pancreatitis, transaminitis Prolonged QT interval Multiple rib fractures Aspiration pneumonia Macrocytic anemia Thrombocytosis Discharge Exam Constitutional WD/WN, vitals as above Eyes EOM intact bilaterally Respiratory normal respiratory effort, lungs clear to auscultation Cardiovascular Rate/Rhythm: regular rate and regular rhythm Vessels: normal peripheral pulses Extremities: no edema Gastrointestinal (Abdomen) normal bowel sounds, soft, nontender, no hepatosplenomegaly Neurologic Motor/Sensory: + tremor (fine, with extended hands) No gross focal deficit noted Psychiatric A+Ox3, euthymic affect Discharge Data Allergies Allergy/AdvReac Type Severity Reaction Status Date / Time ibuprofen Allergy Unknown . Unverified 04/12/20 11:25 Consultations Button Attaching Machine Operator team Dr. Carlos, GI Ordered Studies CT SPINE IMPRESSION: 1. No acute fractures within the cervical spine. 2. Postoperative changes within the upper cervical spine as described above. The hardware appears intact. HEAD CT Impression: No acute intracranial abnormality. CT/ABD PELVIS IMPRESSION: 1. No bowel wall thickening or obstruction. 2. Normal appendix. 3. Severe hepatic steatosis. 4. The bilateral sacroiliac joints are fused. 5. Please refer to the same day chest CT for further evaluation of the lung bases. CTA CHEST IMPRESSION: 1. No evidence for pulmonary embolus. 2. Acute to subacute left anterior fifth and sixth rib fractures. No pneumothorax. 3. Faint groundglass density seen within the base of the bilateral lower lobes. This suggests a low-grade pneumonitis and could be due to a viral process. 4. Please refer to the same day abdomen and pelvis CT for further evaluation of the abdominal structures. RUQ US IMPRESSION: 1. No gallstones identified. No evidence of ductal dilatation 2. Increased hepatic echogenicity consistent with the patient's known hepatic steatosis Hospital Course (1) Alcohol withdrawal: (2) Delirium tremens: (3) Multiple rib fractures: (4) Aspiration pneumonia: (5) Acute alcoholic pancreatitis: (6) Transaminitis: (7) Ankylosing spondylitis: 34-year-old male with PMH alcohol abuse who was admitted on 04/12 for management of severe alcohol withdrawal with delirium tremens. Patient required a significant stay in the ICU for 2 weeks. He required tube feeding as he was a high aspiration risk. He received Ativan, Precedex, phenobarbital, clonidine for management of alcohol withdrawal. Patient will be transferred to [facility] for inpatient alcohol rehab. Patient was noted to have left fifth and sixth rib fractures. He had no evidence of hemo/pneumothorax. Patient continues to saturate well on room air. Patient was given a course of Unasyn for aspiration pneumonia. In addition, patient had acute alcoholic pancreatitis with transaminitis. Pancreatitis resolved and transaminitis was felt to be secondary to alcohol use and fatty liver. Patient had no evidence of obstruction on imaging and LFTs trended down. Documented history of ankylosing spondylitis. Patient had reported using Enbrel in the past and being on narcotics at the time of admission. Narcotics are not preferred given the patient is a recovering addict. Patient received naproxen while admitted and this seems to be controlling his pain. Patient also carries a history of hypertension. Amlodipine was listed on patient's home medication list however this has not been filled since August. He received metoprolol 25 mg twice daily for management of BP and tachycardia and this will be continued at discharge. Patient will also be continued on thiamine and folic acid at the time of discharge given history of alcohol abuse. Total Time Total Time Spent Total Time Spent (In Minutes): 35 Discharge Plan Discharge Items Patient Disposition: Drug & Alcohol Rehab Reason For Visit: ACUTE PANCREATITIS Discharge Diagnosis: acute alcoholic pancreatitis Alcohol withdrawal/Alcohol abuse/delirium tremens Transaminitis, Elevated Lipase Level, Conjugated hyperbilirubinemia Fatty Liver Thrombocytopenia Macrocytic anemia Prolonged QTc interval Multiple rib fractures (Left anterior rib fractures, fifth and sixth ribs) Hypokalemia Hypophosphatemia Aspiration Pneumonia Activity: Per Instructions section Weightbearing: Full weightbearing Non-emergency contact: Primary Care Provider Call non-emergency contact if: you have any medication questions Follow-up/Referrals: Geoffrey Burton DO [Primary Care Provider] - Diet: Regular Addtl Attending Provider Instructions: As per case management manager Iris Palmer Plan is for patient to go to [facility] on Monday05/06/2020 for alcohol rehabilitation Yard Caller requests that [facility] hospitalist (will be Dr. Beltran) to try to discharge patient by 9 AM so that patient's father can transport patient there. Yard Caller will fax discharge instructions which is to include medications to [facility]. No new prescriptions need to be sent by discharging hospital doctor. Yard Caller reports that [facility] will like patient to arrive by noon time Pending Studies at Discharge: No Stand-Alone Forms: My [facility] Skilled Items Patient informed of condition?: Yes DNR: No Discharge Level of Care: Other Communicable Disease: No Discharge Prognosis: Stable Lines: None Urinary Catheter: No Medications and DC Order Prescriptions: New thiamine HCl (vitamin B1) [Vitamin B-1] 100 mg Tablet 200 mg PO BID 30 Days Qty: 120 RF: 0 folic acid 1 mg Tablet 1 mg PO QAM 30 Days Qty: 30 RF: 0 metoprolol tartrate 25 mg Tablet 25 mg PO BID 30 Days Qty: 60 RF: 0 Continued omeprazole 10 mg Capsule,Delayed Release(Dr/Ec) 10 mg PO QAM RF: 0 acetaminophen [Tylenol] 325 mg Capsule 325 mg PO Q6H PRN (Reason: Pain) RF: 0 cyclobenzaprine 10 mg tablet 10 mg PO TID PRN (Reason: muscle spasm) Qty: 15 RF: 0 naproxen 500 mg tablet 500 mg PO BID PRN (Reason: pain) Qty: 20 RF: 0 Discontinued Laxative 30-100 mg Capsule 1 cap PO DIRECTED PRN (Reason: Constipation) RF: 0 oxycodone-acetaminophen [Percocet] 5-325 mg Tablet 1 tab PO Q6H PRN (Reason: Pain) RF: 0 cyclobenzaprine 10 mg Tablet 10 mg PO HS RF: 0 Discharge Orders: Discharge Order (Routine); Ordered 05/06/20 Ordered By: Juliet Brenner Admission Data Admit Date/Time: 04/12/20 13:32 Attending Provider: Tao Beltran Admit Provider: Jordan Seals Primary Care Provider: Geoffrey Burton Other Providers: Yolanda Carlos ; Jordan Seals ; Leonard Garcia Other Interventions: Discharge Summary Assessment (RN) Last Done: 05/06/20 08:52
== END 2020-05-06 10:21 | disposition alcohol treatment (31) | DRG 896 ==
LOC: ED 10:26 → SUATTDRO 13:32 → 2S 13:32 → 1E 16:58 → 2E 04-26 16:05 → 3N 04-27 16:44